=== PATIENT | male | born 1940 | race Caucasian/White ===

== ENCOUNTER 2019-05-15 11:05 | Emergency (ER) | payer OTHER ==
[2019-05-15] MEDS ORDERED: PROMETHAZINE 25 MG/ML VIAL ONE (11:26)
[2019-05-15] MEDS ORDERED: KETOROLAC 30 MG/ML INJ ONE (11:26)
[2019-05-15] MEDS ORDERED: NA CHLORIDE 0.9% 500 ML ONE (11:27)
--- NOTE | 2019-05-15 12:42 | RAD REPORT ---
EXAM DESCRIPTION: RAD - Abdomen Acute Series - 05/15/2019 12:19 pm CLINICAL HISTORY: stone location;Abd pain COMPARISON: Chest Pa And Lat (2 Views) dated 09/26/2018; Abdomen 1 View (KUB) dated 04/03/2018; Chest P a And Lat (2 Views) dated 11/30/2016; Chest Pa And Lat (2 Views) dated 03/28/2016 FINDINGS: Linear subsegmental atelectasis is present in the right lung base. The lungs are clear acu te infiltrate. Cholecystectomy clips noted. No pneumoperitoneum. Nonobstructive bowel-gas pattern seen. Small oblong calculus is seen to the left of the L2 level which is suspicious for a calculus in the left renal pe lvis.
--- NOTE | 2019-05-15 13:19 | ER ---
Nurse's Notes [facility] Name: Lee Hernandez Age: 78 yrs Sex: Male : 1940 Arrival Date: 05/15/2019 Time: 11:06 Bed 19 Private MD: Diagnosis: Lower abdominal pain, unspecified;Kidney stone at L1 location Presentation: 05/15 11:10 Presenting complaint: Patient states: "I was just released from [facility] on aa5 Monday with kidney stones but today the pain is back". Pt c/o pain to left flank radiating to groin. Pt states "I was supposed to see Dr. Bates but the pain is too bad". 11:10 Transition of care: patient was not received from another setting of care. Onset of aa5 symptoms was May 15, 2019. Risk Assessment: Do you want to hurt yourself or someone else? Patient reports no desire to harm self or others. Care prior to arrival: None. 11:10 Acuity: CULLEN 3 aa5 11:10 Method Of Arrival: Ambulatory aa5 11:39 Initial Sepsis Screen: Does the patient meet any 2 criteria? No. Patient's initial rv sepsis screen is negative. Does the patient have a suspected source of infection? No. Patient's initial sepsis screen is negative. Historical: - Allergies: 11:20 No Known Allergies; aa5 - PMHx: 11:20 Kidney stones; Myocardial infarction; Hypertension; Diabetes - NIDDM; Polycythemia Vera;aa5 - Immunization history:: Adult Immunizations up to date. - Ebola Screening: : No symptoms or risks identified at this time. - Social history:: Smoking status: unknown. Screenin:38 Abuse screen: Denies threats or abuse. Denies injuries from another. Nutritional rv screening: No deficits noted. Tuberculosis screening: No symptoms or risk factors identified. Fall Risk None identified. Assessment: 11:38 General: Appears in no apparent distress. uncomfortable, Behavior is calm, cooperative. rv Pain: Complains of pain in back. Neuro: Level of Consciousness is awake, alert, obeys commands, Oriented to person, place, time, situation. Cardiovascular: Patient's skin is warm and dry. Respiratory: Airway is patent. GI: Bowel sounds present X 4 quads. Abd is soft and non tender X 4 quads. : No signs and/or symptoms were reported regarding the genitourinary system. EENT: No signs and/or symptoms were reported regarding the EENT system. Derm: Skin is intact. Musculoskeletal: No signs and/or symptoms reported regarding the musculoskeletal system. 12:40 Reassessment: Patient appears in no apparent distress at this time. Patient and/or hb family updated on plan of care and expected duration. Pain level reassessed. Patient is alert, oriented x 3, equal unlabored respirations, skin warm/dry/pink. Vital Signs: 11:12 BP 150 / 77; Pulse 85; Resp 18 S; Pulse Ox 96% on R/A; aa5 13:24 BP 136 / 89; Pulse 83; Resp 17; Temp 97.8; Pulse Ox 100% ; rv ED Course: 11:06 Patient arrived in ED. as 11:09 Rachel Logan FNP-C [facility]. snw 11:09 Danielito Branham MD is Attending Physician. snw 11:10 Arm band placed on Patient placed in an exam room, on a stretcher. aa5 11:12 Eyal Sky, BENIGNO is Primary Nurse. rv 11:19 Triage completed. aa5 11:37 Inserted saline lock: 22 gauge in right forearm, using aseptic technique. rv 11:38 No provider procedures requiring assistance completed. rv 11:39 Patient has correct armband on for positive identification. Bed in low position. Call rv light in reach. Side rails up X 1. Pulse ox on. NIBP on. 12:16 Abdomen Acute Series XRAY In Process Unspecified. EDMS 13:41 IV discontinued, intact, bleeding controlled, No redness/swelling at site. Pressure rv dressing applied. Administered Medications: 11:37 Drug: NS 0.9% 1000 ml Route: IV; Rate: 125 ml/hr; Site: right forearm; rv 13:25 Follow up: IV Status: Completed infusion; IV Intake: 250ml rv 11:37 Drug: TORadol - Ketorolac 15 mg Route: IVP; Site: right forearm; rv 13:25 Follow up: Response: No adverse reaction; Marked relief of symptoms; Pain is decreased rv 11:37 Drug: Phenergan 6.25 mg Route: IVP; Site: right forearm; rv 13:26 Follow up: Response: No adverse reaction; Marked relief of symptoms rv Intake: 13:25 IV: 250ml; Total: 250ml. rv Outcome: 13:16 Discharge ordered by . shavon 13:25 Discharged to home ambulatory, with family. rv 13:25 Condition: improved 13:25 Discharge instructions given to patient, Instructed on discharge instructions, follow up and referral plans. medication usage, Demonstrated understanding of instructions, follow-up care, medications. 13:41 Prescriptions given X 5 rv 13:41 Patient left the ED. rv Signatures: Dispatcher [employer] EDMS Rachel Logan, STATEMENT CLERK-C STATEMENT CLERK-Csnw Lynsey High Audri RN RN aa5 Kathi Mullins, RN RN Eyal Sky RN RN rv
--- NOTE | 2019-05-15 13:19 | EDPHYS ---
Physician Documentation [facility] Name: Lee Hernandez Age: 78 yrs Sex: Male : 1940 Arrival Date: 05/15/2019 Time: 11:06 Bed 19 Private MD: ED Physician Danielito Branham HPI: 05/15 11:40 This 78 yrs old Male presents to ER via Ambulatory with complaints of snw Possible Kidney Stone. 11:40 Onset: The symptoms/episode began/occurred acutely. Associated signs and symptoms: snw Pertinent positives: constipation, nausea, Pertinent negatives: fever, vomiting. Modifying factors: The patient symptoms are alleviated by nothing. passed kidney stone last week x 2mm, Pt was told there was another 6mm stone. Pt feels he may be passing that. He had an appt with Dr. Bates set for this week but pain was too bad to wait. 11:42 recent admission to [place] for previous kidney stone. snw Historical: - Allergies: 11:20 No Known Allergies; aa5 - PMHx: 11:20 Kidney stones; Myocardial infarction; Hypertension; Diabetes - NIDDM; Polycythemia Vera;aa5 - Immunization history:: Adult Immunizations up to date. - Ebola Screening: : No symptoms or risks identified at this time. - Social history:: Smoking status: unknown. ROS: 11:38 Constitutional: Negative for fever, chills, and weight loss, Eyes: Negative for injury, snw pain, redness, and discharge, ENT: Negative for injury, pain, and discharge, Neck: Negative for injury, pain, and swelling, Cardiovascular: Negative for chest pain, palpitations, and edema, Respiratory: Negative for shortness of breath, cough, wheezing, and pleuritic chest pain, : Negative for injury, bleeding, discharge, and swelling, MS/Extremity: Negative for injury and deformity, Skin: Negative for injury, rash, and discoloration, Neuro: Negative for headache, weakness, numbness, tingling, and seizure. 11:38 Abdomen/GI: Positive for abdominal pain, nausea, vomiting, constipation. 11:38 Back: Positive for flank pain, on the left, radiated pain. Exam: 11:26 Constitutional: This is a well developed, well nourished patient who is awake, alert, snw and in no acute distress. Head/Face: Normocephalic, atraumatic. Eyes: Pupils equal round and reactive to light, extra-ocular motions intact. Lids and lashes normal. Conjunctiva and sclera are non-icteric and not injected. Cornea within normal limits. Periorbital areas with no swelling, redness, or edema. ENT: Nares patent. No nasal discharge, no septal abnormalities noted. Tympanic membranes are normal and external auditory canals are clear. Oropharynx with no redness, swelling, or masses, exudates, or evidence of obstruction, uvula midline. Mucous membranes moist. Neck: Trachea midline, no thyromegaly or masses palpated, and no cervical lymphadenopathy. Supple, full range of motion without nuchal rigidity, or vertebral point tenderness. No Meningismus. Chest/axilla: Normal chest wall appearance and motion. Nontender with no deformity. No lesions are appreciated. Cardiovascular: Regular rate and rhythm with a normal S1 and S2. No gallops, murmurs, or rubs. Normal PMI, no JVD. No pulse deficits. Respiratory: Lungs have equal breath sounds bilaterally, wheezes/crackles to auscultation of bilateral bases. No rales noted. No increased work of breathing, no retractions or nasal flaring. Skin: Warm, dry with normal turgor. Normal color with no rashes, no lesions, and no evidence of cellulitis. MS/ Extremity: Pulses equal, no cyanosis. Neurovascular intact. Full, normal range of motion. Neuro: Awake and alert, GCS 15, oriented to person, place, time, and situation. Cranial nerves II-XII grossly intact. Motor strength 5/5 in all extremities. Sensory grossly intact. Cerebellar exam normal. Normal gait. Psych: Awake, alert, with orientation to person, place and time. Behavior, mood, and affect are within normal limits. 11:26 Abdomen/GI: Inspection: abdomen appears normal, Bowel sounds: normal, Palpation: moderate abdominal tenderness, in the posterior aspect of left lateral abdomen and left lower quadrant. 11:26 Back: pain, that is moderate, of the left low back. Vital Signs: 11:12 BP 150 / 77; Pulse 85; Resp 18 S; Pulse Ox 96% on R/A; aa5 13:24 BP 136 / 89; Pulse 83; Resp 17; Temp 97.8; Pulse Ox 100% ; rv MDM: 11:11 Patient medically screened. snw 12:02 Data interpreted: Pulse oximetry: on room air is 96 %. Interpretation: acceptable. snw Counseling: I had a detailed discussion with the patient and/or guardian regarding: the historical points, exam findings, and any diagnostic results supporting the discharge/admit diagnosis, the presence of at least one elevated blood pressure reading (>120/80) during this emergency department visit, lab results, radiology results. ED course: pt to x-ray per w/c in no distress. 13:31 Data reviewed: vital signs, nurses notes, lab test result(s), radiologic studies. snw Response to treatment: the patient's symptoms have markedly improved after treatment. Special discussion: Based on the patient's Hx, exam, and Dx evaluation, there is no indication for emergent surgery or inpatient Tx. It is understood by the patient/guardian that if the Sx's persist or worsen they need to return immediately for re-evaluation. I have referred the patient to see his PCP for further evaluation of high blood pressure. Based on the history and exam findings, there is no indication for further emergent testing or inpatient evaluation. I discussed with the patient/guardian the need to see the primary care provider for further evaluation of the symptoms. I discussed with the patient/guardian the need to see the urologist for further evaluation of the symptoms. 05/15 11:21 Order name: Abdomen Acute Series XRAY; Complete Time: 12:50 snw Administered Medications: 11:37 Drug: NS 0.9% 1000 ml Route: IV; Rate: 125 ml/hr; Site: right forearm; rv 13:25 Follow up: IV Status: Completed infusion; IV Intake: 250ml rv 11:37 Drug: TORadol - Ketorolac 15 mg Route: IVP; Site: right forearm; rv 13:25 Follow up: Response: No adverse reaction; Marked relief of symptoms; Pain is decreased rv 11:37 Drug: Phenergan 6.25 mg Route: IVP; Site: right forearm; rv 13:26 Follow up: Response: No adverse reaction; Marked relief of symptoms rv Disposition: 05/15/19 13:16 Discharged to Home. Impression: Lower abdominal pain, unspecified, Kidney stone at L1 location. - Condition is Stable. - Discharge Instructions: Abdominal Pain, Adult, Diverticulitis, Hypertension, Kidney Stones. - Prescriptions for Flagyl 500 mg Oral Tablet - take 1 tablet by ORAL route every 12 hours for 7 days; 14 tablet. Flomax 0.4 mg Oral Capsule, Sust. Release 24 hr - take 1 capsule by ORAL route once daily 1/2 hour following the same meal each day; 30 capsule. Cipro 500 mg Oral Tablet - take 1 tablet by ORAL route every 12 hours for 7 days; 14 tablet. Diclofenac Sodium 75 mg Oral Tablet Sustained Release - take 1 tablet by ORAL route 2 times per day; 30 tablet. promethazine 25 mg Oral Tablet - take 1 tablet by ORAL route every 6 hours As needed; 20 tablet. - Medication Reconciliation Form, Thank You Letter, Antibiotic Education, Prescription Opioid Use form. - Follow up: Emergency Department; When: As needed; Reason: Worsening of condition. Follow up: Private Physician; When: 2 - 3 days; Reason: Recheck today's complaints, Continuance of care, Re-evaluation by your physician. Signatures: Dispatcher [employer] EDMS Rachel Logan FNP-C FNP-Summer Montague RN RN aa5 Eyal Sky RN RN rv Corrections: (The following items were deleted from the chart) 11:39 11:26 Constitutional: This is a well developed, well nourished patient who is awake, snw alert, and in no acute distress. Head/Face: Normocephalic, atraumatic. Eyes: Pupils equal round and reactive to light, extra-ocular motions intact. Lids and lashes normal. Conjunctiva and sclera are non-icteric and not injected. Cornea within normal limits. Periorbital areas with no swelling, redness, or edema. ENT: Nares patent. No nasal discharge, no septal abnormalities noted. Tympanic membranes are normal and external auditory canals are clear. Oropharynx with no redness, swelling, or masses, exudates, or evidence of obstruction, uvula midline. Mucous membranes moist. Neck: Trachea midline, no thyromegaly or masses palpated, and no cervical lymphadenopathy. Supple, full range of motion without nuchal rigidity, or vertebral point tenderness. No Meningismus. Chest/axilla: Normal chest wall appearance and motion. Nontender with no deformity. No lesions are appreciated. Cardiovascular: Regular rate and rhythm with a normal S1 and S2. No gallops, murmurs, or rubs. Normal PMI, no JVD. No pulse deficits. Respiratory: Lungs have equal breath sounds bilaterally, clear to auscultation and percussion. No rales, rhonchi or wheezes noted. No increased work of breathing, no retractions or nasal flaring. Skin: Warm, dry with normal turgor. Normal color with no rashes, no lesions, and no evidence of cellulitis. MS/ Extremity: Pulses equal, no cyanosis. Neurovascular intact. Full, normal range of motion. Neuro: Awake and alert, GCS 15, oriented to person, place, time, and situation. Cranial nerves II-XII grossly intact. Motor strength 5/5 in all extremities. Sensory grossly intact. Cerebellar exam normal. Normal gait. Psych: Awake, alert, with orientation to person, place and time. Behavior, mood, and affect are within normal limits. snw 13:41 13:16 05/15/2019 13:16 Discharged to Home. Impression: Lower abdominal pain, rv unspecified; Kidney stone at L1 location. Condition is Stable. Forms are Medication Reconciliation Form, Thank You Letter, Antibiotic Education, Prescription Opioid Use. Follow up: Emergency Department; When: As needed; Reason: Worsening of condition. Follow up: Private Physician; When: 2 - 3 days; Reason: Recheck today's complaints, Continuance of care, Re-evaluation by your physician. snw
== END 2019-05-15 13:41 | disposition home or self-care (01) ==
LOC: ER 11:05
DX: N20.0 Calculus of kidney (principal); I10 Essential (primary) hypertension; Z87.442 Personal history of urinary calculi
CPT/HCPCS: 74022; J2550; 96361; 96374; 96375; 99284

== ENCOUNTER 2019-05-22 16:26 | Inpatient (IN) | payer OTHER ==
[2019-05-22] MEDS ORDERED: ACETAMINOPHEN 500 MG TAB PO PRN (17:15)
[2019-05-22] MEDS ORDERED: ONDANSETRON 4 MG/2 ML VIAL IV PRN (17:15)
[2019-05-22] MEDS ORDERED: MORPHINE 2 MG/ML SYR IV PRN (17:15)
[2019-05-22 17:19] VITALS: BMI 29.5
[2019-05-22 17:58] LABS: Absolute Lymphocytes (CBC) 0.7 K/uL (0.7-4.9); Basophils % 1.4 % (0-1.3); Hematocrit 38.5 % (39.6-49.0); Lymphocytes % 4.2 % (15.3-44.8); MPV 9.3 fL (7.6-11.3); RBC Red Blood Cell Count 4.29 M/uL (4.33-5.43)
[2019-05-22] MEDS ORDERED: CEFTRIAXONE/SWI 1gm 1 GM/10 ML SYR IVP ONE (18:00)
--- NOTE | 2019-05-22 18:03 | RAD REPORT ---
EXAM DESCRIPTION: RAD - Chest Single View - 05/22/2019 5:56 pm CLINICAL HISTORY: cough Chest pain. COMPARISON: Abdomen 1 View (KUB) dated 05/22/2019; Abdomen Acute Series dated 05/15/2019; Chest Pa And Lat (2 Views) dated 09/26/2018; Abdomen 1 View (KUB) dated 04/03/2018 FINDINGS: Portable technique limits examination quality. Mild linear atelectasis is present in the right lung base. The lungs are otherwise clear. The heart i s normal in size. No displaced fractures.
[2019-05-22 18:04] LABS: Protime INR 1.18
[2019-05-22 18:20] LABS: Urine White Blood Cell Casts OK
[2019-05-22 18:21] LABS: Blood Morphology Comment NOT SEEN (NOT SEEN); Platelet Estimate INCR
[2019-05-22 18:23] LABS: Albumin 3.5 g/dL (3.4-5.0); Bilirubin Total 0.5 mg/dL (0.2-1.0); Magnesium 2.2 mg/dL (1.8-2.4); Phosphorus 3.2 mg/dL (2.5-4.9); Potassium 4.2 mmol/L (3.5-5.1); Protein, Total 6.6 g/dL (6.4-8.2)
[2019-05-22] MEDS: NA CHLORIDE 0.9% 1,000 ML IV SCH (19:12)
[2019-05-22] MEDS ORDERED: NA CIT/CITRIC AC 30 ML ORAL UDC ONE (19:56)
[2019-05-22] MEDS ORDERED: SUCCINYLCHOLINE 20 MG/ML (10 ML) IV ONE (20:02)
[2019-05-22] MEDS ORDERED: Phenylephrine HCl 10 MG/ML 1 ML VIAL ONE (20:05)
[2019-05-22] MEDS ORDERED: PROPOFOL 200 MG/20 ML VIAL IV ONE (20:05)
[2019-05-22] MEDS ORDERED: LIDOCAINE 1% MPF 5 ML VIAL ONE (20:05)
[2019-05-22] MEDS ORDERED: FENTANYL CITR 100 MCG/2 ML ONE (20:19)
[2019-05-22] MEDS ORDERED: GLYCOPYRROLATE 0.2 MG/ML SYR ONE (20:24)
[2019-05-22] MEDS ORDERED: dexAMETHasone 10 MG/ML VIAL ONE (20:26)
[2019-05-22] MEDS ORDERED: TAMSULOSIN 0.4 MG SR CAP PO SCH (21:00)
[2019-05-22] MEDS ORDERED: NA CHLORIDE 0.9% 1,000 ML ONE (21:18)
[2019-05-22] MEDS ORDERED: ONDANSETRON 4 MG/2 ML VIAL ONE (21:35)
[2019-05-22] MEDS ORDERED: HYDRALAZINE HCL 20 MG/ML VIAL ONE (21:42)
[2019-05-22 22:45] LABS: Urine Appearance TURBID; Urine Bilirubin NEGATIVE (NEG); Urine Blood 3+ (NEG); Urine Color YELLOW; Urine Glucose 2+ (NEG); Urine Protein 1+ (NEG); Urine Specific Gravity 1.015 (1.005-1.030); Urine Urobilinogen 0.2 mg/dL (0.2-1.0)
[2019-05-22] MEDS: OXYBUTYNIN CHLORIDE 5 MG TAB PO SCH (22:54)
[2019-05-22] MEDS: INSULIN -REGULAR HUMAN 50 UNIT/0.5 ML ML SQ SCH (22:55)
[2019-05-22 23:19] LABS: Urine Bacteria <20 /HPF (NONE SEEN); Urine Culture Reflex Order NOT NEEDED; Urine RBC 20-50 /HPF (NONE SEEN)
--- NOTE | 2019-05-23 02:52 | HP ---
Date of Admission: 05/22/2019 Primary Care Physician: Nash Conde DO Consultants: Dr. Bates with Urology and Dr. Alejandre with Nephrology. Chief Complaint: Direct admit for nephrolithiasis, hydronephrosis, and acute kidney injury. History Of Present Illness: The patient is a 78-year-old male with past medical history of hypertension, hyperlipidemia, diabetes, coronary artery disease status post TN and stent, polycythemia vera on treatment, BPH, who was recently at [facility] approximately 1 week ago, was found to have kidney stone and passed a couple of smaller stones, was then released, came back again on the 28 to our facility's ER, was found to have diverticulitis, discharged with Cipro and Flagyl. The patient subsequently has seen his primary care physician, Dr. Conde. His lab showed worsening of his kidney function, therefore was sent over to urologist, Dr. Bates. The patient had a CT scan, which showed left hydronephrosis and 6 stones in the left ureter. Therefore, was referred for admission for further evaluation and management. The patient' s symptoms are constant, moderate, progressively worsening. Reports some pain on the left side. No nausea or vomiting. No fevers or chills. When seen on the floor, patient was awake, alert, oriented x3, not in any acute distress. Past Medical History: Hypertension; hyperlipidemia; diabetes mellitus type 2, noninsulin-requiring; BPH; coronary artery disease status post stent; polycythemia vera, on treatment, squamous cell carcinoma Past Surgical History: Cholecystectomy, TURP and radiation to the jaw for skin cancer. Allergies: NO KNOWN DRUG ALLERGIES. Medications: List reviewed. Social History: Patient smoked a long time ago, quit in the 60s. No alcohol use or illicit drug use. Patient is , has a daughter. Independent in his activities of daily living. Does not use any assistive ambulatory devices. Family History: Brother had heart disease. Parents also of heart disease. Two sisters of breast cancer. Review of Systems: Ten-point system reviewed, negative except as per HPI. Physical Examination: Vital Signs: Temperature 97.1, heart rate 83, blood pressure 168/74, respirations 16, O2 94% on room air. General: Awake, alert, oriented x3, not in any acute distress. Elderly male. HEENT: Normocephalic, atraumatic. PERRLA. EOMI. Moist mucous membranes. Oropharynx is clear. Normal dentition for age. Neck: Supple. No JVD. Trachea midline. CV: S1, S2. Regular rate and rhythm. Peripheral pulses present. Respiratory: Moving air well bilaterally. No wheezing or stridor. No use of accessory muscles. Gastrointestinal: Abdomen is soft, nontender, nondistended. Positive bowel sounds. The patient has minimal left flank tenderness. No right flank tenderness. Extremities: No clubbing, cyanosis, or edema. No calf tenderness. Neurologic: Cranial nerves 2-12 intact grossly. No focal neurological deficit. Speech is normal. Strength is symmetric in bilateral upper and lower extremities. Skin: No rashes, normal skin turgor. Psych: Mood is okay. Affect is full. Insight and judgment are good. Laboratory Data: Pending. Imaging Studies: KUB x-ray personally reviewed shows clustered calcifications in the distal left ureter seen in the CT study, radiographically occult calcification or calcification cluster at lower pole of left kidney, also radiographically occult calcification along the medial aspect of each renal hilum are showing to be vascular in origin on the CT study. CT scan of the abdomen, stone protocol, shows mild to moderate left-sided hydronephrosis secondary to cluster of 3-6 mm sized calcifications collecting along a 3 cm length of the distal left ureter, single 14 mm stone or clustered stones in the lower pole nargis of the left kidney. Both kidneys have medial hilar calcifications that are vascular in origin. A new 11 mm calcification is seen within the central aspect of the enlarged prostate gland, new from 2015. This is potentially calcification from the bladder collecting in a dilated prostatic urethra if the patient has had a TURP or similar procedure. Stable splenomegaly. Isodense masses and pyelonephritis not excluded on stone protocol technique. Assessment: A 78-year-old male with: 1. Acute kidney injury likely secondary to hydronephrosis and secondary to nephrolithiasis. We will continue with IV fluids, avoid NSAIDs. We will consult editor newspaper. The patient was scheduled to see Dr. Alejandre in a.m. The patient's baseline kidney function was normal in March 2019. 2. Ureterolithiasis. The patient has multiple stones on CT scan. We will start on IV antibiotics with Rocephin, obtain urinalysis and culture. Dr. Bates with Urology has been consulted. Plan is for cystoscopy today with stent placement. We will keep n.p.o., start on IV fluids. We will provide IV analgesia. Start on Ditropan for spasms and Flomax. 3. Essential hypertension, stable. He will resume home medications as appropriate. 4. Diabetes mellitus type 2, noninsulin-requiring with hyperglycemia. We will start on sliding scale insulin and monitor blood glucose levels. 5. Mixed hyperlipidemia. Continue statin. 6. Benign prostatic hypertrophy. Continue Flomax. 7. Coronary artery disease, alturas artery, alturas heart, status post stent. Patient has had recent stress test [id number] ago. Clear for surgery. 8. Polycythemia vera. The patient is on chemotherapy. Does have splenomegaly seen on CT scan. Follows with local demand planning analyst. 9. Deep venous prophylaxis with SCDs. No chemical anticoagulation due to procedure. Plan: Admit patient to Med-Surg, place as inpatient. Length of stay greater than 2 midnights. BRANDON Voice ID: [id number] MTDD
[2019-05-23] MEDS: NA CHLORIDE 0.9% 1,000 ML IV SCH ×2 (05:28→16:30)
[2019-05-23 05:33] LABS: Absolute Lymphocytes (CBC) 0.4 K/uL (0.7-4.9); Basophils % 1.3 % (0-1.3); Hematocrit 40.6 % (39.6-49.0); Lymphocytes % 2.1 % (15.3-44.8); RBC Red Blood Cell Count 4.48 M/uL (4.33-5.43)
[2019-05-23 05:50] LABS: Albumin 3.4 g/dL (3.4-5.0); Bilirubin Total 0.5 mg/dL (0.2-1.0); Potassium 5.5 mmol/L (3.5-5.1); Protein, Total 6.4 g/dL (6.4-8.2)
--- NOTE | 2019-05-23 08:08 | RAD REPORT ---
EXAM DESCRIPTION: RAD - Cystography - 05/22/2019 9:51 pm CLINICAL HISTORY: ICD N 20.0 FINDINGS: Fluoroscopy time 1 minutes 6 seconds. Six fluoroscopic spot images obtained Left ureter was cannulated and contrast administered. Subsequently a left ureteral stent was placed. Examination was performed by
[2019-05-23] MEDS: OXYBUTYNIN CHLORIDE 5 MG TAB PO SCH ×2 (08:09→20:59)
[2019-05-23] MEDS: INSULIN -REGULAR HUMAN 50 UNIT/0.5 ML ML SQ SCH ×4 (08:09→21:03)
[2019-05-23] MEDS ORDERED: DOCUSATE NA 100 MG CAP PO PRN (08:13)
[2019-05-23] MEDS ORDERED: CEFTRIAXONE/SWI 1gm 1 GM/10 ML SYR IVP SCH (09:00)
[2019-05-23] MEDS: HOME MED 1 EA UNK (Linagliptin [Tradjenta] 5 MG) PO SCH (09:00)
[2019-05-23] MEDS: RUXOLITINIB PHOSPHATE 5 MG PO SCH (09:00)
[2019-05-23] MEDS ORDERED: PHENOL 1.4% ORAL SPRAY 180ML MM PRN (09:43)
[2019-05-23 09:54] LABS: Blood Morphology Comment NOTED (NOT SEEN); Platelet Estimate INCR
[2019-05-23 09:55] LABS: Anisocytosis 1+; Poikilocytosis 1+
[2019-05-23] MEDS ORDERED: SOD POLYSTYREN SUL 15 GM/60 ML UCUP PO ONE (10:22)
[2019-05-23] MEDS: CARVEDILOL 12.5 MG TAB PO SCH ×2 (10:32→21:03)
[2019-05-23] MEDS: ASPIRIN EC 325 MG TABLET PO SCH (10:33)
[2019-05-23] MEDS ORDERED: CEFEPIME/SWI 2gm 2 GM/20 ML SYR IV ONE (10:45)
--- NOTE | 2019-05-23 11:40 | EKG ---
Test Date: 2019-05-22 Test Time: 17:41:21 Photo Mask Processor: CONI MEASUREMENT RESULTS: Intervals: Rate: 81 NE: 156 QRSD: 94 QT: 376 QTc: 436 [place]: P: 28 NE: 156 QRS: 14 T: 65 INTERPRETIVE STATEMENTS: Normal sinus rhythm Nonspecific T wave abnormality Abnormal ECG Compared to ECG 01/31/2017 14:32:47 T-wave abnormality now present Electronically Signed On 05-23-19 11:39:27 CDT by Jonathan Hernandez
--- NOTE | 2019-05-23 11:45 | RAD REPORT ---
EXAM DESCRIPTION: CT - Abdomen Pelvis Wo Contrast - 05/23/2019 10:09 am CLINICAL HISTORY: Abdominal pain. Check for kidney stones COMPARISON: Stone Protocol dated 05/22/2019 TECHNIQUE: CT imaging of the abdomen and pelvis was performed without contrast. Solid organ, bowel a nd vascular assessment is limited due to lack of IV and oral contrast. All CT scans are performed using dose optimization technique as appropriate and may include automated exposure control or mA/KV adjustment according to patient size. FINDINGS: The lower lung odonnell are clear. The liver contains a small low-density lesion in the dome measuring 13 mm. No aggressive liver lesion or biliary dilatation. The gallbladder surgically absent.Spleen is mildly enlarged. The pancreas and adrenal glands are normal. The right kidney shows no stone or hydronephrosis. The left kidney demonstrates a double-J stent is in place. Small collection of stones is seen in the inferior calyx left kidney in totality measuring approximately 10 mm and appearing fragmented. A ston e along the course of the stent is not noted. No bowel obstruction, free air, free fluid or abscess. Ohara catheter is present in the urinary bladd er. The appendix is normal. Moderate lumbar degenerative changes are present.Aortic atherosclerosis. IMPRESSION: Left double-J stent is in place in expected positioning. Small fragmented collection of calculi noted inferior calyx left kidney. A limited non-contrast examination was performed as detailed.
--- NOTE | 2019-05-23 12:17 | PN ---
Date of Progress Note: 05/23/2019 Patient was seen and examined. Chart reviewed and case discussed with RN and Dr. Bates. The patient tolerated procedure well yesterday, asking to have the Ohara catheter removed. The patient has not started using the incentive spirometer. Does report some cough. Family at the bedside. Treatment p rani explained. All questions answered. Medications: List reviewed. Physical Examination: Vital Signs: Temperature 98.1, heart rate 85, blood pressure 144/67, respirations 16, O2 at 93% on r oom air. General: Awake, alert, oriented x3. Elderly male, not in any acute distress. CV: S1, S2. Regular rate, and rhythm. Peripheral pulses present. Respiratory: Moving air well bilaterally. No wheezing or stridor. No use of accessory muscles. Gastrointestinal: Abdomen is soft, nontender, nondistended. Positive bowel sounds. No flank tender ness. Extremities: No clubbing, cyanosis, or edema. Neurologic: Nonfocal. Laboratory Data: Sodium 138, potassium 5.5, chloride 105, CO2 is 27, BUN 33, creatinine 2.21, glucos e 322, calcium 9.1. WBC 20.5, H and H 13.2 and 40.6, platelets 456, neutrophils 92%, 1% band. Urine culture pending. Repeat abdomen CT is pending. Assessment And Plan: A 78-year-old male with: 1.Acute kidney injury secondary to hydronephrosis and nephrolithiasis. Creatinine is improved. We will continue with IV fluids. Nephrology has been consulted. 2.Ureterolithiasis, status post stent and stone removal by Dr. Bates last night. Repeat CT scan is pending. We will continue with IV fluids. Patient's urine culture is pending. WBC count has jumped up to 20,000. We will adjust IV antibiotics. Continue with IV analgesia and Flomax. 3.Essential hypertension, stable. 4.Hyperkalemia. We will treat with Kayexalate and monitor likely secondary to acute kidney injury. 5.Diabetes mellitus type 2 vpc-rgqnelm-buwooabcx with hyperglycemia. Continue sliding scale insulin and monitor blood glucose levels. We will adjust sliding scale insulin, too aggressive. 6.Right lower lobe atelectasis. We will continue as per incentive spirometer. 7.Mixed hyperlipidemia. Continue statin. 8.Benign prostatic hypertrophy. Continue Flomax. The patient has had multiple procedures for his p rostate. 9.Coronary artery disease of [place] artery and [place] heart status post stent. We will resume aspir in. 10.Polycythemia vera. Continue chemotherapy. 11.Deep venous thrombosis prophylaxis. We will start on Lovenox 24 hours postprocedure. Plan: Follow up on cultures. Adjust IV antibiotics and sliding scale insulin. We will initiate PT consultation. /DARLYN Voice ID: [id number] Report ID: [id number]
--- NOTE | 2019-05-23 15:59 | P.CNS ---
Date of Consult: 05/23/19 Reason for Consult: TAYLOR Requesting Physician: Romero Reese Chief Complaint: Nephrolithiasis & hydronephrosis with TAYLOR History of Present Illness: The patient is a 78-year-old male with past medical history of hypertension, hyperlipidemia, diabetes, coronary artery disease status post [place] and stent, polycythemia vera on treatment, BPH, who was recently at [facility] approximately 1 week ago, was found to have kidney stone and passed a couple of smaller stones, was then released, came back again on the 28 to our facility's ER, was found to have diverticulitis, discharged with Cipro and Flagyl. The patient subsequently has seen his primary care physician, Dr. Conde. His lab showed worsening of his kidney function, therefore was sent over to urologist, Dr. Bates. The patient had a CT scan, which showed left hydronephrosis and 6 stones in the left ureter. Therefore, was referred for admission for further evaluation and management. The patient's symptoms are constant, moderate, progressively worsening. Reports some pain on the left side. No nausea or vomiting. No fevers or chills. Allergies No Known Allergies Allergy (Verified 01/31/17 14:20) Home medications list reviewed: Yes Home Medications: Lansoprazole 15 mg PO DAILY 01/31/17 Metformin HCl [Glucophage] 500 mg PO DAILY 01/31/17 Aspirin Enteric Coated [Ecotrin] 325 mg PO DAILY 05/22/19 Atorvastatin Calcium [Lipitor] 40 mg PO BEDTIME 05/22/19 Carvedilol [Coreg] 12.5 mg PO BID 05/22/19 Ciprofloxacin HCl [Cipro 500 MG Tablet] 500 mg PO DAILY 05/22/19 Diclofenac Na [Voltaren D.R] 75 mg PO BID 05/22/19 Docusate [Colace Cap] 100 mg PO BID PRN 05/22/19 Linagliptin [Tradjenta] 5 mg PO DAILY 05/22/19 Potassium Citrate [Urocit-K] 15 meq PO DAILY 05/22/19 Promethazine HCl 25 mg PO DAILY PRN 05/22/19 Ruxolitinib Phosphate [Jakafi] 5 mg PO DAILY 05/22/19 Tamsulosin [Flomax] 0.4 mg PO BEDTIME 05/22/19 metroNIDAZOLE [Flagyl] 500 mg PO DAILY 05/22/19 - Past Medical/Surgical History Diabetic: Yes -: diabetes -: htn -: hyperlipidemi -: stents -: polycythemi vera -: kidney stones -: stents - Social History Smoking Status: Unknown if ever smoked Place of Residence: Home Review of Systems 10-point ROS is otherwise unremarkable General: Weakness, Malaise Gastrointestinal: Constipation Neurological: Weakness Physical Examination Temp Pulse Resp BP Pulse Ox 97.3 F 73 16 111/55 L 99 05/23/19 12:00 05/23/19 12:00 05/23/19 12:00 05/23/19 12:00 05/23/19 12:00 General: In no apparent distress, Oriented x3, Cooperative HEENT: Atraumatic Neck: Supple Respiratory: Clear to auscultation bilaterally Cardiovascular: No edema, Regular rate/rhythm Gastrointestinal: Soft and benign, Non-distended Musculoskeletal: No clubbing, No contractures Integumentary: No rashes, No cyanosis Neurological: Normal speech Laboratory Data (last 24 hrs) 05/23/19 05:16: Sodium 138, Potassium 5.5 H, BUN 33 H, Creatinine 2.21 H, Glucose 322 H, Total Bilirubin 0.5, AST 7 L, ALT 14, Alkaline Phosphatase 83 05/23/19 05:16: WBC 20.5 H* D, Hgb 13.2 L, Hct 40.6, Plt Count 456 H 05/22/19 17:30: Uric Acid 8.3 H 05/22/19 17:30: Sodium 140, Potassium 4.2, BUN 38 H, Creatinine 2.87 H, Glucose 329 H, Phosphorus 3.2, Magnesium 2.2, Total Bilirubin 0.5, AST 8 L, ALT 15, Alkaline Phosphatase 82 05/22/19 17:30: PT 13.8 H, INR 1.18 05/22/19 17:30: WBC 16.4 H, Hgb 13.1 L, Hct 38.5 L, Plt Count 530 H Imagings Data: EXAM DESCRIPTION: RAD - Chest Single View - 05/22/2019 5:56 pm CLINICAL HISTORY: cough Chest pain COMPARISON: Abdomen 1 View (KUB) dated 05/22/2019; Abdomen Acute Series dated ; Chest Pa And Lat (2 Views) dated 09/26/2018; Abdomen 1 View (KUB) dated FINDINGS: Portable technique limits examination quality. Mild linear atelectasis is present in the right lung base. The lungs are otherwise clear. The heart is normal in size. No displaced fractures. EXAM DESCRIPTION: CT - Abdomen Pelvis Wo Contrast - 05/23/2019 10:09 am CLINICAL HISTORY: Abdominal pain. Check for kidney stones COMPARISON: Stone Protocol dated 05/22/2019 TECHNIQUE: CT imaging of the abdomen and pelvis was performed without contrast. Solid organ, bowel and vascular assessment is limited due to lack of IV and oral contrast. All CT scans are performed using dose optimization technique as appropriate and may include automated exposure control or mA/KV adjustment according to patient size. FINDINGS: The lower lung odonnell are clear. The liver contains a small low-density lesion in the dome measuring 13 mm. No aggressive liver lesion or biliary dilatation. The gallbladder surgically absent.Spleen is mildly enlarged. The pancreas and adrenal glands are normal. The right kidney shows no stone or hydronephrosis. The left kidney demonstrates a double-J stent is in place. Small collection of stones is seen in the inferior calyx left kidney in totality measuring approximately 10 mm and appearing fragmented. A stone along the course of the stent is not noted. No bowel obstruction, free air, free fluid or abscess. Ohara catheter is present in the urinary bladder. The appendix is normal. Moderate lumbar degenerative changes are present.Aortic atherosclerosis. IMPRESSION: Left double-J stent is in place in expected positioning. Small fragmented collection of calculi noted inferior calyx left kidney. A limited non-contrast examination was performed as detailed. Conclusions/Impression: A/ TAYLOR in the setting of obstructive uropathy. Nephrolithiasis (Uric Acid). Hyperuricemia. Proteinuria. Hyperkalemia. HTN. DM II. Polycythemia vera. Leukocytosis. P/ Continue current POC and Medications. Continue IVF. Start Allopurinol 100mg daily and titrate as tolerated. Kayexalate as ordered. Lactulose X1 for constipation. Hold metformin. Consider restarting Jakafi. Titrate insulin as needed. No NSAIDs. AM labs. Daily weight. Thank you kindly for the consultation.
[2019-05-23] MEDS ORDERED: LACTULOSE 20 GM/30 ML UCUP PO ONE (19:22)
[2019-05-23] MEDS: ALLOPURINOL 100 MG TAB PO SCH (20:58)
[2019-05-23] MEDS: TAMSULOSIN 0.4 MG SR CAP PO SCH (20:59)
[2019-05-23] MEDS ORDERED: ATORVASTATIN 40 MG TAB PO SCH (21:00)
--- NOTE | 2019-05-23 21:08 | PN ---
Subjective: Patient is feeling well. His Ohara catheter is out. CT scan showed no more stone passe d in the ureter. There is some fragmented stone in the left lower pole. Stent is in good position. His white count was elevated at 20,500 up from 16,000 yesterday. He says he normally has polycythem ia vera and also it has been high, but I saw a low of 9.3 back in February 04, 2019. The renal function i s about the same. GFR is 29. Creatinine is 2.2. It is down from 2.9 approximately when GFR still l ow. Plan: My plan is to leave the stent in for a month and then remove that in the office. Patient may be discharged tomorrow if stable. JIAN/DARLYN Voice ID: [id number] Report ID: [id number]
[2019-05-23 21:46] VITALS: O2SAT 96
[2019-05-23 23:04] LABS: Urine Appearance CLOUDY; Urine Bilirubin NEGATIVE (NEG); Urine Blood 3+ (NEG); Urine Color YELLOW; Urine Glucose 3+ (NEG); Urine Protein 2+ (NEG); Urine Urobilinogen 0.2 mg/dL (0.2-1.0); Urine pH 5.5 (5.0-7.0)
[2019-05-23 23:30] LABS: Urine Bacteria <20 /HPF (NONE SEEN); Urine Culture Reflex Order NOT NEEDED; Urine RBC >50 /HPF (NONE SEEN)
[2019-05-24 00:12] LABS: UR MICROALBUMIN 64.4 mg/dL (< 1.9)
[2019-05-24] MEDS: NA CHLORIDE 0.9% 1,000 ML IV SCH ×2 (00:15→08:41)
[2019-05-24 05:44] LABS: Absolute Lymphocytes (CBC) 0.6 K/uL (0.7-4.9); Basophils % 1.5 % (0-1.3); Hematocrit 39.1 % (39.6-49.0); Lymphocytes % 4.7 % (15.3-44.8); MPV 9.3 fL (7.6-11.3); RBC Red Blood Cell Count 4.33 M/uL (4.33-5.43)
[2019-05-24 05:58] LABS: Albumin 3.6 g/dL (3.4-5.0); Bilirubin Total 0.5 mg/dL (0.2-1.0); Potassium 4.6 mmol/L (3.5-5.1); Protein, Total 6.6 g/dL (6.4-8.2); Uric Acid 6.6 mg/dL (3.5-7.2)
[2019-05-24] MEDS ORDERED: PANTOPRAZOLE 40MG TABLET PO SCH (06:30)
[2019-05-24] MEDS: HOME MED 1 EA UNK (Linagliptin [Tradjenta] 5 MG) PO SCH (07:28)
[2019-05-24] MEDS: INSULIN -REGULAR HUMAN 50 UNIT/0.5 ML ML SQ SCH (08:46)
[2019-05-24] MEDS: CARVEDILOL 12.5 MG TAB PO SCH (08:46)
[2019-05-24] MEDS: RUXOLITINIB PHOSPHATE 5 MG PO SCH (08:47)
[2019-05-24] MEDS: TAMSULOSIN 0.4 MG SR CAP PO SCH (08:47)
[2019-05-24] MEDS: ASPIRIN EC 325 MG TABLET PO SCH (08:48)
[2019-05-24] MEDS: ALLOPURINOL 100 MG TAB PO SCH (08:49)
[2019-05-24] MEDS: OXYBUTYNIN CHLORIDE 5 MG TAB PO SCH (08:49)
[2019-05-24 11:22] VITALS: BP 179/74; TEMP 98.3
--- NOTE | 2019-05-25 06:33 | DS ---
Date of Discharge: 05/24/2019 Consultants: 1.Dr. Bates with Urology. 2.Dr. Alejandre with Nephrology. Procedures: On 05/23/2019, cystoscopy; retrograde ureteroscopy; left ureter dilatation; electrohydra ulic lithotripsy; stone basket stent insertion, left ureter; removal of bladder stone and left ureter stone. Admitting Diagnoses: 1.Acute kidney injury. 2.Ureterolithiasis on the left. 3.Hydronephrosis, left kidney. 4.Essential hypertension. 5.Diabetes mellitus type 2, aym-bkzhijy-fddutwnmg with hyperglycemia. 6.Mixed hyperlipidemia. 7.Benign prostatic hypertrophy. 8.Coronary artery disease, [place] artery and [place] heart, status post stent. 9.Polycythemia vera. 10.History of squamous cell carcinoma of the face, undergoing radiation treatment. Discharge Diagnoses: 1.Acute kidney injury secondary to hydronephrosis and nephrolithiasis, improving. 2.Ureterolithiasis, status post stent placement and stone removal. 3.Hydronephrosis of the left kidney, improving. 4.Essential hypertension, stable. 5.Hyperkalemia, corrected. 6.Diabetes mellitus type 2, trx-romeibz-ftjvrpgct with hyperglycemia. 7.Right lower lobe atelectasis. 8.Mixed hyperlipidemia, on statin. 9.Benign prostatic hypertrophy, on Flomax. 10.Coronary artery disease, [place] artery and [place] heart, status post stent, stable. 11.Polycythemia vera, stable. Follows with cattle broker. 12.Squamous cell carcinoma of the face, undergoing radiation treatment. Hospital Course: Patient is a 78-year-old male with past medical history of coronary artery disease, status post stent, diabetes, hypertension, hyperlipidemia, polycythemia vera, on Jakafi chemotherapy oral treatment and radiation treatment for his squamous cell carcinoma on the face, who was brought in to the hospital directly by Dr. Bates for kidney stone. Patient had suffered hydronephrosis and a cute kidney injury. Patient's creatinine was elevated at 2.87. Baseline was normal. Patient was se en by Dr. Bates with Urology, who performed the procedure as mentioned above and stones were removed. Stent was placed as well. Patient will have the stent in for approximately 1 month and will be on daily Keflex. He is to follow up with Dr. Bates in 1 month for stent removal. Patient does have stephanie ign prostatic hypertrophy and is on Flomax and will be given Ditropan for muscle spasms. Patient did have some electrolyte abnormalities including hyperkalemia. Dr. Alejandre, patient's assembler faucets was consulted. Patient did well, responded well to IV fluids and repeat CT scan showed left double-J st ent in place, small fragment collection of calculi near the inferior calyx of the left kidney. Liver has a low-density lesion in the dome measuring 13 mm. No aggressive liver lesion or biliary tree di latation was seen. Patient did well. It should be noted that on the day of discharge, the patient l eft to go for his Dermatology appointment without informing any of the staff. However, patient did r eturn his kidney stone analysis from [place], where he has previously passed the stone showed uric a miriam stone. Currently, his levels were elevated. He was started on allopurinol. Patient was then cl eared for discharge and was sent home in a stable condition. Activity: As tolerated. Medications: As per medication reconciliation list. He is to discontinue the antibiotics. He was g rosendo previously. Do not take any further potassium supplementation. The patient is to start on Kefl ex daily prophylaxis for a month until stent is removed. He will be on allopurinol for his uric acid elevation and stone. He is counseled to decrease red meat and red wine consumption. Followup: Follow up with primary care physician in 2 to 3 days. Follow up with urologist, Dr. Bates , in 1 month. Follow up with assembler faucets, Dr. Alejandre, in 2 weeks. Repeat BMP in 1 week. Diet: Diabetic. Activity: As tolerated. Physical Examination: General: Awake, alert, oriented x3. Elderly male. CV: S1, S2. No murmurs. Respiratory: Moving air well bilaterally. Abdomen: Soft, nontender, nondistended. No flank pain. Extremities: No clubbing, cyanosis, edema. Neurologic: Nonfocal. Time Spent: Total time spent discharging the patient was 36 minutes. BRANDON Voice ID: [id number] Report ID: [id number]
== END 2019-05-24 11:21 | disposition home or self-care (01) | DRG 660 ==
LOC: 2ND 16:58
PROVIDERS: ADMIT Family Medicine; ATTEND Family Medicine
PROC: 0T778DZ Dilation of Left Ureter with Intraluminal Device, Via Natural or Artificial Opening Endoscopic (ICD-10-PCS; 2019-05-22)
PROC: 0TC78ZZ Extirpation of Matter from Left Ureter, Via Natural or Artificial Opening Endoscopic (ICD-10-PCS; principal; 2019-05-22 20:00)
DX: N13.2 Hydronephrosis with renal and ureteral calculous obstruction (principal); J98.11 Atelectasis; N17.9 Acute kidney failure, unspecified; I10 Essential (primary) hypertension; E11.65 Type 2 diabetes mellitus with hyperglycemia; E78.2 Mixed hyperlipidemia; N40.0 Benign prostatic hyperplasia without lower urinary tract symptoms; I25.10 Atherosclerotic heart disease of native coronary artery without angina pectoris; Z95.5 Presence of coronary angioplasty implant and graft; D45 Polycythemia vera; E87.5 Hyperkalemia; C44.320 Squamous cell carcinoma of skin of unspecified parts of face
CPT/HCPCS: 36415; 51600; 71045; 74018; 74176; 74430; 76377; 80053; 80061; 81001; 82043; 82360; 82570; 82962; 83615; 83735; 84100; 84132; 84550; 85025; 85610; 87086; 87088; 88300; 93005; 94760; J0330; J0360; J0692; J0696; J1100; J2370; J2405; J2704; J3010; J7030

== ENCOUNTER 2020-08-17 12:32 | Inpatient (IN) | payer OTHER ==
[2020-08-17] MEDS ORDERED: GLUCAGON 1 MG/VIAL IM PRN (13:06)
[2020-08-17] MEDS ORDERED: D50W 25 GM/50 ML SYRINGE IV PRN (13:06)
[2020-08-17 13:21] VITALS: BMI 28.4
[2020-08-17 13:53] LABS: Absolute Lymphocytes (CBC) 0.6 K/uL (0.7-4.9); Basophils % 0.7 % (0-1.3); Hematocrit 35.7 % (39.6-49.0); Lymphocytes % 3.9 % (15.3-44.8); MPV 9.6 fL (7.6-11.3); RBC Red Blood Cell Count 4.04 M/uL (4.33-5.43)
[2020-08-17 14:13] LABS: Albumin 3.9 g/dL (3.4-5.0); Bilirubin Total 0.6 mg/dL (0.2-1.0); Magnesium 2.3 mg/dL (1.8-2.4); Potassium 3.8 mmol/L (3.5-5.1); Protein, Total 6.7 g/dL (6.4-8.2); Thyroid Stimulating Hormone 1.66 uIU/mL (0.360-3.740)
--- NOTE | 2020-08-17 14:32 | RAD REPORT ---
EXAM DESCRIPTION: RAD - Barium Swallow Modified - 08/17/2020 2:25 pm CLINICAL HISTORY: CVA FINDINGS: Oropharyngeal phase of swallowing appears normal No supraglottic penetration/aspiration No pooling of contrast in the valleculae/piriform sinus. Nine fluoroscopic spot series obtained Fluoroscopy time 1.4 minutes
--- NOTE | 2020-08-17 14:41 | RAD REPORT ---
EXAM DESCRIPTION: Martha Garza (2 Views)08/17/2020 2:25 pm CLINICAL HISTORY: CVA COMPARISON: 2019 FINDINGS: The lungs appear clear of acute infiltrate. The heart is normal size IMPRESSION: No acute abnormalities displayed
--- NOTE | 2020-08-17 14:48 | RAD REPORT ---
EXAM DESCRIPTION: CT - Head Brain Wo Cont - 08/17/2020 1:53 pm CLINICAL HISTORY: stroke, slurred speech COMPARISON: Head Brain Wo Cont dated 07/01/2019 TECHNIQUE: Axial 5 mm thick images of the head were obtained without IV contrast. All CT scans are performed using dose optimization technique as appropriate and may include automated exposure control or mA/KV adjustment according to patient size. FINDINGS: No intracranial hemorrhage, mass, edema or shift of mid-line structures. No acute cortical based infarction seen. No cortical edema or sulcal effacement. Moderate severity underlying atrophy is present with ventricles in proportion. Patient has chronic ischemic change scattered throughout th e cerebral white matter. At the left posterior limb internal capsule and lateral margin of the thalamus there is a 14 x 7 mm a milagros of diminished attenuation. This was not present on the June 2019 study. This is relatively low in attenuation but could still be an acute/subacute CVA if the patient has right extremity motor sen stephanie symptoms. No abnormal extra-axial fluid collections. Arterial calcifications are present. Mastoid air cells and visualized portions of the paranasal sinuses are clear. No acute bony findings. IMPRESSION: No intracranial hemorrhage. No mass lesions seen. Patient has moderate severity atrophy and chronic ischemic change as a baseline. Focal diminished attenuation in the posterior limb internal capsule on the left that is new from 2018. This could be an acute/subacute nonhemorrhagic CVA if the patient has right extremity motor sensory symptoms. No specific CT finding that would explain slurred speech.
--- NOTE | 2020-08-17 16:28 | RAD REPORT ---
EXAM DESCRIPTION: USCarotid Artery Fhrvgvjzv80/30/2020 2:38 pm CLINICAL HISTORY: cva FINDINGS: The velocity of the right internal carotid artery equals 145 cm/sec. The right ICA/CCA rat io 2.1 The velocity of the left internal carotid artery equals 135 cm/sec. The left ICA/CCA ratio 1. 3 Moderate plaque is present within right internal carotid artery. Mild to moderate plaque within the l eft internal carotid artery The vertebral arteries demonstrate antegrade flow IMPRESSION: Moderate plaque right internal carotid artery NASCET criteria used. Mild 0-49% stenosis Moderate 50-69% stenosis Severe 70-99% stenosis
[2020-08-17] MEDS: INSULIN -REGULAR HUMAN 50 UNIT/0.5 ML ML SQ SCH ×2 (16:30→20:36)
[2020-08-17 17:12] LABS: Anisocytosis 1+; Blood Morphology Comment NOTED (NOT SEEN); Platelet Estimate ADEQ; Poikilocytosis 1+; White Blood Cell Scan OK (OK)
[2020-08-17] MEDS ORDERED: ASPIRIN EC 81 MG TAB PO ONE (19:41)
[2020-08-17] MEDS: ATORVASTATIN 80 MG TAB PO SCH (20:36)
[2020-08-17] MEDS ORDERED: allopurinoL 100 MG TAB PO PRN (21:53)
[2020-08-17] MEDS: AMLODIPINE 5 MG TAB PO SCH (22:14)
[2020-08-17] MEDS: LOSARTAN POTASSIUM 50 MG TABLET PO SCH (22:14)
[2020-08-18] MEDS: INSULIN -REGULAR HUMAN 50 UNIT/0.5 ML ML SQ SCH ×4 (07:30→21:00)
[2020-08-18] MEDS ORDERED: JAKAFI 5 MG PO SCH ×2 (08:00→21:00)
--- NOTE | 2020-08-18 08:14 | HP ---
Date of Admission: 08/17/2020 Chief Complaint: Slurred speech. History Of Present Illness: This is a 80-year-old pleasant male patient, who was doing fine in his usual state of health until on 08/14/2020, he was found to have some slurred speech. Patient's had her appointment at my office for today, but instead of seeing me, decided to ask to see me with this complaint and after I evaluated him, he was admitted to the hospital with my concerns about stroke. Patient has reported some trouble swallowing at times in the last few days. No cough. No visual complaints. No headache. No shortness of breath. Denies any tingling, numbness, or any focal weakness of his arms or legs. No incontinence. Allergies: NO KNOWN ALLERGIES. Medications: List reviewed. Review of Systems: CLAIM INSPECTOR: As mentioned above. All other systems reviewed and negative except musculoskeletal system has pain in his knee due to arthritis. Past Medical History: Significant for polycythemia vera for which he is under the care of Dr. Fitzgerald. Past Medical History: Also significant for hypertension, type 2 diabetes mellitus. Also significant for hyperlipidemia, coronary artery disease, diabetic neuropathy, kidney stones, leg edema. Past Surgical History: Surgery for kidney stone, tonsillectomy, coronary artery stent placement, cholecystectomy, hemorrhoid surgery, TURP, cervical spine surgery, removal of squamous cell carcinoma and incision and drainage for abscess. Family History: Father and mother both had NM and of NM and heart disease. He has a history of heart disease and congestive heart failure and NM. Sister has asthma and breast cancer. Social History: Prior history of smoking not at present time. Use of alcohol negative. Physical Examination: Vital Signs: When I saw him at office, his blood pressure was 150/67, pulse 88, respiratory rate 16, temperature 97.9, weight 189.4 pounds, height 68 inches. General: Awake, alert, oriented, not in distress. HEENT: Head atraumatic, normocephalic. Conjunctivae nonerythematous. Sclerae white. Mouth, no thrush or edema noted. Ears/Nose, no mass, lesion, discharge noted. Neck: Supple. No JVD, lymph nodes, bruit, thyromegaly noted. Lungs: Bilateral good equal air entry. Clear to auscultation. No rhonchi. No rales. Heart: Normal heart sounds, no murmur or gallop. Abdomen: Soft, bowel sounds normal. No guarding, rigidity, tenderness, mass, hepatosplenomegaly, distention, or bruit noted. Extremities: No leg edema. No calf tenderness. Skin: No rash, ulcer, cellulitis. Lymphatics: No lymph node enlargement in neck, supraclavicular, infraclavicular region. Chest: Unremarkable. External Genitalia: Deferred. Rectal: Deferred. CLAIM INSPECTOR: Patient's speech was slurred. Gait was unremarkable except some difficulty walking, because of arthritis in the knee. No focal neurological deficit in terms of sensation. Strength was noted to be normal except very questionable weakness in his left upper extremity compared to right upper extremity. Laboratory Data: His white count 15.1, hemoglobin 12.1, platelets 315. Sodium 142, potassium 3.8, chloride 107, bicarb 28, BUN 19, creatinine 1.14, glucose 117. Liver function tests unremarkable. TSH 1.6. His chest x-ray, no acute cardiopulmonary changes. Modified barium swallow with help of Physical Therapy was done, did not show any evidence of any aspiration. CAT scan of the head was unremarkable except questionable decreased attenuation in the left internal capsule posterior limb. Carotid Doppler showed a moderate plaquing of the right internal carotid artery. Impression: 1. Stroke. 2. Hypertension. 3. Hyperlipidemia. 4. Coronary artery disease. 5. Type 2 diabetes mellitus. 6. Diabetic neuropathy. 7. Polycythemia vera. Plan: We will go ahead and admit the patient to hospital for further evaluation and management of this problem. Patient is appropriate for inpatient and is expected to spend 2 midnights in hospital. We will continue home medications per order. Fingerstick blood sugar with mild sliding scale will be ordered for diabetes management. Tomorrow, we will get hemoglobin A1c and fasting lipid profile and we will also get MRI of the brain per stroke protocol tomorrow. Consult Physical Therapy. Speech Therapy was also consulted. We will consult neurologist as well. Details and plan of treatment discussed with the patient's and patient at the time of admission and subsequently, I did call the patient's son after obtaining permission from patient to provide test result details. Echocardiogram will be done as well. CHARAN/MODL Voice ID: [id number] [facility]
[2020-08-18] MEDS: LOSARTAN POTASSIUM 50 MG TABLET PO SCH ×2 (08:54→20:54)
[2020-08-18] MEDS: AMLODIPINE 5 MG TAB PO SCH ×2 (08:55→20:54)
[2020-08-18] MEDS: METFORMIN HCL 500 MG TAB PO SCH ×2 (08:55→16:41)
[2020-08-18] MEDS ORDERED: ASPIRIN EC 81 MG TAB PO SCH (09:00)
[2020-08-18] MEDS ORDERED: POTASSIUM CL SA 10 MEQ TAB PO ONE (09:00)
--- NOTE | 2020-08-18 10:49 | ECHO ---
HEIGHT: 5 ft 8 in WEIGHT: 186 lb 14.4 oz DATE OF STUDY: 08/18/[address]: Savage Hayes MD 2-DIMENSIONAL: YES M.MODE: YES DOPPLER: YES COLOR FLOW: YES TDS: NO PORTABLE: NO DEFINITY: NO BUBBLE STUDY: NO DIAGNOSIS: CONGESTIVE HEART FAILURE CARDIAC HISTORY: CATHERIZATION: NO SURGERY: NO PROSTHETIC VALVE: NO PACEMAKER: NO MEASUREMENTS (cm) DIASTOLIC (NORMALS) SYSTOLIC (NORMALS) IVSd 1.2 (0.6-1.2) LA Diam 2.8 (1.9-4.0) LVEF 63% LVIDd 3.4 (3.5-5.7) LVIDs 2.3 (2.0-3.5) %FS 34% LVPWd 1.2 (0.6-1.2) Ao Diam 3.3 (2.0-3.7) 2 DIMENSIONAL ASSESSMENT: RIGHT ATRIUM: NORMAL LEFT ATRIUM: NORMAL RIGHT VENTRICLE: NORMAL LEFT VENTRICLE: NORMAL TRICUSPID VALVE: NORMAL MITRAL VALVE: MITRAL ANNULAR CALCIFICATION PULMONIC VALVE: NORMAL AORTIC VALVE: SCLEROSIS PERICARDIAL EFFUSION: NONE AORTIC ROOT: NORMAL LEFT VENTRICULAR WALL MOTION: NORMAL DOPPLER/COLOR FLOW: NORMAL COMMENTS: NORMAL LEFT VENTRICULAR SIZE AND FUNCTION. NO MITRAL VALVE PROLAPSE. NO WALL MOTION ABNORMALITY. MITRAL ANNULAR CALCIFICATION. AORTIC SCLEROSIS WITH NO STENOSIS. TECHNOLOGIST: Herbert JEFFERS
--- NOTE | 2020-08-18 20:09 | RAD REPORT ---
EXAM DESCRIPTION: MRI - Brain W/Wo Cont - 08/18/2020 7:20 pm CLINICAL HISTORY: stroke COMPARISON: MRA Head Wo Cont dated 08/18/2020; Head Brain Wo Cont dated 08/17/2020; MRA Neck W/Wo Con t dated 08/18/2020 TECHNIQUE: Sagittal and axial T1-weighted images were obtained. Axial PD/heavily T2-weighted and T2- FLAIR images were obtained along with axial DWI/ADC mapping sequences. Coronal heavily T2 weighted s equence obtained. Axial and coronal post-contrast T1-weighted images were also obtained. A 19 ml Mul tihance contrast following utilized. FINDINGS: No intracranial hemorrhage or mass lesion. No edema or shift of midline structures. Diffus ion-weighted imaging shows focal signal abnormality in the posterior limb internal capsule on the lef t. There is corresponding diminished signal on ADC mapping and hypointense T1/hyperintense T2 signal. This is the correlate to the focal hypodensity seen on the prior day CT study. There is also a faint diffusion signal abnormality in the white matter of the posterior right frontal lobe. This is less d efinitive for acute CVA. Underlying atrophy is present with ventricles in proportion to volume loss. Moderate severity chronic ischemic change throughout the cerebral white matter. No brainstem chronic ischemic change. Post-contrast images show normal enhancement. No dural thickening. No enhancement at the infarction s ite. Mastoid air cells and paranasal sinuses are clear. No globe or orbital content abnormality. 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 This is the correlate to the CT head abnormality. Underlying atrophy and chronic ischemic change. No other acute infarction confirmed.
--- NOTE | 2020-08-18 20:12 | RAD REPORT ---
EXAM DESCRIPTION: MRI - MRA Head Wo Cont - 08/18/2020 7:20 pm CLINICAL HISTORY: CVA, slurred speech, abnormal CT head COMPARISON: CT head August 17, MRI brain August 18 TECHNIQUE: Axial and coronal 3D [id number] image acquisition was performed. 3D rotational images were generated with source and reconstruction images reviewed. Horizontal and vertical axis rotation al views generated using MIP protocol. FINDINGS: No aneurysm or vascular malformation. No occlusion or flow restricting lesion an a named b ranch vessel. Anterior communicating artery is present along with a large right posterior communicati ng artery. No vasculitis. The small perforating vessels usually responsible for the left internal cap reno infarction are too small for MRA resolution. IMPRESSION: MRA head examination showing no significant finding.
--- NOTE | 2020-08-18 20:17 | RAD REPORT ---
EXAM DESCRIPTION: MRI - MRA Neck W/Wo Cont - 08/18/2020 7:20 pm CLINICAL HISTORY: CVA, slurred speech, abnormal MRI brain, abnormal CT brain COMPARISON: None TECHNIQUE: MR angiography of the cervical vasculature performed. Coronal imaging plane acquisition u tilized. A 19 MultiHance contrast volume was utilized. Coronal reformatted images were generated and reviewed. Vertical axis 3D rotational projections obtained using maximum intensity projection protoco l. FINDINGS: Aortic arch is 3 vessel configuration with no origins stenoses. Bilateral common carotid a rteries show no significant atherosclerotic change or luminal narrowing. No dissection of these vesse ls. Codominant vertebral arteries show mild tortuosity but no significant abnormality. Basilar artery is unremarkable. Left internal carotid artery shows no significant disease. Slight luminal narrowing is present in the right carotid bulb and proximal most ICA. The degree of luminal narrowing appears to be less than 50 % and less prominent than suggested by the prior day ultrasound. No internal carotid artery dissectio n seen. Any atherosclerotic changes in the right carotid circulation would not be the source for the left posterior limb internal capsule infarction. IMPRESSION: Mild plaquing changes and mild luminal narrowing in the right carotid bulb and proximal most right ICA. Degree of stenosis appears less than 50% and is less than suggested by the carotid ultrasound.
[2020-08-18] MEDS: ATORVASTATIN 80 MG TAB PO SCH (20:54)
[2020-08-18] MEDS: JAKAFI 10 MG PO SCH (21:00)
--- NOTE | 2020-08-19 07:06 | PN ---
Date of Progress Note: 08/18/2020 Subjective: Patient was seen for followup in the morning. No new complaints or problems reported by him when I saw him this morning. Objective: Vital Signs: Reviewed. HEENT: Unremarkable. Lungs: Clear to auscultation. Heart: Sounds normal. Abdomen: Soft. Bowel sounds normal. No guarding, rigidity, tenderness, or distention. Extremities: No leg edema. Laboratory Data: Echocardiogram done today shows normal ejection fraction, mitral annular calcificat ion, and aortic sclerosis without stenosis. MRI per stroke protocol shows minimum carotid artery agapito quing less than 50% as noted on MRI and carotid Doppler had overestimated this particular finding, so patient does not have any significant plaque buildup at all and it will be considered mild carotid a rtery plaquing. MRI of brain does reveal acute/subacute nonhemorrhagic infarct in the left internal capsule. Impression: 1.Stroke. 2.Hypertension. 3.Type 2 diabetes mellitus. 4.Polycythemia vera. Plan: We will go ahead and have Physical Therapy continue to work with patient. We will continue hi gh-dose statin therapy. Continue current blood pressure, diabetes management. His A1c is 6.2, indicating very good control of diabete s at this point. CHARAN/MODL Voice ID: [id number] Report ID: [id number]
[2020-08-19 07:26] LABS: Potassium 4.1 mmol/L (3.5-5.1)
[2020-08-19] MEDS: INSULIN -REGULAR HUMAN 50 UNIT/0.5 ML ML SQ SCH (07:30)
[2020-08-19] MEDS: METFORMIN HCL 500 MG TAB PO SCH (07:56)
[2020-08-19] MEDS: JAKAFI 10 MG PO SCH (08:02)
[2020-08-19] MEDS: LOSARTAN POTASSIUM 50 MG TABLET PO SCH (08:02)
[2020-08-19] MEDS: AMLODIPINE 5 MG TAB PO SCH (08:02)
[2020-08-19 08:03] VITALS: BP 142/67
[2020-08-19 09:00] VITALS: O2SAT 93
[2020-08-19] MEDS ORDERED: CLOPIDOGREL 75 MG TABLET PO SCH (09:00)
[2020-08-19 10:02] VITALS: TEMP 98
--- NOTE | 2020-08-20 01:57 | DS ---
Date of Discharge: 08/19/2020 Disposition: Discharged to go home. Physical Examination: HEENT: Unremarkable. Lungs: Clear to auscultation. Heart: Sounds normal. Abdomen: Soft. Bowel sounds normal. No guarding, rigidity, tenderness, or distention. Extremities: No leg edema. Neuro: No focal neurological deficits, except slurred speech, which actually has improved. Laboratory Data: Test results for this admission: White count 15.1, hemoglobin 12.1, platelets 315. Last chemistry today: Sodium 143, potassium 4.1, chloride 108, bicarb 32, BUN 18, creatinine 1.28, glucose 140. Hemoglobin A1c 6.2, triglyceride 284, total cholesterol 140, LDL 56, HDL 27, and this was done yesterday morning. TSH 1.66. COVID-19 test negative. Discharge Medications And Instructions: Continue all prior home medication, except stop aspirin and start following new medications: 1. Atorvastatin 80 mg 1 tablet by mouth daily at bedtime. 2. Clopidogrel 75 mg 1 tablet by mouth daily. 3. Follow up in my office next week on Monday or Monday. Hospital Course: This is a 80-year-old pleasant male, who was admitted to the hospital with symptoms of stroke. Please see dictated H and P for more information. After patient was evaluated at the office, he was admitted to the hospital. Further evaluation revealed routine blood work and CAT scan of the head without contrast, which did show area of decreased attenuation in the left internal capsule posterior limb. There was no evidence of hemorrhage. Carotid Doppler had shown about moderate plaquing of right internal carotid artery. Echocardiogram came back unremarkable with normal ejection fraction. The patient had a MRI done yesterday per stroke protocol and it did show evidence of small acute/subacute known hemorrhagic endo and hemorrhagic infarct in left internal capsule as noted on the CAT scan. MRA of intracranial arteries was unremarkable. MRA of carotid arteries show less than 50% plaquing of right internal carotid artery and it is important to note that carotid Doppler had overestimated amount of plaque buildup. Modified barium swallow and speech therapy consult were done. The patient did not have any evidence of any swallowing and speech therapies, did not have any restriction on the patient's diet. Physical therapy was consulted as well. Patient is ambulating very well with walker. He has slurred speech problem is still persistent, but has improved since the time of admission. There are no other focal neurological deficits in terms of any focal weakness. No tingling, numbness. Overall, patient's condition is stable and he is at high level of functioning for inpatient rehab and we did talk about all these different options, including possibility of going home and consider home health and home physical therapy and the patient and family would like to do that. They do not have any preference for any particular home health agency. They wanted me to make that arrangement, so we will make that arrangements from the office for home health and home physical therapy, occupational therapy, and speech therapy to continue as outpatient. Patient to come, see me at office for next week for followup and during this hospital stay. Patient's family was advised to try to assist him at home as he lives with his , but in the beginning, patient's son and daughter will assist him by staying at his house and as his condition is noted to be improving, then they will not need to assist him any longer at home. Final diagnoses: 1. Stroke. 2. Hypertension. 3. Hyperlipidemia. 4. Coronary artery disease. 5. Type 2 diabetes mellitus. 6. Diabetic neuropathy. 7. Polycythemia vera. CHARAN/MODL Voice ID: [id number] Report ID: [id number] SHELLY
== END 2020-08-19 10:05 | disposition home or self-care (01) | DRG 66 ==
LOC: 2ND 12:32
PROVIDERS: ADMIT Internal Medicine; ATTEND Internal Medicine
DX: I63.9 Cerebral infarction, unspecified (principal); R47.81 Slurred speech; D45 Polycythemia vera; M17.10 Unilateral primary osteoarthritis, unspecified knee; I25.10 Atherosclerotic heart disease of native coronary artery without angina pectoris; I10 Essential (primary) hypertension; E11.40 Type 2 diabetes mellitus with diabetic neuropathy, unspecified; E78.5 Hyperlipidemia, unspecified; Z95.5 Presence of coronary angioplasty implant and graft; Z90.49 Acquired absence of other specified parts of digestive tract; Z20.828 Contact with and (suspected) exposure to other viral communicable diseases
CPT/HCPCS: 36415; 70450; 70544; 70549; 70553; 71046; 74230; 80048; 80053; 80061; 82947; 83036; 83735; 84443; 85025; 92611; 93306; 93880; 97112; 97116; 97161; A9577; U0003

== ENCOUNTER 2020-09-19 12:03 | Observation (INO) | payer OTHER ==
--- NOTE | 2020-09-19 12:59 | RAD REPORT ---
EXAM DESCRIPTION: CT - Head Brain Wo Cont - 09/19/2020 12:40 pm CLINICAL HISTORY: Dizziness COMPARISON: None TECHNIQUE: Computed axial tomography of the head was obtained. IV contrast was not requested. All CT scans are performed using dose optimization technique as appropriate and may include automated exposure control or mA/KV adjustment according to patient size. FINDINGS: An intracranial bleed is not seen . The ventricles are normal in caliber. No extra-axial fluid collection is noted. Mild low-density areas within periventricular, deep and subcortical white matter likely represent is chemic changes secondary to small vessel disease. Relatively old infarct left internal capsule Fluid within the sinuses/ mastoids is not seen. IMPRESSION: No acute intracranial abnormality is seen. If patient's symptoms persist MRI of the bra in would be recommended.
[2020-09-19 15:53] LABS: Protime INR 1.14
[2020-09-19 15:59] LABS: Albumin 4.7 g/dL (3.4-5.0); Bilirubin Direct 0.2 mg/dL (0-0.2); Potassium 3.8 mmol/L (3.5-5.1); Troponin (Emerg Dept Use Only) 0.12 ng/mL (0.0-0.045)
[2020-09-19 16:01] LABS: Absolute Lymphocytes (CBC) 0.8 K/uL (0.7-4.9); Basophils % 2.7 % (0-1.3); Hematocrit 41.1 % (39.6-49.0); Lymphocytes % 3.8 % (15.3-44.8); MPV 9.6 fL (7.6-11.3); RBC Red Blood Cell Count 4.58 M/uL (4.33-5.43)
--- NOTE | 2020-09-19 16:05 | RAD REPORT ---
EXAM DESCRIPTION: Martha Single View09/19/2020 3:01 pm CLINICAL HISTORY: Hypertension/weakness COMPARISON: July 2020 FINDINGS: The lungs appear clear of acute infiltrate. The heart is normal size IMPRESSION: No acute abnormalities displayed
[2020-09-19] MEDS ORDERED: MECLIZINE HCL 12.5 MG TAB ONE (16:10)
[2020-09-19] MEDS ORDERED: NA CHLORIDE 0.9% 250 ML ONE ×2 (16:10→16:42)
--- NOTE | 2020-09-19 17:30 | ER ---
Nurse's Notes [facility] Name: Lee Hernandez Age: 80 yrs Sex: Male : 1940 Arrival Date: 09/19/2020 Time: 12:05 Bed 16 Private MD: Diagnosis: Elevated Troponin;Syncope and collapse Presentation: 09/19 12:10 Chief complaint: Patient states: generalized weakness, intermittent dizziness and ss nausea that began before 0730 this morning. Pt reports he fell from a standing position outside on the patio this morning, but does not have any pain from the fall. Coronavirus screen: Client denies travel out of the [place] in the last 14 days. Ebola Screen: Patient denies exposure to infectious person. Patient denies travel to an Ebola-affected area in the 21 days before illness onset. Initial Sepsis Screen: Does the patient meet any 2 criteria? HR > 90 bpm. No. Patient's initial sepsis screen is negative. Does the patient have a suspected source of infection? No. Patient's initial sepsis screen is negative. Risk Assessment: Do you want to hurt yourself or someone else? Patient reports no desire to harm self or others. Onset of symptoms was September 19, 2020. 12:10 Method Of Arrival: Ambulatory ss 12:10 Acuity: CULLEN 3 ss Historical: - Allergies: 12:15 No Known Allergies; ss - PMHx: 12:15 Diabetes - NIDDM; Hypertension; Kidney stones; Myocardial infarction; polycythemiavera ss cancer; polycythemia vera; CVA; - Immunization history:: Adult Immunizations up to date. - Social history:: Smoking status: Patient denies any tobacco usage or history of. Screenin:45 Abuse screen: Denies threats or abuse. Nutritional screening: No deficits noted. vg1 Tuberculosis screening: No symptoms or risk factors identified. Fall Risk Fall in past 12 months (25 points). No secondary diagnosis (0 pts). IV access (20 points). Ambulatory Aid- None/Bed Rest/Nurse Assist (0 pts). Gait- Normal/Bed Rest/Wheelchair (0 pts) Mental Status- Oriented to own ability (0 pts). Total Chin Fall Scale indicates High Risk Score (45 or more points). Assessment: 12:18 Reassessment: VO for CT head given by CABRERA Banks. ss 14:41 General: Appears in no apparent distress. comfortable, Behavior is calm, cooperative. vg1 Pain: Denies pain. Neuro: Level of Consciousness is awake, alert, obeys commands, Oriented to person, place, time, situation. Cardiovascular: Patient's skin is warm and dry. Respiratory: Airway is patent Respiratory effort is even, unlabored, Respiratory pattern is regular, symmetrical. GI: Abdomen is flat, Reports diarrhea, since this afternoon. : No signs and/or symptoms were reported regarding the genitourinary system. EENT: No signs and/or symptoms were reported regarding the EENT system. Derm: Skin is pink, warm \T\ dry. Musculoskeletal: Circulation, motion, and sensation intact. Range of motion: limited in right leg. 16:00 Reassessment: Patient appears in no apparent distress at this time. Patient is alert, vg1 oriented x 3, equal unlabored respirations, skin warm/dry/pink. Patient denies pain at this time. 16:23 Reassessment: Received VO from Marcio Portillo to give patient another bolus of NS 250ml vg1 IVPB x1. 17:30 Reassessment: Patient appears in no apparent distress at this time. Patient is alert, vg1 oriented x 3, equal unlabored respirations, skin warm/dry/pink. Patient denies pain at this time. 18:32 Reassessment: No changes from previously documented assessment. Patient states feeling vg1 better. 19:38 Reassessment: Patient appears in no apparent distress at this time. Patient is alert, vg1 oriented x 3, equal unlabored respirations, skin warm/dry/pink. Patient denies pain at this time. Patient states feeling better. 20:20 Reassessment: Attempted to call report. vg1 20:28 Reassessment: report given to BENIGNO forrest. ll2 20:36 Reassessment: Patient appears in no apparent distress at this time. No changes from vg1 previously documented assessment. Patient denies pain at this time. Vital Signs: 12:10 BP 166 / 81; Pulse 97; Resp 17; Temp 97.0; Pulse Ox 99% on R/A; Weight 84.82 kg; Height ss 5 ft. 8 in. (172.72 cm); Pain 0/10; 14:30 BP 156 / 84; Pulse 93; Resp 18; Pulse Ox 99% on R/A; vg1 15:30 BP 139 / 68; Pulse 90; Resp 18; Pulse Ox 99% on R/A; vg1 15:35 BP 129 / 65 RA Supine (auto/reg); Pulse 86; Resp 16 S; Pulse Ox 98% on R/A; jp3 15:38 BP 139 / 68 RA Sitting (auto/reg); Pulse 93; Resp 20; Pulse Ox 98% on R/A; jp3 15:40 BP 149 / 71 RA Standing (auto/reg); Pulse 99; Resp 20; Pulse Ox 99% on R/A; jp3 16:00 BP 127 / 67; Pulse 88; Resp 16; Pulse Ox 97% on R/A; vg1 17:00 BP 149 / 68; Pulse 88; Resp 18; Pulse Ox 98% on R/A; vg1 18:00 BP 138 / 64; Pulse 84; Resp 16; Pulse Ox 98% on R/A; vg1 18:45 BP 153 / 71; Pulse 92; Resp 16; Pulse Ox 100% on R/A; vg1 19:30 BP 140 / 65; Pulse 90; Resp 18; Pulse Ox 97% on R/A; vg1 20:15 BP 131 / 55; Pulse 86; Resp 16; Pulse Ox 97% on R/A; vg1 12:10 Body Mass Index 28.43 (84.82 kg, 172.72 cm) ss NIH Stroke Scale Scores: 15:20 NIHSS Score: 0 cp ED Course: 12:05 Patient arrived in ED. rg4 12:14 Triage completed. ss 12:15 Arm band placed on right wrist. ss 12:40 CT Head Brain wo Cont In Process Unspecified. EDMS 14:31 Melissa Zaragoza, RN is Primary Nurse. vg1 14:31 Marcio Portillo PA is PHCP. cp 14:31 Marcio Montiel MD is Attending Physician. cp 14:45 Patient has correct armband on for positive identification. Bed in low position. Call vg1 light in reach. Side rails up X 1. Adult w/ patient. 14:52 Xray at bedside. vg1 15:01 XRAY Chest (1 view) In Process Unspecified. EDMS 15:22 Inserted saline lock: 20 gauge in left antecubital area, using aseptic technique. Blood jp3 collected. 15:22 Initial lab(s) drawn, by mo, sent to lab. EKG done, by ED staff, reviewed by Marcio Portillo jp3 EDUARDO. X-ray(s) taken. Patient maintains SpO2 saturation greater than 95% on room air. 17:29 Minh Hayes MD is Hospitalizing Provider. cp 17:45 COVID swab sent to lab. jp3 20:30 No provider procedures requiring assistance completed. Patient admitted, IV remains in vg1 place. Administered Medications: 16:01 Drug: Meclizine 25 mg Route: PO; vg1 17:10 Follow up: Response: No adverse reaction vg1 16:01 Drug: NS 0.9% 250 ml Route: IV; Rate: bolus; Site: left antecubital; vg1 16:21 Follow up: IV Status: Completed infusion; IV Intake: 250ml vg1 17:09 Drug: NS 0.9% 250 ml Route: IV; Rate: bolus; Site: left antecubital; vg1 17:45 Follow up: IV Status: Completed infusion vg1 17:54 Drug: Lovenox 1 mg/kg Route: Sub-Q; Site: left upper abdomen; vg1 18:34 Follow up: Response: No adverse reaction vg1 17:54 Drug: Aspirin 81 mg Route: PO; vg1 18:34 Follow up: Response: No adverse reaction vg1 Intake: 16:21 IV: 250ml; Total: 250ml. vg1 Outcome: 17:29 Decision to Hospitalize by Provider. cp 18:26 Patient left the ED. vg1 20:31 Admitted to Tele accompanied by [facility], via stretcher, room 217, with chart, Report vg1 called to Felicity PELAEZ by Clementine PELAEZ 20:32 Condition: stable vg1 20:57 Patient left the ED. vg1 NIH Stroke Scale - NIH Stroke Score Date: 09/19/2020 Time: 15:20 Total Score = 0 1a. Level of Consciousness (LOC) - 0(Alert) 1b. Level of Consciousness (LOC) (Year \T\ Age) - 0(Both) 1c. LOC Commands (Open \T\ Closes Eyes/Sales Trainer) - 0(Both) 2. Best Gaze (Lateral Gaze Paresis) - 0(Normal) 3. Visual Field Loss - 0(No visual loss) 4. Facial Palsy - 0(Normal) 5a. Left Arm: Motor (10-second hold) - 0(No drift) 5b. Right Arm: Motor (10-second hold) - 0(No drift) 6a. Left Leg: Motor (5-second hold - always test supine) - 0(No drift) 6b. Right Leg: Motor (5-second hold - always test supine) - 0(No drift) 7. Limb Ataxia (finger/nose \T\ heel/souza - test with eyes open) - 0(Absent) 8. Sensory Loss (pinprick arms/legs/face) - 0(Normal) 9. Best Language: Aphasia (description/naming/reading) - 0(No aphasia) 10. Dysarthria (speech clarity - read or repeat words) - 0(Normal) 11. Extinction and Inattention (visual/tactile/auditory/spatial/personal) - 0(No abnormality) Initials: cp Signatures: Dispatcher [employer] EDEvelia Fenton RN RN ss Marcio Portillo PA PA Dennise Man rg4 Javier Oneill jp3 Clementine Reyna RN RN ll2 Melissa Zaragoza RN RN vg1 Corrections: (The following items were deleted from the chart) 15:36 14:41 Musculoskeletal: Circulation, motion, and sensation intact. Range of vg1 motion: intact in all extremities, vg1 18:34 18:32 Reassessment: No changes from previously documented assessment. vg1 vg1
--- NOTE | 2020-09-19 17:30 | EDPHYS ---
Physician Documentation [facility] Name: Lee Hernandez Age: 80 yrs Sex: Male : 1940 Arrival Date: 09/19/2020 Time: 12:05 Bed 16 Private MD: LUIS Physician Marcio Montiel HPI: 09/19 15:10 This 80 yrs old Male presents to ER via Ambulatory with complaints of cp Dizziness, Nausea. 15:10 The patient presents with lightheadedness. cp 15:10 Onset: The symptoms/episode began/occurred today. cp 15:10 Context: occurred at home, occurred while the patient was outside feeding cats. just cp prior to the episode the patient experienced no apparent symptoms. 15:10 Patient's baseline: Neuro: alert and fully oriented, Motor: right-sided weakness, cp Ambulation: walks without assistance, Speech: slow. Historical: - Allergies: 12:15 No Known Allergies; ss - PMHx: 12:15 Diabetes - NIDDM; Hypertension; Kidney stones; Myocardial infarction; polycythemiavera ss cancer; polycythemia vera; CVA; - Immunization history:: Adult Immunizations up to date. - Social history:: Smoking status: Patient denies any tobacco usage or history of. ROS: 15:15 Constitutional: Negative for body aches, chills, fever, poor PO intake. cp 15:15 Eyes: Negative for injury, pain, redness, and discharge. cp 15:15 Neck: Negative for pain with movement, pain at rest, stiffness. 15:15 Cardiovascular: Negative for chest pain, edema, palpitations. 15:15 Respiratory: Negative for cough, shortness of breath, wheezing. 15:15 Abdomen/GI: Negative for abdominal pain, nausea, vomiting, and diarrhea. 15:15 Back: Negative for pain at rest, pain with movement. 15:15 Neuro: Positive for dizziness, syncope, weakness, Negative for altered mental status, headache. 15:15 All other systems are negative. Exam: 15:20 Constitutional: The patient appears in no acute distress, alert, awake, cp non-diaphoretic, non-toxic, well developed, well nourished. 15:20 Head/Face: Normocephalic, atraumatic. cp 15:20 Eyes: Periorbital structures: appear normal, Conjunctiva: normal, Sclera: no appreciated abnormality, Lids and lashes: appear normal, bilaterally. 15:20 ENT: External ear(s): are unremarkable, Nose: is normal, Mouth: Lips: moist, Oral mucosa: moist, Posterior pharynx: Airway: no evidence of obstruction, patent. 15:20 Neck: ROM/movement: is normal, is supple, without pain, no range of motions limitations. 15:20 Chest/axilla: Inspection: normal, Palpation: is normal, no crepitus, no tenderness. 15:20 Cardiovascular: Rate: normal, Rhythm: regular. 15:20 Respiratory: the patient does not display signs of respiratory distress, Respirations: normal, no use of accessory muscles, no retractions, labored breathing, is not present, Breath sounds: are clear throughout, no decreased breath sounds, no stridor, no wheezing. 15:20 Abdomen/GI: Inspection: abdomen appears normal, Palpation: abdomen is soft and non-tender, in all quadrants. 15:20 Back: pain, is absent, ROM is normal. 15:20 Neuro: Orientation: to person, place \T\ time. Mentation: able to follow commands, slow to respond, Cerebellar function: Romberg testing is negative, normal finger to nose testing, Motor: moves all fours, strength is normal, Sensation: no obvious gross deficits. 15:43 ECG was reviewed by the Attending Physician. cp Vital Signs: 12:10 BP 166 / 81; Pulse 97; Resp 17; Temp 97.0; Pulse Ox 99% on R/A; Weight 84.82 kg; Height ss 5 ft. 8 in. (172.72 cm); Pain 0/10; 14:30 BP 156 / 84; Pulse 93; Resp 18; Pulse Ox 99% on R/A; vg1 15:30 BP 139 / 68; Pulse 90; Resp 18; Pulse Ox 99% on R/A; vg1 15:35 BP 129 / 65 RA Supine (auto/reg); Pulse 86; Resp 16 S; Pulse Ox 98% on R/A; jp3 15:38 BP 139 / 68 RA Sitting (auto/reg); Pulse 93; Resp 20; Pulse Ox 98% on R/A; jp3 15:40 BP 149 / 71 RA Standing (auto/reg); Pulse 99; Resp 20; Pulse Ox 99% on R/A; jp3 16:00 BP 127 / 67; Pulse 88; Resp 16; Pulse Ox 97% on R/A; vg1 17:00 BP 149 / 68; Pulse 88; Resp 18; Pulse Ox 98% on R/A; vg1 18:00 BP 138 / 64; Pulse 84; Resp 16; Pulse Ox 98% on R/A; vg1 18:45 BP 153 / 71; Pulse 92; Resp 16; Pulse Ox 100% on R/A; vg1 19:30 BP 140 / 65; Pulse 90; Resp 18; Pulse Ox 97% on R/A; vg1 20:15 BP 131 / 55; Pulse 86; Resp 16; Pulse Ox 97% on R/A; vg1 12:10 Body Mass Index 28.43 (84.82 kg, 172.72 cm) ss NIH Stroke Scale Scores: 15:20 NIHSS Score: 0 cp MDM: 14:37 Patient medically screened. 17:25 Data reviewed: vital signs, nurses notes, lab test result(s), EKG, radiologic studies, CT scan, plain films, I have discussed the patient's presentation/case with the attending Emergency Department Physician; and as a result, I will admit patient. 17:30 Physician consultation: A Freddy YE was contacted at 17:25, regarding admission, to the telemetry unit. patient's condition. 09/19 14:39 Order name: Basic Metabolic Panel 09/19 14:39 Order name: CBC with Diff; Complete Time: 13:50 09/19 16:53 Interpretation: Normal except: WBC 19.8; RDW 16.3; DARIANA% 85.0; LYM% 3.8; BASO% 2.7; NEUT cp A 17.6; BASOA 0.6. 09/19 14:39 Order name: LFT's; Complete Time: 16:52 cp 09/19 14:39 Order name: Magnesium; Complete Time: 16:52 cp 09/19 14:39 Order name: NT PRO-BNP; Complete Time: 16:52 cp 09/19 14:39 Order name: PT-INR; Complete Time: 16:52 cp 09/19 14:39 Order name: Troponin (emerg Dept Use Only); Complete Time: 16:52 cp 09/19 16:53 Interpretation: Abnormal: TROPED 0.12. cp 09/19 14:39 Order name: Urine Microscopic Only cp 09/19 14:40 Order name: Basic Metabolic Panel; Complete Time: 16:52 EDMS 09/19 17:13 Interpretation: Normal except: GLUC 132; GFR 61. cp 09/19 17:44 Order name: Basic Metabolic Panel EDMS 09/19 17:44 Order name: Basic Metabolic Panel; Complete Time: 13:50 EDMS 09/19 17:44 Order name: CBC with Automated Diff EDMS 09/19 17:44 Order name: CBC with Automated Diff; Complete Time: 13:50 EDMS 09/19 17:44 Order name: Troponin I EDMS 09/19 12:17 Order name: CT Head Brain wo Cont; Complete Time: 14:37 ss 09/19 14:38 Interpretation: Report reviewed. cp 09/19 14:39 Order name: XRAY Chest (1 view); Complete Time: 16:52 cp 09/19 14:39 Order name: EKG; Complete Time: 14:40 cp 09/19 17:44 Order name: CONS Physician Consult EDMS 09/19 17:44 Order name: Consistent Carb (ADA) 2000 Melvin EDMS 09/19 17:44 Order name: EKG Electrocardiogram EDMS 09/19 17:44 Order name: EKG Electrocardiogram EDMS 09/19 17:44 Order name: Troponin I; Complete Time: 13:50 EDMS 09/19 17:44 Order name: Troponin I; Complete Time: 13:50 EDMS 09/19 17:45 Order name: COVID-19 09/19 19:29 Order name: SARS-COV-2 RT PCR; Complete Time: 13:50 EDMS 09/19 14:39 Order name: Cardiac monitoring; Complete Time: 15:43 cp 09/19 14:39 Order name: EKG - Nurse/Tech; Complete Time: 15:43 cp 09/19 14:39 Order name: IV Saline Lock; Complete Time: 15:43 cp 09/19 14:39 Order name: Labs collected and sent; Complete Time: 15:43 cp 09/19 14:39 Order name: O2 Per Protocol; Complete Time: 15:43 cp 09/19 14:39 Order name: O2 Sat Monitoring; Complete Time: 15:43 cp 09/19 14:39 Order name: Orthostatics; Complete Time: 15:42 cp 09/19 17:44 Order name: EKG Electrocardiogram EDTX 09/19 17:44 Order name: EKG Electrocardiogram EDTX 09/19 18:15 Order name: Diet Ada 2000 Melvin; Complete Time: 18:16 cp EC:43 Rate is 93 beats/min. Rhythm is regular. AK interval is normal. QRS interval is normal. cp QT interval is normal. T waves are Inverted in lead II. Interpreted by me. Reviewed by me. Administered Medications: 16:01 Drug: Meclizine 25 mg Route: PO; vg1 17:10 Follow up: Response: No adverse reaction vg1 16:01 Drug: NS 0.9% 250 ml Route: IV; Rate: bolus; Site: left antecubital; vg1 16:21 Follow up: IV Status: Completed infusion; IV Intake: 250ml vg1 17:09 Drug: NS 0.9% 250 ml Route: IV; Rate: bolus; Site: left antecubital; vg1 17:45 Follow up: IV Status: Completed infusion vg1 17:54 Drug: Lovenox 1 mg/kg Route: Sub-Q; Site: left upper abdomen; vg1 18:34 Follow up: Response: No adverse reaction vg1 17:54 Drug: Aspirin 81 mg Route: PO; vg1 18:34 Follow up: Response: No adverse reaction vg1 Disposition: 09/20 07:27 Co-signature as Attending Physician, Marcio Montiel MD I agree with the assessment and taylor plan of care. Disposition: 09/19/20 17:29 Hospitalization ordered by Minh Hayes for Inpatient Admission. Preliminary diagnosis are Elevated Troponin, Syncope and collapse. - Bed requested for Telemetry/MedSurg (Inpatient). - Status is Inpatient Admission. vg1 - Condition is Stable. - Problem is new. - Symptoms have improved. NIH Stroke Scale - NIH Stroke Score Date: 09/19/2020 Time: 15:20 Total Score = 0 1a. Level of Consciousness (LOC) - 0(Alert) 1b. Level of Consciousness (LOC) (Year \T\ Age) - 0(Both) 1c. LOC Commands (Open \T\ Closes Eyes/Typists Supervisor) - 0(Both) 2. Best Gaze (Lateral Gaze Paresis) - 0(Normal) 3. Visual Field Loss - 0(No visual loss) 4. Facial Palsy - 0(Normal) 5a. Left Arm: Motor (10-second hold) - 0(No drift) 5b. Right Arm: Motor (10-second hold) - 0(No drift) 6a. Left Leg: Motor (5-second hold - always test supine) - 0(No drift) 6b. Right Leg: Motor (5-second hold - always test supine) - 0(No drift) 7. Limb Ataxia (finger/nose \T\ heel/souza - test with eyes open) - 0(Absent) 8. Sensory Loss (pinprick arms/legs/face) - 0(Normal) 9. Best Language: Aphasia (description/naming/reading) - 0(No aphasia) 10. Dysarthria (speech clarity - read or repeat words) - 0(Normal) 11. Extinction and Inattention (visual/tactile/auditory/spatial/personal) - 0(No abnormality) Initials: cp Signatures: Dispatcher [employer] EDMS Heather Andres RN RN dw Anderson, Corey, MD MD cha Smirch, Shelby, RN RN ss Page, Corey, PA PA cp Garcia, Victoria RN RN vg1 Corrections: (The following items were deleted from the chart) 09/19 16:53 16:53 Normal except: WBC 19.8; RDW 16.3; DARIANA% 85.0; LYM% 3.8; BASO% 2.7; NEUT A cp 17.6. cp 17:30 17:29 Hospitalization Ordered by A Freddy YE for Inpatient Admission. Preliminary cp diagnosis is Elevated Troponin; Syncope and collapse. Bed requested for Telemetry/MedSurg (Inpatient). Status is Inpatient Admission. Condition is Stable. Problem is new. Symptoms have improved. cp 18:26 17:30 09/19/2020 17:29 Hospitalization Ordered by A Freddy YE for Inpatient vg1 Admission. Preliminary diagnosis is Elevated Troponin; Syncope and collapse. Bed requested for Telemetry/MedSurg (Inpatient). Status is Inpatient Admission. Condition is Stable. Problem is new. Symptoms have improved. cp 19:46 18:26 09/19/2020 17:29 Hospitalization Ordered by A Freddy YE for Inpatient Admission. Preliminary diagnosis is Elevated Troponin; Syncope and collapse. Bed requested for Telemetry/MedSurg (Inpatient). Status is Inpatient Admission. Condition is Stable. Problem is new. Symptoms have improved. vg1 20:57 19:46 09/19/2020 17:29 Hospitalization Ordered by A Freddy YE for Inpatient vg1 Admission. Preliminary diagnosis is Elevated Troponin; Syncope and collapse. Bed requested for Telemetry/MedSurg (Inpatient). Status is Inpatient Admission. Condition is Stable. Problem is new. Symptoms have improved. 09/20 13:50 09/19 15:10 Patient's baseline: Neuro: alert and fully oriented, Motor: cp left-sided weakness, Ambulation: walks without assistance, Speech: slow, cp
[2020-09-19] MEDS ORDERED: ASPIRIN 81 MG CHEWABLE TABLET ONE (17:57)
[2020-09-19] MEDS ORDERED: ENOXAPARIN 80 MG/0.8 ML SQ ONE (17:57)
[2020-09-19] MEDS: ENOXAPARIN 80 MG/0.8 ML SQ SCH (21:00)
[2020-09-19 21:09] VITALS: BMI 28.1
--- NOTE | 2020-09-19 21:23 | CON ---
Date of Consultation: 09/19/2020 Reason For Consultation: The patient admitted by Dr. Montiel through the emergency room for syncope . History Of Present Illness: Mr. Hernandez is a 80-year-old, who is very well known to me from previous o ffice visits and admission. He has a history of diabetes, hypertension, polycythemia vera, nephrolit hiasis, CAD, status post stent many years ago. He has had a history of CVA before. He came in with an episode of syncope that happened while he was working in the yard and bending over and up. Appare ntly, he has not felt well for the last 2 days and has taken his normal home medication for blood pre ssure and diabetes as well as his polycythemia and hypertension. He denied any chest pain, nausea, v omiting, diaphoresis, PND, orthopnea, pedal edema, or palpitation. He just got syncopal. It lasted a few minutes. He was able to get up and walk to the side of the house where his saw him. He d enied fever, chills, or cough. He has had diarrhea for the last 2 days. Past Medical History: As stated above. Allergies: NONE. Review of Systems: Negative. Social History: Negative. Family History: Noncontributory. Physical Examination: Vital Signs: Stable. He was afebrile. HEENT: Negative. Neck: Supple. No bruit, lymphadenopathy, JVD, or thyromegaly. Chest: Clear to auscultation and percussion. Cardiac: Regular rhythm and rate. No murmurs, gallops, or rubs. Abdomen: Benign. Extremities: No clubbing, cyanosis, or edema. Diagnostic Data: White count of 20,000, which is probably secondary to his polycythemia; his platele t count of 396,000. His GFR is 61. His troponin is 0.12. Impression And Plan: Syncope secondary to orthostatic hypotension. I think his troponin elevation i s secondary to his hypotension. His EKG and x-ray do not reflect any acute changes. His BNP is 339. I think he needs to be hydrated. He has had diarrhea for couple of days. I think his home medicat ions including Norvasc, Lipitor, Plavix, Cozaar, metformin should be continued. He also takes a medi cation for his polycythemia. I am pretty sure Mr. Hernandez has had a recent stress test and carotid Dop pler and echo in my office. I cannot remember when. On August 18, 2020, echocardiogram was normal. Carotid artery ultrasound in the hospital showed moderate plaques, no need to repeat echo and no ne ed to repeat carotid. I think we will hydrate him, hopefully send him home tomorrow. I will make ar rangements for him as an outpatient to have a 7 day event monitor to rule out arrhythmia. He had ankita e PVCs here while he is on the monitor. His other problems including hypertension, diabetes, dyslipi demia, polycythemia vera, coronary artery disease, status post stents are stable at this point. I wi ll continue to follow. The case was discussed with Mr. Hernandez with his son and with Dr. Montiel. EM/DARLYN Voice ID: [id number] Report ID: [id number]
[2020-09-19 21:29] LABS: Platelet Estimate ADEQ; Platelets, Giant OCC
[2020-09-19 21:31] LABS: Blood Morphology Comment NOTED (NOT SEEN); Polychromasia SLIGHT
[2020-09-19 22:01] LABS: Urine Appearance CLEAR; Urine Bilirubin NEGATIVE (NEG); Urine Blood NEGATIVE (NEG); Urine Color YELLOW; Urine Glucose NEGATIVE (NEG); Urine Protein NEGATIVE (NEG); Urine Urobilinogen 0.2 mg/dL (0.2-1.0); Urine pH 5.5 (5.0-7.0)
[2020-09-19 22:43] LABS: Urine Microscopic Reflex NO UMIC
[2020-09-20 04:49] LABS: Potassium 3.5 mmol/L (3.5-5.1)
[2020-09-20 04:54] LABS: Absolute Lymphocytes (CBC) 0.6 K/uL (0.7-4.9); Basophils % 3.9 % (0-1.3); Hematocrit 35.4 % (39.6-49.0); Lymphocytes % 4.3 % (15.3-44.8); MPV 9.6 fL (7.6-11.3); RBC Red Blood Cell Count 3.93 M/uL (4.33-5.43)
[2020-09-20] MEDS ORDERED: ASPIRIN EC 81 MG TAB PO SCH (09:00)
[2020-09-20 09:04] VITALS: BP 146/64; TEMP 98.5
[2020-09-20] MEDS: ENOXAPARIN 80 MG/0.8 ML SQ SCH (09:30)
[2020-09-20 09:46] VITALS: O2SAT 94
--- NOTE | 2020-09-20 12:27 | HP ---
Date of Admission: 09/20/2020 Chief Complaint: Feeling dizzy and fall. History Of Present Illness: This is a 80-year-old very pleasant male patient who was yesterday working in his yard and he was trying to lean down to do something in the yard and while he was leaning down working all of a sudden when he decided to get up, he felt dizzy, lightheaded and fell backwards. He did not lose any consciousness. No chest pain. No shortness of breath. After the fall, he had hard time getting up and subsequently his came out and found out that he was having trouble getting up and he got him some help and the patient was subsequently brought to the emergency room. After evaluation in the emergency room, he was admitted to the hospital. Cardiology consultation was requested from Dr. Hernandez who evaluated him yesterday and details were discussed with him. This morning when I saw him he was feeling fine. His and son were present at bedside and the patient denies any complaints. Allergies: NO KNOWN ALLERGIES. Medications: List reviewed. Review of Systems: Cardiovascular: As mentioned above. DIRECTOR OF UNDERGRADUATE ADMISSIONS: As mentioned above. All other systems reviewed and negative. Past Medical History: Significant for polycythemia vera for which he is under care of Dr. Fitzgerald. History of stroke, which happened on August 17, 2020. Prior history of kidney stone, hypertension, type 2 diabetes mellitus, hyperlipidemia, coronary artery disease, diabetic neuropathy, and leg edema. Past Surgical History: Significant for surgery for kidney stone, tonsillectomy, coronary artery stent placement, cholecystectomy, hemorrhoid surgery, TURP, cervical spine surgery, removal of squamous cell carcinoma, and incision and drainage for abscess. Family History: Father and mother both had DE and due to DE and heart disease. Also had history of congestive heart failure. Sister with history of asthma and breast cancer. Social History: Prior history of smoking, not at present time. Use of alcohol negative. Physical Examination: Vital signs: This morning blood pressure was 146/64, oxygen saturation 97%. Pulse rate 73, respiratory rate 16, temperature 98.5, height 5 feet 8 inches, weight 185 pounds. The patient's orthostatic vitals checked today; supine blood pressure 152/78, sitting blood pressure 169/75, and standing 164/77. General: Awake, alert, oriented, not in distress. HEENT: Head atraumatic, normocephalic. Conjunctivae nonerythematous. Sclerae white. Mouth, no thrush or edema noted. Ears/Nose, no mass, lesion, discharge noted. Neck: Supple. No JVD, lymph nodes, bruit, thyromegaly noted. Lungs: Bilateral good equal air entry. Clear to auscultation. No rhonchi. No rales. Heart: Normal heart sounds, no murmur or gallop. Abdomen: Soft, bowel sounds normal. No guarding, rigidity, tenderness, mass, hepatosplenomegaly, distention, or bruit noted. Extremities: No leg edema. No calf tenderness. Skin: No rash, ulcer, cellulitis. Lymphatics: No lymph node enlargement in neck, supraclavicular, infraclavicular region. Neuro: Speech is minimally slurred, but otherwise no focal neurological deficits. Chest: Unremarkable. External Genitalia: Deferred. Rectal: Deferred. Laboratory Data: Yesterday white count 19.8, hemoglobin 13.6, platelets 396. This morning white count 13.9, hemoglobin 11.5, platelets 317. Yesterday sodium 141, potassium 3.8, chloride 104, bicarb 30, BUN 17, creatinine 1.16, glucose 132. Liver function tests unremarkable. Troponin 0.12 on the first set, second set 0.26, third set 0.40. ProBNP 339. This morning sodium 144, potassium 3.5, chloride 110, bicarb 29, BUN 18, creatinine 1.18, glucose 130. Urinalysis negative. COVID-19 test negative. Chest x-ray, no acute cardiopulmonary changes. CAT scan of the head, no acute intracranial changes. Hospital Course: After the patient was evaluated yesterday, he was admitted to the hospital. Overall, his condition has remained stable. Cardiology consultation was obtained from Dr. Hernandez. The patient had a carotid Doppler, echo, MRI brain, all those complete workup done just about a month ago when he was in the hospital with stroke. At this point, no need for any further specialized testing. The patient's dizziness and fall were likely related to his position, which is bending and trying to get up. There is a good possibility that he probably might have dropped his blood pressure temporarily during that time to cause all those things. In any case, the patient is medically stable for discharge. He will follow up with Dr. Hernandez for outpatient followup visit and any further testing that Dr. Hernandez will decide. The patient's thinks that he has appointment to see sometime this coming week and he was advised to keep that appointment. The patient to continue all his previous home medications upon discharge. I have instructed him and his both actually that they should not bend down to get anything from the floor or ground and if they have to then they need to sit down in a chair and then try to grab things from the floor. I also taught both of them how to do exercise to improve strength of lower body including legs and lower back muscles. Upon discharge, the patient was advised to continue all his previous home medications. Final Diagnoses: 1. Near syncope. 2. Hypertension. 3. Coronary artery disease. 4. Hyperlipidemia. 5. Type 2 diabetes mellitus with diabetic neuropathy. 6. Stroke. CHARAN/MODL Voice ID: [id number] SHELLY
--- NOTE | 2020-09-20 15:29 | EKG ---
Test Date: 2020-09-19 Test Time: 15:30:43 Television Technician: HUMBERTO MEASUREMENT RESULTS: Intervals: Rate: 93 PA: 176 QRSD: 96 QT: 352 QTc: 437 [place]: P: 65 PA: 176 QRS: 21 T: 91 INTERPRETIVE STATEMENTS: Normal sinus rhythm Nonspecific T wave abnormality Abnormal ECG Compared to ECG 05/22/2019 17:41:21 No significant changes Electronically Signed On 09-20-20 15:26:33 DITCHING MACHINE ENGINEER by Jonathan Hernandez
--- NOTE | 2020-09-21 10:31 | EKG ---
Test Date: 2020-09-20 Test Time: 05:54:59 Hematology Specialist: HB MEASUREMENT RESULTS: Intervals: Rate: 87 TX: 184 QRSD: 94 QT: 370 QTc: 445 [place]: P: 60 TX: 184 QRS: 55 T: 60 INTERPRETIVE STATEMENTS: Normal sinus rhythm Nonspecific T wave abnormality Abnormal ECG Compared to ECG 09/19/2020 15:30:43 No significant changes Electronically Signed On 09-21-20 10:28:01 FLOUR BLENDER HELPER by Jonathan Hernandez
== END 2020-09-20 10:55 | disposition home or self-care (01) ==
LOC: ER 12:03 → ERHOLD 17:39 → INTOOBSV 17:39 → 2ND 20:28
PROVIDERS: ADMIT Internal Medicine; ATTEND Internal Medicine
DX: I95.1 Orthostatic hypotension (principal); I10 Essential (primary) hypertension; E11.40 Type 2 diabetes mellitus with diabetic neuropathy, unspecified; E78.5 Hyperlipidemia, unspecified; I25.10 Atherosclerotic heart disease of native coronary artery without angina pectoris; Z20.822 Contact with and (suspected) exposure to COVID-19; Z95.5 Presence of coronary angioplasty implant and graft; R94.31 Abnormal electrocardiogram [ECG] [EKG]; D45 Polycythemia vera; Z79.84 Long term (current) use of oral hypoglycemic drugs; Z79.02 Long term (current) use of antithrombotics/antiplatelets; Z86.73 Personal history of transient ischemic attack (TIA), and cerebral infarction without residual deficits; Z87.891 Personal history of nicotine dependence
CPT/HCPCS: 36415; 70450; 71045; 80048; 80076; 81003; 83735; 83880; 84484; 85025; 85610; 93005; 96365; 96372; 99285; G0378; J7050; U0003

== ENCOUNTER 2021-11-06 09:22 | Emergency (ER) | payer OTHER ==
--- OUTSIDE RECORDS SUMMARY | 2021-11-06 09:25 | XMS REPORT | Continuity of Care Document ---
:1940 Author Organization [facility] Address [address] [place] [address] Dr. Garza [address] [place] [id number] Care Team Providers Name Role Phone Goldfarb_R Attending Clinician Unavailable WATERS_S Attending Clinician Unavailable C_Hall Attending Clinician Unavailable Goldfarb_R Admitting Clinician Unavailable WATERS_S Admitting Clinician Unavailable C_Hall Admitting Clinician Unavailable Payers Payer Name Policy Type Policy Number Effective Date Expiration Date S lynn MEDICARE [place]: [id number] 2006 [employer] 00:00:00 [facility] [id number] INSURANCE COMPANY - PLAN F (MEDICARE SUPPLEMENT) [facility] [id number] [facility] INSURANCE - PLAN F (MEDICARE SUPPLEMENT) Problems This patient has no known problems. Allergies, Adverse Reactions, Alerts This patient has no known allergies or adverse reactions. Medications This patient has no known medications. Procedures This patient has no known procedures. Encounters Start End Encounter Admission Attending Care Care Encounter Source Date/Time Date/Time Type Type Clinicians Facility Department ID 2021-10-13 Outpatient [facility] 14:05:55 [id number] 2021-10-13 Outpatient [facility] 12:57:23 [id number] 2021-10-13 Outpatient [facility] 12:27:24 [id number] [facility] 2021-10-13 Outpatient [facility] 12:23:16 [id number] [facility] 2021-10-13 Outpatient [facility] 11:39:35 [id number] [facility] 2021-10-28 2021-10-28 Outpatient [facility] [id number] 01:59:00 01:59:00 [facility] 2021-10-12 2021-10-12 Outpatient [facility] [id number] [place] 04:02:00 04:02:00 [facility] 2021-09-27 2021-09-27 Outpatient [facility] [id number] [place] 12:11:00 12:11:00 [facility] 2021-05-10 2021-05-10 Outpatient WATERS[facility]S [facility] [id number] [place] 07:28:00 07:28:00 [id number] 2015-05-29 2015-05-29 Outpatient C[facility] [id number] [place] 03:01:00 03:01:00 [id number] Results This patient has no known results.
--- NOTE | 2021-11-06 10:10 | RAD REPORT ---
EXAM DESCRIPTION: CT - Stone Protocol - 11/06/2021 9:52 am CLINICAL HISTORY: Kidney stones;Flank pain COMPARISON: Abdomen Pelvis Wo Contrast dated 05/23/2019 TECHNIQUE: Axial 3 mm thick images were obtained without oral or IV contrast. The [id number] span s the entirety of the system including uppermost abdomen and lung bases. All CT scans are performed using dose optimization technique as appropriate and may include automated exposure control or mA/KV adjustment according to patient size. FINDINGS: Mild hydronephrosis of the left renal pelvis and calices noted. There is a 15 x 10 mm obst ructing calculus at the left UPJ. Patient has a cluster of 5-14 mm size stones in the lower pole of t he left kidney. This stent has been removed since the 2019 study. Distal to the UPJ the ureter is nor mal size with no additional calculi seen. No right-sided hydronephrosis. Right pelvic calcification has enlarged slightly from 2019 but does no t cause obstruction. No other obstructing or nonobstructing calculi on the right. Minimal perinephric stranding is present slightly greater on the left. No suspicious renal masses. Isodense masses and p yelonephritis are not excluded on a stone protocol CT scan. No significant adrenal finding. No urinar y bladder suspicious finding. Enlarged lobulated prostate gland is present projecting into the bladde r base. No abnormal pelvic lymphadenopathy. No focal liver finding on noncontrast imaging. Gallbladder is absent. No biliary tree dilatation. No acute pancreatic process. Splenomegaly is present measuring 18 cm craniocaudal dimension. This is sim ilar to comparison from 2019. No bulky lymphadenopathy seen. No suspicious bowel findings. Sigmoid colon is tortuous and redundant. No appendicitis findings. No other mass lesions seen. No omental thickening. No hernia changes seen. No free air or pneumatosis . No other area of fat stranding seen. Disc and bone degenerative changes are present. No pathologic bone finding. IMPRESSION: Mild hydronephrosis of the left renal pelvis and calices secondary to a 14 x 10 mm UPJ c alculus. Multiple 5-14 mm nonobstructing calculi in the lower pole of the left kidney. Small calcification adh erent to the right renal pelvis does not obstruct. Isodense masses and pyelonephritis are not excluded on stone protocol technique. Additional nonacute findings detailed in the body of the report.
[2021-11-06] MEDS ORDERED: MORPHINE 4 MG/ML SYR ONE ×2 (10:23→10:59)
[2021-11-06] MEDS ORDERED: NA CHLORIDE 0.9% 500 ML ONE (10:23)
[2021-11-06] MEDS ORDERED: ONDANSETRON 4 MG/2 ML VIAL ONE (10:23)
[2021-11-06 10:26] LABS: Absolute Lymphocytes (CBC) 0.6 K/uL (0.7-4.9); Hematocrit 38.6 % (39.6-49.0); Lymphocytes % 3.4 % (15.3-44.8); MPV 9.4 fL (7.6-11.3)
[2021-11-06 11:05] LABS: Albumin 3.8 g/dL (3.4-5.0); Bilirubin Direct 0.2 mg/dL (0-0.2); Bilirubin Total 0.9 mg/dL (0.2-1.0); Potassium 4.1 mmol/L (3.5-5.1); Protein, Total 6.9 g/dL (6.4-8.2)
[2021-11-06 12:21] LABS: Platelet Estimate INCR
[2021-11-06 12:22] LABS: Anisocytosis 1+; Blood Morphology Comment NOTED (NOT SEEN); Ovalocytes 1+; Platelets, Giant FEW PRESENT; Polychromasia 1+
[2021-11-06] MEDS ORDERED: FENTANYL CITR 100 MCG/2 ML ONE (12:26)
--- NOTE | 2021-11-06 12:26 | EDPHYS ---
Physician Documentation [facility] Name: Lee Hernandez Age: 81 yrs Sex: Male : 1940 Arrival Date: 11/06/2021 Time: 09:24 Bed 5 Private MD: Minh Hayes C ED Physician Jose Carlos Moreno HPI: 11/06 09:49 This 81 yrs old Male presents to ER via Wheelchair with complaints of Possible Kidney pm1 Stone. 09:49 The patient complains of pain in the left low back. The pain radiates to the groin. pm1 Onset: The symptoms/episode began/occurred last night. Modifying factors: The symptoms are alleviated by nothing. the symptoms are aggravated by nothing. Associated signs and symptoms: Pertinent positives: nausea, vomiting, Pertinent negatives: dysuria, fever. Severity of pain: in the emergency department the pain is actually worse. The patient has experienced similar episodes in the past, a few times. The patient has not recently seen a physician. Similar to prior kidney stones 3 years ago. Historical: - Allergies: 09:39 No Known Allergies; jl7 - Home Meds: 09:39 atorvastatin 40 mg Oral tab 1 tab once daily [Active]; Jakafi 5 mg Oral tab 1 tab once jl7 daily [Active]; metformin 500 mg Oral Tb24 1 tab once daily [Active]; Tradjenta 5 mg Oral tab 1 tab once daily [Active]; losartan oral [Active]; Jakafi oral [Active]; amlodipine oral [Active]; Allopurinol Oral [Active]; Plavix Oral [Active]; Odomzo oral [Active]; - PMHx: 09:39 CVA; Diabetes - NIDDM; Hypertension; Kidney stones; Myocardial infarction; polycythemia jl7 vera; polycythemiavera cancer; - Immunization history:: Client reports receiving the 2nd dose of the Covid vaccine, Moderna. - Social history:: Smoking status: Patient denies any tobacco usage or history of. ROS: 09:49 Constitutional: Negative for fever, chills, and weight loss, Cardiovascular: Negative pm1 for chest pain, palpitations, and edema, Respiratory: Negative for shortness of breath, cough, wheezing, and pleuritic chest pain. 09:49 : Negative for injury, bleeding, discharge, and swelling, MS/Extremity: Negative for injury and deformity, Skin: Negative for injury, rash, and discoloration, Neuro: Negative for headache, weakness, numbness, tingling, and seizure. 09:49 Abdomen/GI: Positive for nausea and vomiting, Negative for abdominal pain, diarrhea, constipation. 09:49 Back: Positive for flank pain, on the left. 09:49 All other systems are negative. Exam: 09:49 Constitutional: This is a well developed, well nourished patient who is awake, alert, pm1 and in no acute distress. Head/Face: Normocephalic, atraumatic. 09:49 Skin: Warm, dry with normal turgor. Normal color with no rashes, no lesions, and no evidence of cellulitis. MS/ Extremity: Pulses equal, no cyanosis. Neurovascular intact. Full, normal range of motion. 09:49 Eyes: Exam is negative for acute changes, Extraocular movements: no acute changes, Conjunctiva: normal, no injection. 09:49 ENT: Exam is negative for acute changes, Mouth: no acute changes, Lips: normal, moist, Oral mucosa: normal, pink and intact, moist. 09:49 Cardiovascular: Exam negative for acute changes, Rate: normal, Rhythm: regular, Pulses: no pulse deficits are appreciated, Heart sounds: normal, normal S1and S2. 09:49 Respiratory: Exam negative for acute changes, respiratory distress, shortness of breath. 09:49 Abdomen/GI: Inspection: abdomen appears normal, Palpation: abdomen is soft and non-tender, in all quadrants. 09:49 Back: CVA tenderness, that is mild, is noted on the left. 09:49 Neuro: Exam negative for acute changes, Orientation: is normal, Mentation: is normal, Motor: is normal, moves all fours. Vital Signs: 09:38 BP 176 / 76; Pulse 77; Resp 17; Temp 97.4; Pulse Ox 100% on R/A; Weight 74.84 kg; jl7 Height 5 ft. 8 in. (172.72 cm); Pain 8/10; 11:46 BP 162 / 71; Pulse 82; Resp 15; Pulse Ox 97% ; jl7 13:51 BP 156 / 71; Pulse 88; Resp 18; Temp 97.8; Pulse Ox 96% on R/A; ke1 09:38 Body Mass Index 25.09 (74.84 kg, 172.72 cm) jl7 MDM: 09:36 Patient medically screened. pm1 10:56 Physician consultation: Duran Pedersen MD was called at 10:56, No urology consumer affairs director. Left pm1 message. 12:24 Data reviewed: vital signs. Data interpreted: Pulse oximetry: on room air is 97 %. pm1 Interpretation: normal. Counseling: I had a detailed discussion with the patient and/or guardian regarding: the historical points, exam findings, and any diagnostic results supporting the discharge/admit diagnosis, lab results, radiology results, the need to transfer to another facility, [facility] does not immediately have the required specialist. 14:05 Physician consultation: William Andrews MD regarding regarding transfer, patient's pm1 condition, would like admission per Dr. YE Hospitalist. 14:23 Physician consultation: Physician consultation: MD Smith regarding regarding pm1 transfer, patient's condition, and will see patient. 11/06 09:37 Order name: Basic Metabolic Panel pm1 11/06 09:37 Order name: CBC with Diff pm1 11/06 09:37 Order name: Hepatic Function; Complete Time: 11:07 pm1 11/06 09:37 Order name: Lipase; Complete Time: 11:07 pm1 11/06 09:37 Order name: Urine Microscopic Only; Complete Time: 13:43 pm1 11/06 09:38 Order name: Basic Metabolic Panel; Complete Time: 11:07 EDMS 11/06 09:37 Order name: CT Stone Protocol; Complete Time: 10:16 pm1 11/06 09:38 Order name: CBC with Automated Diff; Complete Time: 12:39 EDMS 11/06 10:29 Order name: Manual Differential; Complete Time: 12:39 EDMS 11/06 12:42 Order name: COVID-19/FLU A+B (Document "Date of Onset" if Symptomatic) pm1 11/06 12:42 Order name: Strep pm11/06 12:42 Order name: COVID-19/FLU A+B; Complete Time: 13:49 EDMS 11/06 13:12 Order name: Urine Dipstick-Ancillary; Complete Time: 13:43 EDMS 11/06 09:37 Order name: IV Saline Lock; Complete Time: 15:04 pm1 11/06 09:37 Order name: Labs collected and sent; Complete Time: 09:46 pm1 11/06 09:37 Order name: Urine Dipstick-Ancillary (obtain specimen); Complete Time: 15:03 pm1 11/06 09:58 Order name: Labs - recollect needed: recollected green and purple top/ clotted; eb Complete Time: 10:37 11/06 10:30 Order name: Labs - recollect needed: recollect chemistry; Complete Time: 10:48 eb 11/06 12:18 Order name: Straight Cath - Urine; Complete Time: 13:23 pm1 Administered Medications: 10:26 Drug: NS 0.9% 500 ml Route: IV; Rate: bolus; Site: left antecubital; ke1 10:26 Drug: Zofran (Ondansetron) 4 mg Route: IVP; Site: left antecubital; ke1 11:00 Follow up: Response: No adverse reaction ke1 10:26 Drug: morphine 4 mg Route: IVP; Site: left antecubital; ke1 11:00 Follow up: Response: Pain is unchanged, physician notified ke1 11:01 Drug: morphine 4 mg Route: IVP; Site: left antecubital; ke1 11:30 Follow up: Response: Pain is unchanged, physician notified ke1 12:35 Drug: fentaNYL (PF) 25 mcg Route: IVP; Site: right antecubital; ke1 13:10 Follow up: Response: Pain is decreased ke1 13:37 Drug: Rocephin (cefTRIAXone) 1 grams Route: IV; Rate: calculated rate; Site: right ke1 antecubital; 13:58 Follow up: Response: No adverse reaction ke1 14:03 Follow up: IV Status: Completed infusion; IV Intake: 10ml ke1 Disposition: 17:01 Co-signature as Attending Physician, Jose Carlos Moreno MD I agree with the assessment and rn plan of care. Attestation: The patient's history, exam findings, diagnostics, and a summary of any interventions or procedures was reviewed in detail with Darren Fung NP. Disposition Summary: 11/06/21 12:25 Transfer Ordered Transfer Location: [facility] pm1 Reason: Specialty pm1 Condition: Stable pm1 Problem: new pm1 Symptoms: have improved pm1 Accepting Physician: Dr. Clarke Smith(11/06/21 15:41) jl7 Diagnosis - Hydronephrosis with renal and ureteral calculous obstruction pm1 Forms: - Medication Reconciliation Form pm1 - SBAR form pm1 Signatures: Dispatcher [employer] EDMS Jose Carlos Moreno MD MD rn Darren Fung NP SHERIFF SERGEANT pm1 Dayami Carlson RN RN jl7 Trice Singer Kouassi RN RN ke1 Corrections: (The following items were deleted from the chart) 14:39 12:25 pm1 eb 14:43 14:05 Physician consultation: [facility] Hospitalist regarding regarding pm1 transfer, patient's condition, and will see patient Physician consultation: [facility] Hospitalist regarding regarding transfer, patient's condition, and will see patient pm1 15:41 14:39 Dr. Clarke Smith jl7
--- NOTE | 2021-11-06 12:26 | ER ---
Nurse's Notes [facility] Name: Lee Hernandez Age: 81 yrs Sex: Male : 1940 Arrival Date: 11/06/2021 Time: 09:24 Bed 5 Private MD: Minh Hayes C Diagnosis: Hydronephrosis with renal and ureteral calculous obstruction Presentation: 11/06 09:38 Chief complaint: Patient states: Left flank pain since last night. Coronavirus screen: jl7 At this time, the client does not indicate any symptoms associated with coronavirus-19. Ebola Screen: No symptoms or risks identified at this time. Initial Sepsis Screen: Does the patient meet any 2 criteria? No. Patient's initial sepsis screen is negative. Does the patient have a suspected source of infection? No. Patient's initial sepsis screen is negative. Risk Assessment: Do you want to hurt yourself or someone else? Patient reports no desire to harm self or others. Onset of symptoms was November 05, 2021. 09:38 Method Of Arrival: Wheelchair jl7 09:38 Acuity: CULLEN 3 jl7 Triage Assessment: 09:39 General: Appears in no apparent distress. uncomfortable, Behavior is calm, cooperative, jl7 appropriate for age. Pain: Complains of pain in left flank. GI: Abdomen is round. Historical: - Allergies: 09:39 No Known Allergies; jl7 - Home Meds: 09:39 atorvastatin 40 mg Oral tab 1 tab once daily [Active]; Jakafi 5 mg Oral tab 1 tab once jl7 daily [Active]; metformin 500 mg Oral Tb24 1 tab once daily [Active]; Tradjenta 5 mg Oral tab 1 tab once daily [Active]; losartan oral [Active]; Jakafi oral [Active]; amlodipine oral [Active]; Allopurinol Oral [Active]; Plavix Oral [Active]; Odomzo oral [Active]; - PMHx: 09:39 CVA; Diabetes - NIDDM; Hypertension; Kidney stones; Myocardial infarction; polycythemia jl7 vera; polycythemiavera cancer; - Immunization history:: Client reports receiving the 2nd dose of the Covid vaccine, Moderna. - Social history:: Smoking status: Patient denies any tobacco usage or history of. Screenin:28 Abuse screen: Denies threats or abuse. Nutritional screening: No deficits noted. ke1 Tuberculosis screening: No symptoms or risk factors identified. Fall Risk No fall in past 12 months (0 pts). Secondary diagnosis (15 points) impaired mobility, IV access (20 points). Ambulatory Aid- None/Bed Rest/Nurse Assist (0 pts). Gait- Weak (10 pts.). Mental Status- Oriented to own ability (0 pts). Total Chin Fall Scale indicates High Risk Score (45 or more points). Fall prevention measures have been instituted. Side Rails Up X 2 Frequent Obs/Assessments Occuring. Assessment: 09:55 General: Appears uncomfortable, Behavior is calm, cooperative. Pain: Complains of pain ke1 in Left flank Pain radiates to left back Pain currently is 7 out of 10 on a pain scale. Neuro: Level of Consciousness is awake, alert, Oriented to person, place, time, situation. Cardiovascular: Heart tones S1 S2 Capillary refill < 3 seconds Patient's skin is warm and dry. Respiratory: Airway is patent Breath sounds are clear bilaterally. GI: Abdomen is round distended, Bowel sounds present X 4 quads. Abd is soft X 4 quads Abdomen is tender to palpation in left upper quadrant and left lower quadrant Reports lower abdominal pain. :. Musculoskeletal: Reports weakness in right leg. 10:20 Pain: Complains of pain in left flank Pain currently is 7 out of 10 on a pain scale. ke1 Noted to be Current management is with Morphine, Goal of pain control is to be pain free. 11:00 Reassessment: No changes from previously documented assessment. ke1 12:00 Reassessment: No changes from previously documented assessment. ke1 13:00 Reassessment: No changes from previously documented assessment. Will start fentanyl, ke1 patient unable to void until now, straight cath order per CUSTOMER ORDER CLERK.. 13:45 Reassessment: Patient feels better and report decrease pain at 4/10 at this time after ke1 Fentanyl + Coude insertion. Vital Signs: 09:38 BP 176 / 76; Pulse 77; Resp 17; Temp 97.4; Pulse Ox 100% on R/A; Weight 74.84 kg; jl7 Height 5 ft. 8 in. (172.72 cm); Pain 8/10; 11:46 BP 162 / 71; Pulse 82; Resp 15; Pulse Ox 97% ; jl7 13:51 BP 156 / 71; Pulse 88; Resp 18; Temp 97.8; Pulse Ox 96% on R/A; ke1 09:38 Body Mass Index 25.09 (74.84 kg, 172.72 cm) jl7 ED Course: 09:24 Patient arrived in ED. as 09:24 Minh Hayes MD is Private Physician. as 09:31 Kraig Reyes, BENIGNO is Primary Nurse. jd3 09:34 [facility] pm1 09:34 Jose Carlos Moreno MD is Attending Physician. pm1 09:39 Triage completed. jl7 09:39 Arm band placed on right wrist. jl7 09:45 Missed attempt(s): 20 gauge in right antecubital area. Bleeding controlled, band aid jd3 applied, catheter tip intact. 09:46 Gilmer Argueta RN is Primary Nurse. ke1 09:53 CT Stone Protocol In Process Unspecified. EDMS 10:42 IV discontinued, intact, bleeding controlled, No redness/swelling at site. Pressure dh3 dressing applied. 10:43 Lab(s) recollected, by me, sent to lab. Inserted saline lock: 20 gauge in right dh3 antecubital area, using aseptic technique. Blood collected. 12:45 initiated a transfer with Debby Vitale from the [facility]. eb 13:05 Coud inserted, using sterile technique, 18 Fr. Returned bloody urine. Urine specimen ke1 collected. by CUSTOMER ORDER CLERK khadijah 250 ml return of urine. 13:29 coude insertion. ke1 13:30 Patient has correct armband on for positive identification. Fall risk band placed. Bed ke1 in low position. Call light in reach. Side rails up X2. 14:[address] Andrews the urologist neonatal nurse practitioner for [facility] with Khadijah Agosto for patient eb transfer consultation. 14:19 connected the hospitalist neonatal nurse practitioner for [facility] with Khadijah Agosto for patient transfer eb consultation. 14:23 administrative approval given by Debby Vitale Rn/ patient has been accepted to [facility] [address]/ Dr. Clarke Smith has accepted the patient in transfer/ report to be called to [phone]. 15:41 Patient transferred, IV remains in place. intact, No redness/swelling at site. jl7 Administered Medications: 10:26 Drug: NS 0.9% 500 ml Route: IV; Rate: bolus; Site: left antecubital; ke1 10:26 Drug: Zofran (Ondansetron) 4 mg Route: IVP; Site: left antecubital; ke1 11:00 Follow up: Response: No adverse reaction ke1 10:26 Drug: morphine 4 mg Route: IVP; Site: left antecubital; ke1 11:00 Follow up: Response: Pain is unchanged, physician notified ke1 11:01 Drug: morphine 4 mg Route: IVP; Site: left antecubital; ke1 11:30 Follow up: Response: Pain is unchanged, physician notified ke1 12:35 Drug: fentaNYL (PF) 25 mcg Route: IVP; Site: right antecubital; ke1 13:10 Follow up: Response: Pain is decreased ke1 13:37 Drug: Rocephin (cefTRIAXone) 1 grams Route: IV; Rate: calculated rate; Site: right ke1 antecubital; 13:58 Follow up: Response: No adverse reaction ke1 14:03 Follow up: IV Status: Completed infusion; IV Intake: 10ml ke1 Intake: 14:03 IV: 10ml; Total: 10ml. ke1 Outcome: 12:25 ER care complete, transfer ordered by . pm1 15:39 Transferred by ground EMS to [facility], Transfer form completed. jl7 X-rays sent w/ patient. 15:39 Condition: stable 15:39 Discharge instructions given to patient, family, Instructed on the need for transfer, Demonstrated understanding of instructions. 15:41 Patient left the ED. jl7 Signatures: Dispatcher [employer] EDMS Lynsey High Patrick, CUSTOMER ORDER CLERK CUSTOMER ORDER CLERK pm1 Dayami Carlson RN RN jl7 Edita Elmore pending sale to [facility] Kraig Reyes RN RN jTrice Soria Kouassi, RN RN ke1 Corrections: (The following items were deleted from the chart) 13:28 13:05 [place] cath inserted, using sterile technique, 18 Fr., by ED staff, other CUSTOMER ORDER CLERK ke1 Khadijah Coud inserted, using sterile technique, 18 Fr. Returned clear yellow urine. Patient tolerated ke1 13:28 13:05 Coud inserted, using sterile technique, 18 Fr. Returned bloody urine. Urine ke1 specimen collected. by CUSTOMER ORDER CLERK khadijah ke1 13:55 13:45 Reassessment: Patient feels better and report being pain free at this time after ke1 Fentanyl + Coude insertion ke1
[2021-11-06 13:14] LABS: Urine Blood 2+ (Negative); Urine Glucose Negative (Negative); Urine Protein 1+ (Negative); Urine Specific Gravity >=1.030 (1.005-1.030); Urine pH 5.5 (5.0-7.0)
[2021-11-06 13:16] LABS: Urine Bacteria <20 /HPF (NONE SEEN); Urine RBC >50 /HPF (NONE SEEN)
[2021-11-06] MEDS ORDERED: CEFTRIAXONE 1000 MG/VIAL ONE (13:34)
[2021-11-06 13:47] LABS: SARS-COV-2 RT PCR NEGATIVE (NEGATIVE)
[2021-11-06 16:13] VITALS: BP 156/71; TEMP 97.8; O2SAT 96
== END 2021-11-06 15:41 | disposition short-term general hospital (02) ==
LOC: ER 09:22
DX: N13.2 Hydronephrosis with renal and ureteral calculous obstruction (principal); Z87.442 Personal history of urinary calculi; I10 Essential (primary) hypertension; E11.9 Type 2 diabetes mellitus without complications; Z20.822 Contact with and (suspected) exposure to COVID-19
CPT/HCPCS: 85025; 80048; 36415; 80076; 83690; 0240U; 76377; 74176; 99285; J3010; J7040; J2405; 81003; 81015

== ENCOUNTER 2021-12-21 21:50 | Observation (INO) | payer OTHER ==
--- OUTSIDE RECORDS SUMMARY | 2021-12-21 21:53 | XMS REPORT | Continuity of Care Document ---
:1940 Author Organization [facility] t Address [address] [place] [address] Dr. Garza [address] [place] [address] Care Team Providers Name Role Phone Kvngfarb_R Attending Clinician Unavailable Dax Attending Clinician [phone] RADHA Attending Clinician Unavailable GREGORY Attending Clinician Unavailable WATERS_S Attending Clinician Unavailable C_Hall Attending Clinician Unavailable Goldfarb_R Admitting Clinician Unavailable DAX Admitting Clinician Unavailable GREGORY BLANCAS Admitting Clinician Unavailable WATERS_S Admitting Clinician Unavailable C_Hall Admitting Clinician Unavailable Payers Payer Name Policy Type Policy Number Effective Date Expiration Date Ruma bailey MEDICARE [place]: [id number] 2006 [employer] 00:00:00 [facility] [id number] INSURANCE COMPANY - PLAN F (MEDICARE SUPPLEMENT) MEDICARE A B [id number] 2006 00:00:00 [facility] [id number] LIFE INSURANCE - PLAN F (MEDICARE SUPPLEMENT) Problems This patient has no known problems. Allergies, Adverse Reactions, Alerts Allergy Allergy Status Severity Reaction(s) Onset Inactive Treating Comm ents Source Name Type Date Date Clinician NO KNOWN Allergy Active [facility] Medications This patient has no known medications. Vital Signs Vital Name Observation Time Observation Value Comments Source WEIGHT 2021-11-06 17:35:00 76.068 kg HEIGHT 2021-11-06 17:35:00 172.7 cm WEIGHT 2021-11-06 17:35:00 76.068 kg HEIGHT 2021-11-06 17:35:00 172.7 cm Procedures This patient has no known procedures. Encounters Start End Encounter Admission Attending Care Care Encounter Source Date/Time Date/Time Type Type Clinicians Facility Department ID 2021-11-24 [facility] 2021-10-13 [facility] 14:05:55 [id number] [facility] 2021-10-13 Out[facility] 12[facility]57:23 [id number] [facility] 2021-10-13 Out[facility] 12:27:24 [id number] [facility] 2021-10-13 Out[facility] 12:23:16 [id number] [facility] 2021-10-13 [facility] 11:39:35 [id number] [facility] 2021-12-15 2021-12-15 Outpatient Goldfarb_R U [facility] [address] [place] 11:00:00 11:00:00 [id number] [facility] 2021-12-14 2021-12-14 Outpatient Goldfarb_R U [facility] [address] [place] 03:26:00 03:26:00 [id number] [facility] 2021-12-14 2021-12-14 Outpatient Dax, [facility] [id number] 00:00:00 00:00:00 Nash [id number] 2021-12-09 2021-12-09 Outpatient Goldfarb_R U [facility] [address] [place] 09:55:00 09:55:00 [facility] 2021-12-06 2021-12-07 Outpatient DAX, [facility] [place] 00:00:00 00:00:00 NAS[facility] 2021-12-06 2021-12-06 Outpatient DAX, [facility] [place] 00:00:00 00:00:00 [facility] 2021-12-06 2021-12-06 Outpatient Dax, [facility] [id number] 00:00:00 00:00:00 Nash [id number] 2021-11-29 2021-11-29 [facility] [place] 00:00:00 00:00:00 NASH [address] 2021-11-17 2021-11-17 Outpatient Goldfarb_R [facility] [id number] [place] 01:18:00 01:18:00 [facility] 2021-11-16 2021-11-16 Outpatient Goldfarb_R [facility] [address] [place] 11:23:00 11:23:00 [facility] 2021-11-16 2021-11-16 Outpatient DAX, [facility] [place] 00:00:00 00:00:00 NASH [address] 2021-11-16 2021-11-16 Outpatient Dax, [facility] [id number] 00:00:00 00:00:00 Nash [id number] 2021-11-06 2021-11-10 Inpatient [facility] Urology [id number] [facility] 16:50:00 16:55:00 [facility] 2021-11-10 2021-11-10 Outpatient Goldfarb_R [facility] [id number] [place] 10:05:00 10:05:00 [facility] 2021-10-28 2021-10-28 Outpatient Goldfarb_R [facility] [address] [place] 01:59:00 01:59:00 [facility] 2021-10-28 2021-10-28 Outpatient Dax, [facility] [id number] 00:00:00 00:00:00 Nash [id number] 2021-10-28 2021-10-28 Outpatient Dax, [facility] [id number] 00:00:00 00:00:00 Nash [id number] 2021-10-12 2021-10-12 Outpatient Goldfarb_R [facility] U [address] [place] 04:02:00 04:02:00 [facility] 2021-09-27 2021-09-27 Outpatient Goldfarb_R [facility] [address] [place] 12:11:00 12:11:00 [facility] 2021-05-10 2021-05-10 Outpatient WATERS_S [facility] [id number] [place] 07:28:00 07:28:00 [id number] 2015-05-29 2015-05-29 Outpatient C_Hall MMG [id number] [place] 03:01:00 03:01:00 0326 [facility] Results Test Description Test Time Test Comments Results Result Comments Source POCT-GLUCOSE METER 2021-11-10 12:06:56 Test Item Value Reference Range Interpretation Comme nts POC-GLUCOSE METER (BEAKER) 272 mg/dL 70-110 H : TESTED AT [facility] [address] [facility] (test code = 1538) [place], [address]: Material Clerk/Techni chelle ID = [id number] for NAZ CAMACHO URINE [id number] 08:47:50 Test Item Value Reference Range Interpretation Comments CULTURE (BEAKER) (test code = 1095) No growth POCT-GLUCOSE [id number] 07:14:35 Test Item Value Reference Range Interpretation Comments POC-GLUCOSE METER 168 mg/dL 70-110 H : [facility]BE[facility]ER[facility] (test code = [facility], 1538) [address]: Material Clerk/Techni chelle ID = [id number] for MORRIS CAVANAUGH BASIC METABOLIC [id number] 06:12:23 Test Item Value Reference Range Interpretation Comments SODIUM (BEAKER) 142 meq/L 136-145 (test code = 381) POTASSIUM (BEAKER) 3.7 meq/L 3.5-5.1 (test code = 379) CHLORIDE (BEAKER) 105 meq/L 98-107 (test code = 382) CO2 (BEAKER) (test 31 meq/L 22-29 H code = 355) BLOOD UREA NITROGEN 15 mg/dL 7-21 (BEAKER) (test code = 354) CREATININE (BEAKER) 0.96 mg/dL 0.57-1.25 (test code = 358) GLUCOSE RANDOM 164 mg/dL 70-105 H (BEAKER) (test code = 652) CALCIUM (BEAKER) 9.4 mg/dL 8.4-10.2 (test code = 697) EGFR (BEAKER) (test 75 mL/min/1.73 ESTIMA EVIN GFR IS code = 1092) sq m NOT ACCURATE CREATININE CLEARANCE IN PREDICTING GLOMERULAR FILTRATION RATE . ESTIMATED GFR I S NOT APPLICABLE FOR DIALYSIS PATIEN TS. Material Clerk ID - ELIZABETH WCBC W/PLT COUNT & AUTO [id number] 05:44:01 Test Item Value Reference Range Interpretation Comments WHITE BLOOD CELL COUNT (BEAKER) 14.5 K/ L 3.5-10.5 H (test code = 775) RED BLOOD CELL COUNT (BEAKER) 4.21 M/ L 4.63-6.08 L (test code = 761) HEMOGLOBIN (BEAKER) (test code = 11.9 GM/DL 13.7-17.5 L 410) HEMATOCRIT (BEAKER) (test code = 38.2 % 40.1-51.0 L 411) MEAN CORPUSCULAR VOLUME (BEAKER) 90.7 fL 79.0-92.2 (test code = 753) MEAN CORPUSCULAR HEMOGLOBIN 28.3 pg 25.7-32.2 (BEAKER) (test code = 751) MEAN CORPUSCULAR HEMOGLOBIN CONC 31.2 GM/DL 32.3-36.5 L (BEAKER) (test code = 752) RED CELL DISTRIBUTION WIDTH 15.2 % 11.6-14.4 H (BEAKER) (test code = 412) PLATELET COUNT (BEAKER) (test 314 K/CU MM 150-450 code = 756) MEAN PLATELET VOLUME (BEAKER) 10.9 fL 9.4-12.4 (test code = 754) NUCLEATED RED BLOOD CELLS 0 /100 WBC 0-0 (BEAKER) (test code = 413) NEUTROPHILS RELATIVE PERCENT 81 % (BEAKER) (test code = 429) LYMPHOCYTES RELATIVE PERCENT 4 % (BEAKER) (test code = 430) MONOCYTES RELATIVE PERCENT 7 % (BEAKER) (test code = 431) EOSINOPHILS RELATIVE PERCENT 2 % (BEAKER) (test code = 432) BASOPHILS RELATIVE PERCENT 2 % (BEAKER) (test code = 437) NEUTROPHILS ABSOLUTE COUNT 11.73 K/ L 1.78-5.38 H (BEAKER) (test code = 670) LYMPHOCYTES ABSOLUTE COUNT 0.52 K/ L 1.32-3.57 L (BEAKER) (test code = 414) MONOCYTES ABSOLUTE COUNT (BEAKER) 0.96 K/ L 0.30-0.82 H (test code = 415) EOSINOPHILS ABSOLUTE COUNT 0.23 K/ L 0.04-0.54 (BEAKER) (test code = 416) BASOPHILS ABSOLUTE COUNT (BEAKER) 0.31 K/ L 0.01-0.08 H (test code = 417) IMMATURE GRANULOCYTES-RELATIVE 5 % 0-1 H PERCENT (BEAKER) (test code = 2801) POCT-GLUCOSE [id number] 21:47:14 Test Item Value Reference Range Interpretation Comments POC-GLUCOSE METER 171 mg/dL 70-110 H : TESTED A T [facility] 6720 (BEAKER) (test code = [facility], 1538) [address]: Material Clerk/Techni chelle ID = [id number] for GR MORRIS GOVEA POCT-GLUCOSE [id number] 16:57:45 Test Item Value Reference Range Interpretation Comments POC-GLUCOSE METER 210 mg/dL 70-110 H : TESTED A T [facility] 6720 (BEAKER) (test code = [facility], 1538) 80[address]: Material Clerk/Techni chelle ID = [id number] for FERNANDO VERONIQUE POCT-GLUCOSE [id number] 12:07:25 Test Item Value Reference Range Interpretation Comments POC-GLUCOSE METER 287 mg/dL 70-110 H : TESTED A T [facility] 6720 (BEAKER) (test code = [facility], 1538) 94678: Material Clerk/Techni chelle ID = [id number] for STARR KINGYL (CELLAVISION MANUAL DIFF)2021-11-09 08:00:20 Test Item Value Reference Range Interpretation Comments NEUTROPHILS - REL 89 % (CELLAVISION)(BEAKER) (test code = 2816) LYMPHOCYTES - REL 2 % (CELLAVISION)(BEAKER) (test code = 2817) MONOCYTES - REL 3 % (CELLAVISION)(BEAKER) (test code = 2818) BASOPHILS - REL 1 % (CELLAVISION)(BEAKER) (test code = 2820) METAMYELOCYTES - REL 3 % 0-0 H (CELLAVISION)(BEAKER) (test code = 2821) MYELOCYTES - REL 1 % 0-0 H (CELLAVISION)(BEAKER) (test code = 2822) BANDS - REL (CELLAVISION)(BEAKER) 1 % 0-10 (test code = 2826) NEUTROPHILS - ABS 18.96 K/ul 1.78-5.38 H (CELLAVISION)(BEAKER) (test code = 2830) LYMPHOCYTES - ABS 0.43 K/ul 1.32-3.57 L (CELLAVISION)(BEAKER) (test code = 2831) MONOCYTES - ABS 0.64 K/uL 0.30-0.82 (CELLAVISION)(BEAKER) (test code = 2832) BASOPHILS - ABS 0.21 K/uL 0.01-0.08 H (CELLAVISION)(BEAKER) (test code = 2835) METAMYELOCYTES - ABS 0.64 K/uL 0.00-0.00 H (CELLAVISION)(BEAKER) (test code = 2836) MYELOCYTES-ABS 0.21 K/uL 0.00-0.00 H (CELLAVISION)(BEAKER) (test code = 2837) BANDS - ABS (CELLAVISION)(BEAKER) 0.21 K/uL 0.00-0.80 (test code = 2840) TOTAL COUNTED (BEAKER) (test code 100 = 1351) MANUAL NRBC PER 100 CELLS 1 /100 WBC 0-0 H (BEAKER) (test code = 1353) WBC MORPHOLOGY (BEAKER) (test Normal code = 487) PLT MORPHOLOGY (BEAKER) (test Normal code = 486) POLYCHROMATOPHILLIC RBCS(BEAKER) 2+ moderate (test code = 478) ANISOCYTOSIS (BEAKER) (test code 2+ moderate = 961) MICROCYTES (BEAKER) (test code = 2+ moderate 965) POIKILOCYTES (BEAKER) (test code 2+ moderate = 966) SPHEROCYTES (BEAKER) (test code = 2+ moderate 768) TEAR DROP CELLS (BEAKER) (test 1+ few code = 481) BASOPHILIC STIPPLING (BEAKER) Present (test code = 473) ARTIFACT (CELLAVISION)(BEAKER) Present (test code = 3432) PLATELET CONCENTRATION Adequate (CELLAVISION)(BEAKER) (test code = 3438) Material Clerk ID - Teddy comments: Slide comments:CBC W/PLT COUNT & AUTO [id number] 08:00:19 Test Item Value Reference Range Interpretation Comments WHITE BLOOD CELL COUNT (BEAKER) 21.3 K/ L 3.5-10.5 H (test code = 775) RED BLOOD CELL COUNT (BEAKER) 4.11 M/ L 4.63-6.08 L (test code = 761) HEMOGLOBIN (BEAKER) (test code = 11.7 GM/DL 13.7-17.5 L 410) HEMATOCRIT (BEAKER) (test code = 36.8 % 40.1-51.0 L 411) MEAN CORPUSCULAR VOLUME (BEAKER) 89.5 fL 79.0-92.2 (test code = 753) MEAN CORPUSCULAR HEMOGLOBIN 28.5 pg 25.7-32.2 (BEAKER) (test code = 751) MEAN CORPUSCULAR HEMOGLOBIN CONC 31.8 GM/DL 32.3-36.5 L (BEAKER) (test code = 752) RED CELL DISTRIBUTION WIDTH 15.1 % 11.6-14.4 H (BEAKER) (test code = 412) PLATELET COUNT (BEAKER) (test 387 K/CU MM 150-450 code = 756) MEAN PLATELET VOLUME (BEAKER) 11.0 fL 9.4-12.4 (test code = 754) NUCLEATED RED BLOOD CELLS 0 /100 WBC 0-0 (BEAKER) (test code = 413) POCT-GLUCOSE [id number] 06:25:38 Test Item Value Reference Range Interpretation Comments POC-GLUCOSE METER 204 mg/dL 70-110 H : TESTED A T [facility] 6720 (BEAKER) (test code = [facility], 1538) [address]: Material Clerk/Techni chelle ID = [id number] for Miriam Franklin BASIC METABOLIC [id number] 05:08:40 Test Item Value Reference Range Interpretation Comments SODIUM (BEAKER) 138 meq/L 136-145 (test code = 381) POTASSIUM (BEAKER) 3.6 meq/L 3.5-5.1 (test code = 379) CHLORIDE (BEAKER) 104 meq/L 98-107 (test code = 382) CO2 (BEAKER) (test 26 meq/L 22-29 code = 355) BLOOD UREA NITROGEN 16 mg/dL 7-21 (BEAKER) (test code = 354) CREATININE (BEAKER) 1.09 mg/dL 0.57-1.25 (test code = 358) GLUCOSE RANDOM 219 mg/dL 70-105 H (BEAKER) (test code = 652) CALCIUM (BEAKER) 9.1 mg/dL 8.4-10.2 (test code = 697) EGFR (BEAKER) (test 65 mL/min/1.73 ESTIMA EVIN GFR IS code = 1092) sq m NOT ACCURATE CREATININE CLEARANCE IN PREDICTING GLOMERULAR FILTRATION RATE . ESTIMATED GFR I S NOT APPLICABLE FOR DIALYSIS PATIEN TS. Material Clerk ID - ELIZABETH WPOCT-GLUCOSE [id number] 22:15:06 Test Item Value Reference Range Interpretation Comments POC-GLUCOSE METER 177 mg/dL 70-110 H : TESTED A T [facility] 6720 (BEAKER) (test code = [facility], 1538) [address]: Material Clerk/Techni chelle ID = [id number] for Miriam Franklin POCT-GLUCOSE [id number] 17:42:34 Test Item Value Reference Range Interpretation Comments POC-GLUCOSE METER 235 mg/dL 70-110 H : TESTED A T [facility] 6720 (BEAKER) (test code = [facility], 1538) [address]36: Material Clerk/Techni chelle ID = [id number] for BETHJULIANVERONIQUE BLANCA POCT-GLUCOSE [id number] 12:21:05 Test Item Value Reference Range Interpretation Comments POC-GLUCOSE METER 232 mg/dL 70-110 H : TESTED A T [facility] 6720 (BEAKER) (test code = [facility], 1538) 01817: Material Clerk/Techni chelle ID = [id number] for Kala Garcia POCT-GLUCOSE [id number] 11:40:34 Test Item Value Reference Range Interpretation Comments POC-GLUCOSE METER 191 mg/dL 70-110 H : TESTED A T [facility] 6720 (BEAKER) (test code = [facility] [place], 1538) 66[address]: Material Clerk/Techni chelle ID = [id number] for VERONIQUE KING POCT-GLUCOSE [id number] 07:16:24 Test Item Value Reference Range Interpretation Comments POC-GLUCOSE METER 123 mg/dL 70-110 H : TESTED A T [facility] 6720 (BEAKER) (test code = [facility], 1538) 77[address]: Material Clerk/Techni chelle ID = [id number] for Kala Garcia (CELLAVISION MANUAL DIFF)2021-11-08 06:29:46 Test Item Value Reference Range Interpretation Comments NEUTROPHILS - REL 91 % (CELLAVISION)(BEAKER) (test code = 2816) LYMPHOCYTES - REL 2 % (CELLAVISION)(BEAKER) (test code = 2817) MONOCYTES - REL 2 % (CELLAVISION)(BEAKER) (test code = 2818) EOSINOPHILS - REL 1 % (CELLAVISION)(BEAKER) (test code = 2819) METAMYELOCYTES - REL 1 % 0-0 H (CELLAVISION)(BEAKER) (test code = 2821) MYELOCYTES - REL 1 % 0-0 H (CELLAVISION)(BEAKER) (test code = 2822) ATYPICAL LYMPHOCYTES - REL 2 % 0-0 H (CELLAVISION)(BEAKER) (test code = 2829) NEUTROPHILS - ABS 22.11 K/ul 1.78-5.38 H (CELLAVISION)(BEAKER) (test code = 2830) LYMPHOCYTES - ABS 0.49 K/ul 1.32-3.57 L (CELLAVISION)(BEAKER) (test code = 2831) MONOCYTES - ABS 0.49 K/uL 0.30-0.82 (CELLAVISION)(BEAKER) (test code = 2832) EOSINOPHILS - ABS 0.24 K/uL 0.04-0.54 (CELLAVISION)(BEAKER) (test code = 2834) METAMYELOCYTES - ABS 0.24 K/uL 0.00-0.00 H (CELLAVISION)(BEAKER) (test code = 2836) MYELOCYTES-ABS 0.24 K/uL 0.00-0.00 H (CELLAVISION)(BEAKER) (test code = 2837) ATYPICAL LYMPHOCYTES - ABS 0.49 K/uL 0.00-0.00 H (CELLAVISION)(BEAKER) (test code = 2858) TOTAL COUNTED (BEAKER) (test code 100 = 1351) MANUAL NRBC PER 100 CELLS (BEAKER) 1 /100 WBC 0-0 H (test code = 1353) WBC MORPHOLOGY (BEAKER) (test code Normal = 487) PLT MORPHOLOGY (BEAKER) (test code Normal = 486) POLYCHROMATOPHILLIC RBCS(BEAKER) 1+ few (test code = 478) ANISOCYTOSIS (BEAKER) (test code = 1+ few 961) MICROCYTES (BEAKER) (test code = 1+ few 965) POIKILOCYTES (BEAKER) (test code = 1+ few 966) SPHEROCYTES (BEAKER) (test code = 1+ few 768) ARTIFACT (CELLAVISION)(BEAKER) Present (test code = 3432) PLATELET CONCENTRATION Adequate (CELLAVISION)(BEAKER) (test code = 3438) Material Clerk ID - Teddy comments: Slide comments:CBC W/PLT COUNT & AUTO [id number] 06:29:45 Test Item Value Reference Range Interpretation Comments WHITE BLOOD CELL COUNT (BEAKER) 24.3 K/ L 3.5-10.5 H (test code = 775) RED BLOOD CELL COUNT (BEAKER) 4.13 M/ L 4.63-6.08 L (test code = 761) HEMOGLOBIN (BEAKER) (test code = 11.8 GM/DL 13.7-17.5 L 410) HEMATOCRIT (BEAKER) (test code = 37.9 % 40.1-51.0 L 411) MEAN CORPUSCULAR VOLUME (BEAKER) 91.8 fL 79.0-92.2 (test code = 753) MEAN CORPUSCULAR HEMOGLOBIN 28.6 pg 25.7-32.2 (BEAKER) (test code = 751) MEAN CORPUSCULAR HEMOGLOBIN CONC 31.1 GM/DL 32.3-36.5 L (BEAKER) (test code = 752) RED CELL DISTRIBUTION WIDTH 15.2 % 11.6-14.4 H (BEAKER) (test code = 412) PLATELET COUNT (BEAKER) (test 438 K/CU MM 150-450 code = 756) MEAN PLATELET VOLUME (BEAKER) 10.6 fL 9.4-12.4 (test code = 754) NUCLEATED RED BLOOD CELLS 1 /100 WBC 0-0 H (BEAKER) (test code = 413) [id number] 04:14:51 Test Item Value Reference Range Interpretation Comments MAGNESIUM (BEAKER) (test code = 1.8 mg/dL 1.6-2.6 627) Material Clerk ID Seth JOHNSON [id number] 04:14:51 Test Item Value Reference Range Interpretation Comments PHOSPHORUS (BEAKER) (test code = 3.1 mg/dL 2.3-4.7 604) Material Clerk ID Seth JOHNSON WBASIC METABOLIC [id number] 04:14:50 Test Item Value Reference Range Interpretation Comments SODIUM (BEAKER) 139 meq/L 136-145 (test code = 381) POTASSIUM (BEAKER) 3.8 meq/L 3.5-5.1 (test code = 379) CHLORIDE (BEAKER) 104 meq/L 98-107 (test code = 382) CO2 (BEAKER) (test 29 meq/L 22-29 code = 355) BLOOD UREA NITROGEN 17 mg/dL 7-21 (BEAKER) (test code = 354) CREATININE (BEAKER) 1.23 mg/dL 0.57-1.25 (test code = 358) GLUCOSE RANDOM 160 mg/dL 70-105 H (BEAKER) (test code = 652) CALCIUM (BEAKER) 8.9 mg/dL 8.4-10.2 (test code = 697) EGFR (BEAKER) (test 57 mL/min/1.73 ESTIMA EVIN GFR IS code = 1092) sq m NOT ACCURATE CREATININE CLEARANCE IN PREDICTING GLOMERULAR FILTRATION RATE . ESTIMATED GFR I S NOT APPLICABLE FOR DIALYSIS PATIEN TS. Material Clerk ID Seth JOHNSON WCALCIUM, [id number] 03:49:19 Test Item Value Reference Range Interpretation Comments CALCIUM IONIZED (BEAKER) (test 1.23 mmol/L 1.12-1.27 code = 698) PH, BLOOD (AKER) (test code = 7.41 1810) POCT-GLUCOSE [id number] 17:19:39 Test Item Value Reference Range Interpretation Comments POC-GLUCOSE METER 211 mg/dL 70-110 H : TESTED A T [facility] 6720 (BEAKER) (test code = [facility], 1538) 98448: Material Clerk/Techni chelle ID = [id number] for DA VISJOSEAIRA POCT-GLUCOSE [id number] 13:26:51 Test Item Value Reference Range Interpretation Comments POC-GLUCOSE METER 194 mg/dL 70-110 H : TESTED A T [facility] 6720 ([facility]) (test code = [facility], 1538) 26069: Material Clerk/Techni chlele ID = [id number] for PU A, CANDACE FL, FLUORO, NON-SPECIFIC, UP TO 1 [id number] 12:35:00Reason for exam:- >retrograde pyelograms [facility] : 1940 Sex: MFluoroscopic unit utilized for a procedure performed in the OR. No interpretation was requested. Refer to the operative report for findings. Refer to PACS for patient radiation dose information.(CELLAVISION MANUAL DIFF)2021-11-07 11:22:32 Test Item Value Reference Range Interpretation Comments NEUTROPHILS - REL 93 % (CELLAVISION)(BEAKER) (test code = 2816) LYMPHOCYTES - REL 2 % (CELLAVISION)(BEAKER) (test code = 2817) BASOPHILS - REL 1 % (CELLAVISION)(BEAKER) (test code = 2820) MYELOCYTES - REL 3 % 0-0 H (CELLAVISION)(BEAKER) (test code = 2822) BANDS - REL (CELLAVISION)(BEAKER) 1 % 0-10 (test code = 2826) NEUTROPHILS - ABS 27.62 K/ul 1.78-5.38 H (CELLAVISION)(BEAKER) (test code = 2830) LYMPHOCYTES - ABS 0.59 K/ul 1.32-3.57 L (CELLAVISION)(BEAKER) (test code = 2831) BASOPHILS - ABS 0.30 K/uL 0.01-0.08 H (CELLAVISION)(BEAKER) (test code = 2835) MYELOCYTES-ABS 0.89 K/uL 0.00-0.00 H (CELLAVISION)(BEAKER) (test code = 2837) BANDS - ABS (CELLAVISION)(BEAKER) 0.30 K/uL 0.00-0.80 (test code = 2840) TOTAL COUNTED (BEAKER) (test code 100 = 1351) WBC MORPHOLOGY (BEAKER) (test Normal code = 487) PLT MORPHOLOGY (BEAKER) (test Normal code = 486) POLYCHROMATOPHILLIC RBCS(BEAKER) 1+ few (test code = 478) ANISOCYTOSIS (BEAKER) (test code 2+ moderate = 961) MICROCYTES (BEAKER) (test code = 2+ moderate 965) POIKILOCYTES (BEAKER) (test code 2+ moderate = 966) ELLIPTOCYTES (BEAKER) (test code 1+ few = 962) OVALOCYTES (BEAKER) (test code = 1+ few 477) TEAR DROP CELLS (BEAKER) (test 1+ few code = 481) ARTIFACT (CELLAVISION)(BEAKER) Present (test code = 3432) PLATELET CONCENTRATION Adequate (CELLAVISION)(BEAKER) (test code = 3438) Material Clerk ID - Mariama No comments: Slide comments:CBC W/PLT COUNT & AUTO [id number] 11:22:31 Test Item Value Reference Range Interpretation Comments WHITE BLOOD CELL COUNT (BEAKER) 29.7 K/ L 3.5-10.5 H (test code = 775) RED BLOOD CELL COUNT (BEAKER) 4.51 M/ L 4.63-6.08 L (test code = 761) HEMOGLOBIN (BEAKER) (test code = 13.0 GM/DL 13.7-17.5 L 410) HEMATOCRIT (BEAKER) (test code = 40.6 % 40.1-51.0 411) MEAN CORPUSCULAR VOLUME (BEAKER) 90.0 fL 79.0-92.2 (test code = 753) MEAN CORPUSCULAR HEMOGLOBIN 28.8 pg 25.7-32.2 (BEAKER) (test code = 751) MEAN CORPUSCULAR HEMOGLOBIN CONC 32.0 GM/DL 32.3-36.5 L (BEAKER) (test code = 752) RED CELL DISTRIBUTION WIDTH 14.9 % 11.6-14.4 H (BEAKER) (test code = 412) PLATELET COUNT (BEAKER) (test 482 K/CU MM 150-450 H code = 756) MEAN PLATELET VOLUME (BEAKER) 10.8 fL 9.4-12.4 (test code = 754) NUCLEATED RED BLOOD CELLS 0 /100 WBC 0-0 (BEAKER) (test code = 413) SARS-COV2/RT-PCR ([facility])2021-11-07 09:40:36 Test Item Value Reference Range Interpretation Comments SARS-COV2/RT-PCR (test Negative Not Detected, Negative, code = 2164656) See external report for linked test SARS-COV-2 [facility]FORMING [facility] (test code = 4587705) Negative result for this test determines that SARS-CoV-2 RNA was not present in the specimen above the Limit of Detection (LOD). However, Negative results do not preclude SARS-CoV-2 infection and should not be used as the sole basis for treatment or patient management decisions. Negative results mustbe combined with clinical observations, patient history, and epidemiological information. A false negative result may occur if a specimen is improperly collected, transported or handled. A false negative result should be considered if patient's recent exposures or clinical presentation indicate that COVID-19 (SARS-CoV-2) is likely and diagnostic tests for other causes of illness are negative. Re-testing should be considered in cases of suspected false negatives.The limit of detection for this assay is 800 copies/mL.This SARS CoV-2 test is a real-time RT-PCR test intended for the qualitative detection of nucleic acid from SARS-CoV-2 in a nasopharyngeal swab specimen collected from individuals susp ected of COVID-19 by their healthcare provider.This test has not been Food and Drug Administration (FDA) cleared or approved. This is a modified version of an approved Emergency Use Authorization (EUA) and is in the process of review by the FDA. Once authorized by the FDA, the issued EUA will be effective until the declaration that circumstances exist justifying the authorization of the emergency use of in vitro diagnostic tests for detection and/or diagnosis of COVID-19 is terminated under Section 564(b)(2) of the Act or the EUA is revoked under Section 564(g) of the Act.Fact Sheet for Healthcare Providers:https://www.[employer]/sites/default/files/product/documents/Fact_Shee h_TP_Gkccgmvge_Mlny_ACWN-JgJ-9.pdfFact Sheet for Healthcare Patients:https://www.[employer]/sites/default/files/product/ documents/Iiqr_Tvdbd_Qutovgkx_Teon_RCTH-UfF-8.pdfPerforming Laboratory:[facility].[place], [place] [address]IAF, CHEST, 1 VIEW, NON [id number] 07:26:00Reason for exam:->preopShould this be performed at the bedside?->Yes [facility] 1940 Sex: MFINAL REPORT INDICATION: preop COMPARISON: None TECHNIQUE: Single fron delfin view of the chest. FINDINGS: Lungs and pleura: Clear lungs. No effusion.Heart and mediastinum: Normal heart size. Unremarkable mediastinal contours.Osseous structures: No acute abnormality.Other: None. IMPRESSION: No acute intrathoracic abnormality. Signed: Jose Arriola MDRepkyra Verified Date/Time: 11/07/2021 07:26:55 [id number] 06:17:26 Test Item Value Reference Range Interpretation Comments MAGNESIUM (BEAKER) (test code = 1.7 mg/dL 1.6-2.6 627) Material Clerk ID - SHASHI [id number] 06:17:26 Test Item Value Reference Range Interpretation Comments PHOSPHORUS (BEAKER) (test code = 3.7 mg/dL 2.3-4.7 604) Material Clerk ID - SHASHI MCOMPREHENSIVE METABOLIC [id number] 06:17:25 Test Item Value Reference Range Interpretation Comments TOTAL PROTEIN 6.4 gm/dL 6.0-8.3 (BEAKER) (test code = 770) ALBUMIN (BEAKER) 3.9 g/dL 3.5-5.0 (test code = 1145) ALKALINE PHOSPHATASE 98 U/L 40-150 (BEAKER) (test code = 346) BILIRUBIN TOTAL 0.8 mg/dL 0.2-1.2 (BEAKER) (test code = 377) SODIUM (BEAKER) (test 137 meq/L 136-145 code = 381) POTASSIUM (BEAKER) 4.0 meq/L 3.5-5.1 (test code = 379) CHLORIDE (BEAKER) 103 meq/L 98-107 (test code = 382) CO2 (BEAKER) (test 24 meq/L 22-29 code = 355) BLOOD UREA NITROGEN 18 mg/dL 7-21 (BEAKER) (test code = 354) CREATININE (BEAKER) 1.10 mg/dL 0.57-1.25 (test code = 358) GLUCOSE RANDOM 205 mg/dL 70-105 H (BEAKER) (test code = 652) CALCIUM (BEAKER) 9.4 mg/dL 8.4-10.2 (test code = 697) AST (SGOT) (BEAKER) 42 U/L 5-34 H (test code = 353) ALT (SGPT) (BEAKER) 55 U/L 6-55 (test code = 347) EGFR (BEAKER) (test 64 mL/min/1.73 ESTIMA EVIN GFR IS code = 1092) sq m NOT ACCURATE CREATININE CLEARANCE IN PREDICTING GLOMERULAR FILTRATION RATE . ESTIMATED GFR I S NOT APPLICABLE FOR DIALYSIS PATIEN TS. Material Clerk ID - SHASHI MPOCT-GLUCOSE [id number] 06:15:51 Test Item Value Reference Range Interpretation Comments POC-GLUCOSE METER 191 mg/dL 70-110 H : TESTED A T [facility] 6720 (BEAKER) (test code = [place], 1538) [address]: Material Clerk/Techni chelle ID = [id number] for Kala Garcia PROTHROMBIN [id number] 05:50:32 Test Item Value Reference Range Interpretation Comments PROTIME (BEAKER) 15.3 seconds 11.9-14.2 H (test code = 759) INR (BEAKER) (test 1.23 See_Comment [Automat ed message] code = 370) The system [employer] generated this result transmitted ref erence range: <=5.90. The reference range was not used to int erpret this result as normal/abnormal . RECOMMENDED COUMADIN/WARFARIN INR THERAPY RANGESSTANDARD DOSE: 2.0 - 3.0 Includes: PROPHYLAXIS forvenous thrombosis, systemic embolization; TREATMENT for venous thrombosis and/or pulmonary embolus.HIGH RISK: Target INR is 2.5-3.5 for patients with mechanical heart valves.URINALYSIS W/ REFLEX URINE CULTURE 2021-11-07 00:53:57 Test Item Value Reference Range Interpretation Comments COLOR (BEAKER) (test code = 470) [place] CLARITY (BEAKER) (test code = 469) Clear SPECIFIC GRAVITY UA (BEAKER) (test 1.016 1.001-1.035 code = 468) PH UA (BEAKER) (test code = 467) 6.5 5.0-8.0 PROTEIN UA (BEAKER) (test code = 30 mg/dL Negative A 464) GLUCOSE UA (BEAKER) (test code = Negative Negative 365) KETONES UA (BEAKER) (test code = Trace Negative A 371) BILIRUBIN UA (BEAKER) (test code = Negative Negative 462) BLOOD UA (BEAKER) (test code = 461) Large Negative A NITRITE UA (BEAKER) (test code = Negative Negative 465) LEUKOCYTE ESTERASE UA (BEAKER) Large Negative A (test code = 466) UROBILINOGEN UA (BEAKER) (test code 0.2 mg/dL 0.2-1.0 = 463) RBC UA (BEAKER) (test code = 519) 3461 /HPF WBC UA (BEAKER) (test code = 520) 120 /HPF BACTERIA (BEAKER) (test code = 517) None Seen CRYSTALS, URINE (BEAKER) (test code None Seen = 1521) SOURCE(BEAKER) (test code = 2795) Material Clerk ID - [auto]Material Clerk ID - techPOCT-GLUCOSE [id number] 00:15:19 Test Item Value Reference Range Interpretation Comments POC-GLUCOSE METER 153 mg/dL 70-110 H : TESTED A T [facility] 6720 (BEAKER) (test code = [place], 1538) [address]: Material Clerk/Techni chelle ID = [id number] for Kala Garcia
[2021-12-21] MEDS ORDERED: ASPIRIN 81 MG CHEWABLE TABLET ONE (22:11)
[2021-12-21 22:38] LABS: Absolute Lymphocytes (CBC) 0.9 K/uL (0.7-4.9); Hematocrit 39.3 % (39.6-49.0); Lymphocytes % 5.9 % (15.3-44.8); MPV 8.7 fL (7.6-11.3); RBC Red Blood Cell Count 4.52 M/uL (4.33-5.43)
[2021-12-21 22:55] LABS: Bilirubin Direct 0.2 mg/dL (0-0.2); Bilirubin Total 0.9 mg/dL (0.2-1.0); Magnesium 2.1 mg/dL (1.8-2.4); Potassium 3.9 mmol/L (3.5-5.1); Protein, Total 6.8 g/dL (6.4-8.2); Troponin High Sensitivity 16.8 pg/mL (<58.9)
[2021-12-21] MEDS ORDERED: NA CHLORIDE 0.9% 1,000 ML ONE (22:57)
[2021-12-21 22:58] LABS: Protime INR 1.15
[2021-12-21] MEDS ORDERED: HEPARIN 5000 UNIT/ML 1 ML VIAL ONE (23:31)
[2021-12-21] MEDS ORDERED: MORPHINE 2 MG/ML SYR ONE (23:32)
[2021-12-21] MEDS ORDERED: METOPROLOL TARTRATE 5 MG/5 ML INJ IV ONE (23:32)
[2021-12-21] MEDS ORDERED: FAMOTIDINE 20 MG/2 ML VIAL IV ONE (23:32)
[2021-12-21] MEDS ORDERED: ONDANSETRON 4 MG/2 ML VIAL ONE (23:32)
[2021-12-21] MEDS ORDERED: METOPROLOL TAR 25 MG TAB ONE (23:32)
[2021-12-21] MEDS ORDERED: HEPARIN/D5W 25,000 UNIT/500 ML BAG IV ONE (23:33)
[2021-12-21 23:55] LABS: Blood Morphology Comment NOT SEEN (NOT SEEN); Platelet Estimate ADEQ
--- NOTE | 2021-12-22 01:02 | EDPHYS ---
Physician Documentation [facility] Name: Lee Hernandez Age: 81 yrs Sex: Male : 1940 Arrival Date: 12/21/2021 Time: 21:52 Bed 20 Private MD: ED Physician Marcio Montiel HPI: 12/21 22:54 This 81 yrs old Male presents to ER via Ambulatory with complaints of Chest taylor Pain. Historical: - Allergies: 22:30 No Known Allergies; bb - Home Meds: 22:30 Allopurinol Oral [Active]; amlodipine oral [Active]; atorvastatin 40 mg Oral tab 1 tab bb once daily [Active]; Jakafi Oral [Active]; losartan Oral [Active]; Plavix Oral [Active]; Tradjenta 5 mg Oral tab 1 tab once daily [Active]; Metformin Oral [Active]; - PMHx: 22:30 CVA; Diabetes - NIDDM; Hypertension; Kidney stones; Myocardial infarction; polycythemia bb vera; CAD; - PSHx: 22:30 heart stent; bb - Immunization history:: Moderna x 3. - Social history:: Smoking status: Patient denies any tobacco usage or history of. ROS: 22:55 Constitutional: Negative for fever, chills, and weight loss, Eyes: Negative for injury, taylor pain, redness, and discharge, ENT: Negative for injury, pain, and discharge, Neck: Negative for injury, pain, and swelling, Respiratory: Negative for shortness of breath, cough, wheezing, and pleuritic chest pain, Abdomen/GI: Negative for abdominal pain, nausea, vomiting, diarrhea, and constipation, Back: Negative for injury and pain, : Negative for injury, bleeding, discharge, and swelling, MS/Extremity: Negative for injury and deformity, Skin: Negative for injury, rash, and discoloration, Neuro: Negative for headache, weakness, numbness, tingling, and seizure, Psych: Negative for depression, anxiety, suicide ideation, homicidal ideation, and hallucinations, Allergy/Immunology: Negative for hives, rash, and allergies, Endocrine: Negative for neck swelling, polydipsia, polyuria, polyphagia, and marked weight changes, Hematologic/Lymphatic: Negative for swollen nodes, abnormal bleeding, and unusual bruising. 22:55 Cardiovascular: Positive for chest pain. Exam: 22:55 Constitutional: This is a well developed, well nourished patient who is awake, alert, taylor and in no acute distress. Head/Face: Normocephalic, atraumatic. Eyes: Pupils equal round and reactive to light, extra-ocular motions intact. Lids and lashes normal. Conjunctiva and sclera are non-icteric and not injected. Cornea within normal limits. Periorbital areas with no swelling, redness, or edema. ENT: Nares patent. No nasal discharge, no septal abnormalities noted. Tympanic membranes are normal and external auditory canals are clear. Oropharynx with no redness, swelling, or masses, exudates, or evidence of obstruction, uvula midline. Mucous membranes moist. Neck: Trachea midline, no thyromegaly or masses palpated, and no cervical lymphadenopathy. Supple, full range of motion without nuchal rigidity, or vertebral point tenderness. No Meningismus. Chest/axilla: Normal chest wall appearance and motion. Nontender with no deformity. No lesions are appreciated. Cardiovascular: Regular rate and rhythm with a normal S1 and S2. No gallops, murmurs, or rubs. Normal PMI, no JVD. No pulse deficits. Respiratory: Lungs have equal breath sounds bilaterally, clear to auscultation and percussion. No rales, rhonchi or wheezes noted. No increased work of breathing, no retractions or nasal flaring. Abdomen/GI: Soft, non-tender, with normal bowel sounds. No distension or tympany. No guarding or rebound. No evidence of tenderness throughout. Back: No spinal tenderness. No costovertebral tenderness. Full range of motion. Male : Normal genitalia with no discharge or lesions. Skin: Warm, dry with normal turgor. Normal color with no rashes, no lesions, and no evidence of cellulitis. MS/ Extremity: Pulses equal, no cyanosis. Neurovascular intact. Full, normal range of motion. Neuro: Awake and alert, GCS 15, oriented to person, place, time, and situation. Cranial nerves II-XII grossly intact. Motor strength 5/5 in all extremities. Sensory grossly intact. Cerebellar exam normal. Normal gait. Psych: Awake, alert, with orientation to person, place and time. Behavior, mood, and affect are within normal limits. Vital Signs: 22:10 BP 186 / 77; Pulse 91; Resp 18 S; Temp 97.8(O); Pulse Ox 98% on R/A; Weight 72.57 kg bb (R); Height 5 ft. 8 in. (172.72 cm) (R); Pain 710; 12/22 00:30 BP 135 / 58; Pulse 73; Resp 16; Pulse Ox 95% on R/A; kd3 03:49 BP 111 / 45; Pulse 56; Resp 13; Pulse Ox 96% on R/A; kd3 12/21 22:10 Body Mass Index 24.33 (72.57 kg, 172.72 cm) bb MDM: 12/21 22:00 Patient medically screened. taylor 22:57 Differential diagnosis: abnormal EKG, acute myocardial infarction, chest wall pain, taylor cholecystitis, Cholelithiasis costochondritis, hiatal hernia, pancreatitis, peptic ulcer disease, pericarditis, pneumonia, pulmonary embolus, stable angina, thoracic aortic disection, unstable angina. HEART Score: History: Slightly Suspicious (0), ECG: Non specific repolarization disturbance / LBTB / PM (1), Age: > or = 65 years (2), Risk Factors: > or = 3 Risk factors for atherosclerotic disease (2), [Hypercholesterolemia] [Hypertension] [DM] [+ Family HX] Troponin: < or = 1 x Normal Limit (0). The patient was given aspirin in the Emergency Department. The patient's deep vein thrombosis risk score was calculated as follows: Total Score: 0. This patient was found to be at low risk for a deep vein thrombosis by using the Well's assessment criteria. The patient's pulmonary embolism risk score was calculated as follows: Total Score: 0-2 points. This patient was found to be at low risk for a pulmonary embolism by using the Well's assessment criteria. YAJAIRA Risk Score: 1 - patient's age is greater or equal to 65 years, 1 - Three or more CAD risk factors, 1- Known CAD, 1 - Recent [<24hrs] Severe Angina, TOTAL SCORE = 4. Data reviewed: vital signs, nurses notes, lab test result(s), EKG, radiologic studies, CT scan, plain films. Data interpreted: wound care center consultant: rate is 91 beats/min, rhythm is regular, Pulse oximetry: on room air is 98 %. Test interpretation: by ED physician or midlevel provider: ECG, plain radiologic studies. Counseling: I had a detailed discussion with the patient and/or guardian regarding: the historical points, exam findings, and any diagnostic results supporting the discharge/admit diagnosis, lab results, radiology results, the need for outpatient follow up. 12/21 22:02 Order name: Basic Metabolic Panel; Complete Time: 22:56 taylor 12/21 22:02 Order name: CBC with Diff; Complete Time: 00:07 taylor 12/21 22:02 Order name: LFT's; Complete Time: 22:56 taylor 12/21 22:02 Order name: Magnesium; Complete Time: 22:56 taylor 12/21 22:02 Order name: NT PRO-BNP; Complete Time: 22:56 taylor 12/21 22:02 Order name: PT-INR; Complete Time: 00:07 taylor 12/21 22:02 Order name: Troponin HS; Complete Time: 22:56 taylor 12/21 22:02 Order name: Lipase; Complete Time: 22:56 [facility] 12/21 22:02 Order name: SARS-COV-2 RT PCR (Document "Date of Onset" if Symptomatic); Complete Time: taylor 00:12/21 22:43 Order name: Manual Differential; Complete Time: 00:07 EDMS 12/22 00:59 Order name: Urine Culture [facility] 12/22 01:14 Order name: Basic Metabolic Panel EDTN 12/22 01:14 Order name: Basic Metabolic Panel EDTN 12/22 01:14 Order name: CBC with Automated Diff EDTN 12/21 22:02 Order name: XRAY Chest (1 view) [facility] 12/21 22:54 Order name: CT Aorta for Dissection [facility] 12/22 01:14 Order name: Echo with Doppler EDMS 12/22 01:14 Order name: CBC with Automated Diff EDTN 12/22 04:45 Order name: Urine Dipstick-Ancillary EDTN 12/21 22:02 Order name: EKG; Complete Time: 22:04 taylor 12/21 22:02 Order name: Cardiac monitoring; Complete Time: 22:28 taylor 12/21 22:02 Order name: EKG - Nurse/Tech; Complete Time: 22:22 taylor 12/21 22:02 Order name: IV Saline Lock; Complete Time: 22:28 taylor 12/21 22:02 Order name: Labs collected and sent; Complete Time: 22:28 taylor 12/21 22:02 Order name: O2 Per Protocol; Complete Time: 22:22 [facility] 12/21 22:02 Order name: O2 Sat Monitoring; Complete Time: 22:22 [facility] 12/21 22:02 Order name: Urine Dipstick-Ancillary (obtain specimen); Complete Time: 04:46 [facility] 12/21 22:55 Order name: EKG; Complete Time: 22:55 [facility] 12/21 22:55 Order name: EKG - Nurse/Tech; Complete Time: 00:28 [facility] 12/22 01:14 Order name: EKG Electrocardiogram EDTN 12/22 01:14 Order name: EKG Electrocardiogram EDMS 12/22 01:14 Order name: EKG Electrocardiogram EDMS 12/22 01:14 Order name: EKG Electrocardiogram EDMS 12/22 04:18 Order name: CONS Physician Consult EDMS Administered Medications: 22:28 Not Given (Patient Refused; pt took aspirin just prior to arrivall): Aspirin Chewable bb Tablet 324 mg PO once; 81 mg tablets x 4 22:59 Drug: NS 0.9% 1000 ml Route: IV; Rate: 125 ml/hr; Site: left antecubital; kd3 12/22 00:28 Drug: Lopressor (metoprolol) 5 mg Route: IVP; Site: left antecubital; kd3 00:28 Drug: Lopressor (metoprolol TARTRATE)) 25 mg Route: PO; kd3 00:29 Drug: morphine 2 mg Route: IVP; Site: left antecubital; kd3 00:29 Drug: Zofran (Ondansetron) 4 mg Route: IVP; Site: left antecubital; kd3 00:29 Drug: Pepcid (famotidine) 20 mg Route: IVP; Site: left antecubital; kd3 01:57 Drug: Rocephin (cefTRIAXone) 1 grams Route: IV; Rate: per protocol; Site: left kd3 antecubital; Disposition Summary: 12/22/21 01:01 Hospitalization Ordered Hospitalization Status: Observation taylor Provider: Minh Hayes cha Location: Telemetry/MedSurg (observation) taylor Condition: Fair taylor Problem: new taylor Symptoms: have improved taylor Bed/Room Type: Standard [facility] Room Assignment: 215(12/22/21 04:19) cg Diagnosis - Chest pain, unspecified taylor - Splenomegaly, not elsewhere classified taylor - Essential (primary) hypertension taylor - UTI/ Urinary tract infection, site not specified taylor Forms: - Medication Reconciliation Form taylor - SBAR form taylor Signatures: Dispatcher [employer] EDMS Marcio Montiel MD MD cha Ballard, Brenda, RN RN Davina Kolb RN RN Luba Sepulveda RN RN kd3 Corrections: (The following items were deleted from the chart) 12/21 22:32 22:30 Home Meds: Jakafi 5 mg Oral tab 1 tab once daily; [facility] emergency department 22:32 22:30 PMHx: polycythemiavera cancer; bb 23:07 22:57 Abdomen Limited+US.RAD.BRZ ordered. [facility] 12/22 04:19 01:01 taylor
--- NOTE | 2021-12-22 01:02 | ER ---
Nurse's Notes [facility] Name: Lee Hernandez Age: 81 yrs Sex: Male : 1940 Arrival Date: 12/21/2021 Time: 21:52 Bed 20 Private MD: Diagnosis: Chest pain, unspecified;Splenomegaly, not elsewhere classified;Essential (primary) hypertension;UTI/ Urinary tract infection, site not specified Presentation: 12/21 22:10 Chief complaint: Patient states: he started having chest pain around 1900 the pain is bb diffuse across his chest during triage he states it is going to his back. Coronavirus screen: At this time, the client does not indicate any symptoms associated with coronavirus-19. Ebola Screen: No symptoms or risks identified at this time. Initial Sepsis Screen: Does the patient meet any 2 criteria? No. Patient's initial sepsis screen is negative. Does the patient have a suspected source of infection? No. Patient's initial sepsis screen is negative. Risk Assessment: Do you want to hurt yourself or someone else? Patient reports no desire to harm self or others. Onset of symptoms was December 21, 2021. 22:10 Method Of Arrival: Ambulatory bb 22:10 Acuity: CULLEN 2 bb Historical: - Allergies: 22:30 No Known Allergies; bb - Home Meds: 22:30 Allopurinol Oral [Active]; amlodipine oral [Active]; atorvastatin 40 mg Oral tab 1 tab bb once daily [Active]; Jakafi Oral [Active]; losartan Oral [Active]; Plavix Oral [Active]; Tradjenta 5 mg Oral tab 1 tab once daily [Active]; Metformin Oral [Active]; - PMHx: 22:30 CVA; Diabetes - NIDDM; Hypertension; Kidney stones; Myocardial infarction; polycythemia bb vera; CAD; - PSHx: 22:30 heart stent; bb - Immunization history:: Moderna x 3. - Social history:: Smoking status: Patient denies any tobacco usage or history of. Screenin:33 Abuse screen: Denies threats or abuse. Nutritional screening: No deficits noted. bb Tuberculosis screening: No symptoms or risk factors identified. Fall Risk None identified. Assessment: 22:33 General: Appears in no apparent distress. uncomfortable, Behavior is calm, cooperative. bb Pain: Complains of pain in chest Pain radiates to back Pain currently is 7 out of 10 on a pain scale. Pain began suddenly. Neuro: Level of Consciousness is awake, alert, obeys commands, Oriented to person, place, time, situation. Cardiovascular: Reports chest pain. Respiratory: Respiratory effort is even, unlabored, Respiratory pattern is regular. GI: No signs and/or symptoms were reported involving the gastrointestinal system. Derm: Skin is pink, warm \T\ dry. Musculoskeletal: Circulation, motion, and sensation intact. 12/22 03:48 Reassessment: Patient and/or family updated on plan of care and expected duration. Pain kd3 level reassessed. Patient is alert, oriented x 3, equal unlabored respirations, skin warm/dry/pink. pt seated in recliner Patient states feeling better. Vital Signs: 12/21 22:10 BP 186 / 77; Pulse 91; Resp 18 S; Temp 97.8(O); Pulse Ox 98% on R/A; Weight 72.57 kg bb (R); Height 5 ft. 8 in. (172.72 cm) (R); Pain 7/10; 12/22 00:30 BP 135 / 58; Pulse 73; Resp 16; Pulse Ox 95% on R/A; kd3 03:49 BP 111 / 45; Pulse 56; Resp 13; Pulse Ox 96% on R/A; kd3 12/21 22:10 Body Mass Index 24.33 (72.57 kg, 172.72 cm) ED Course: 12/21 21:52 Patient arrived in ED. kz 22:00 Marcio Montiel MD is Attending Physician. taylor 22:13 Luba Salmon, BENIGNO is Primary Nurse. kd3 22:15 EKG completed in triage. Results shown to . bb 22:20 Initial lab(s) drawn, by nj, sent to lab. Inserted saline lock: 20 gauge in left bb antecubital area, using aseptic technique. Blood collected. Patient maintains SpO2 saturation greater than 95% on room air. 22:30 Triage completed. bb 22:30 Arm band placed on Patient placed in an exam room, on a stretcher, on nurse monitoring, bb on pulse oximetry. Family accompanied patient. 22:33 Patient has correct armband on for positive identification. Bed in low position. Call bb light in reach. Side rails up X 1. Adult w/ patient. night monitor on. Pulse ox on. NIBP on. 22:35 COVID swab sent to lab. bess 23:02 XRAY Chest (1 view) In Process Unspecified. EDMS 12/22 00:17 CT Aorta for Dissection In Process Unspecified. EDMS 01:00 Minh Hayes MD is Hospitalizing Provider. [facility] 02:12 Inserted saline lock: 20 gauge in right antecubital area, using aseptic technique. ds4 04:46 Urine Culture Sent. kd3 04:58 No provider procedures requiring assistance completed. Patient admitted, IV remains in kd3 place. Administered Medications: 12/21 22:28 Not Given (Patient Refused; pt took aspirin just prior to arrivall): Aspirin Chewable bb Tablet 324 mg PO once; 81 mg tablets x 4 22:59 Drug: NS 0.9% 1000 ml Route: IV; Rate: 125 ml/hr; Site: left antecubital; kd3 12/22 00:28 Drug: Lopressor (metoprolol) 5 mg Route: IVP; Site: left antecubital; kd3 00:28 Drug: Lopressor (metoprolol TARTRATE)) 25 mg Route: PO; kd3 00:29 Drug: morphine 2 mg Route: IVP; Site: left antecubital; kd3 00:29 Drug: Zofran (Ondansetron) 4 mg Route: IVP; Site: left antecubital; kd3 00:29 Drug: Pepcid (famotidine) 20 mg Route: IVP; Site: left antecubital; kd3 01:57 Drug: Rocephin (cefTRIAXone) 1 grams Route: IV; Rate: per protocol; Site: left kd3 antecubital; Outcome: 01:01 Decision to Hospitalize by Provider. taylor 04:47 Admitted to Med/surg room 213, Report called to 2nd attempt to call report kd3 04:58 Condition: stable kd3 05:12 Patient left the ED. kd3 Signatures: Dispatcher [employer] EDFL Marcio Montiel MD MD cha Ballard, Brenda, RN RN Pierce Patrick ds4 Luba Salmon RN RN kd3 Faith Haas Corrections: (The following items were deleted from the chart) 12/21 22:32 22:30 Home Meds: Jakafi 5 mg Oral tab 1 tab once daily; [facility] 22:32 22:30 PMHx: polycythemiavera cancer; [facility] [place]
[2021-12-22] MEDS ORDERED: ACETAMINOPHEN 325 MG TABLET PO PRN (01:06)
[2021-12-22] MEDS ORDERED: MORPHINE 4 MG/ML SYR IV PRN (01:06)
[2021-12-22] MEDS ORDERED: ONDANSETRON 4 MG/2 ML VIAL IV PRN (01:06)
[2021-12-22] MEDS ORDERED: D50W 25 GM/50 ML SYRINGE IV PRN (01:12)
[2021-12-22] MEDS ORDERED: GLUCAGON 1 MG/VIAL IM PRN (01:12)
[2021-12-22] MEDS ORDERED: CEFTRIAXONE 1000 MG/VIAL ONE (01:21)
[2021-12-22] MEDS ORDERED: HEPARIN/D5W 25,000 UNIT/500 ML BAG IV SCH (02:00)
[2021-12-22 04:45] LABS: Urine Blood 1+ (Negative); Urine Glucose Negative (Negative); Urine Protein Negative (Negative); Urine pH 5.5 (5.0-7.0)
[2021-12-22 05:46] VITALS: BMI 24.2
--- NOTE | 2021-12-22 07:11 | EKG ---
Test Date: 2021-12-21 Test Time: 22:04:27 Staff Engineer: ASHIWNI MEASUREMENT RESULTS: Intervals: Rate: 93 ID: [id number] QRSD: 86 QT: 336 QTc: 417 [place]: P: 43 ID: [id number] QRS: -48 T: 79 INTERPRETIVE STATEMENTS: Normal sinus rhythm Left axis deviation Nonspecific ST abnormality Abnormal ECG Compared to ECG 09/20/2020 05:54:59 Left-axis deviation now present ST (T wave) deviation now present T-wave abnormality no longer present Electronically Signed On 12-22-21 07:09:30 CDT by Jonathan Hernandez
[2021-12-22] MEDS ORDERED: INSULIN -REGULAR HUMAN 50 UNIT/0.5 ML ML SQ SCH (07:30)
[2021-12-22 08:43] LABS: Absolute Lymphocytes (CBC) 0.6 K/uL (0.7-4.9); Hematocrit 34.7 % (39.6-49.0); Lymphocytes % 5.2 % (15.3-44.8); MPV 8.9 fL (7.6-11.3); RBC Red Blood Cell Count 3.99 M/uL (4.33-5.43)
[2021-12-22] MEDS ORDERED: ASPIRIN EC 81 MG TAB PO SCH (09:00)
[2021-12-22] MEDS ORDERED: FAMOTIDINE 20 MG/2 ML VIAL IV SCH (09:00)
[2021-12-22] MEDS ORDERED: CLOPIDOGREL 75 MG TABLET PO SCH (09:00)
[2021-12-22 09:04] VITALS: O2SAT 98
[2021-12-22 09:10] LABS: Potassium 4.1 mmol/L (3.5-5.1)
[2021-12-22] MEDS ORDERED: MORPHINE 2 MG/ML SYR IV PRN (10:43)
--- NOTE | 2021-12-22 11:13 | RAD REPORT ---
EXAM DESCRIPTION: RAD - Chest Single View - 12/21/2021 11:00 pm CLINICAL HISTORY: CHEST PAIN. COMPARISON: None. TECHNIQUE: Single view AP chest radiograph(s). FINDINGS: The lungs are clear. No pulmonary infiltrate or edema identified. No pleural effusion. N o pneumothorax. Nonenlarged cardiomediastinal silhouette. No significant osseous abnormality. IMPRESSION: No acute cardiopulmonary abnormality identified by radiograph. Electronically signed by: Milli Whaley MD 12/21/2021 11:14 PM CDT Due to temporary technical issues with the PACS/Fluency reporting system, reports are being signed by the in house radiologist without review as a courtesy to ensure prompt reporting. The interpreting r adiologist is fully responsible for the content of the report.
--- NOTE | 2021-12-22 11:16 | RAD REPORT ---
EXAM DESCRIPTION: CT - Angio Aorta For Dissection - 12/22/2021 6:57 am CLINICAL HISTORY: CHEST PAIN. COMPARISON: Chest radiograph from today. CT of the abdomen and pelvis without contrast from November 06, 2021 TECHNIQUE: CTA of the chest, abdomen, and pelvis was performed following intravenous administration of iodinated contrast. Axial soft tissue and lung window, and coronal and sagittal soft tissue window reconstructions were created and sent to PACS. 3D postprocessing was performed on an independent workstation, with images sent to PACS for subsequen t review. This exam was performed according to our departmental dose-optimization program, which includes autom ated exposure control, adjustment of the mA and/or kV according to patient size and/or use of iterati ve reconstruction technique. FINDINGS: Vascular: No evidence of aortic aneurysm or dissection. Mild calcific atherosclerosis. No CT evidence of central acute pulmonary thromboembolism. Large amount of coronary artery calcification s. Lungs and pleura: No pulmonary consolidation. No pleural effusion. No pneumothorax. Few small calcifi ed granulomata throughout the lungs. Minimal interstitial thickening in the periphery of the right lo wer lobe. Mediastinum and neck: No mediastinal lymphadenopathy by CT size criteria. Unremarkable appearance of the thyroid gland. Cardiac: No cardiomegaly or pericardial effusion. Hepatobiliary: No concerning hepatic lesion identified. Few small hepatic hypodensities, possibly cys ts. The portal veins are patent. The gallbladder is unremarkable. No biliary ductal dilatation. Pancreas: Unremarkable. Spleen: Enlarged, measuring 18.4 cm in length, unchanged. Gastrointestinal: No evidence of bowel obstruction or perienteric inflammation. The appendix is su l. Adrenals: No abnormality identified in either adrenal gland. Renal: No concerning parenchymal abnormality in either kidney. No hydronephrosis or urolithiasis. Sim ilar appearance of mild bilateral perinephric fat stranding. Bladder/Reproductive: Small amount of gas within the urinary bladder. Prominent prostatomegaly status post TURP. Vascular/Lymphatics: No lymphadenopathy identified by CT size criteria. Abdominal aorta is normal in caliber. Musculoskeletal: No concerning osseous lesion identified. Fluid / peritoneum: No significant free fluid. No free intraperitoneal air identified. IMPRESSION: 1. No evidence of aortic aneurysm or dissection. No evidence of central acute pulmonar y thromboembolism. 2. Small amount of gas within the urinary bladder. Correlate for recent instrumentation versus urin sasha tract infection. 3. Unchanged splenomegaly. Electronically signed by: Milli Whaley MD 12/22/2021 12:51 AM CDT Due to temporary technical issues with the PACS/Fluency reporting system, reports are being signed by the in house radiologist without review as a courtesy to ensure prompt reporting. The interpreting r adiologist is fully responsible for the content of the report.
[2021-12-22 12:27] VITALS: BP 178/78; TEMP 97.4
--- NOTE | 2021-12-22 13:12 | ECHO ---
HEIGHT: 5 ft 8 in WEIGHT: 159 lb 6.4 oz DATE OF STUDY: 12/22/[address]: Marcio Montiel MD 2-DIMENSIONAL: YES M.MODE: YES DOPPLER: YES COLOR FLOW: YES TDS: PORTABLE: DEFINITY: BUBBLE STUDY: DIAGNOSIS: CHEST PAIN CARDIAC HISTORY: CATHERIZATION: YES SURGERY: NO PROSTHETIC VALVE: NO PACEMAKER: NO MEASUREMENTS (cm) DIASTOLIC (NORMALS) SYSTOLIC (NORMALS) IVSd 1.1 (0.6-1.2) LA Diam 2.6 (1.9-4.0) LVEF 53% LVIDd 4.2 (3.5-5.7) LVIDs 3.1 (2.0-3.5) %FS 27% LVPWd 1.2 (0.6-1.2) Ao Diam 3.3 (2.0-3.7) 2 DIMENSIONAL ASSESSMENT: RIGHT ATRIUM: NORMAL LEFT ATRIUM: NORMAL RIGHT VENTRICLE: NORMAL LEFT VENTRICLE: NORMAL TRICUSPID VALVE: NORMAL MITRAL VALVE: MITRAL ANNULAR CALCIFICATION PULMONIC VALVE: NORMAL AORTIC VALVE: NORMAL PERICARDIAL EFFUSION: NONE AORTIC ROOT: NORMAL LEFT VENTRICULAR WALL MOTION: NORMAL DOPPLER/COLOR FLOW: NORMAL COMMENTS: MITRAL ANNULAR CALCIFICATION. NORMAL LEFT VENTRICULAR SIZE AND FUNCTION. NO MITRAL VALVE PROLAPSE. NO WALL MOTION ABNORMALITY. TECHNOLOGIST: WILLY ARAGON
--- NOTE | 2021-12-23 04:45 | SS ---
Date of Discharge: 12/22/2021 Chief Complaint: Chest pain. History Of Present Illness: This is an 81-year-old very pleasant male patient who was doing fine in his normal usual state of health until yesterday evening, he started to have some chest pain. He rosendo cribes his pain as pressure type of feeling in the center of his chest. No radiation to the back or neck area. No radiation to arm or shoulder. He did not have any associated shortness of breath, td sea, or diaphoresis. He came into the emergency room after taking some aspirin at home. He still nevarez d pain when he arrived to emergency room, but after treatment given in the emergency room his chest p ain resolved and he was admitted to the hospital. When I saw him this morning, he was asymptomatic. Allergies: NO KNOWN ALLERGIES. Medications: List reviewed. Review of Systems: Cardiovascular: As mentioned above. All other systems reviewed and negative. Social History: Prior history of smoking, not at present time. Use of alcohol, negative. Family History: Father and mother both had VA and due to VA and they also had congestive heart failure. Sister had asthma and breast cancer. Past Surgical History: Significant for surgery for kidney stone, tonsillectomy, coronary artery sten t placement in 2008, cholecystectomy, hemorrhoid surgery, TURP, cervical spine surgery, removal of sq uamous cell carcinoma and incision and drainage for abscess. Past Medical History: Significant for polycythemia vera, hypertension, hyperlipidemia, kidney stones , coronary artery disease, type 2 diabetes mellitus, diabetic neuropathy, and leg edema. Physical Examination: Vital Signs: Temperature 97.7, pulse 58, respiratory rate 18, blood pressure 136/64, oxygen saturati on 97%, height 5 feet 8 inches, weight 159 pounds. General: Awake, alert, oriented, not in distress. HEENT: Head atraumatic, normocephalic. Conjunctivae nonerythematous. Sclerae white. Mouth, no thr ush or edema noted. Ears/Nose, no mass, lesion, discharge noted. Neck: Supple. No JVD, lymph nodes, bruit, thyromegaly noted. Lungs: Bilateral good equal air entry. Clear to auscultation. No rhonchi. No rales. Heart: Normal heart sounds, no murmur or gallop. Abdomen: Soft, bowel sounds normal. No guarding, rigidity, tenderness, mass, hepatosplenomegaly, di stention, or bruit noted. Extremities: No leg edema. No calf tenderness. Skin: No rash, ulcer, cellulitis. Lymphatics: No lymph node enlargement in neck, supraclavicular, infraclavicular region. Neuro: No focal neurological deficit. Chest: Unremarkable. External Genitalia: Deferred. Rectal: Deferred. Laboratory Data: White count 15.4, hemoglobin 12.7, platelets 455. Sodium 139, potassium 3.9, chlor bk 103, bicarb 29, BUN 16, creatinine 1.13, glucose 144. Liver function tests unremarkable. Tropon in 16.8. Lipase . Urinalysis unremarkable except 1+ blood. COVID-19 test negative. Hospital Course: After patient was evaluated in the ER, he was admitted to the hospital. His VA was ruled out. His second set of troponin was normal. Cardiology consultation was requested from Dr. Toshia cardenas and details were discussed with him. The patient had a negative stress test sometime June of last year as he says and as per my discussion with Dr. Hernandez, he will plan to do elective cardia c cath procedure on him sometime in the near future. I have instructed him to use sublingual nitrogl ycerin and how to use this medication explained to him and his daughter who was in the room with him. Discharge Medications And Instructions: 1.Continue all prior home medication. 2.Take isosorbide mononitrate 30 mg 1 tablet by mouth daily. 3.Use nitroglycerin sublingual tablets 0.4 mg 1 tablet under tongue every 5 minutes x3 p.r.n. for ch est pain and if chest pain is not relieved after use of 3 nitroglycerin tablet, then the patient to c ome to emergency room and all those details were discussed with the patient and his daughter lg romy rubalcava. Final Diagnoses: 1.Angina. 2.Coronary artery disease. 3.Hypertension. 4.Hyperlipidemia. 5.Type 2 diabetes mellitus with diabetic neuropathy. 6.Polycythemia vera. CHARAN/MODL Voice ID: [id number] Report ID: [id number]
--- NOTE | 2021-12-23 15:29 | CON ---
Date of Consultation: 12/22/2021 Reason For Consultation: Chest pain. History Of Present Illness: Mr. Hernandez is an 81-year-old. He is very well known to me [facility] and hospital admission. He has a history of CAD and stent in 2008. Has had a recen t stress test in about a year ago, which was normal. Comes in with substernal chest pressure with di aphoresis and some shortness of breath, but no nausea, vomiting, PND, orthopnea, pedal edema, palpita tion, or syncope. He has already ruled out for an TN. EKG is nonspecific. Troponin is negative. H is lipase was 514. Echocardiogram is pending. He is asymptomatic now. Past Medical History: Includes CVA, hypertension, diabetes, polycythemia vera, coronary artery disea se, status post PCI of the LAD, and kidney stones. Review of Systems: Negative. Social History: Negative. Family History: Negative. Medications: At home include Norvasc, Lipitor, losartan, Protonix, Tradjenta, metformin, allopurinol , Jakafi. Physical Examination: Vital Signs: Stable, afebrile. HEENT: Negative. Neck: Supple without any bruit, lymphadenopathy, JVD, or thyromegaly. Chest: Clear to auscultation and percussion. Cardiac: Revealed a regular rhythm and rate. No murmurs, gallops, or rubs. Abdomen: Benign. Extremities: Revealed no clubbing, cyanosis, or edema. Diagnostic Data: Negative. Impression And Plan: 1.Stable angina. 2.History of cerebrovascular accident. 3.Diabetes. 4.Hypertension. 5.Polycythemia vera. 6.History of kidney stones. I think Mr. Hernandez's symptoms are suspicious enough. I suggest to do a heart catheterization, which should be as an outpatient. He has ruled out and he wants to go home. I will discuss the case further with Dr. Hayes. I will set him up for an outpatient left heart cathet erization and selective coronary arteriogram. The patient understands the risks and the benefits of the procedure and he agrees to proceed. EM/DARLYN Voice ID: [id number] Report ID: [id number]
== END 2021-12-22 12:53 | disposition home or self-care (01) ==
LOC: ER 21:50 → ERHOLD 12-22 04:25 → 2ND 12-22 04:32
PROVIDERS: ADMIT Internal Medicine; ATTEND Internal Medicine
DX: I25.119 Atherosclerotic heart disease of native coronary artery with unspecified angina pectoris (principal); I10 Essential (primary) hypertension; E78.5 Hyperlipidemia, unspecified; E11.40 Type 2 diabetes mellitus with diabetic neuropathy, unspecified; D45 Polycythemia vera; Z86.73 Personal history of transient ischemic attack (TIA), and cerebral infarction without residual deficits; Z20.822 Contact with and (suspected) exposure to COVID-19
CPT/HCPCS: 36415; 71045; 71275; 74175; 80048; 80076; 81003; 82947; 83690; 83735; 83880; 84484; 85025; 85610; 85730; 87086; 87088; 93005; 93306; 96374; 96375; 99285; G0378; J1644; J2270; J2405; J7030; Q9967; U0003

== ENCOUNTER 2022-01-03 07:30 | Day surgery (SDC) | payer OTHER ==
[2022-01-03] MEDS ORDERED: NA CHLORIDE 0.9% 500 ML ONE (07:43)
[2022-01-03] MEDS ORDERED: MIDAZOLAM HCL 2 MG/2 ML INJ ONE ×2 (08:29→08:53)
[2022-01-03] MEDS ORDERED: ATROPINE SULF 1 MG/10 ML SYR IV ONE (08:29)
[2022-01-03] MEDS ORDERED: FENTANYL CITR 100 MCG/2 ML ONE (08:29)
[2022-01-03] MEDS ORDERED: NA CHLORIDE 0.9% 0 ML ONE (08:30)
[2022-01-03 10:18] VITALS: O2SAT 96
[2022-01-03 10:42] VITALS: BP 128/60
--- NOTE | 2022-01-03 21:07 | OP ---
Date of Procedure: 01/03/2022 Surgeon: Jonathan Hernandez MD Animal Anatomist: Christy Lovett Mr. Hernandez is 81 years old, has had history of LAD stent in the past, had unstable angina, brought to the molder labels today as an outpatient, prepped and draped in the routine sterile fashion. Given Versed and fentanyl for sedation. 6-Uzbek sheath introduced in the right common femoral artery successful ly using the Seldinger technique and a 10 cc of Xylocaine. Justus catheters, left and right were us ed to cannulate the left main and right main, respectively. Angiography on the right coronary showed a codominant system with about a 60% to 70% mid RCA stenosis. The left main itself had about a 50% distal stenosis. LAD stent was normal. LAD was normal. He had an ostial 70% to 80% stenosis and a very large obtuse marginal and the circumflex itself. The patient tolerated the procedure well. The re were no complications. Blood Loss: 5 mL Postoperative Diagnosis: Severe coronary artery disease. Plan for possible bypass surgery versus an iFR of the left main and fixing the OM circ and the RCA wi th stent. I will discuss the case further with Dr. Diallo. I will have the films reviewed by Dr. Osiel Valentine before making further decisions. The patient has an Angio-Seal done in the right main. He will stay at bedrest for 2 hours, and I will see him in the office soon. Anesthesia: Total conscious sedation was 45 minutes. EM/DARLYN Voice ID: [id number] Report ID: [id number]
== END 2022-01-03 11:10 | disposition home or self-care (01) ==
LOC: CCL 07:30
DX: I25.110 Atherosclerotic heart disease of native coronary artery with unstable angina pectoris (principal); I65.23 Occlusion and stenosis of bilateral carotid arteries; I10 Essential (primary) hypertension; E11.9 Type 2 diabetes mellitus without complications; E78.2 Mixed hyperlipidemia; G47.33 Obstructive sleep apnea (adult) (pediatric); D45 Polycythemia vera; K21.9 Gastro-esophageal reflux disease without esophagitis; Z95.5 Presence of coronary angioplasty implant and graft; Z79.02 Long term (current) use of antithrombotics/antiplatelets; Z79.84 Long term (current) use of oral hypoglycemic drugs; Z20.822 Contact with and (suspected) exposure to COVID-19; Z82.49 Family history of ischemic heart disease and other diseases of the circulatory system
CPT/HCPCS: 82947; 93454; U0003; C1893; C1760; Q9967; G0269; J2250; J3010; J7040; J0583

== ENCOUNTER 2023-12-25 14:20 | Emergency (ER) | payer OTHER ==
[2023-12-25 14:55] LABS: Absolute Basophils 0.3 K/uL (0-0.5); Absolute Eosinophils 0.4 K/uL (0-0.5); Absolute Lymphocytes (CBC) 0.4 K/uL (0.7-4.9); Absolute Monocytes 0.8 K/uL (0.1-1.3); Absolute Neutrophil 17.8 K/uL (1.8-8.0); Basophils % 1.3 % (0-1.3); Eosinophils % 2.1 % (0-4.4); Hemoglobin 12.9 g/dL (13.6-17.9); Lymphocytes % 2.2 % (15.3-44.8); MCH 26.5 pg (27.0-35.0); MCHC 31.5 g/dL (32.0-36.0); MCV 84.1 fL (80-100); MPV 8.7 fL (7.6-11.3); Neutrophils % 90.4 % (41.7-73.7); Platelets 462 thou/uL (152-406); RBC Red Blood Cell Count 4.87 M/uL (4.33-5.43); Red Cell Distribution Width 16.2 % (12.1-15.2)
--- NOTE | 2023-12-25 14:59 | RAD REPORT ---
EXAM DESCRIPTION: CT - CTHCSPWOC - 12/25/2023 2:44 pm CLINICAL HISTORY: Trauma, head and neck injury. fall;Dizziness COMPARISON: <Comparisons> TECHNIQUE: Axial 5 mm thick images of the head were obtained. Axial 2 mm thick images of the cervical spine were obtained with sagittal and coronal reconstruction images generated and reviewed. All CT scans are performed using dose optimization technique as appropriate and may include automated exposure control or mA/KV adjustment according to patient size. FINDINGS: CT HEAD WITHOUT CONTRAST: No acute hemorrhage, hydrocephalus or extra-axial collection is identified.Mild generalized brain atr ophy is present with mild periventricular and deep white matter chronic microvascular ischemic change s.No areas of brain edema or midline shift. The paranasal sinuses and mastoids are clear.Vertebral atherosclerosis.The calvarium is intact. CT CERVICAL SPINE WITHOUT CONTRAST: No fracture or subluxation.Advanced degenerative change mid and lower cervical spine.No prevertebral soft tissues swelling is identified. Heavy atherosclerosis of both carotid systems. IMPRESSION: No acute intracranial or cervical spine findings.
[2023-12-25 15:10] LABS: Magnesium 2.3 mg/dL (1.6-2.4); Troponin High Sensitivity 23.7 pg/mL (<58.9)
--- NOTE | 2023-12-25 15:22 | RAD REPORT ---
EXAM DESCRIPTION: RAD - Chest Single View - 12/25/2023 3:13 pm CLINICAL HISTORY: fall Chest pain. COMPARISON: <Comparisons> FINDINGS: Portable technique limits examination quality. The lungs are grossly clear. The heart is normal in size. No displaced fractures.Sternotomy. IMPRESSION: No acute intrathoracic process suspected.
[2023-12-25 16:18] LABS: White Blood Cell Scan OK (OK)
[2023-12-25 16:19] LABS: Blood Morphology Comment NOT SEEN (NOT SEEN); Platelet Estimate ADEQ
[2023-12-25 17:40] LABS: Specific Gravity 1.019 (1.005-1.030); Urine Bilirubin NEGATIVE (Negative); Urine Blood 3+ (OVER) (Negative); Urine Clarity Extremely Turbid (Clear); Urine Color Yellow (Yellow); Urine Glucose 3+ (Negative); Urine Ketones NEGATIVE (Negative); Urine Microscopic Reflex YN ORDER UMIC; Urine Nitrite NEGATIVE (Negative); Urine Protein 1+ (Negative); Urine RBC >50 /HPF (None Seen); Urine Urobilinogen Normal (Normal); Urine WBC <5 /HPF (<5)
[2023-12-25 17:41] LABS: Sqamous Epithelial <5 /HPF (None Seen); Urine Bacteria None Seen /HPF (<20); Urine Culture Reflex Order NOT NEEDED; Urine Yeast (Budding) Occasional /HPF (None Seen)
--- NOTE | 2023-12-25 18:17 | EDPHYS ---
Physician Documentation [facility] Name: Lee Hernandez Age: 83 yrs Sex: Male : 1940 Arrival Date: 12/25/2023 Time: 14:20 Bed 4 Private MD: ED Physician Uvaldo Martines HPI: 12/24 14:36 This 83 yrs old Male presents to ER via EMS with complaints of Fall Injury. ms3 14:36 83-year-old male with past medical history of coronary artery disease, CVA, diabetes, ms3 hypertension, kidney stones, myocardial infarction, polycythemia vera presents to the emergency department via [facility] for falls. EMS states they were called to patient's residence this morning for lift assist and patient had a second fall this afternoon. EMS notes patient's family would like the patient to be checked out. Historical: - Allergies: 14:29 No Known Allergies; kc6 - PMHx: 14:29 CAD; CVA; Diabetes - NIDDM; Hypertension; Kidney stones; Myocardial infarction; kc6 polycythemia vera; - PSHx: 14:29 heart stent; Coronary artery bypass graft; kc6 - Immunization history:: Adult Immunizations unknown. - Infectious Disease History:: Denies. - Social history:: Smoking status: Patient denies any tobacco usage or history of. ROS: 14:36 Constitutional: Negative for fever, and chills. Neck: Negative for injury, pain, and ms3 swelling, Cardiovascular: Negative for chest pain, and palpitations. Respiratory: Negative for shortness of breath, cough, wheezing, and pleuritic chest pain, Abdomen/GI: Negative for abdominal pain, nausea, vomiting, diarrhea, and constipation, MS/Extremity: Negative for injury and deformity, Skin: Negative for injury, rash, and discoloration, 14:36 Neuro: Positive for dizziness, Exam: 14:36 Constitutional: This is a well developed, well nourished patient who is awake, alert, ms3 and in no acute distress. Head/Face: Normocephalic, atraumatic. Chest/axilla: Normal chest wall appearance and motion. Nontender with no deformity. Cardiovascular: Regular rate and rhythm with a normal S1 and S2. No gallops, murmurs, or rubs. Normal PMI, no JVD. No pulse deficits. Respiratory: Lungs have equal breath sounds bilaterally, clear to auscultation and percussion. No rales, rhonchi or wheezes noted. No increased work of breathing, no retractions or nasal flaring. Abdomen/GI: Soft, non-tender, with normal bowel sounds. No distension or tympany. No guarding or rebound. No evidence of tenderness throughout. Skin: Warm, dry with normal turgor. Normal color with no rashes, no lesions, and no evidence of cellulitis. MS/ Extremity: Pulses equal, no cyanosis. Neurovascular intact. Full, normal range of motion. 14:36 Neuro: Orientation: is normal, to person, place, time \T\ situation. Mentation: is normal, Memory: is normal, Cranial nerves: CN II- XII are normal as tested, Cerebellar function: normal finger to nose testing, 15:42 ECG was reviewed by the Attending Physician. ms3 Vital Signs: 14:27 BP 129 / 57; Pulse 69; Resp 16 S; Temp 97.8(O); Pulse Ox 95% on R/A; Weight 81.65 kg kc6 (R); Height 5 ft. 8 in. (R); 16:03 BP 125 / 57; Pulse 85; Resp 15 S; Pulse Ox 96% on R/A; kc6 16:51 BP 135 / 61; Pulse 82; Resp 16 S; Pulse Ox 97% on R/A; kc6 17:00 BP 138 / 61; Pulse 82; Resp 15; Pulse Ox 95% ; iw 18:00 BP 146 / 60; Pulse 77; Resp 16; Pulse Ox 97% ; iw 14:27 Body Mass Index 27.37 (81.65 kg, 172.72 cm) kc MDM: 14:26 Patient medically screened. ms3 14:36 Differential diagnosis: closed head injury, contusion, fracture, sprain, strain. ms3 18:33 Data reviewed: vital signs, nurses notes, lab test result(s), EKG, radiologic studies, ms3 and as a result, I will discharge patient. Consideration of Admission/Observation Escalation of care including admission/observation considered. Discussed observation with patient and family and patient states he would like to be discharged home. Management of patient was discussed with the following: Primary Care Provider: Dr Hayes- 100 mg Diflucan daily x 7 days. Historians other than the Patient: EMS: [facility]. Counseling: I had a detailed discussion with the patient and/or guardian regarding the historical points, exam findings, and any diagnostic results supporting the discharge/admit diagnosis, lab results, radiology results, the need for outpatient follow up, to return to the emergency department if symptoms worsen or persist or if there are any questions or concerns that arise at home. ED course: Discussed observation with patient's family and patient states he wishes to be discharged at this time. Spoke to patient's primary care physician Dr. Hayes and he will follow patient as outpatient. Recommends 100 mg Diflucan daily x 7 days. Patient and his family understand and agree with plan. All questions were answered. Return precautions discussed include worsening symptoms, or any other concerns. 12/24 14:28 Order name: Basic Metabolic Panel; Complete Time: 15:27 ms3 12/24 14:28 Order name: CBC with Diff; Complete Time: 16:51 ms3 12/24 14:28 Order name: Magnesium; Complete Time: 15:27 ms3 12/24 14:28 Order name: Troponin HS; Complete Time: 15:27 ms3 12/24 14:31 Order name: Urinalysis w/ reflexes; Complete Time: 17:43 ms3 12/24 16:20 Order name: CBC Smear Scan; Complete Time: 16:51 EDMS 12/24 14:28 Order name: XRAY Chest (1 view); Complete Time: 15:27 ms3 12/24 14:31 Order name: CT Head C Spine; Complete Time: 15:27 ms3 12/24 14:28 Order name: EKG; Complete Time: 14:29 ms3 12/24 14:28 Order name: Cardiac monitoring; Complete Time: 14:43 ms3 12/24 14:28 Order name: EKG - Nurse/Tech; Complete Time: 14:43 ms3 12/24 14:28 Order name: IV Saline Lock; Complete Time: 14:31 ms3 12/24 14:28 Order name: Labs collected and sent; Complete Time: 14:43 ms3 12/24 14:28 Order name: O2 Per Protocol; Complete Time: 14:31 ms3 12/24 14:28 Order name: O2 Sat Monitoring; Complete Time: 14:31 ms3 EC:42 Rate is 69 beats/min. Rhythm is regular. QRS Stanton is Normal. [place] interval is normal. QRS ms3 interval is normal. Clinical impression: NSR w/ Non-specific ST/T Changes. Interpreted by me. Reviewed by me. Administered Medications: No medications were administered Disposition Summary: 12/25/23 18:16 Discharge Ordered Notes: Location: Home ms3 Condition: Stable ms3 Diagnosis - UTI/ Urinary tract infection, site not specified ms3 - Fall on same level, unspecified ms3 Followup: ms3 - With: Minh Hayes MD - When: 2 - 3 days - Reason: Recheck today's complaints Discharge Instructions: - Discharge Summary Sheet ms3 - Urinary Tract Infection, Adult ms3 Forms: - Medication Reconciliation Form ms3 - Thank You Letter ms3 - Antibiotic Education ms3 - Prescription Opioid Use ms3 - Patient Portal Instructions ms3 - Leadership Thank You Letter ms3 Prescriptions: - fluconazole 100 mg Oral tablet - take 1 tablet ORAL route daily for 7 days; 7 tablet; Refills: 0, Product ms3 Selection Permitted Signatures: Dispatcher [employer] EDMS Uvaldo Martines DO DO ms3 Kim Waller RN RN kc6 Corrections: (The following items were deleted from the chart) 14:32 14:32 Head C Spine MPR Wo Con+CT.RAD.BRZ ordered. EDMS EDMS 14:32 14:32 Urinalysis+U.LAB.BRZ ordered. EDMS EDMS
--- NOTE | 2023-12-25 18:17 | ER ---
Nurse's Notes [facility] Name: Lee Hernandez Age: 83 yrs Sex: Male : 1940 Arrival Date: 12/25/2023 Time: 14:20 Bed 4 Private MD: Diagnosis: UTI/ Urinary tract infection, site not specified;Fall on same level, unspecified Presentation: 12/24 14:27 Chief complaint: EMS states: pt has fallen 2 times this AM. pt reports dizziness. BGl kc6 en route 256. Coronavirus screen: At this time, the client does not indicate any symptoms associated with coronavirus-19. Ebola Screen: No symptoms or risks identified at this time. Initial Sepsis Screen: Does the patient meet any 2 criteria? No. Patient's initial sepsis screen is negative. Does the patient have a suspected source of infection? No. Patient's initial sepsis screen is negative. Risk Assessment: Do you want to hurt yourself or someone else? Patient reports no desire to harm self or others. Onset of symptoms was December 25, 2023. 14:27 Method Of Arrival: EMS: [place] [facility] kc6 14:27 Acuity: CULLEN 3 kc6 Triage Assessment: 14:29 General: Appears in no apparent distress. comfortable, unkempt, well developed, kc6 Behavior is calm, cooperative, appropriate for age. Pain: Denies pain. EENT: No signs and/or symptoms were reported regarding the EENT system. Neuro: Level of Consciousness is awake, alert, obeys commands, Oriented to person, place, time, situation, Appropriate for age Reports dizziness. Cardiovascular: Capillary refill < 3 seconds. Respiratory: Airway is patent Trachea midline Respiratory effort is even, unlabored, Respiratory pattern is regular, symmetrical. GI: Abdomen is round non-distended, Last BM was December 25, 2023. Bowel sounds present X 4 quads. Abd is soft and non tender X 4 quads. Reports diarrhea, Patient currently denies abdominal pain, nausea, vomiting. : No signs and/or symptoms were reported regarding the genitourinary system. Derm: No signs and/or symptoms reported regarding the dermatologic system. Skin is healthy with good turgor, Skin is pink, warm \T\ dry. Wound noted coccyx Wound is a reddened area that in blanchable. Musculoskeletal: No signs and/or symptoms reported regarding the musculoskeletal system. Circulation, motion, and sensation intact. Capillary refill < 3 seconds, Range of motion: intact in all extremities. Historical: - Allergies: 14:29 No Known Allergies; kc6 - PMHx: 14:29 CAD; CVA; Diabetes - NIDDM; Hypertension; Kidney stones; Myocardial infarction; kc6 polycythemia vera; - PSHx: 14:29 heart stent; Coronary artery bypass graft; kc6 - Immunization history:: Adult Immunizations unknown. - Infectious Disease History:: Denies. - Social history:: Smoking status: Patient denies any tobacco usage or history of. Screenin:30 [facility] ED Fall Risk Assessment (Adult) History of falling in the last 3 months, kc6 including since admission Yes- fall prone (multiple falls) (3 pts) Confusion or Disorientation No (0 pts) Intoxicated or Sedated No (0 pts) Impaired Gait Yes (1 pt) Mobility Assist Device Used Yes (1 pt) Altered Elimination No (0 pt) Score/Fall Risk Level 3 or more points = High Risk. Abuse screen: Denies threats or abuse. Denies injuries from another. Nutritional screening: No deficits noted. Tuberculosis screening: No symptoms or risk factors identified. Assessment: 14:30 Reassessment: please see triage. kc6 15:11 Reassessment: attempted to straight cath pt for urine. pt unable to tolerate at this kc6 time. informed pt to try using the urinal and if he is not able to we attempt straight cath again. 16:02 Reassessment: Patient appears in no apparent distress at this time. No changes from [facility] previously documented assessment. Patient and/or family updated on plan of care and expected duration. Pain level reassessed. Patient is alert, oriented x 3, equal unlabored respirations, skin warm/dry/pink. 16:50 Reassessment: Patient appears in no apparent distress at this time. No changes from [facility] [place] previously documented assessment. Patient and/or family updated on plan of care and expected duration. Pain level reassessed. Patient is alert, oriented x 3, equal unlabored respirations, skin warm/dry/pink. 18:48 Reassessment: Patient appears in no apparent distress at this time. iw Vital Signs: 14:27 BP 129 / 57; Pulse 69; Resp 16 S; Temp 97.8(O); Pulse Ox 95% on R/A; Weight 81.65 kg kc6 (R); Height 5 ft. 8 in. (R); 16:03 BP 125 / 57; Pulse 85; Resp 15 S; Pulse Ox 96% on R/A; kc6 16:51 BP 135 / 61; Pulse 82; Resp 16 S; Pulse Ox 97% on R/A; kc6 17:00 BP 138 / 61; Pulse 82; Resp 15; Pulse Ox 95% ; iw 18:00 BP 146 / 60; Pulse 77; Resp 16; Pulse Ox 97% ; iw 14:27 Body Mass Index 27.37 (81.65 kg, 172.72 cm) kc6 ED Course: 14:26 Patient arrived in ED. ms3 14:26 Uvaldo Martines DO is Attending Physician. ms3 14:26 Kim Waller, BENIGNO is Primary Nurse. kc6 14:29 Triage completed. kc6 14:29 Arm band placed on. kc6 14:30 Patient has correct armband on for positive identification. Placed in gown. Bed in low kc6 position. Call light in reach. Side rails up X2. Client placed on continuous cardiac and pulse oximetry monitoring. NIBP monitoring applied. quality assurance monitor on. Warm blanket given. 14:30 Maintain EMS IV. Dressing intact. Good blood return noted. Site clean \T\ dry. Gauge \T\ [place] 6 site: 20G LAC. 14:46 CT Head C Spine In Process Unspecified. EDMS 15:15 XRAY Chest (1 view) In Process Unspecified. EDMS 15:17 PO fluids given. kc6 16:50 Straight cath inserted, using sterile technique, 14 Fr. Specimen obtained. Returned kc6 clear yellow urine. Patient tolerated well. 16:52 Urinalysis w/ reflexes Sent. kc6 18:16 Minh Hayes MD is Referral Physician. ms3 18:48 No provider procedures requiring assistance completed. IV discontinued, intact, iw bleeding controlled, No redness/swelling at site. Pressure dressing applied. Administered Medications: No medications were administered Medication: 18:48 VIS not applicable for this client. iw Outcome: 18:16 Discharge ordered by . ms3 18:48 Discharged to home via wheelchair, with family, iw 18:48 Condition: good 18:48 Discharge instructions given to family, Instructed on discharge instructions, follow up and referral plans. medication usage, Demonstrated understanding of instructions, follow-up care, medications, Prescriptions given X 1, 18:48 Patient left the ED. iw Signatures: Dispatcher [employer] Teressa Middleton, RN Uvaldo Love DO DO ms3 Kim Waller RN RN kc6 Corrections: (The following items were deleted from the chart) 15: 14:29 GI: No signs and/or symptoms were reported involving the gastrointestinal system. kc6 kc6 15:19 14:29 Derm: No signs and/or symptoms reported regarding the dermatologic system. Skin kc6 is intact, is healthy with good turgor, Skin is pink, warm \T\ dry. kc6
[2023-12-26 02:20] VITALS: BP 146/60; TEMP 97.8; O2SAT 97
--- NOTE | 2023-12-26 16:18 | EKG ---
Test Date: 2023-12-25 Test Time: 14:36:55 Rubber Attacher: YASMANY MEASUREMENT RESULTS: Intervals: Rate: 69 PA: 176 QRSD: 98 QT: 402 QTc: 430 [place]: P: 15 PA: 176 QRS: -56 T: -51 INTERPRETIVE STATEMENTS: Sinus rhythm with sinus arrhythmia with occasional premature ventricular complexes Left axis deviation ST & T wave abnormality, consider lateral ischemia Abnormal ECG Compared to ECG 12/21/2021 22:04:27 Ventricular premature complex(es) now present Possible ischemia now present ST (T wave) deviation still present Electronically Signed On 12-26-23 16:14:54 CDT by Ari Diallo
== END 2023-12-25 18:48 | disposition home or self-care (01) ==
LOC: ER 14:20
DX: N39.0 Urinary tract infection, site not specified (principal); W18.30XA Fall on same level, unspecified, initial encounter; Z95.1 Presence of aortocoronary bypass graft; Z95.818 Presence of other cardiac implants and grafts; Z86.73 Personal history of transient ischemic attack (TIA), and cerebral infarction without residual deficits
CPT/HCPCS: 36415; 51702; 70450; 71045; 72125; 80048; 81001; 83735; 84484; 85025; 93005; 99285

== ENCOUNTER 2023-12-28 22:02 | Emergency (ER) | payer OTHER ==
[2023-12-28] MEDS ORDERED: LIDOCAINE 1% 20 ML MDV ONE (22:27)
[2023-12-28] MEDS ORDERED: TDAP (DIPHTH,PERTUSS(ACELL),TET VAC) 0.5 ML VIAL IMVAC ONE (22:33)
--- NOTE | 2023-12-28 22:53 | RAD REPORT ---
EXAM DESCRIPTION: CT - Head Brain Wo Cont - 12/28/2023 10:47 pm CLINICAL HISTORY: head injury COMPARISON: Head Brain Wo Cont dated 09/19/2020; Head Brain Wo Cont dated 08/17/2020 TECHNIQUE: All CT scans are performed using dose optimization technique as appropriate and may inclu de automated exposure control or mA/KV adjustment according to patient size. FINDINGS: No intracranial hemorrhage, hydrocephalus or extra-axial fluid collection.No areas of brai n edema or evidence of midline shift. Mild chronic small vessel ischemic changes. Remote left basal g anglia lacunar infarct. The paranasal sinuses and mastoids are clear. The calvarium is intact. IMPRESSION: No acute intracranial abnormality.
[2023-12-29] MEDS ORDERED: ACETAMINOPHEN 500 MG TAB ONE (00:43)
[2023-12-29] MEDS ORDERED: IBUPROFEN 400 MG TAB ONE (00:44)
--- NOTE | 2023-12-29 01:47 | EDPHYS ---
Physician Documentation [facility] Name: Lee Hernandez Age: 83 yrs Sex: Male : 1940 Arrival Date: 12/28/2023 Time: 22:02 Bed 13 Private MD: ED Physician Marc Alex HPI: 12/27 22:11 This 83 yrs old Male presents to ER via Unassigned with complaints of head sp4 injury . 12/28 05:50 83-year-old male with history of CAD, CVA, dementia, diabetes, hypertension, kidney sp4 stones, presents with EMS after acute fall at home backwards striking posterior scalp causing abrasion and laceration to posterior scalp additional injuries include left elbow skin tear, right elbow skin abrasion, right hand and right forearm pain. . Historical: - Allergies: 12/27 22:18 No Known Allergies; jj7 - Home Meds: 22:56 allopurinol 300 mg oral tablet 1 tab daily [Active]; amlodipine 5 mg oral tablet 1 tab tl4 daily [Active]; atorvastatin 40 mg Oral tab 1 tab daily [Active]; metformin 1,000 mg oral tablet 1 tab 2 times per day [Active]; Plavix 75 mg oral tablet 1 tab daily [Active]; Tradjenta 5 mg Oral tab 1 tab once daily [Active]; metoprolol succinate 25 mg oral Tablet, Extended Release 24 hr 1 tab 2 times per day [Active]; furosemide 20 mg Oral tablet 1 tab 2 times per day [Active]; isosorbide mononitrate 30 mg Oral Tablet, Extended Release 24 hr 1 tab daily [Active]; tamsulosin 0.4 mg oral capsule 1 cap daily [Active]; valsartan 40 mg oral tablet 1 tab daily [Active]; - PMHx: 22:18 CAD; CVA; Diabetes - NIDDM; Hypertension; Kidney stones; Myocardial infarction; jj7 polycythemia vera; - PSHx: 22:18 Coronary artery bypass graft; heart stent; jj7 - Immunization history:: Client reports receiving the 2nd dose of the Covid vaccine, Flu vaccine is up to date. - Infectious Disease History:: Denies. - Social history:: Smoking status: Patient/guardian denies using tobacco, but has a distant history of tobacco abuse, Patient/guardian denies using alcohol, street drugs, IV drugs. - Family history:: not pertinent. ROS: 12/28 05:50 Constitutional: Negative for fever, chills, and weight loss, had a fall at home, sp4 positive acute head injury, positive posterior scalp abrasion the laceration, positive left elbow skin tear, positive right elbow abrasion, positive right hand pain, positive right forearm pain. Eyes: Negative for injury, pain, redness, and discharge, All other systems are negative, Exam: 05:50 Constitutional: This is a well developed, well nourished patient who is awake, alert, sp4 and in no acute distress. Head/Face: Normocephalic,. Scalp contusion, laceration and abrasion. Approximately 4 cm laceration with skin flap. Eyes: Pupils equal round and reactive to light, extra-ocular motions intact. Lids and lashes normal. Conjunctiva and sclera are not injected. Cornea within normal limits. Periorbital areas with no swelling, redness, or edema. ENT: Nares patent. No nasal discharge, no septal abnormalities noted. Tympanic membranes are normal and external auditory canals are clear. Oropharynx with no redness, swelling, or masses, exudates, or evidence of obstruction, uvula midline. Mucous membranes moist. Neck: Trachea midline, no thyromegaly or masses palpated, and no cervical lymphadenopathy. Supple, full range of motion without nuchal rigidity, or vertebral point tenderness. Chest/axilla: Normal chest wall appearance and motion. Nontender with no deformity. No lesions are appreciated. Cardiovascular: Regular rate and rhythm with a normal S1 and S2. No gallops, murmurs, or rubs. Normal PMI, no JVD. No pulse deficits. Respiratory: Lungs have equal breath sounds bilaterally, clear to auscultation and percussion. No rales, rhonchi or wheezes noted. No increased work of breathing, no retractions or nasal flaring. Abdomen/GI: Soft, with normal bowel sounds. No distension or tympany. No guarding or rebound. No evidence of tenderness throughout. Back: No spinal tenderness. No costovertebral tenderness. Skin: Warm, dry with normal turgor. Normal color with no rashes, no lesions, and no evidence of cellulitis. Positive scalp laceration MS/ Extremity: Pulses equal, no cyanosis. Neurovascular intact. Full, normal range of motion. Positive for left elbow skin tear, positive right elbow skin abrasion , positive right hand tenderness, no deformity, positive left forearm tenderness with no deformity Neuro: Awake and alert, GCS 15, oriented to person, place, positive moderate dementia , cranial nerves II-XII grossly intact. Motor strength 5/5 in all extremities. Sensory grossly intact. Psych: Awake, alert, with orientation to person, Behavior, mood, and affect are within normal limits Vital Signs: 12/27 22:11 BP 150 / 77; Pulse 96; Resp 17; Temp 97.5; Pulse Ox 98% ; Weight 74.39 kg; Height 5 ft. [facility] 8 in. ; Pain 2/10; 23:00 BP 159 / 62; Pulse 96; Resp 17; Pulse Ox 98% ; [facility] 12/28 00:00 BP 142 / 65; Pulse 89; Resp 17; Pulse Ox 98% ; [facility] 01:00 BP 130 / 66; Pulse 89; Resp 16; Pulse Ox 97% ; [facility] 02:07 BP 128 / 63; Pulse 87; Resp 16; Pulse Ox 99% ; [facility] 12/27 22:11 Body Mass Index 24.94 (74.39 kg, 172.72 cm) [facility] 12/27 22:11 Pain Scale: Adult [facility] Bobbi Coma Score: 05:50 Eye Response: spontaneous(4). Motor Response: obeys commands(6). Verbal Response: sp4 oriented(5). Total: 15. Laceration: 12/27 23:46 Wound Repair of 4cm ( 1.6in ) subcutaneous laceration to left parietal area and right sp4 parietal area. Irregularly shaped.. Skin/tissue flap noted.. Moderate contamination.. Distal neuro/vascular/tendon intact. Anesthesia: Wound infiltrated with 20 mls of 1% lidocaine. Wound prep: Moderate cleansing, Copious irrigation. Skin closed with 5 3-0 Silk using interrupted sutures and sterile technique. Dressed with Neosporin, 4x4's, Kerlix. Patient tolerated well. MDM: 22:12 Patient medically screened. sp4 12/28 01:40 ED course: EXAM DESCRIPTION: Forearm Right CLINICAL HISTORY: 83 years Male PAIN sp4 TECHNIQUE: 2 views of the right forearm. COMPARISON: No prior exams provided for comparison. FINDINGS: There is no acute right forearm fracture, dislocation, or foreign body. Visualized joint spaces are preserved. No aggressive osseous lesion. Vascular calcifications. IMPRESSION: No acute findings in the right forearm. . ED course: EXAM DESCRIPTION: Hand Right 3 View CLINICAL HISTORY: 83 years Male PAIN TECHNIQUE: 3 views of the right hand are provided. COMPARISON: No prior exams provided for comparison. FINDINGS: There is no acute right hand fracture, dislocation, or foreign body. 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 There is mild osteoarthritis at all distal interphalangeal joints. No aggressive osseous lesion. IMPRESSION: No acute findings in the right hand. Osteoarthritis.. ED course: EXAM DESCRIPTION: CT - Head Brain Wo Cont - 12/28/2023 10:47 pm CLINICAL HISTORY: head injury COMPARISON: Head Brain Wo Cont dated 09/19/2020; Head Brain Wo Cont dated 08/17/2020 TECHNIQUE: All CT scans are performed using dose optimization technique as appropriate and may include automated exposure control or mA/KV adjustment according to patient size. FINDINGS: No intracranial hemorrhage, hydrocephalus or extra-axial fluid collection.No areas of brain edema or evidence of midline shift. Mild chronic small vessel ischemic changes. Remote left basal ganglia lacunar infarct. The paranasal sinuses and mastoids are clear. The calvarium is intact. IMPRESSION: No acute intracranial abnormality. . 05:50 Differential Diagnosis altered mental status, sepsis, flu, Head injury. Data reviewed: 4 vital signs, nurses notes, EMS record, old medical records, radiologic studies, CT scan, plain films. Consideration of Admission/Observation Escalation of care including admission/observation considered. ED course: Wound care was provided. Patient discharged with recommendation for suture removal after 20 days. Closed head injury precautions provided to the patient's family. . 12/27 22:11 Order name: CT Head Brain wo Cont; Complete Time: 23:04 sp4 12/27 23:45 Order name: Hand Right 3 View XRAY 4 12/27 23:45 Order name: Forearm Right XRAY 4 12/27 22:12 Order name: Dressing - Wound; Complete Time: 23:57 sp4 12/27 22:12 Order name: Gloves, Sterile; Complete Time: 22:31 sp4 12/27 22:12 Order name: Setup Suture Tray; Complete Time: 22:31 4 12/27 23:45 Order name: Wound Care; Complete Time: 00:56 sp4 Administered Medications: 12/27 22:38 Drug: Boostrix Tdap IM 0.5 ml IM once; as a single dose Route: IM; Site: right deltoid; jj7 23:26 Follow up: Response: No adverse reaction 7 23:20 Drug: Lidocaine Infiltration (1 %) 20 ml 20 ml Infiltration once; to bedside Volume: 20 jj7 ml; Route: Infiltration; 12/28 00:56 Drug: Ibuprofen PO 400 mg PO once Route: PO; jj7 02:08 Follow up: Response: Pain is decreased j7 00:56 Drug: Acetaminophen PO 1000 mg PO once Route: PO; j7 02:08 Follow up: Response: Pain is decreased jj7 Disposition Summary: 12/29/23 01:46 Discharge Ordered Notes: Suture removal advised after 20 days Location: Home sp4 Problem: new sp4 Symptoms: have improved sp4 Condition: Stable sp4 Diagnosis - Unspecified injury of head, initial encounter sp4 - Acute head injury, posterior scalp laceration, left elbow skin abrasion, right sp4 elbow skin abrasion, right forearm contusion, right hand contusion, fall at home Followup: sp4 - With: Private Physician - When: 10 - 14 days - Reason: Recheck today's complaints Discharge Instructions: - Discharge Summary Sheet sp4 - Head Injury, Adult, [id number] sp4 Forms: - Patient Portal Instructions sp4 Signatures: Dispatcher [employer] Gerard Horton RN RN jj7 Marc Alex MD MD sp4 Jean Oliveira RN RN tl4 Corrections: (The following items were deleted from the chart) 12/27 22:12 22:12 Head Brain Wo Cont+CT.RAD.BRZ ordered. EDMS EDMS 23:45 23:45 Forearm Right+RAD.RAD.BRZ ordered. EDMS EDMS
--- NOTE | 2023-12-29 01:47 | ER ---
Nurse's Notes [facility] Name: Lee Hernandez Age: 83 yrs Sex: Male : 1940 Arrival Date: 12/28/2023 Time: 22:02 Bed 13 Private MD: Diagnosis: Unspecified injury of head, initial encounter;Acute head injury, posterior scalp laceration, left elbow skin abrasion, right elbow skin abrasion, right forearm contusion, right hand contusion, fall at home Presentation: 12/27 22:11 Chief complaint: Patient states: FELL FROM A STANDING POSITION BACKWARD AND HIT THE [facility] BACK OF HIS HEAD ON THE [address] FLOOR. LAC AND HEMATOMA TO BACK OF HEAD. NO LOC. Coronavirus screen: At this time, the client does not indicate any symptoms associated with coronavirus-19. Ebola Screen: No symptoms or risks identified at this time. Initial Sepsis Screen: Does the patient meet any 2 criteria? No. Patient's initial sepsis screen is negative. Does the patient have a suspected source of infection? No. Patient's initial sepsis screen is negative. Risk Assessment: Do you want to hurt yourself or someone else? Patient reports no desire to harm self or others. Onset of symptoms was December 28, 2023. 22:11 Method Of Arrival: EMS: [facility] 22:11 Acuity: CULLEN 4 jj7 Triage Assessment: 22:11 General: Appears in no apparent distress. comfortable, Behavior is calm, cooperative, jj7 appropriate for age. 22:11 Pain: Complains of pain in scalp. jj7 22:18 Neuro: Level of Consciousness is awake, alert, obeys commands, Oriented to person, jj7 time, situation. Derm: Wound noted left parietal area and right parietal area Wound is LAC AND HEMATOMA. Injury Description: Head injury. Historical: - Allergies: 22:18 No Known Allergies; [facility] - Home Meds: 22:56 allopurinol 300 mg oral tablet 1 tab daily [Active]; amlodipine 5 mg oral tablet 1 tab tl4 daily [Active]; atorvastatin 40 mg Oral tab 1 tab daily [Active]; metformin 1,000 mg oral tablet 1 tab 2 times per day [Active]; Plavix 75 mg oral tablet 1 tab daily [Active]; Tradjenta 5 mg Oral tab 1 tab once daily [Active]; metoprolol succinate 25 mg oral Tablet, Extended Release 24 hr 1 tab 2 times per day [Active]; furosemide 20 mg Oral tablet 1 tab 2 times per day [Active]; isosorbide mononitrate 30 mg Oral Tablet, Extended Release 24 hr 1 tab daily [Active]; tamsulosin 0.4 mg oral capsule 1 cap daily [Active]; valsartan 40 mg oral tablet 1 tab daily [Active]; - PMHx: 22:18 CAD; CVA; Diabetes - NIDDM; Hypertension; Kidney stones; Myocardial infarction; jj7 polycythemia vera; - PSHx: 22:18 Coronary artery bypass graft; heart stent; jj7 - Immunization history:: Client reports receiving the 2nd dose of the Covid vaccine, Flu vaccine is up to date. - Infectious Disease History:: Denies. - Social history:: Smoking status: Patient/guardian denies using tobacco, but has a distant history of tobacco abuse, Patient/guardian denies using alcohol, street drugs, IV drugs. - Family history:: not pertinent. Screenin:11 [facility] ED Fall Risk Assessment (Adult) History of falling in the last 3 months, jj7 including since admission Yes- single mechanical fall (1 pt) Confusion or Disorientation No (0 pts) Intoxicated or Sedated No (0 pts) Impaired Gait No (0 pts) Mobility Assist Device Used No (0 pt) Altered Elimination No (0 pt) Score/Fall Risk Level 0 - 2 = Low Risk Oriented to surroundings, Maintained a safe environment, Educated pt \T\ family on fall prevention, incl call for assistance when getting out of bed. Abuse screen: Denies threats or abuse. Nutritional screening: No deficits noted. Tuberculosis screening: No symptoms or risk factors identified. Assessment: 22:11 Reassessment: SEE TRIAGE ASSESSMENT. jj7 Vital Signs: 22:11 BP 150 / 77; Pulse 96; Resp 17; Temp 97.5; Pulse Ox 98% ; Weight 74.39 kg; Height 5 ft. jj7 8 in. ; Pain 2/10; 23:00 BP 159 / 62; Pulse 96; Resp 17; Pulse Ox 98% ; jj7 12/28 00:00 BP 142 / 65; Pulse 89; Resp 17; Pulse Ox 98% ; jj7 01:00 BP 130 / 66; Pulse 89; Resp 16; Pulse Ox 97% ; jj7 02:07 BP 128 / 63; Pulse 87; Resp 16; Pulse Ox 99% ; jj7 12/27 22:11 Body Mass Index 24.94 (74.39 kg, 172.72 cm) jj7 12/27 22:11 Pain Scale: Adult jj7 Bobbi Coma Score: 05:50 Eye Response: spontaneous(4). Motor Response: obeys commands(6). Verbal Response: sp4 oriented(5). Total: 15. ED Course: 12/27 22:10 Patient arrived in ED. rv 22:11 Gerard Lang, BENIGNO is Primary Nurse. jj7 22:11 Marc Alex MD is Attending Physician. sp4 22:11 Arm band placed on right wrist. Patient placed in an exam room, on a stretcher. jj7 22:11 Patient has correct armband on for positive identification. Bed in low position. Call jj7 light in reach. Side rails up X2. Provided Education on: USE OF CALL GARAY. Client placed on continuous cardiac and pulse oximetry monitoring. NIBP monitoring applied. Warm blanket given. 22:18 Triage completed. jj7 22:31 Wound care: to laceration located on scalp was cleaned with with NS, Patient tolerated jj7 well. 22:49 CT Head Brain wo Cont In Process Unspecified. EDMS 22:49 Assist provider with laceration repair Set up tray. jj7 23:24 Assist provider with laceration repair on back of head that was using sutures. jj7 Performed by Marc Alex MD Patient tolerated well. 12/28 00:22 Hand Right 3 View XRAY In Process Unspecified. EDMS 00:22 Forearm Right XRAY In Process Unspecified. EDMS 01:52 change brief. oe 02:08 Patient did not have IV access during this emergency room visit. jj7 Administered Medications: 12/27 22:38 Drug: Boostrix Tdap IM 0.5 ml IM once; as a single dose Route: IM; Site: right deltoid; jj7 23:26 Follow up: Response: No adverse reaction jj7 23:20 Drug: Lidocaine Infiltration (1 %) 20 ml 20 ml Infiltration once; to bedside Volume: 20 jj7 ml; Route: Infiltration; 12/28 00:56 Drug: Ibuprofen PO 400 mg PO once Route: PO; jj7 02:08 Follow up: Response: Pain is decreased jj7 00:56 Drug: Acetaminophen PO 1000 mg PO once Route: PO; jj7 02:08 Follow up: Response: Pain is decreased jj7 Medication: 12/27 22:38 Vaccine Information Statement (VIS) provided today. Questions and/or concerns jj7 addressed. VIS edition date: April 23, 2021. Outcome: 12/28 01:46 Discharge ordered by MD. lew 02:08 Discharged to home via wheelchair, with family, with significant other, jj7 02:08 Condition: improved 02:08 Discharge instructions given to patient, family, Instructed on discharge instructions, safety practices, 02:09 Patient left the ED. jj7 Signatures: Dispatcher [employer] EDMS Suresh Allen Ronaldo RN Gerard Fair RN RN jMarc Abreu MD MD sp4 GamalielJean del angel RN RN tl4 Corrections: (The following items were deleted from the chart) 12/27 22:21 22:18 General: Appears in no apparent distress. comfortable, Behavior is calm, jj7 cooperative, appropriate for age, jj7 22:21 22:18 Pain: Complains of pain in scalp jj7 jj7 22:21 22:18 Arm band placed on right wrist. Patient placed in an exam room, on a stretcher, [email or web address] jj7 22:22 22:11 VIS not applicable for this client. jj7 jj7
[2023-12-29 09:58] VITALS: TEMP 97.5
[2023-12-29 10:37] VITALS: BP 128/63; O2SAT 99
--- NOTE | 2024-01-01 20:21 | RAD REPORT ---
EXAM DESCRIPTION: RAD - Forearm Right - 12/29/2023 12:20 am CLINICAL HISTORY: 83 years Male PAIN TECHNIQUE: 2 views of the right forearm. COMPARISON: No prior exams provided for comparison. FINDINGS: There is no acute right forearm fracture, dislocation, or foreign body. Visualized joint s paces are preserved. No aggressive osseous lesion. Vascular calcifications. IMPRESSION: No acute findings in the right forearm. Electronically signed by: Farzana Hankins MD 12/29/2023 01:01 AM CDT Due to temporary technical issues with the PACS/Fluency reporting system, reports are being signed by the in house radiologists without review as a courtesy to insure prompt reporting. The interpreting radiologist is fully responsible for the content of the report.
--- NOTE | 2024-01-01 20:23 | RAD REPORT ---
EXAM DESCRIPTION: RAD - Hand Right 3 View - 12/29/2023 12:20 am CLINICAL HISTORY: 83 years Male PAIN TECHNIQUE: 3 views of the right hand are provided. COMPARISON: No prior exams provided for comparison. FINDINGS: There is no acute right hand fracture, dislocation, or foreign body. There is moderate ost eoarthritis at the second metacarpophalangeal joint. There is mild osteoarthritis at all distal inter phalangeal joints. No aggressive osseous lesion. IMPRESSION: No acute findings in the right hand. Osteoarthritis. Electronically signed by: Farzana Hankins MD 12/29/2023 01:00 AM CDT Due to temporary technical issues with the PACS/Fluency reporting system, reports are being signed by the in house radiologists without review as a courtesy to insure prompt reporting. The interpreting radiologist is fully responsible for the content of the report.
== END 2023-12-29 02:09 | disposition home or self-care (01) ==
LOC: ER 22:02
PROC: 0HQ0XZZ Repair Scalp Skin, External Approach (ICD-10-PCS; principal; 2023-12-29)
DX: S01.01XA Laceration without foreign body of scalp, initial encounter (principal); S50.312A Abrasion of left elbow, initial encounter; S50.311A Abrasion of right elbow, initial encounter; S50.12XA Contusion of left forearm, initial encounter; S50.11XA Contusion of right forearm, initial encounter; W18.30XA Fall on same level, unspecified, initial encounter; Y92.009 Unspecified place in unspecified non-institutional (private) residence as the place of occurrence of the external cause; E11.9 Type 2 diabetes mellitus without complications; I10 Essential (primary) hypertension; Z95.1 Presence of aortocoronary bypass graft; Z95.818 Presence of other cardiac implants and grafts; Z79.01 Long term (current) use of anticoagulants
CPT/HCPCS: 70450; 73130; 73090; 96372; 99284; 12002; J2001

== ENCOUNTER 2023-12-30 11:00 | Inpatient (IN) | payer OTHER ==
[2023-12-30 11:34] VITALS: BMI 23.1
[2023-12-30] MEDS ORDERED: GLUCAGON 1 MG/VIAL IM PRN (12:45)
[2023-12-30] MEDS ORDERED: D50W 25 GM/50 ML SYRINGE IV PRN (12:45)
[2023-12-30] MEDS: TRAJENTA 5 MG PO SCH (12:56)
[2023-12-30] MEDS: INSULIN REGULAR (HUMAN) 100 UNIT/ML SQ SCH (16:00)
[2023-12-30] MEDS: METFORMIN HCL 500 MG TAB PO SCH (16:29)
[2023-12-30] MEDS: FUROSEMIDE 20 MG TABLET PO SCH (16:30)
[2023-12-30] MEDS: METOPROLOL TAR 25 MG TAB PO SCH (16:59)
--- NOTE | 2023-12-30 17:30 | RAD REPORT ---
EXAM DESCRIPTION: Martha Single View12/30/2023 5:10 pm CLINICAL HISTORY: Cough COMPARISON: December 25, 2023 FINDINGS: The lungs appear clear of acute infiltrate. The heart is normal size. Postsurgical changes involve the chest IMPRESSION: No acute abnormalities displayed
[2023-12-30] MEDS: FLUCONAZOLE 100 MG PO SCH (19:41)
[2023-12-30] MEDS: ECONAZOLE NITRATE TOP SCH (19:41)
[2023-12-30] MEDS: VALSARTAN 40 MG TAB PO SCH (19:43)
[2023-12-30] MEDS: ATORVASTATIN 40 MG TAB PO SCH (19:43)
[2023-12-30] MEDS ORDERED: ECONAZOLE NITRATE TOP SCH (21:00)
[2023-12-30] MEDS ORDERED: FLUCONAZOLE 100 MG TAB PO SCH ×2 (21:00)
--- NOTE | 2023-12-31 02:37 | HP ---
Date of Admission: 12/30/2023 Time Of Service: 9 p.m. Chief Complaint: "I fell and hit my head and became weak." History Of Present Illness: Mr. Hernandez is an 83-year-old right-handed patient with a prior stroke in the basal ganglia from which he has recovered very well, diabetes mellitus, hypertension, k idney stones, myocardial infarction, polycythemia vera, who initially presented to [facility] on 12/24 after EMS was called for falls. The patient required a lift assist and on the same day as they came he had actually a second fall. Imaging was negative and white blood cell count found to b e elevated to 19,000, hemoglobin 12.9, platelets 462, glucose 249. He was treated for a urinary trac t infection, discharged home. We had [facility] referred to see him, but due to functional d ecline, I requested that the patient required inpatient rehabilitation. However, there was no bed av ailable. The patient was at home to do rehab. On the 27 of December, he fell backwards on a hardwood floor, hitting his head and suffered a laceration. At [facility], head CT scan was negativ e for any acute intracranial hemorrhage, but he required 5 stitches and was discharged home. Once ag ain, he was unable to ambulate because of diffuse weakness and as the bed became available, the patie nt is now admitted to inpatient rehabilitation for aggressive therapy. Currently, he requires modera te assistance for bed mobilization transfers and only ambulated 3 feet with a rolling walker with mod erate assistance. He is functioning well below his baseline and requires aggressive management to be gin to recover and avoid rehospitalization for which the patient has gone multiple times due to weakn ess in the knees. Past Medical History: As noted above. Allergies: NO KNOWN DRUG ALLERGIES. Imaging: CT scan of the head done on 12/27 shows no acute intracranial abnormalities. Medications: Allopurinol 300 mg daily, Norvasc 5 mg daily, Lipitor 40 mg at bedtime, Plavix 75 mg da yusuf, Lasix 20 mg twice daily, Glucophage 1000 mg twice daily, Lopressor 25 mg twice daily, Flomax 0.4 mg daily, Diovan 40 mg at bedtime. Family History: Noncontributory. Past Surgical History: Coronary artery bypass grafting and cardiac stent placement. Social History: Patient lives at home with family. No alcohol, tobacco, or IV drug use. Current Level Of Functioning: Currently supervision for eating, oral hygiene, moderate assist for to ileting, maximum assistance for showering, moderate assist for upper body dressing and lower body maxine ssing, maximum assist for donning and doffing footwear, rolling right to left and left to right, supe rvision for a sit to lying and lying to sit changing via moderate assistance. Transfers, from bed to chair to toilet to shower, moderate assistance. Ambulated 3 feet with a rolling walker with moderat e assistance. Laboratory Studies: White blood cell count on the 8th was 19.7 with neutrophils 90, hemoglobin 12.9, hematocrit 41, platelets 462. Sodium 139, potassium 4.0, potassium 4, chloride 104, carbon dioxide 31, BUN 12, creatinine 1.23, glucose ranged from 174 to 249, calcium 9.2, magnesium 2.3. Urinalysis on the 8th showed 3+ glucose, 3+ blood, greater than 50 red blood cells, occasional yeast budding, ex treme turbidity. Physical Examination: Vital Signs: Blood pressure 117/56. He has hold parameters to hold blood pressure medication if sys tolic is less than 120, pulse 65, respiratory rate 16, temperature 97.9, oxygen saturation 92%. Weig ht 164 pounds, height 68 inches, BMI 24.93. General: Mr. Hernandez is resting in bed. He is in no significant distress, appears in the back with go od hemostasis at the back of his head. HEENT: He is otherwise atraumatic. Anicteric. Oropharynx moist. Neck: Supple. Chest: Clear. Heart: Regular. Extremities: Show no significant edema or cyanosis. Neurologic: There is weakness at knee elevation and extension and foot flexion and extension at leas t 4/5 and proximally he is 4/5 as well. Upper extremity 4+/5 proximally and distally. Sensation, st ocking-glove loss, light touch temperature. Depressed reflexes. Rehabilitation And Medical Assessment And Plan: Mr. Hernandez is an 83-year-[facility] with impairment category 20, miscellaneous. Impairment group code is 16, debility, noncard iac, nonpulmonary. Etiologic diagnosis, urinary tract infection. Comorbid, coronary artery disease, decrease in physical functioning, decreased mobility, diabetes mellitus type 2, gastroesophageal ref lux disease, dyslipidemia, hypertension, hyperglycemia with diabetes, leukocytosis, tachycardia, thro mbocytopenia, COPD, prior stroke, and congestive heart failure, unspecified. Plan: He will have physical and occupational, if need be speech therapy for 3.5 hours, 5 of 7 days. Gout will be treated with allopurinol, Norvasc for hypertension with hold parameters as noted in add ition to the Diovan 40 mg at bedtime with hold parameters. Diabetes addressed with metformin and glu cose sliding scale. He does have Lopressor as well for blood pressure along with Imdur for any chest pain and heart rate control. Flomax for prostate hypertrophy, Lasix for diuresis, Lipitor for dysli pidemia, Plavix for stroke risk reduction, and will have SCDs for his DVT prophylaxis and we will con deckhand the Lovenox 40 mg subcutaneously daily. Comorbidities that are impacting his rehabilitation, he does have the laceration on the back of the h ead where he fell backwards. The area will be kept clean and dry and dressed appropriately. Sutures will be removed about 10 to 14 days after. The patient did have the laceration addressed on the 12t h when he was then discharged home. Rehab Specific Plan: Mr. Hernandez will have physical, occupational, and if need be speech therapy for 3 .5 hours, 5 of 7 days to improve his ability to safely transfer from the bed to the chair, toilet, sh ower, perform toileting and showering, and ambulate safely with a rolling walker covering 250 feet wi th modified independence. He will work to go up and down 10 steps with bilateral handrails and prope l a wheelchair 250 feet with modified independence. His cognition will be assessed and addressed as appropriate to improve his safety awareness and ability to manage medications, make good decisions wh en ambulating, and to minimize his risk of falling, injury, and readmission. He will be managed by h is primary care physician, Dr. Hayes for his comorbid conditions as he does rehabilitation. He will h ave 24-hour stay 7 days a week, [facility], and daily physician evaluation along with social ser vices evaluation and management for discharge planning, home equipment, and continuing with therapy a s appropriate. Mr. Hernandez has a good understanding of the process of admission to inpatient rehabilitation facility a nd how he will benefit from physical, occupational, and speech therapy. Barriers To Discharge: Currently, he has been falling very frequently. It is possible he has orthos tatic changes. His blood pressure did go down slightly and hold parameters will be made as he has mu ltiple antihypertensive medications including diuretics. Dr. Hayes also will be following the patient for his comorbid, but he may need abdominal binders and EVIN hose depending on how he does if there a re orthostatic changes, which may be contributing to his falls. Length Of Stay: About 10 days. Disposition: Home with family and continuing with therapy via Home Health. Prognosis: Good. Rehabilitation Goals: 1.Become independent with upper and lower body dressing, toileting, showering, donning and doffing o f footwear. 2.Independently manage all ADLs. 3.Independently ambulate 250 feet with a rolling walker. 4.Independently propel a wheelchair 250 feet. 5.Independently go up and down 10 steps with bilateral handrails. 6.Independently perform all cognitive functioning. The above goals were reviewed with Mr. Hernandez and he is in agreement. By signing this document, I acknowledge I personally performed a full physical examination on Mr. Kale steward no later than 24 hours after his admission to the inpatient rehabilitation facility and determined that he is able to tolerate the above course of treatment at an intensive level for a reasonable per iod of time. A detailed individualized plan of care for him will be completed by hospital day 4 based on the preadmission screen, history and phy sical, and therapy evaluations. LEXI Voice ID: [id number]
[2023-12-31 05:37] LABS: Absolute Basophils 0.5 K/uL (0-0.5); Absolute Eosinophils 0.4 K/uL (0-0.5); Absolute Lymphocytes (CBC) 0.7 K/uL (0.7-4.9); Absolute Monocytes 0.8 K/uL (0.1-1.3); Absolute Neutrophil 18.4 K/uL (1.8-8.0); Basophils % 2.3 % (0-1.3); Hematocrit 39.9 % (39.6-49.0); Hemoglobin 12.3 g/dL (13.6-17.9); Lymphocytes % 3.4 % (15.3-44.8); MCH 25.7 pg (27.0-35.0); MCHC 30.9 g/dL (32.0-36.0); MCV 83.2 fL (80-100); MPV 8.8 fL (7.6-11.3); Neutrophils % 88.3 % (41.7-73.7); Platelets 513 thou/uL (152-406); RBC Red Blood Cell Count 4.79 M/uL (4.33-5.43); Red Cell Distribution Width 16.7 % (12.1-15.2)
[2023-12-31 06:03] LABS: Albumin 3.2 g/dL (3.4-5.0); Albumin/Globulin Ratio 1.1 (1.1-1.8); Alkaline Phosphatase 93 U/L (45-117); BUN Blood Urea Nitrogen 32 mg/dL (7-18); Bicarbonate 32 mEq/L (21-32); Bilirubin Direct 0.2 mg/dL (0-0.2); Bilirubin Indirect, Calculated 0.4 mg/dL (0.2-0.8); Bilirubin Total 0.6 mg/dL (0.2-1.0); Globulin 2.9 g/dL (2.3-3.5); Glomerular Filtration Rate 38 ml/min (=/>90); Glucose Level 223 mg/dL (74-106); Magnesium 1.8 mg/dL (1.6-2.4); Prealbumin 17.5 mg/dL (20-40); Protein, Total 6.1 g/dL (6.4-8.2); Sodium Level 138 mEq/L (136-145)
[2023-12-31 06:10] LABS: ALT/SGPT < 10 U/L (16-61); AST/SGOT < 4 U/L (15-37)
[2023-12-31] MEDS: allopurinoL 300 MG TAB PO SCH (07:21)
[2023-12-31] MEDS: ISOSORBIDE MONO SR 30 MG TAB PO SCH (07:21)
[2023-12-31] MEDS: TAMSULOSIN 0.4 MG SR CAP PO SCH (07:21)
[2023-12-31] MEDS: CLOPIDOGREL 75 MG TABLET PO SCH (07:21)
[2023-12-31] MEDS: AMLODIPINE 5 MG TAB PO SCH (07:21)
[2023-12-31] MEDS ORDERED: TRAJENTA 5 MG PO SCH (08:00)
[2023-12-31 08:15] LABS: Blood Morphology Comment NOT SEEN (NOT SEEN); Dohle Bodies PRESENT; Platelet Estimate INCR; White Blood Cell Scan OK (OK)
[2023-12-31] MEDS: NA CHLORIDE 0.9% 1,000 ML IV SCH (10:33)
--- NOTE | 2023-12-31 14:28 | HP ---
Date of Admission: 12/30/2023 Chief Complaint: Fall and head injury and weakness. History Of Present Illness: This is an 83-year-old pleasant male patient who lives at home with his , came into emergency room on two separate time recently with fall and head injury, first one was on December 24 and second time on December 27. The patient is having significant generalized weakness and he has deteriorated significantly with this recent fall and [facility] and was admitted to the hospital from home. Allergies: NO KNOWN ALLERGIES. Medications: List reviewed. Review of Systems: Constitutional: Generalized weakness. All other systems reviewed and negative. Past Medical History: Significant for hypertension, type 2 diabetes mellitus with diabetic neuropath y, hyperlipidemia, leg swelling, prior history of stroke, coronary artery disease, polycythemia vera, kidney stone, chronic fatigue, chronic diastolic heart failure, memory problem, rosacea. Past Surgical History: Surgery to the left eye; tonsillectomy; coronary artery angioplasty with sten t placement and coronary artery bypass surgery January 20, 2022; cholecystectomy; hemorrhoid surgery; TURP ; surgery on cervical spine; removal of squamous cell carcinoma from skin; and incision and drainage for abscess. Family History: Father and mother both due to myocardial infarction. Brother , had CHF and myocardial infarction. Sister , had asthma and breast cancer. Social History: Prior history of smoking, not at present time. Use of alcohol negative. Physical Examination: Vital Signs: This morning, temperature 98.7, pulse 76, respiratory rate 17, blood pressure 151/69, o xygen saturation 95%. Height 5 feet 8 inches, weight 152 pounds. General: Awake, alert, oriented, not in distress. HEENT: Head atraumatic, normocephalic. Conjunctivae nonerythematous. Sclerae white. Mouth, no thr ush or edema noted. Ears/Nose, no mass, lesion, discharge noted. Neck: Supple. No JVD, lymph nodes, bruit, thyromegaly noted. Lungs: Bilateral good equal air entry. Clear to auscultation. No rhonchi. No rales. Heart: Normal heart sounds, no murmur or gallop. Abdomen: Soft, bowel sounds normal. No guarding, rigidity, tenderness, mass, hepatosplenomegaly, dis tention, or bruit noted. Extremities: No leg edema. No calf tenderness. Skin: No rash, ulcer, cellulitis. Lymphatics: No lymph node enlargement in neck, supraclavicular, infraclavicular region. Neuro: No focal neurological deficit. Chest: Unremarkable. External Genitalia: Deferred. Rectal: Deferred. Laboratory Data: White count 20.9, hemoglobin 12.3, platelets 513. Sodium 138, potassium 4, chlorid e 104, bicarb 32, BUN 32, creatinine 1.76, glucose 223. Liver function tests unremarkable. Hemoglob in A1c pending. TSH 1.42. Chest x-ray, no acute cardiopulmonary changes. Impression: 1.Acute kidney injury. 2.Generalized weakness. 3.Debility. 4.Stroke. 5.Hypertension. 6.Hyperlipidemia. 7.Coronary artery disease. 8.Type 2 diabetes mellitus with diabetic neuropathy. 9.Chronic fatigue. 10.Chronic diastolic heart failure. 11.Rosacea. Plan: We will go ahead and admit the patient to rehab floor. Dr. Oquendo will manage his rehab the rapy. For his acute kidney injury, we will go ahead and give him IV fluid as this is due to underlyi ng dehydration problem and we will go ahead and give IV fluid normal saline at 75 cc/hour x1 L, hold furosemide for 24 hours and then resume it. Patient was encouraged to drink water by mouth. For hyp ertension, we will continue his antihypertensive medication with monitoring of blood pressure and if necessary make adjustment on medication. For hyperlipidemia, we will continue his atorvastatin per o rder and no need for further intervention. For diabetes, we will continue his Tradjenta and metformi n. Follow up on hemoglobin A1c and if necessary make further adjustment on medication. Patient take s Jakafi as prescribed by his oncologist and he should continue to take this medication using his terrell e supply while in the hospital. Details and plan of treatment discussed with him. He has 2 more day s left on fluconazole which recently was prescribed for noticing yeast in the urine during one of his emergency room visit and he has 2 more days left on it, which we will continue that. CHRAAN/MODL Voice ID: [id number]
[2023-12-31] MEDS: ENOXAPARIN 30 MG/0.3 ML SQ SCH (16:33)
[2023-12-31 19:33] LABS: Renal Epithelial 20-50 /HPF (None Seen); Specific Gravity 1.017 (1.005-1.030); Sqamous Epithelial None Seen /HPF (None Seen); Urine Bacteria >50 /HPF (<20); Urine Bilirubin NEGATIVE (Negative); Urine Blood 2+ (Negative); Urine Clarity Extremely Turbid (Clear); Urine Color Light-Orange (Yellow); Urine Culture Reflex Order REFLEXED; Urine Glucose NEGATIVE (Negative); Urine Ketones NEGATIVE (Negative); Urine Micro Reflex YN NO BILL MICROSCOPIC; Urine Mucus Slight /HPF (None Seen); Urine Nitrite NEGATIVE (Negative); Urine Protein 2+ (Negative); Urine RBC >50 /HPF (None Seen); Urine Urobilinogen Normal (Normal); Urine WBC >50 /HPF (<5); Urine WBC Clump Many /HPF (None Seen); Urine pH 5.5 (5.0-7.0)
[2024-01-01 08:08] LABS: Anion Gap 8.8 mEq/L (5.0-15.0); Potassium 3.8 mEq/L (3.5-5.1)
--- NOTE | 2024-01-01 09:58 | P.CNS ---
Date of Consult: 01/01/24 Chief Complaint: Painful toenails Allergies No Known Allergies Allergy (Verified 12/30/23 11:57) Home Medications: Amlodipine [Norvasc] 5 mg PO DAILY 08/17/20 Metformin HCl [Glucophage] 1,000 mg PO BIDWM 08/17/20 allopurinoL [Zyloprim*] 300 mg PO DAILY 08/17/20 Clopidogrel Bisulfate [Plavix*] 75 mg PO DAILY #30 tablet 08/19/20 Atorvastatin Calcium [Lipitor] 40 mg PO BEDTIME 12/30/23 Furosemide [Lasix*] 20 mg PO BID 12/30/23 Isosorbide Dinitrate [Isordil] 30 mg PO DAILY 12/30/23 Linagliptin [Tradjenta] 5 mg PO DAILY 12/30/23 Metoprolol Succinate [Toprol Xl*] 25 mg PO BID 12/30/23 Tamsulosin [Flomax*] 0.4 mg PO DAILY 12/30/23 Valsartan [Diovan*] 40 mg PO BEDTIME 12/30/23 - Past Medical/Surgical History Diabetic: Yes -: diabetes -: htn -: hyperlipidemia -: stents -: polycythemi vera -: kidney stones -: CAD -: [place] -: CVA -: heart stent x one -: gallbladder removal -: urostomy tube -: laminectomy - Social History Smoking Status: Former smoker Alcohol use: No CD- Drugs: No Caffeine use: No Place of Residence: Home Review of Systems 10-point ROS is otherwise unremarkable Physical Examination Temp Pulse Resp BP Pulse Ox 97.2 F 88 18 138/64 93 01/01/24 08:00 01/01/24 08:12 01/01/24 08:00 01/01/24 08:12 01/01/24 08:00 General: Alert, In no apparent distress, Oriented x3 Cardiovascular: No edema, Abnormal pulses (14 dp and pt pulses bilateral) Capillary refill: <2 Seconds Musculoskeletal: No clubbing, No swelling, No contractures, No erythema, No tenderness, No warmth Integumentary: No rashes, No breakdown, No significant lesion, No tenderness/swelling, No erythema, No warmth, No cyanosis, Other (Thickened hypertrophic nails with subungual debris x 10) Neurological: Sensation intact Laboratory Data (last 24 hrs) 01/01/24 07:36 Sodium 140 Potassium 3.8 BUN 27 H Creatinine 1.35 H Glucose 217 H - Problems (1) Tinea unguium Current Visit: Yes Status: Acute (2) half-way (current) use of anticoagulants Current Visit: Yes Status: Acute Conclusions/Impression: Mechanical debridement of nails at bedside
[2024-01-01] MEDS: MELATONIN 3 MG TABLET PO PRN (21:52)
--- NOTE | 2024-01-01 23:02 | PN ---
Date of Progress Note: 01/01/2024 Time Of Service: 1:30 p.m. Subjective: Mr. Hernandez is resting in bed in between therapy sessions. He is feeling well. The stitc hes to the back of his head are just causing minor pain and otherwise he is doing well in terms of ey es. Objective: He denies any recent fevers, chills, nausea, vomiting, abdominal pain. He was seen by Dr Austin Guadalupe on the Podiatry Service and had debridement of the nails at bedside. Physical Examination: Vital Signs: Blood pressure 126/58, pulse 103, respiratory rate 18, temperature 98.2, oxygen saturat ion 94%. General: Mr. Hernandez is resting in bed. HEENT: He is normocephalic, atraumatic except for the sutures to the back of his head where he fell and has had stitches. Neuro: Otherwise, he has no focal neurologic deficits. Diffuse weakness in upper and lower extremit ies, likely secondary to his debility. Laboratory Studies: White blood cell count elevated to 20.9 with neutrophils of 88.3. He is followe d by Dr. Hayes on his Primary Care Service and has a urinalysis suggestive of urinary tract infection, but cultures are pending and will potentially be treated as per Dr. Hayes. Otherwise in terms of res t of his laboratory studies, platelets are 513. Sodium 140, potassium 3.8, chloride 105, carbon diox bk 30, BUN 25, creatinine 1.35, glucose ranged from 126 to 258, calcium 9.3. The urinalysis did andrew w esterase 500, rbc's greater than 50, white blood cells greater than 50, many clumps of white blood cells, bacteria greater than 50, epithelial cells 20 to 50, protein 2+, extreme turbidity, 2+ blood. X-ray/imaging: No new x-rays or imaging. Progress Made With Physical, Occupational, And Speech Therapy: Today with physical therapy, ambulate d with a rolling walker with minimum assistance covering 40 feet twice. He was up and down 10 steps with minimum assistance. Mobilized a wheelchair 60 feet and 40 feet with minimum assistance. Bed mo bility done with moderate assistance. With occupational therapy, toileting minimum assistance, bathi ng minimum assistance, upper body dressing minimum assistance. With speech therapy, long-term goals set to improve cognitive skills, worsened with daily routine to 70% accuracy with minimum assistance level required. Mr. Hernandez is making fair progress so far with physical, occupational, and speech therapy. Assessment And Plan: Mr. Hernandez is an 83-year-old patient in the rehabilitation unit with urinary tra ct infection treated by Dr. Hayes. He is debilitated and is making some fair progress so far. His co morbidities include a little setback with head, where he received sutures with mild pain. He has uri nary retention, prostate hypertrophy, diabetes mellitus, hypertension, dyslipidemia, and stroke risk. He will continue with physical, occupational, and speech therapy for 3.5 hours, 5 of 7 days. Geo nue Norvasc 5 mg daily and Lopressor 25 mg twice daily along with Imdur 30 mg daily for hypertension and heart rate management, Lovenox 30 mg subcutaneous daily for DVT prophylaxis, Plavix 75 mg daily f or stroke risk reduction, Lipitor 40 mg at bedtime for dyslipidemia, he has allopurinol for gout, Brian van also for his blood pressure along with the Flomax for urinary retention, he has metformin 1000 mg twice daily for diabetes mellitus. Comorbidities That Are Impacting Rehabilitation: His urinary tract infection will be treated by Dr. Hayes. At this point, it is not hampered or negatively impacted by any of his comorbid conditions. LORI/MODL Voice ID: [id number] Report ID: [id number]
--- NOTE | 2024-01-02 20:10 | PN ---
Date of Progress Note: 01/01/2024 Subjective: The patient was seen this morning for followup. He was lying in bed, not in distress. Denies any new complaints overnight. Objective: Vital Signs: Reviewed. HEENT: Unremarkable. Lungs: Clear to auscultation. Heart: Sounds normal. Abdomen: Soft. Bowel sounds normal. No guarding, rigidity, tenderness, distention. Extremities: No leg edema. Laboratory Data: Sodium 140, potassium 3.8, chloride 105, bicarb 30, BUN 27, creatinine 1.35, glucos e 217. Impression: 1.Acute kidney injury. 2.Hypertension. 3.Coronary artery disease. 4.Polycythemia vera. Plan: We will go ahead and continue current medications. The patient was encouraged to drink 60 oun gretta of water daily. Continue current physical therapy under guidance of Dr. Oquendo and continue cu rrent antihypertensive medication. I will see him tomorrow for followup. CHARAN/MODL Voice ID: [id number] Report ID: [id number]
--- NOTE | 2024-01-02 20:13 | PN ---
Date of Progress Note: 01/02/2024 Subjective: The patient was seen this morning for followup. No new complaints or problems reported by the patient. He was lying in bed. Denies any complaints. No chest pain, shortness of breath, na usea, vomiting. Objective: Vital Signs: Reviewed. HEENT: Unremarkable. Lungs: Clear to auscultation. Heart: Sounds normal. Abdomen: Soft. Bowel sounds normal. No guarding, rigidity, tenderness, distention. Extremities: No leg edema. Impression: 1.Acute kidney injury. 2.Hypertension. 3.Polycythemia vera. 4.Hyperlipidemia. 5.Coronary artery disease. Plan: We will go ahead and continue current medical management. Continue to encourage the patient t o drink 60 ounces of water a day. We will continue physical therapy under guidance of Dr. Oquendo. I will see him tomorrow for followup. CHARAN/MODL Voice ID: [id number] Report ID: [id number]
--- NOTE | 2024-01-02 20:13 | PN ---
Date of Progress Note: 01/02/2024 Time Of Service: 1:40 p.m. Subjective: Mr. Hernandez is in bed in between therapy sessions. Has no new complaints. No significant pain at the stitches site to the back of his head. Objective: Denies any fevers, chills, nausea, vomiting, myalgias, arthralgias, rash, headache, or an y other issues. Physical Examination: Vital Signs: Blood pressure 116/66, pulse 85, respiratory rate of 16, temperature 97.3, oxygen satur ation 93%. General: Mr. Hernandez again is in bed between therapy sessions. Reports feeling somewhat weaker today but is participating as good as can be with his therapy. His weakness or debility more in the lower than upper extremities still present. Lungs: Decreased air movement. Abdomen: Soft. Extremities: No significant edema noted in the extremities. Laboratory Studies: No new laboratory studies since the . He has chronically elevated white blo od cell count and followed by Dr. Hayes on the hospitalist service. Note his blood sugars did range u p to 194 today, low of 134. Medications: Have been reviewed. He does have Lovenox for DVT prophylaxis, Lipitor for dyslipidemia , Norvasc for hypertension, allopurinol for gout, Lasix for fluid management. He is on metformin 100 0 mg twice daily for diabetes mellitus, Flomax 0.4 mg daily for urinary retention, Diovan for his hyp ertension along with metoprolol. Progress Made With Physical And Occupational Therapy: Today he completed standing tasks with multipl e sets of dynamic standing tasks also done, stepping up on one foot and step and back, roj-is-qorpp t ransfers done with contact guard assistance. With occupational therapy, he was independent for supin e to sit at edge of bed. Verbal cues required to initiate grooming, wash face, oral care. Displayed improved sequencing on motor planning of tasks. He did consume 80% of his meal already today on mod ified diet. With Speech, he did work on cognitive skills with spatial orientation, yes/no questions, short-term memory and naming. He was able to answer yes/no questions with 60% accuracy, moderate as sistance required. Mr. Hernandez is making good progress with physical, occupational and speech therapy overall. Assessment: Mr. Hernandez is an 83-year-old patient in the rehabilitation unit with urinary tract infect ion and debility. He is followed by Dr. Hayes his primary care physician for his comorbid conditions which are listed above. Plan: We will continue with physical, occupational, speech therapy for 3.5 hours, 5 of 7 days. Agai n all medications as noted will be continued for his comorbid conditions and again followed by Dr. Kapoor in. Comorbidities That Are Impacting Rehabilitation: His comorbidities do not negatively impact his reha bilitation are managed stably so by Dr. Hayes on the hospitalist service. LORI/DARLYN Voice ID: [id number] Report ID: [id number]
[2024-01-03 04:49] LABS: Absolute Basophils 0.5 K/uL (0-0.5); Absolute Eosinophils 0.4 K/uL (0-0.5); Absolute Lymphocytes (CBC) 0.7 K/uL (0.7-4.9); Absolute Monocytes 0.8 K/uL (0.1-1.3); Absolute Neutrophil 16.8 K/uL (1.8-8.0); Basophils % 2.4 % (0-1.3); Hemoglobin 12.1 g/dL (13.6-17.9); Lymphocytes % 3.7 % (15.3-44.8); MCH 26.1 pg (27.0-35.0); MCV 81.7 fL (80-100); MPV 8.4 fL (7.6-11.3); Monocytes % 4.1 % (3.3-12.3); Nucleated Red Blood Cells % 0.1 % (0-0); Platelets 509 thou/uL (152-406); RBC Red Blood Cell Count 4.65 M/uL (4.33-5.43); Red Cell Distribution Width 16.3 % (12.1-15.2)
[2024-01-03 04:53] LABS: Anion Gap 6.7 mEq/L (5.0-15.0); Potassium 3.7 mEq/L (3.5-5.1)
[2024-01-03 04:54] LABS: Neutrophils % 87.8 % (41.7-73.7)
[2024-01-03] MEDS ORDERED: ONDANSETRON 4 MG (ODT) TAB PO PRN (09:47)
[2024-01-03] MEDS: NA CHLORIDE 0.9% 1,000 ML IV SCH (14:43)
--- NOTE | 2024-01-03 20:31 | PN ---
Date of Progress Note: 01/03/2024 Subjective: The patient was seen this morning for followup. He was sitting in wheelchair, denied an y complaints this morning or overnight. Objective: Vital Signs: Reviewed. HEENT: Unremarkable. Lungs: Clear to auscultation. Heart: Sounds normal. Abdomen: Soft. Bowel sounds normal. No guarding, rigidity, tenderness, distention. Extremities: No leg edema. Laboratory Data: White count 19.1, hemoglobin . Sodium 139, potassium 3.7, chloride 104, bicarb 32, BUN 28, creatinine 1.38, glucose 175. Impression: 1.Type 2 diabetes mellitus. 2.Volume depletion. 3.Polycythemia. 4.Hypertension. 5.Coronary artery disease. Plan: We will go ahead and continue current medication. Continue current DVT prophylaxis. Continue current antihypertensive medication. The patient's renal function has remained unchanged from last time, which is definitely better compared to the time of admission and he received 1 L of IV fluid in the beginning when he was admitted and I will order another liter of IV fluid today after physical therapy session is over for this volume depletion problem. I will see him tomorrow for foll lionel. CHARAN/MODL Voice ID: [id number] Report ID: [id number]
--- NOTE | 2024-01-03 22:13 | PN ---
Date of Progress Note: 01/03/2024 Time Of Service: 1:15 p.m. Subjective: Mr. Hernandez is resting in between therapy sessions, in no acute distress, has no new compl aints, is feeling good about the recovery and how his therapy is going. Objective: No fevers, chills, nausea, vomiting, myalgias, arthralgias, rash, psychiatric complaints. Physical Examination: Vital Signs: Blood pressure 120/56, pulse 58, respiratory rate of 16, temperature 97, oxygen saturat ion 95%. General: Mr. Hernandez is resting well. Denies any in terms of face, arm, or leg. Focal deficits, diff use weakness present, but recovering and doing very well in terms of therapy. Chest: No abnormal sounds. Abdomen: Soft. Extremities: Show no significant edema. Laboratory Studies: White blood cell count remains elevated at 19.1, three days ago 28.9, neutrophil s 87.8, hemoglobin 12.1. Sodium 139, potassium 3.7, chloride 104, carbon dioxide 32, BUN 28, creatin ine 1.38, glucose ranged from 161 to 214, calcium 9.4. X-ray/imaging: No new x-rays or imaging. Medications: Medications have been reviewed and are unchanged except he has Zofran for nausea 4 mg e very 6 hours as needed. All other medications continued unchanged. Progress Made With Physical, Occupational, And Speech Therapy: Today, he ambulated 100 feet, 175 fee t, and 250 feet with contact guard assistance using a rolling walker. The patient's family did see u nsteadiness of his right knee, but they are at bedside and were able to observe as he was doing thera py. With occupational therapy, completed rka-xb-ojisf transfers from wheelchair to bed to toilet wit h standby assistance. Independent with upper and lower body dressing. Speech, required minimum assi stance to answer yes and no questions, temporal and spatial orientation tasks are independent for andrew rt-term memory. He recalled 2 of 2 unrelated items at 5 minutes. Mr. Hernandez is making good progress with physical, occupational, and speech therapy and likely be ready for discharge home in the appropriate time. Assessment: Mr. Hernandez is an 83-year-old patient in the rehabilitation unit with urinary tract infect ion and debility. He has comorbidities of diabetes mellitus, hypertension, prostate hypertrophy, dys lipidemia, and gout. Plan: 1.Continue physical, occupational, and speech therapy for 3.5 hours, 5 of 7 days. 2.His medications will be continued to treat his comorbid conditions and they are managed by Dr. Alison rudd, his primary care physician. Comorbidities That Are Impacting His Rehabilitation: He does have multiple comorbid conditions which are stably managed and are not negatively impacting his rehabilitation currently. LORI/DARLYN Voice ID: [id number] Report ID: [id number]
[2024-01-04] MEDS: AMPICILLIN TRIHYDRATE 500 MG CAP PO SCH (09:00)
--- NOTE | 2024-01-04 20:20 | PN ---
Date of Progress Note: 01/04/2024 Time Of Service: 1:25 p.m. Subjective: Mr. Hernandez is resting in bed. He is happy with his therapy, so far. Has no new complain ts. Objective: No fevers, chills, nausea, vomiting, myalgias, arthralgias, rash, headache, or weight taylor nge. Physical Examination: Vital Signs: Blood pressure 122/58, pulse 78, respiratory rate 16, temperature 97.5, oxygen saturati on 94%. General: Mr. Hernandez is resting in bed. Neurological: He has no focal neurologic deficits. Lungs: Clear to auscultation. Heart: Regular. Abdomen: Soft, nontender. Extremities: There is no clubbing, cyanosis, or edema. Laboratory Studies: No new laboratory studies except blood sugars ranged from 110 to 220. X-ray/imaging: No new x-rays or imaging. Medications: He continues the ampicillin for his urinary tract infection 500 mg 3 times daily, Norva sc 5 mg daily for hypertension, allopurinol for gout, Lipitor 40 mg at bedtime for dyslipidemia, Plav ix 75 mg daily for stroke risk reduction, Lovenox 30 mg subcutaneously daily for DVT prophylaxis, Las ix 20 mg daily for fluid management, melatonin for insomnia, Imdur for blood pressure and heart rate control, Glucophage 1000 mg twice daily for diabetes mellitus. He has Lopressor as well for blood pr essure control, Zofran for nausea, Flomax for prostate hypertrophy, in addition to Diovan for his blo od pressure control. Progress Made With Physical And Occupational Therapy: With physical therapy, he was able to perform multiple cbd-ux-eynre transfers and rqzqf-qj-jgkkz transfers with contact guard assistance using a ro lling walker. He propelled a wheelchair 200 feet with contact guard. He was able to ascend and desc end 15 steps with contact guard assistance and bilateral hand rails, he did require verbal cues to co ntinue. Regarding his occupational therapy, he was able to exercise with 2-pound dowel to improve st rength and improve his transfers. Regarding his speech, he was able to answer questions, yes/no ques tions, with 60% accuracy. His temporal and spatial relation of question and answer were 80% accuracy . He had some decrease of processing noted. Mr. Hernandez is making good progress with physical, occupational and speech therapy. Assessment And Plan: Mr. Hernandez is an 83-year-old patient in the rehabilitation unit with urinary tra ct infection and debility. His comorbidities are dyslipidemia, prostate hypertrophy, hypertension, d iabetes mellitus, and gout. Plan: 1.Continue with physical, occupational, and speech therapy for 3.5 hours, 5 of 7 days. 2.His comorbid conditions are stable and managed by Dr. Hayes, his primary care physician, but medica tions are continued as noted. Comorbidities That Are Impacting Rehabilitation: His comorbidities are stable and do not negatively impact his rehabilitation. Continue with antibiotics and all medications as noted above. LORI/DARLYN Voice ID: [id number] Report ID: [id number]
--- NOTE | 2024-01-04 20:44 | PN ---
Date of Progress Note: 01/04/2024 Subjective: Patient was seen this morning for followup. No new complaints or problems reported by h im. Lying in bed, not in any distress. Objective: Vital Signs: Reviewed. HEENT: Unremarkable. Lungs: Clear to auscultation. Heart: Sounds normal. Abdomen: Soft. Bowel sounds normal. No guarding, rigidity, tenderness, distention. Extremities: No leg edema. Laboratory Data: Urine culture growing E coli. Impression: 1.Urinary tract infection. 2.Volume depletion. 3.Type 2 diabetes mellitus. 4.Hypertension. Plan: We will go ahead and start the patient on Levaquin per order. Ampicillin was ordered but noemi haynes informed me that they are not able to get supply of ampicillin; so, I will change antibiotic o rder to Levaquin. Continue physical therapy under guidance of Dr. Oquendo. I will see him tomorrow for followup and patient was encouraged to drink 60 ounce of water daily. CHARAN/MODL Voice ID: [id number] Report ID: [id number]
[2024-01-05] MEDS: levoFLOXacin 500 MG TAB PO ONE (08:58)
--- NOTE | 2024-01-05 13:11 | PN ---
Date of Progress Note: 01/05/2024 Subjective: The patient was seen this morning for followup. No new complaints or problems reported by the patient. He was sitting in chair. Denied any complaints. Objective: Vital Signs: Reviewed. HEENT: Unremarkable. Lungs: Clear to auscultation. Heart: Sounds normal. Abdomen: Soft. Bowel sounds normal. No guarding, rigidity, tenderness, or distention. Extremities: No leg edema. Impression: 1.Urinary tract infection. 2.Volume depletion. 3.Hypertension. 4.Hyperlipidemia. 5.Coronary artery disease. Plan: We will go ahead and continue current medication. Ampicillin was ordered yesterday for urinar y tract infection, but it is not available, so we will start him on Levaquin 500 mg x1 dose today and 250 mg daily as of tomorrow. The patient was encouraged to continue to drink more water as suggeste d for volume depletion problem. We will repeat blood work tomorrow. Continue physical therapy under guidance of Dr. Oquendo. CHARAN/MODL Voice ID: [id number] Report ID: [id number]
--- NOTE | 2024-01-05 13:27 | P.RH.PN ---
Estimated Length of Stay: 13 Discharge Disposition Plan: Home Family Support: Yes Vital Signs: Last Vital Signs Temp 97.2 F 01/05/24 08:00 Pulse 69 01/05/24 08:57 Resp 18 01/05/24 08:00 BP 124/60 01/05/24 08:57 Pulse Ox 92 01/05/24 08:00 Laboratory: Laboratory Last Values WBC 19.10 thou/uL (4.3-10.9) H 01/03/24 03:39 RBC 4.65 M/uL (4.33-5.43) 01/03/24 03:39 Hgb 12.1 g/dL (13.6-17.9) L 01/03/24 03:39 Hct 38.0 % (39.6-49.0) L 01/03/24 03:39 MCV 81.7 fL (80-100) 01/03/24 03:39 MCH 26.1 pg (27.0-35.0) L 01/03/24 03:39 MCHC 32.0 g/dL (32.0-36.0) 01/03/24 03:39 RDW 16.3 % (12.1-15.2) H 01/03/24 03:39 Plt Count 509 thou/uL (152-406) H 01/03/24 03:39 MPV 8.4 fL (7.6-11.3) 01/03/24 03:39 Neutrophils % 87.8 % (41.7-73.7) H 01/03/24 03:39 Lymphocytes % 3.7 % (15.3-44.8) L 01/03/24 03:39 Monocytes % 4.1 % (3.3-12.3) 01/03/24 03:39 Eosinophils % 2.0 % (0-4.4) 01/03/24 03:39 Basophils % 2.4 % (0-1.3) H 01/03/24 03:39 Absolute Neutrophils 16.8 K/uL (1.8-8.0) H 01/03/24 03:39 Absolute Lymphocytes 0.7 K/uL (0.7-4.9) 01/03/24 03:39 Absolute Monocytes 0.8 K/uL (0.1-1.3) 01/03/24 03:39 Absolute Eosinophils 0.4 K/uL (0-0.5) 01/03/24 03:39 Absolute Basophils 0.5 K/uL (0-0.5) 01/03/24 03:39 Dohle Bodies Present 12/31/23 05:14 Platelet Estimate Incr 12/31/23 05:14 Morphology Comment Not seen (NOT SEEN) 12/31/23 05:14 Sodium 139 mEq/L (136-145) 01/03/24 03:39 Potassium 3.7 mEq/L (3.5-5.1) 01/03/24 03:39 Chloride 104 mEq/L (98-107) 01/03/24 03:39 Carbon Dioxide 32 mEq/L (21-32) 01/03/24 03:39 Anion Gap 6.7 mEq/L (5.0-15.0) 01/03/24 03:39 BUN 28 mg/dL (7-18) H 01/03/24 03:39 Creatinine 1.38 mg/dL (0.70-1.30) H 01/03/24 03:39 Est GFR (CKD-EPI) 51 ml/min (=/>90) L 01/03/24 03:39 Glucose 175 mg/dL (74-106) H 01/03/24 03:39 POC Glucose 187 mg/dL (65-120) H 01/05/24 11:40 Hemoglobin A1c 7.0 % (4.2-6.3) H 12/31/23 05:14 Calcium 9.4 mg/dL (8.5-10.1) 01/03/24 03:39 Magnesium 1.8 mg/dL (1.6-2.4) 12/31/23 05:14 Total Bilirubin 0.6 mg/dL (0.2-1.0) 12/31/23 05:14 Direct Bilirubin 0.2 mg/dL (0-0.2) 12/31/23 05:14 Indirect Bilirubin 0.4 mg/dL (0.2-0.8) 12/31/23 05:14 AST < 4 U/L (15-37) L 12/31/23 05:14 ALT < 10 U/L (16-61) L 12/31/23 05:14 Alkaline Phosphatase 93 U/L (45-117) 12/31/23 05:14 Serum Total Protein 6.1 g/dL (6.4-8.2) L 12/31/23 05:14 Albumin 3.2 g/dL (3.4-5.0) L 12/31/23 05:14 Globulin 2.9 g/dL (2.3-3.5) 12/31/23 05:14 Albumin/Globulin Ratio 1.1 (1.1-1.8) 12/31/23 05:14 Prealbumin 17.5 mg/dL (20-40) L 12/31/23 05:14 TSH 1.420 uIU/mL (0.358-3.740) 12/31/23 05:14 Urine Color Light-orange (Yellow) 12/31/23 19:00 Urine Clarity Extremely turbid (Clear) H 12/31/23 19:00 Urine pH 5.5 (5.0-7.0) 12/31/23 19:00 Ur Specific Morse 1.017 (1.005-1.030) 12/31/23 19:00 Glucose (UA)(Auto) Negative (Negative) 12/31/23 19:00 Urine Ketones Negative (Negative) 12/31/23 19:00 Urine Blood 2+ (Negative) H 12/31/23 19:00 Urine Nitrite Negative (Negative) 12/31/23 19:00 Urine Bilirubin Negative (Negative) 12/31/23 19:00 Urine Urobilinogen Normal (Normal) 12/31/23 19:00 Ur Leukocyte Esterase 500 Damien/uL (Negative) H 12/31/23 19:00 Urine RBC >50 /HPF (None Seen) H 12/31/23 19:00 Urine WBC >50 /HPF (<5) H 12/31/23 19:00 Urine WBC Clumps Many /HPF (None Seen) H 12/31/23 19:00 Ur Squamous Epith Cells None seen /HPF (None Seen) 12/31/23 19:00 U Non-Squamous Epi Cells <5 /HPF (None Seen) 12/31/23 19:00 Ur Renal Epithelial Cell 20-50 /HPF (None Seen) H 12/31/23 19:00 Urine Bacteria >50 /HPF (<20) H 12/31/23 19:00 Urine Mucus Slight /HPF (None Seen) 12/31/23 19:00 Urine Culture Reflexed Reflexed 12/31/23 19:00 Urine Total Protein 2+ (Negative) H 12/31/23 19:00 Smear Scan Ok (OK) 12/31/23 05:14 Weight: 152 lb 6.4 oz Wound Present: No Closed Surgical Incision Present: Yes Negative Pressure Wound Therapy Present: No Physician Update: Labs reviewed, Chronically elevated WBC of 19. BIMS on admission 0. Poor memory and cognitive functioning. RW 200' with CGA, WC 200' with CGA. Walked 10' without an AD. CGA with standing and transferring. On Levaquin 500 mg daily for UTI. 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 Please see the Rehabilitation Signature page for all necessary signatures.
[2024-01-06 04:04] LABS: Absolute Basophils 0.2 K/uL (0-0.5); Absolute Eosinophils 0.4 K/uL (0-0.5); Absolute Lymphocytes (CBC) 0.9 K/uL (0.7-4.9); Absolute Monocytes 0.8 K/uL (0.1-1.3); Absolute Neutrophil 19.7 K/uL (1.8-8.0); Basophils % 0.9 % (0-1.3); Eosinophils % 1.9 % (0-4.4); Hematocrit 38.8 % (39.6-49.0); Hemoglobin 12.4 g/dL (13.6-17.9); MCH 25.8 pg (27.0-35.0); MCHC 31.9 g/dL (32.0-36.0); MPV 8.5 fL (7.6-11.3); Monocytes % 3.5 % (3.3-12.3); Neutrophils % 89.7 % (41.7-73.7); Nucleated Red Blood Cells % 0.1 % (0-0); Platelets 498 thou/uL (152-406); RBC Red Blood Cell Count 4.79 M/uL (4.33-5.43); Red Cell Distribution Width 16.4 % (12.1-15.2)
[2024-01-06 04:28] LABS: Anion Gap 12.7 mEq/L (5.0-15.0); Magnesium 1.7 mg/dL (1.6-2.4); Potassium 3.7 mEq/L (3.5-5.1)
[2024-01-06] MEDS: levoFLOXacin 250 MG TAB PO SCH (08:35)
--- NOTE | 2024-01-06 12:05 | PN ---
Date of Progress Note: 01/06/2024 Subjective: The patient was seen this morning for followup. No new complaints or problems reported by the patient. He was sitting in the wheelchair. Denies any complaints. Objective: Vital Signs: Reviewed. HEENT: Unremarkable. Lungs: Clear to auscultation. Heart: Sounds normal. Abdomen: Soft. Bowel sounds normal. No guarding, rigidity, tenderness, or distention. Extremities: No leg edema. Laboratory Data: White count 21.9, hemoglobin 12.4, platelets 498. Sodium 138, potassium 3.7, chlor bk 102, bicarb 27, BUN 25, creatinine 1.58, glucose 144. Magnesium 1.7. Impression: 1.Volume depletion. 2.Urinary tract infection. 3.Hypertension. 4.Polycythemia. Plan: The patient is not drinking enough water, as per my discussion with him today, and I have enco uraged him to try to drink 60-ounce water daily. We will go ahead and get a renal ultrasound and dante al artery Doppler for further evaluation of his chronic kidney disease problem. We will continue cur rent antibiotic for urinary tract infection and continue to provide physical therapy under guidance o teodoro Oquendo. I will see him tomorrow for followup. CHARAN/MODL Voice ID: [id number] Report ID: [id number]
[2024-01-06] MEDS: METFORMIN HCL 500 MG TAB PO SCH (16:47)
[2024-01-07] MEDS ORDERED: ACETAMINOPHEN 500 MG TAB ONE
[2024-01-07] MEDS: ACETAMINOPHEN 500 MG TAB PO PRN
--- NOTE | 2024-01-07 06:55 | RAD REPORT ---
EXAM DESCRIPTION: US - Abdomen Pelvis Scan US - 01/07/2024 5:46 am CLINICAL HISTORY: CKD COMPARISON: Angio Aorta For Dissection dated 12/21/2021 FINDINGS: The bilateral kidneys are normal in size, the right measuring 9.4 cm and the left measurin g 11.2 cm. Increased renal cortical echogenicity. Prostatomegaly. Bladder debris present. 13 mm left renal calculus. Aortic velocity: 107 cm/second Right proximal renal artery: 58.7 cm/second Right mid renal artery: 62.3 cm/second Right distal renal artery: 84 cm/second Right renal arcuate artery resistive index: 0.8 Right renal artery / aorta ratio: 0.8 Left proximal renal artery: 94 cm/second Left mid renal artery: 117 cm/second Left distal renal artery: 70 cm/second Left renal arcuate artery resistive index: 0.7 Left renal artery/aorta ratio: 1.1 Normal waveforms demonstrated within the bilateral renal arteries. IMPRESSION: No evidence of hemodynamically significant stenosis within the bilateral renal arteries. Increased renal cortical echogenicity suggesting medical renal disease. No hydronephrosis. Bladder debris. Prostatomegaly with TURP defect. Left nephrolithiasis.
--- NOTE | 2024-01-07 11:35 | PN ---
Date of Progress Note: 01/07/2024 Subjective: The patient was seen this morning for followup. He was lying in bed, not in distress. Denies any complaints this morning. Objective: Vital Signs: Reviewed. HEENT: Unremarkable. Lungs: Clear to auscultation. Heart: Sounds normal. Abdomen: Soft. Bowel sounds normal. No guarding, rigidity, tenderness, distention. Extremities: No leg edema. Laboratory Data: His renal ultrasound was unremarkable except 13 mm left kidney stone. No evidence of any hydronephrosis and renal artery Doppler was unremarkable. Impression: 1.Chronic kidney disease, stage 3. 2.Hypertension. 3.Polycythemia. Plan: We will go ahead and continue current medication. The patient was encouraged to drink more wa ter, and we will continue his current medications. I will see him tomorrow for followup. CHARAN/MODL Voice ID: [id number] Report ID: [id number]
--- NOTE | 2024-01-08 20:43 | PN ---
Date of Progress Note: 01/08/2024 Subjective: The patient was seen this morning for followup. He was lying in bed, not in distress. Objective: Vital Signs: Reviewed. HEENT: Unremarkable. Lungs: Clear to auscultation. Heart: Sounds normal. Abdomen: Soft. Bowel sounds normal. No guarding, rigidity, tenderness, distention. Extremities: No leg edema. Impression: 1.Volume depletion. 2.Chronic kidney disease stage 3. 3.Hypertension. 4.Urinary tract infection. Plan: We will continue current antibiotic. We will repeat blood work tomorrow morning. I have enco uraged the patient 1 more time today to drink about 60 ounces of water daily while here in the hospit al as well as after going home. Continue to provide physical therapy under guidance of Dr. Oquendo. I will see him tomorrow for followup. CHARAN/MODL Voice ID: [id number] Report ID: [id number]
--- NOTE | 2024-01-09 02:34 | PN ---
Date of Progress Note: 01/08/2024 Time Of Service: 1:15 p.m. Subjective: Mr. Hernandez is doing very well, resting in bed. No significant distress, complaints, or o ther issues. He is very happy with his meals. Also, they are happy with his recovery and improvemen t in strength. Review of Systems: No fevers, chills, nausea, vomiting. No significant myalgias, arthralgias, rash, weight change. No issues there. Physical Examination: Vital Signs: Blood pressure 114/55, pulse 94, respiratory rate of 16, temperature 97.6, oxygen satur ation 92%. General: Mr. Hernandez is resting in bed. He is in no acute distress. HEENT: Normocephalic, atraumatic. Sclerae anicteric. Oropharynx pink, moist. Neck: Supple. Chest: Clear. Heart: Regular. Extremities: No significant edema, cyanosis. Laboratory Studies: His white blood cell count chronic elevated 21.9, 89.7% neutrophils. Blood suga rs ranged from 155 to 206. He did have an abdominal ultrasound on , the study showed no evidence of hemodynamically significant stenosis in bilateral renal arteries. There is increased renal corti sophia echogenicity suggestive of medical or renal disease. No hydronephrosis. There is some bladder d ebris noted and prostatomegaly with TURP defect. There is left nephrolithiasis. Medications: Medications have been reviewed. Does have Tylenol for pain. Otherwise, his medication s include the levofloxacin, started by Dr. Hayes on the , 250 mg daily and is on metformin for patsy betes mellitus. All medications as noted above and unchanged. Progress Made With Physical, Occupational, And Speech Therapy: Today with physical therapy, he did a mbulate 175 feet, another 250 feet, 125 feet with contact guard assistance using a rolling walker. S it-to-stand, [id number] transfers done independently. He did have a significant drop in blood pre ssure at 84/55 while he was ambulating and I did go back up after a while. With occupational therapy , independent with bed mobility, [id number] transfers also independent, donning and doffing footwea r independent. With his speech, answered yes and no questions with 90% accuracy. Temporal and spati al orientation questions answered with 100% accuracy. Two of 3 unrelated pictures were recalled afte r 2 minutes. Mr. Hernandez is making great progress with physical, occupational, and speech therapy and will be soon r lenny for discharge home with continued physical therapy. Assessment: Mr. Hernandez is an 83-year-old patient with urinary tract infection and debility. He has d yslipidemia, prostate hypertrophy, hypertension, diabetes mellitus, and gout. Plan: Continue with physical, occupational, and speech therapy for 3.5 hours, 5 of 7 days. His guzman rbid conditions are managed by Dr. Hayes, his primary care physician, including all medications and di agnostic testing. Comorbid Conditions That Are Impacting Rehabilitation: Comorbidities are stably managed and do not n egatively impact his rehabilitation. LB/MODL Voice ID: [id number] Report ID: [id number]
[2024-01-09 08:47] LABS: Absolute Basophils 0.1 K/uL (0-0.5); Absolute Eosinophils 0.4 K/uL (0-0.5); Absolute Lymphocytes (CBC) 0.6 K/uL (0.7-4.9); Absolute Monocytes 0.8 K/uL (0.1-1.3); Absolute Neutrophil 23.2 K/uL (1.8-8.0); Basophils % 0.5 % (0-1.3); Eosinophils % 1.7 % (0-4.4); Hematocrit 41.6 % (39.6-49.0); Hemoglobin 13.2 g/dL (13.6-17.9); Lymphocytes % 2.4 % (15.3-44.8); MCH 25.5 pg (27.0-35.0); MCHC 31.7 g/dL (32.0-36.0); MCV 80.4 fL (80-100); MPV 8.4 fL (7.6-11.3); Monocytes % 3.2 % (3.3-12.3); Neutrophils % 92.2 % (41.7-73.7); Platelets 542 thou/uL (152-406); RBC Red Blood Cell Count 5.17 M/uL (4.33-5.43)
[2024-01-09 08:52] LABS: Anion Gap 6.9 mEq/L (5.0-15.0); Magnesium 1.8 mg/dL (1.6-2.4); Potassium 3.9 mEq/L (3.5-5.1)
[2024-01-09 12:15] LABS: Band Neutrophils 1 % (0-1); Blood Morphology Comment NOT SEEN (NOT SEEN); Differential Total Cells Count 100; Eosinophils 2 % (0-3); Lymphocytes 3 % (15-42); Monocytes 3 % (0-10); Platelet Estimate INCR; Segmented Neutrophils 89 % (40-80)
--- NOTE | 2024-01-09 15:05 | RAD REPORT ---
EXAM DESCRIPTION: Martha Single View01/09/2024 2:25 pm CLINICAL HISTORY: Cough COMPARISON: December 30, 2023 FINDINGS: The medial right base is hazy. Left lung appears clear of acute infiltrate Postsurgical changes involve chest IMPRESSION: Medial right base is hazy which may indicate mild infiltrate or confluence of pulmonary vessels. A PA and lateral chest series may be helpful for further evaluation
[2024-01-10 07:00] VITALS: TEMP 97.4
--- NOTE | 2024-01-10 07:56 | PN ---
Date of Progress Note: 01/09/2024 Subjective: The patient was seen this morning for followup. No new complaints or problems reported by him. He was sitting in the wheelchair. Denied any new complaints. Objective: Vital Signs: Reviewed. HEENT: Unremarkable. Lungs: Clear to auscultation. Heart: Sounds normal. Abdomen: Soft. Bowel sounds normal. No guarding, rigidity, tenderness, distention. Extremities: No leg edema. Skin: The patient had sutures present over posterior scalp and all these sutures were removed this m orning by the nursing staff and area looks very well healed. No evidence of any swelling, redness, d ischarge, or any gapping. Impression: 1.Chronic kidney disease stage 3. 2.Hypertension. 3.Scalp laceration. 4.Generalized weakness. 5.Debility. 6.Polycythemia. Plan: We will go ahead and continue current medication. Continue physical therapy under guidance of Dr. Oquendo. Once again, I did encourage the patient today to make sure to drink 60 ounces of wate r on a daily basis as suggested. I did communicate with the patient's daughter and today and duc rodriguez has informed me that for polycythemia vera, he was taking prescription medication on a daily b asis and he was so far getting this through [facility] that he was able to get it approved through office of Dr. Perales, but in last 2 to 3 months, he has not been able to take this medication as she understan ds there is no more Trevon available. I have encouraged the patient's daughter to go ahead and take t he patient back to Dr. Perales's office for followup as soon as possible [facility] to discuss further treatment option considering his blood count has slowly gone up as we have seen during this hospitalization. Family was also made aware of the fact about importance of him drinking water when he comes home from rehab floor tomorrow. I will see him tomorrow morning for followup. CHARAN/MODL Voice ID: [id number] Report ID: [id number]
[2024-01-10 09:18] VITALS: BP 118/58
== END 2024-01-10 11:09 | disposition home health service (06) | DRG 948 ==
LOC: 5TH 11:00
PROVIDERS: ADMIT Psychiatry & Neurology Neurology with Special Qualifications in Child Neurology; ATTEND Internal Medicine
PROC: 0HBRXZZ Excision of Toe Nail, External Approach (ICD-10-PCS; principal; 2024-01-01)
PROC: 0HBRXZZ Excision of Toe Nail, External Approach (ICD-10-PCS; 2024-01-01)
PROC: 0HBRXZZ Excision of Toe Nail, External Approach (ICD-10-PCS; 2024-01-01)
PROC: 0HBRXZZ Excision of Toe Nail, External Approach (ICD-10-PCS; 2024-01-01)
PROC: 0HBRXZZ Excision of Toe Nail, External Approach (ICD-10-PCS; 2024-01-01)
PROC: 0HBRXZZ Excision of Toe Nail, External Approach (ICD-10-PCS; 2024-01-01)
PROC: 0HBRXZZ Excision of Toe Nail, External Approach (ICD-10-PCS; 2024-01-01)
PROC: 0HBRXZZ Excision of Toe Nail, External Approach (ICD-10-PCS; 2024-01-01)
PROC: 0HBRXZZ Excision of Toe Nail, External Approach (ICD-10-PCS; 2024-01-01)
PROC: 0HBRXZZ Excision of Toe Nail, External Approach (ICD-10-PCS; 2024-01-01)
DX: R53.81 Other malaise (principal); N39.0 Urinary tract infection, site not specified; I50.32 Chronic diastolic (congestive) heart failure; N17.9 Acute kidney failure, unspecified; I13.0 Hypertensive heart and chronic kidney disease with heart failure and stage 1 through stage 4 chronic kidney disease, or unspecified chronic kidney disease; B35.1 Tinea unguium; I25.10 Atherosclerotic heart disease of native coronary artery without angina pectoris; E11.40 Type 2 diabetes mellitus with diabetic neuropathy, unspecified; S01.01XD Laceration without foreign body of scalp, subsequent encounter; K21.9 Gastro-esophageal reflux disease without esophagitis; D45 Polycythemia vera; E78.5 Hyperlipidemia, unspecified; E11.65 Type 2 diabetes mellitus with hyperglycemia; R00.0 Tachycardia, unspecified; D69.6 Thrombocytopenia, unspecified; J44.9 Chronic obstructive pulmonary disease, unspecified; L71.9 Rosacea, unspecified; R53.82 Chronic fatigue, unspecified; M10.9 Gout, unspecified; N40.0 Benign prostatic hyperplasia without lower urinary tract symptoms; E86.9 Volume depletion, unspecified; N18.30 Chronic kidney disease, stage 3 unspecified; E11.22 Type 2 diabetes mellitus with diabetic chronic kidney disease; I25.2 Old myocardial infarction; Z79.01 Long term (current) use of anticoagulants; Z87.891 Personal history of nicotine dependence; Z86.73 Personal history of transient ischemic attack (TIA), and cerebral infarction without residual deficits
CPT/HCPCS: 36415; 70450; 71045; 80048; 80076; 81001; 82947; 83036; 83735; 84134; 84443; 85025; 87077; 87086; 87088; 87186; 92523; 93975; 96372; 97110; 97112; 97116; 97129; 97163; 97165; 97530; 97542; 99284; J1650; J1815; J2001; J7030

== ENCOUNTER 2024-04-20 10:50 | Inpatient (IN) | payer OTHER ==
--- NOTE | 2024-04-20 11:22 | RAD REPORT ---
EXAM DESCRIPTION: CT - CTHCSPWOC - 04/20/2024 11:14 am CLINICAL HISTORY: Trauma, head and neck injury. TRAUMA COMPARISON: <Comparisons> TECHNIQUE: Axial 5 mm thick images of the head were obtained. Axial 2 mm thick images of the cervical spine were obtained with sagittal and coronal reconstruction images generated and reviewed. All CT scans are performed using dose optimization technique as appropriate and may include automated exposure control or mA/KV adjustment according to patient size. FINDINGS: CT HEAD WITHOUT CONTRAST: No acute hemorrhage, hydrocephalus or extra-axial collection is identified.Moderate generalized brain atrophy is present with moderate periventricular and deep white matter chronic microvascular ischemi c changes.No areas of brain edema or midline shift. Vertebral atherosclerosis. The paranasal sinuses and mastoids are clear.The calvarium is intact. CT CERVICAL SPINE WITHOUT CONTRAST: No fracture or subluxation.Significant lower cervical degenerative spondylosis.No prevertebral soft t issues swelling is identified. Significant carotid atherosclerosis. IMPRESSION: No acute intracranial or cervical spine findings.
[2024-04-20 11:38] LABS: Absolute Basophils 0.1 K/uL (0-0.5); Absolute Eosinophils 0.1 K/uL (0-0.5); Absolute Lymphocytes (CBC) 0.2 K/uL (0.7-4.9); Absolute Monocytes 0.8 K/uL (0.1-1.3); Absolute Neutrophil 9.9 K/uL (1.8-8.0); Basophils % 0.8 % (0-1.3); Hemoglobin 11.4 g/dL (13.6-17.9); Lymphocytes % 1.9 % (15.3-44.8); MCH 29.4 pg (27.0-35.0); MCHC 31.7 g/dL (32.0-36.0); MCV 92.9 fL (80-100); MPV 9.4 fL (7.6-11.3); Monocytes % 6.8 % (3.3-12.3); Neutrophils % 89.5 % (41.7-73.7); Nucleated Red Blood Cells % 0.2 % (0-0); Platelets 252 thou/uL (152-406); RBC Red Blood Cell Count 3.87 M/uL (4.33-5.43); Red Cell Distribution Width 22.5 % (12.1-15.2)
[2024-04-20 11:55] LABS: Albumin 3.7 g/dL (3.4-5.0); Albumin/Globulin Ratio 1.4 (1.1-1.8); Anion Gap 9.1 mEq/L (5.0-15.0); Bilirubin Direct 0.3 mg/dL (0-0.2); Bilirubin Total 1.3 mg/dL (0.2-1.0); Globulin 2.6 g/dL (2.3-3.5); Magnesium 2.2 mg/dL (1.6-2.4); Potassium 4.1 mEq/L (3.5-5.1); Protein, Total 6.3 g/dL (6.4-8.2)
[2024-04-20 11:58] LABS: SARS-CoV-2 Antigen CONTROL BLUE LINE VIS/BG OK
[2024-04-20 11:59] LABS: SARS-CoV-2 Antigen Rapid Res Positive (Negative)
[2024-04-20 11:59] LABS: Troponin High Sensitivity 71.4 pg/mL (<58.9)
--- NOTE | 2024-04-20 12:03 | RAD REPORT ---
EXAM DESCRIPTION: RAD - Chest Single View - 04/20/2024 11:49 am CLINICAL HISTORY: dizziness Chest pain. COMPARISON: <Comparisons> FINDINGS: Portable technique limits examination quality. Mild interstitial pulmonary edema seen. The heart is normal in size. Sternotomy wires present. IMPRESSION: Mild CHF.
--- NOTE | 2024-04-20 12:04 | RAD REPORT ---
EXAM DESCRIPTION: RAD - Shoulder Right 2 View - 04/20/2024 11:50 am CLINICAL HISTORY: PAIN COMPARISON: <Comparisons> FINDINGS: Moderate AC joint and glenohumeral joint arthritic changes seen. No fracture or dislocatio n appreciated.
[2024-04-20 12:10] LABS: Anisocytosis 2+; Blood Morphology Comment NOTED (NOT SEEN); Microcytosis 1+; Platelet Estimate ADEQ; White Blood Cell Scan OK (OK)
[2024-04-20 12:11] LABS: Ovalocytes 1+
[2024-04-20 12:47] LABS: Specific Gravity 1.015 (1.005-1.030); Sqamous Epithelial <5 /HPF (None Seen); Urine Bacteria None Seen /HPF (<20); Urine Bilirubin NEGATIVE (Negative); Urine Blood 3+ (Negative); Urine Clarity Turbid (Clear); Urine Color Light-Yellow (Yellow); Urine Culture Reflex Order NOT NEEDED; Urine Glucose 3+ (Negative); Urine Ketones NEGATIVE (Negative); Urine Micro Reflex YN NO BILL MICROSCOPIC; Urine Mucus Slight /HPF (None Seen); Urine Nitrite NEGATIVE (Negative); Urine Protein 1+ (Negative); Urine RBC >50 /HPF (None Seen); Urine Urobilinogen Normal (Normal); Urine WBC <5 /HPF (<5)
--- NOTE | 2024-04-20 13:27 | ER ---
Nurse's Notes [facility] Name: Lee Hernandez Age: 83 yrs Sex: Male : 1940 Arrival Date: 04/20/2024 Time: 10:50 Bed 2 Private MD: Diagnosis: COVID-19;Elevated troponin Presentation: 04/20 10:55 Chief complaint: EMS states: they were toned out for a fall and dizziness. heard a kc6 bang and found him face down. reports he's been dizzy for a couple of days and was running a low grade temp yesterday. denies LOC or blood thinners. Coronavirus screen: At this time, the client does not indicate any symptoms associated with coronavirus-19. Ebola Screen: No symptoms or risks identified at this time. Initial Sepsis Screen: Does the patient meet any 2 criteria? HR > 90 bpm. Does the patient have a suspected source of infection? No. Patient's initial sepsis screen is negative. Risk Assessment: Do you want to hurt yourself or someone else? Patient reports no desire to harm self or others. Onset of symptoms was April 20, 2024. 10:55 Method Of Arrival: EMS: [facility] kc6 10:55 Acuity: CULLEN 3 kc6 Triage Assessment: 10:57 General: Appears in no apparent distress. comfortable, well developed, Behavior is kc6 calm, cooperative, appropriate for age, drowsy, quiet. Pain: Denies pain. EENT: No signs and/or symptoms were reported regarding the EENT system. Neuro: Level of Consciousness is obeys commands, Oriented to person, place, Reports dizziness, weakness. Cardiovascular: Capillary refill < 3 seconds. Respiratory: Airway is patent Trachea midline Respiratory effort is even, unlabored, Respiratory pattern is regular, symmetrical. GI: No signs and/or symptoms were reported involving the gastrointestinal system. : No signs and/or symptoms were reported regarding the genitourinary system. Derm: No signs and/or symptoms reported regarding the dermatologic system. Skin is intact, with poor turgor Skin is dry, Skin is normal, Skin temperature is warm. Musculoskeletal: No signs and/or symptoms reported regarding the musculoskeletal system. Circulation, motion, and sensation intact. Capillary refill < 3 seconds, Range of motion: intact in all extremities. Historical: - Allergies: 10:57 No Known Allergies; kc6 - PMHx: 10:57 CAD; CVA; Diabetes - NIDDM; Hypertension; Kidney stones; Myocardial infarction; kc6 polycythemia vera; - PSHx: 10:57 Coronary artery bypass graft; heart stent; kc6 - Immunization history:: Adult Immunizations unknown. - Infectious Disease History:: Denies. - Social history:: Smoking status: unknown. - Family history:: not pertinent. Screenin:59 [facility] ED Fall Risk Assessment (Adult) History of falling in the last 3 months, kc6 including since admission Yes- fall prone (multiple falls) (3 pts) Confusion or Disorientation Yes (5 pts) Intoxicated or Sedated No (0 pts) Impaired Gait Yes (1 pt) Mobility Assist Device Used Yes (1 pt) Altered Elimination No (0 pt) Score/Fall Risk Level 3 or more points = High Risk. Abuse screen: Denies threats or abuse. Denies injuries from another. Nutritional screening: No deficits noted. Tuberculosis screening: No symptoms or risk factors identified. Assessment: 10:59 Reassessment: please see triage. kc6 11:59 Reassessment: Patient appears in no apparent distress at this time. No changes from [facility] previously documented assessment. Patient and/or family updated on plan of care and expected duration. Pain level reassessed. 13:08 Reassessment: Patient appears in no apparent distress at this time. No changes from 6 previously documented assessment. Patient and/or family updated on plan of care and expected duration. Pain level reassessed. Vital Signs: 10:55 BP 148 / 66; Pulse 102; Resp 18 S; Temp 98.7(O); Pulse Ox 99% on R/A; Weight 77.11 kg kc6 (R); Height 5 ft. 8 in. (R); 11:49 BP 150 / 90; Pulse 95; Resp 18 S; Pulse Ox 96% on R/A; kc6 13:08 BP 171 / 79; Pulse 96; Resp 19 S; Pulse Ox 97% on R/A; kc6 10:55 Body Mass Index 25.85 (77.11 kg, 172.72 cm) kc6 ED Course: 10:55 Patient arrived in ED. kc6 10:57 Triage completed. kc6 10:57 Nnamdi South MD is Attending Physician. rt 10:57 Arm band placed on. kc6 10:58 Patient has correct armband on for positive identification. Placed in gown. Bed in low kc6 position. Call light in reach. Side rails up X2. cardiac monitor on. Pulse ox on. NIBP on. Warm blanket given. Pillow given. 10:58 Maintain EMS IV. Dressing intact. Good blood return noted. Site clean \T\ dry. Gauge \T\ [place] 6 site: 18G RFA. Flushed right forearm with 5 ml normal saline. 10:59 Kim Waller, RN is Primary Nurse. kc6 11:[address] via stretcher. kc6 11:16 CT Head C Spine In Process Unspecified. EDMS 11:28 COVID swab sent to lab. db 11:51 XRAY Chest (1 view) In Process Unspecified. EDMS 11:51 Shoulder Right (2 View) XRAY In Process Unspecified. EDMS 12:27 Coud inserted, using sterile technique, 14 Fr. Returned clear yellow urine. Urine kc6 specimen collected. Patient tolerated poorly. 12:27 [facility] Sent. kc6 13:26 Savage Hayes MD is Hospitalizing Provider. rt 14:59 No provider procedures requiring assistance completed. Patient admitted, IV remains in kc6 place. Administered Medications: 11:06 Drug: NS 0.9% IV 1000 ml IV at 1 bolus Per protocol; 1000 mL bolus Route: IV; Rate: 1 kc6 bolus; Site: right forearm; 11:49 Follow up: Response: No adverse reaction; IV Status: Completed infusion; IV Intake: kc6 1000ml 14:25 Drug: Paxlovid Dose Pack 150 mg-100 mg 150 ml PO once Route: PO; kc6 14:59 Follow up: Response: No adverse reaction kc6 Medication: 14:59 VIS not applicable for this client. kc6 Intake: 11:49 IV: 1000ml; Total: 1000ml. kc6 Outcome: 13:27 Decision to Hospitalize by Provider. rt 14:59 Admitted to Med/surg accompanied by tech, via stretcher, room 223, with chart, kc6 14:59 Condition: good 14:59 Instructed on the need for admit, 14:59 Patient left the ED. kc6 Signatures: Dispatcher [employer] Kim Zarate, BENIGNO RN kc6 Kathie Esqueda RN RN db Nnamdi South MD MD rt Corrections: (The following items were deleted from the chart) 11:10 10:57 General: Appears in no apparent distress. comfortable, well developed, Behavior kc6 is calm, cooperative, appropriate for age, kc6 11:10 10:57 Neuro: Level of Consciousness is awake, alert, obeys commands, Reports dizziness, kc6 weakness kc6
--- NOTE | 2024-04-20 13:27 | EDPHYS ---
Physician Documentation [facility] Name: Lee Hernandez Age: 83 yrs Sex: Male : 1940 Arrival Date: 04/20/2024 Time: 10:50 Bed 2 Private MD: ED Physician Nnamdi South HPI: 04/20 11:47 This 83 yrs old Male presents to ER via EMS with complaints of Fall Injury, Dizziness. rt 11:47 Patient presents to the ED with dizziness, described as similar syncope. This caused rt patient to fall today. Patient denies loss of consciousness. Reports moderate shoulder pain with denies other acute complaints. States that he did hit his head. Symptoms are moderate in severity, no other aggravating or alleviating factors.. Historical: - Allergies: : No Known Allergies; kc6 - PMHx: :57 CAD; CVA; Diabetes - NIDDM; Hypertension; Kidney stones; Myocardial infarction; kc6 polycythemia vera; - PSHx: :57 Coronary artery bypass graft; heart stent; kc6 - Immunization history:: Adult Immunizations unknown. - Infectious Disease History:: Denies. - Social history:: Smoking status: unknown. - Family history:: not pertinent. ROS: 11:47 Constitutional: Negative for fever, chills, and weight loss, Cardiovascular: Negative rt for chest pain, palpitations, and edema, Respiratory: Negative for shortness of breath, cough, wheezing, and pleuritic chest pain, Abdomen/GI: Negative for abdominal pain, nausea, vomiting, diarrhea, and constipation, Skin: Negative for injury, rash, and discoloration, 11:47 Neuro: Positive for near syncope, Negative for loss of consciousness, Exam: 11:47 Constitutional: This is a well developed, well nourished patient who is awake, alert, rt and in no acute distress. Head/Face: Normocephalic, atraumatic. Chest/axilla: Normal chest wall appearance and motion. Nontender with no deformity. No lesions are appreciated. Cardiovascular: Regular rate and rhythm with a normal S1 and S2. No gallops, murmurs, or rubs. Normal PMI, no JVD. No pulse deficits. Respiratory: Lungs have equal breath sounds bilaterally, clear to auscultation and percussion. No rales, rhonchi or wheezes noted. No increased work of breathing, no retractions or nasal flaring. Abdomen/GI: Soft, non-tender, with normal bowel sounds. No distension or tympany. No guarding or rebound. No evidence of tenderness throughout. Skin: Warm, dry with normal turgor. Normal color with no rashes, no lesions, and no evidence of cellulitis. MS/ Extremity: Pulses equal, no cyanosis. Neurovascular intact. Full, normal range of motion. Neuro: Awake and alert, GCS 15, oriented to person, place, time, and situation. Cranial nerves II-XII grossly intact. Motor strength 5/5 in all extremities. Sensory grossly intact. Cerebellar exam normal. Normal gait. 11:47 ENT: Dry mucous membranes. 11:47 ECG was reviewed by the Attending Physician. Vital Signs: 10:55 BP 148 / 66; Pulse 102; Resp 18 S; Temp 98.7(O); Pulse Ox 99% on R/A; Weight 77.11 kg kc6 (R); Height 5 ft. 8 in. (R); 11:49 BP 150 / 90; Pulse 95; Resp 18 S; Pulse Ox 96% on R/A; kc6 13:08 BP 171 / 79; Pulse 96; Resp 19 S; Pulse Ox 97% on R/A; kc6 10:55 Body Mass Index 25.85 (77.11 kg, 172.72 cm) kc6 MDM: 10:57 Patient medically screened. rt 13:27 Differential diagnosis: COVID, near syncope, atrial disturbance, ACS. Data reviewed: rt vital signs, nurses notes, lab test result(s), EKG, radiologic studies. Consideration of Admission/Observation Patient was admitted/placed on observation. Management of patient was discussed with the following: Primary Care Provider: Discussed with PCP, will admit, request Paxlovid administration. Independent interpretation of the following test(s) in the Emergency Department X-Ray: My interpretation is No pneumonia seen on my interpretation of x-ray images. Care significantly affected by the following chronic conditions: Diabetes. Counseling: I had a detailed discussion with the patient and/or guardian regarding the historical points, exam findings, and any diagnostic results supporting the discharge/admit diagnosis, lab results, radiology results, the need for further work-up and treatment in the hospital. Response to treatment: the patient's symptoms have mildly improved after treatment. 04/20 10:58 Order name: Basic Metabolic Panel; Complete Time: 12:05 rt 04/20 10:58 Order name: CBC with Diff; Complete Time: 12:48 rt 04/20 10:58 Order name: LFT's; Complete Time: 12:05 rt 04/20 10:58 Order name: Magnesium; Complete Time: 12:05 rt 04/20 10:58 Order name: Troponin HS; Complete Time: 12:05 rt 04/20 10:58 Order name: UAM; Complete Time: 12:48 rt 04/20 11:15 Order name: SARS RAPID; Complete Time: 12:05 rt 04/20 12:11 Order name: CBC Smear Scan; Complete Time: 12:48 EDMS 04/20 10:58 Order name: XRAY Chest (1 view); Complete Time: 12:05 rt 04/20 10:58 Order name: Shoulder Right (2 View) XRAY; Complete Time: 12:05 rt 04/20 10:58 Order name: CT Head C Spine; Complete Time: 12:05 rt 04/20 10:58 Order name: EKG; Complete Time: 10:59 rt 04/20 10:58 Order name: Cardiac monitoring; Complete Time: 10:59 rt 04/20 10:58 Order name: EKG - Nurse/Tech; Complete Time: 11:06 rt 04/20 10:58 Order name: IV Saline Lock; Complete Time: 10:59 rt 04/20 10:58 Order name: Labs collected and sent; Complete Time: 11:30 rt 04/20 10:58 Order name: O2 Per Protocol; Complete Time: 10:59 rt 04/20 10:58 Order name: O2 Sat Monitoring; Complete Time: 10:59 rt EC:47 Rate is 102 beats/min. Rhythm is regular, Sinus tachycardia with PACs. CA interval is rt normal. QRS interval is normal. QT interval is normal. No Q waves. Interpreted by me. Administered Medications: 11:06 Drug: NS 0.9% IV 1000 ml IV at 1 bolus Per protocol; 1000 mL bolus Route: IV; Rate: 1 kc6 bolus; Site: right forearm; 11:49 Follow up: Response: No adverse reaction; IV Status: Completed infusion; IV Intake: kc6 1000ml 14:25 Drug: Paxlovid Dose Pack 150 mg-100 mg 150 ml PO once Route: PO; kc6 14:59 Follow up: Response: No adverse reaction kc6 Disposition Summary: 04/20/24 13:27 Hospitalization Ordered Notes: Hospitalization Status: Observation rt Provider: Savage Hayes rt Location: Telemetry/MedSurg (observation) rt Condition: Stable rt Problem: new rt Symptoms: are unchanged rt Bed/Room Type: Standard rt Room Assignment: 223(04/20/24 14:07) [facility] Diagnosis - COVID-19 rt - Elevated troponin rt Forms: - Medication Reconciliation Form rt - SBAR form rt - Leadership Thank You Letter rt Signatures: Dispatcher [employer] EDMS Fabrice Benedict RN RN ja1 Kim Waller RN RN kc6 Nnamdi South MD MD rt Corrections: (The following items were deleted from the chart) 10:59 10:59 BASIC METABOLIC PANEL+C.LAB.BRZ ordered. EDMS EDMS 10:59 10:59 CBC+H.LAB.BRZ ordered. EDMS EDMS 10:59 10:59 HEPATIC FUNCTION+C.LAB.BRZ ordered. EDMS EDMS 10:59 10:59 MAGNESIUM+C.LAB.BRZ ordered. EDMS EDMS 10:59 10:59 Troponin High Sensitivity+C.LAB.BRZ ordered. EDMS EDMS 10:59 10:59 Urinalysis W/Microscopic+U.LAB.BRZ ordered. EDMS EDMS 14:07 13:27 rt ja1
[2024-04-20] MEDS: NIRMATRELVIR/RITONAVIR TABLET PO SCH (14:00)
[2024-04-20] MEDS ORDERED: ASPIRIN EC 81 MG TAB PO ONE (15:42)
[2024-04-20] MEDS: INSULIN REGULAR (HUMAN) 100 UNIT/ML SQ SCH (15:53)
[2024-04-20] MEDS: ASPIRIN EC 81 MG TAB PO SCH (16:52)
[2024-04-20] MEDS: ENOXAPARIN 40 MG/0.4 ML SQ SCH (16:52)
[2024-04-20] MEDS: METOPROLOL XL 25 MG TAB PO SCH (20:54)
[2024-04-20] MEDS: RUXOLITINIB PHOSPHATE 10 MG PO SCH (21:00)
[2024-04-20] MEDS: ACETAMINOPHEN 500 MG TAB PO PRN (21:17)
[2024-04-20] MEDS: ENOXAPARIN 30 MG/0.3 ML SQ ONE (21:17)
[2024-04-20] MEDS: METOPROLOL XL 50 MG TAB PO ONE (22:54)
[2024-04-21] MEDS: METOPROLOL XL 50 MG TAB PO SCH (05:24)
[2024-04-21] MEDS: SENOSIDES 8.6 MG TAB PO SCH (08:59)
[2024-04-21] MEDS: allopurinoL 300 MG TAB PO SCH (09:00)
[2024-04-21] MEDS: METHYLPREDNISOLONE 40 MG INJ IV ONE (11:53)
[2024-04-21] MEDS: ALOGLIPTIN BENZOATE 12.5 MG TABLET PO SCH (13:44)
--- NOTE | 2024-04-21 18:08 | CON ---
Date of Consultation: 04/21/2024 Reason For Consultation: Elevated troponin. History Of Present Illness: 83-year-old male, past medical history of diabetes, hypertension, dyslip idemia, coronary artery disease, polycythemia vera, diastolic heart failure, dementia as the past med ical history, presented to the emergency room after a fall, very dizzy, having shortness of breath an d cough. He was diagnosed with COVID-19 and apparently troponin was borderline elevated, hence I was consulted. The patient denies having any chest pain. In fact, he is a very poor historian, but the re is no active chest pain. Past Medical History: As outlined above in the HPI. Medications: Refer to reconciliation sheet for detailed list. Allergies: NO KNOWN DRUG ALLERGIES. Family History: No premature coronary artery disease or cancer. Social History: Does not smoke or drink. Does not use any drugs. Review of Systems: All systems were reviewed and they were negative except as mentioned in the HPI. Physical Examination: Vital Signs: Reviewed. Head and Neck: Pupils are equal, reactive to light, and intact eye movements. No JVD. No cervical lymphadenopathy. Neck is supple. Thyroid is not enlarged. Lungs: Decreased breathing sounds. Rhonchi bilaterally. No accessory muscle use or muscle retracti on. Heart: Regular. No extra sounds. Abdomen: Soft, nontender. Bowel sounds positive. No organomegaly. No masses or hernia. No rigidi ty or rebound. Extremities: No clubbing or cyanosis. Intact pulses. Skin: No rash or nodule. Neurologic: Alert, awake with confusion. No focal deficits appreciated. Investigations: BUN 16, creatinine 1.04. Troponin peaked at 158 and coming down and hemoglobin is 1 1.4. Assessment And Recommendations: 1.Elevated troponin, but the patient is having active COVID-19 infection, at this point. No further cardiac workup to be done during this hospital stay. Once he recovers from COVID, we will plan for outpatient stress test and an echo. In the interim, he is known to have history of coronary artery d isease. Continue aspirin and metoprolol. I recommend high-dose statin with Lipitor 40 mg q.h.s. 2.COVID-19 infection. Clinically, he is stable. Continue current therapy. 3.Hypertension and the blood pressure is controlled now. Continue current therapy. 4.Diabetes. Sugars are acceptable and being covered with the insulin on as needed basis. SR/MODL Voice ID: [id number] Report ID: [id number]
[2024-04-21] MEDS ORDERED: RUXOLITINIB PHOSPHATE 10 MG PO SCH (21:00)
[2024-04-21] MEDS: ISOSORBIDE MONO SR 30 MG TAB PO SCH (21:29)
--- NOTE | 2024-04-22 08:02 | PN ---
Date of Progress Note: 04/21/2024 Subjective: The patient was seen this morning for followup. His daughter was with him at bedside an d nurse reported that the patient was having significant generalized weakness to the extent that he e edwin had trouble holding incentive spirometer in his hand carefully and when I saw him, daughter repor chandra same concerns, also concerns regarding cough and chest congestion with, what it appears to be, he is holding some mucus in his upper chest cavity throat area, but not able to cough up any mucus. Th e patient did have a temperature spike of 101.3 last night. This morning, he is afebrile. Objective: Vital Signs: Reviewed. HEENT: Unremarkable. Lungs: Clear to auscultation. Heart: Sounds normal. Abdomen: Soft, bowel sounds normal. No guarding, rigidity, tenderness, or distention. Extremities: No leg edema. Laboratory Data: His third troponin was 158.9, and fourth troponin 145.2. Impression: 1.COVID-19 infection. 2.Elevated troponin. 3.Coronary artery disease. 4.Hypertension. 5.Hyperlipidemia. 6.Type 2 diabetes mellitus. 7.Generalized weakness. Plan: We will go ahead and continue current Paxlovid for COVID infection. I will go ahead and order 1 dose of Solu-Medrol 40 mg IV and considering the patient's condition today, he is not going to be able to go home. It is not safe for the patient to go home given his current status and we will so ge him from observation to inpatient. Physical therapy consultation was requested. Awaiting Cardiol ogy consultation. Daughter was made aware of the fact that because of Paxlovid there is interaction with certain medications that he takes and we will not be giving him any clopidogrel, tamsulosin, and atorvastatin at this time. I will see him tomorrow for followup. CHARAN/MODL Voice ID: [id number] Report ID: [id number]
[2024-04-22] MEDS: ALBUTEROL 2.5 MG/3 ML NEB SOL NEB SCH (08:06)
--- NOTE | 2024-04-22 08:18 | RAD REPORT ---
EXAM DESCRIPTION: RADChest Single View04/22/2024 7:57 am CLINICAL HISTORY: cough, COVID COMPARISON: Chest Single View dated 04/20/2024; Chest Single View dated 01/09/2024; Chest Single View d ated 12/30/2023; Chest Single View dated 12/25/2023; Head C Spine Mpr Wo Con dated 04/20/2024 TECHNIQUE: Portable AP view of the chest. FINDINGS: The lungs are clear. Elevation of the right hemidiaphragm again seen. Soft tissue density in the right hilar region may relate to prominence of the right pulmonary vessels, probably accentuat ed by a degree of reduced inspiration. No pneumothorax or effusion. The cardiomediastinal contours a re otherwise unremarkable. IMPRESSION: Right hilar soft tissue density, probably relates to confluence of prominent pulmonary v essels. No other acute findings.
[2024-04-22] MEDS: LINAGLIPTIN 5 MG PO SCH (08:58)
[2024-04-22] MEDS: AZITHROMYCIN IV 500 MG in NA CHLORIDE 0.9% 250 ML IVPB ONE (08:59)
[2024-04-22] MEDS: METHYLPREDNISOLONE 40 MG INJ IV SCH (08:59)
[2024-04-22] MEDS ORDERED: HOME MED 1 EA UNK (Linagliptin [Tradjenta] 5 MG Tablet) PO SCH (09:00)
[2024-04-22 14:33] VITALS: BMI 25.7
--- NOTE | 2024-04-22 17:04 | EKG ---
Test Date: 2024-04-20 Test Time: 11:04:14 Public Information Specialist: YASMANY MEASUREMENT RESULTS: Intervals: Rate: 102 AL: 192 QRSD: 94 QT: 362 QTc: 471 [place]: P: 91 AL: 192 QRS: 201 T: 38 INTERPRETIVE STATEMENTS: Sinus tachycardia with premature atrial complexes with aberrant conduction Right superior axis deviation Pulmonary disease pattern Nonspecific ST abnormality Abnormal ECG Compared to ECG 12/25/2023 14:36:55 Atrial premature complex(es) now present Aberrant conduction of supraventricular beat(s) now present Right superior axis now present Sinus rhythm no longer present Sinus arrhythmia no longer present Ventricular premature complex(es) no longer present Electronically Signed On 04-22-24 16:58:45 CDT by Ari Diallo
--- NOTE | 2024-04-22 17:21 | HP ---
Date of Admission: 04/21/2024 Chief Complaint: Feeling weak and fainting type of episode. History Of Present Illness: This is an 83-year-old male patient who lives at home with his who recently got COVID-19 infection at home in last 2 days and was negative for COVID, but as of last night, he started to have low-grade fever, which was 99.5 degrees Fahrenheit as daughter tell s me. Today, he was standing in his house and trying to lean down and felt weak and kept on going do wn to the floor and had almost near syncopal episode and with that family brought him to emergency ro om. No chest pain, shortness of breath. No nausea, vomiting, diarrhea. After the patient was evalu ated in the emergency room, his COVID test was done in our emergency room and that came back positive and the patient was admitted to the hospital for observation. I saw him in emergency room and his tito burnser was with him at bedside. Physical Examination: Vital Signs: Initial temperature 98.7, pulse 102, respiratory rate 18, blood pressure 148/66, oxygen saturation 99%, height 5 feet 8 inches, weight 169 pounds. General: Awake, alert, oriented, not in distress. HEENT: Head atraumatic, normocephalic. Conjunctivae nonerythematous. Sclerae white. Mouth, no thr ush or edema noted. Ears/Nose, no mass, lesion, discharge noted. Neck: Supple. No JVD, lymph nodes, bruit, thyromegaly noted. Lungs: Bilateral good equal air entry. Clear to auscultation. No rhonchi. No rales. Heart: Normal heart sounds, no murmur or gallop. Abdomen: Soft, bowel sounds normal. No guarding, rigidity, tenderness, mass, hepatosplenomegaly, dis tention, or bruit noted. Extremities: No leg edema. No calf tenderness. Skin: No rash, ulcer, cellulitis. Lymphatics: No lymph node enlargement in neck, supraclavicular, infraclavicular region. Neuro: No focal neurological deficit. Chest: Unremarkable. External Genitalia: Deferred. Rectal: Deferred. Laboratory Data: White count 11.10, hemoglobin 11.4, platelets 252. Sodium 138, potassium 4.1, chlo ride 107, bicarb 26, BUN 16, creatinine 1.04, glucose 200, total bilirubin 1.3, AST 25, ALT 30, alkal ine phosphatase 58. His first troponin 71.4 and second troponin 107.2 today. Urinalysis more than 5 0 rbc, otherwise negative. Chest x-ray shows mild CHF pattern, but clinically patient does not have any evidence of congestive heart failure. CAT scan of the head and cervical spine was negative for a ny acute changes. His x-ray of the right shoulder shows changes of arthritis. No fracture. Impression: 1.COVID-19 infection. 2.Near syncope. 3.Abnormal troponin. 4.Coronary artery disease. 5.Stroke. 6.Hypertension. 7.Hyperlipidemia. 8.Type 2 diabetes mellitus with diabetic neuropathy. 9.Chronic diastolic heart failure. 10.Rosacea. 11.Chronic fatigue. Plan: We will admit the patient to hospital for further evaluation and management of this problem. The patient will be admitted to the hospital for observation. We will get serial cardiac enzymes and considering his second troponin level has gone up, we will definitely have Cardiology consultation f or him. For COVID-19 infection, we will go ahead and start him on Paxlovid. We will keep him in iso lation. The patient's oxygen saturation is normal on room air. For his coronary artery disease, no need for further intervention except at this time. Continue his home medications per order and follo w up with toll repairer central office and get serial cardiac enzymes. For his type 2 diabetes mellitus, we will con tinue his medications per order. Monitor fingerstick blood sugar with sliding scale insulin. For hy pertension, no need for further intervention. Monitor blood pressure and get antihypertensive medica tion per order. Lovenox will be given for DVT prophylaxis, but after seeing an increase in troponin level, we will give extra Lovenox this evening until we will follow more troponin levels. Likely milagros son for elevated troponin is probably demand ischemia at this time. Details and plan of treatment di scussed with the patient and family and I will see him tomorrow for followup. Total time spent today includes 80 minutes that is including review of current emergency room record, communication with the ER physicians, performing today's evaluation and management, review of last h ospital admission record from 12/30/2023 and review of last office visit record. CHARAN/MODL Voice ID: [id number]
[2024-04-22] MEDS: GUAIFENESIN/DM 5 ML UCUP PO PRN (20:12)
[2024-04-23] MEDS: AZITHROMYCIN IV 250 MG in NA CHLORIDE 0.9% 250 ML IVPB SCH (08:36)
--- NOTE | 2024-04-23 09:19 | PN ---
Date of Progress Note: 04/22/2024 Subjective: The patient was seen this morning for followup. No new complaints or problems reported, except he was noted to still have lot of cough and chest congestion. Denies coughing up any mucus. Objective: Vital signs: Reviewed. He is maintaining adequate oxygenation. HEENT: Unremarkable. Lungs: Clear to auscultation. Heart: Sounds normal. Abdomen: Soft. Bowel sounds normal. No guarding, rigidity, tenderness, distention. Extremities: No leg edema. Impression: 1.COVID-19 infection. 2.Acute bronchitis. 3.Hypertension. 4.Diabetes mellitus. 5.Generalized weakness. Plan: We will go ahead continue paxlovid per order and the patient received 1 dose of Solu-Medrol 40 mg IV yesterday and today we will start him on 40 mg IV 2 times a day. We will also add albuterol n ebulizer treatment per order and empiric IV antibiotic azithromycin will be started. Repeat chest x- ray was done today, results reviewed, has not shown any pneumonia. We will continue other current pr dical management and have Physical Therapy work with the patient as he has developed significant gene ralized weakness and debility with this illness. I will see him tomorrow for followup. CHARAN/MODL Voice ID: [id number] Report ID: [id number]
--- NOTE | 2024-04-23 23:56 | PN ---
Date of Progress Note: 04/23/2024 Subjective: The patient was seen this morning for followup. No new complaints or problems reported. He was looking a lot better today than last couple of days. Not having any cough or congestion lik e what he did for last 2 days. Not in any distress. Objective: Vital Signs: Reviewed. HEENT: Unremarkable. Lungs: Clear to auscultation. Heart: Sounds normal. Abdomen: Soft, bowel sounds normal. No guarding, rigidity, tenderness, or distention. Extremities: No leg edema. Laboratory Data: No new labs today. Impression: 1.COVID-19 infection. 2.Acute bronchitis. 3.Diabetes mellitus. 4.Hypertension. Plan: We will go ahead and continue current medications. Continue current steroid and azithromycin per order. Physical therapy to continue to work with the patient and the patient was encouraged to a mbulate. The patient was getting very agitated today as nursing staff reported this afternoon and th e nurse monitoring and PureWick that he was having he kept on pulling, so nursing staff was asked to remove those 2 devices and have family member stay with him since the patient is trying to get out o f bed frequently and bed check is in place, but he is at risk of fall and injury and hospital is not able to provide any sitter, so nurse was asked to notify daughter to have family member with him all the time to reduce chances of fall and injury. Depending on patient's condition, our plan is to discharge him to go home tomorrow. CHARAN/MODL Voice ID: [id number] Report ID: [id number]
[2024-04-24 04:26] VITALS: BP 140/51; TEMP 97
[2024-04-24 08:18] VITALS: O2SAT 97
== END 2024-04-24 08:34 | disposition home or self-care (01) | DRG 178 ==
LOC: SUPCPDRO 10:50 → ER 10:50 → ERHOLD 13:29 → 2ND 14:09 → OBSVTOIN 04-21 10:26
PROVIDERS: ADMIT Internal Medicine; ATTEND Internal Medicine
DX: U07.1 COVID-19 (principal); I50.32 Chronic diastolic (congestive) heart failure; I11.0 Hypertensive heart disease with heart failure; J20.9 Acute bronchitis, unspecified; E78.5 Hyperlipidemia, unspecified; E11.40 Type 2 diabetes mellitus with diabetic neuropathy, unspecified; L71.9 Rosacea, unspecified; I25.10 Atherosclerotic heart disease of native coronary artery without angina pectoris; F03.90 Unspecified dementia, unspecified severity, without behavioral disturbance, psychotic disturbance, mood disturbance, and anxiety; I25.2 Old myocardial infarction; R79.89 Other specified abnormal findings of blood chemistry; Z95.1 Presence of aortocoronary bypass graft; Z95.5 Presence of coronary angioplasty implant and graft; Z86.73 Personal history of transient ischemic attack (TIA), and cerebral infarction without residual deficits
CPT/HCPCS: 36415; 70450; 71045; 72125; 80048; 80076; 81001; 82947; 83735; 84484; 85025; 87811; 93005; 94010; 94640; 96360; 97110; 97161; 97530; 99285; G0378; J1650; J2919; J7050; J7613; J8499

== ENCOUNTER 2024-05-02 14:18 | Inpatient (IN) | payer OTHER ==
--- NOTE | 2024-05-02 15:00 | RAD REPORT ---
EXAM DESCRIPTION: RAD - Chest Single View - 05/02/2024 2:52 pm CLINICAL HISTORY: altered mental status Chest pain. COMPARISON: Chest Single View dated 04/22/2024; Chest Single View dated 04/20/2024; Chest Single View da chandra 01/09/2024; Chest Single View dated 12/30/2023 FINDINGS: Portable technique limits examination quality. Moderate patchy opacity in both lung bases, greatest in the left lung base likely infiltrate/ pneumon ia. The heart is normal in size. Sternotomy wires. IMPRESSION: Bibasilar pneumonia is suspected, greater on the left.
[2024-05-02 15:04] LABS: Absolute Basophils 0.1 K/uL (0-0.5); Absolute Eosinophils 0.1 K/uL (0-0.5); Absolute Lymphocytes (CBC) 0.3 K/uL (0.7-4.9); Absolute Monocytes 1.1 K/uL (0.1-1.3); Absolute Neutrophil 17.3 K/uL (1.8-8.0); Basophils % 0.4 % (0-1.3); Eosinophils % 0.6 % (0-4.4); Hematocrit 35.7 % (39.6-49.0); Hemoglobin 11.8 g/dL (13.6-17.9); Lymphocytes % 1.4 % (15.3-44.8); MCHC 32.9 g/dL (32.0-36.0); MPV 9.4 fL (7.6-11.3); Monocytes % 5.7 % (3.3-12.3); Neutrophils % 91.9 % (41.7-73.7); Nucleated Red Blood Cells % 0.1 % (0-0); Platelets 382 thou/uL (152-406); RBC Red Blood Cell Count 3.92 M/uL (4.33-5.43); Red Cell Distribution Width 19.1 % (12.1-15.2)
--- NOTE | 2024-05-02 15:07 | RAD REPORT ---
EXAM DESCRIPTION: CT - Head Brain Wo Cont - 05/02/2024 3:01 pm CLINICAL HISTORY: MENTAL STATUS CHANGE Headache, drowsiness COMPARISON: Head Brain Wo Cont dated 12/28/2023; Head Brain Wo Cont dated 09/19/2020 TECHNIQUE: All CT scans are performed using dose optimization technique as appropriate and may inclu de automated exposure control or mA/KV adjustment according to patient size. FINDINGS: No intracranial hemorrhage, hydrocephalus or extra-axial fluid collection.Advanced general ized brain atrophy is present with advanced periventricular and deep white matter chronic microvascul ar ischemic changes.No areas of brain edema or evidence of midline shift. Mild fluid is seen in the right maxillary antrum. The paranasal sinuses and mastoids are otherwise cl ear. The calvarium is intact. Vertebral atherosclerosis. IMPRESSION: No acute intracranial abnormality.
[2024-05-02 15:16] LABS: PT Prothrombin Time 14.2 SECONDS (9.4-12.5); PTT, Activated Partial Thromb 34.9 SECONDS (24.3-36.9); Protime INR 1.28
[2024-05-02 15:17] LABS: SARS-CoV-2 Antigen CONTROL BLUE LINE VIS/BG OK
[2024-05-02 15:18] LABS: SARS-CoV-2 Antigen Rapid Res Positive (Negative)
[2024-05-02 15:24] LABS: Alkaline Phosphatase 63 U/L (45-117); BUN Blood Urea Nitrogen 17 mg/dL (7-18); Bicarbonate 28 mEq/L (21-32); Globulin 3.1 g/dL (2.3-3.5); Glomerular Filtration Rate 64 ml/min (=/>90); Glucose Level 229 mg/dL (74-106); Protein, Total 6.1 g/dL (6.4-8.2); Sodium Level 135 mEq/L (136-145); Troponin High Sensitivity 18.5 pg/mL (<58.9)
[2024-05-02 15:25] LABS: ALT/SGPT < 14 U/L (16-61); AST/SGOT < 10 U/L (15-37)
[2024-05-02] MEDS ORDERED: IPRATROPIUM BROM 0.5MG/2.5ML ONE (15:39)
[2024-05-02] MEDS ORDERED: ALBUTEROL 2.5 MG/3 ML NEB SOL ONE (15:39)
[2024-05-02 16:01] LABS: Blood Morphology Comment NOT SEEN (NOT SEEN); Platelet Estimate ADEQ; White Blood Cell Scan OK (OK)
[2024-05-02] MEDS ORDERED: METHYLPREDNISOLONE 125 MG INJ ONE (17:08)
[2024-05-02] MEDS ORDERED: PIPERACIL/TAZO 3.375 GM VIAL IV ONE (17:09)
[2024-05-02] MEDS ORDERED: NA CHLORIDE 0.9% 0 ML ONE (17:10)
[2024-05-02] MEDS ORDERED: NA CHLORIDE 0.9% 100 ML ONE (17:12)
[2024-05-02 17:33] LABS: Sqamous Epithelial None Seen /HPF (None Seen); Urine Bacteria <20 /HPF (<20); Urine Bilirubin NEGATIVE (Negative); Urine Blood 2+ (Negative); Urine Clarity Extremely Turbid (Clear); Urine Color Light-Orange (Yellow); Urine Culture Reflex Order REFLEXED; Urine Glucose 3+ (Negative); Urine Ketones 1+ (Negative); Urine Microscopic Reflex YN ORDER UMIC; Urine Nitrite 1+ (Negative); Urine Protein 2+ (Negative); Urine RBC >50 /HPF (None Seen); Urine Urobilinogen Normal (Normal); Urine WBC >50 /HPF (<5)
--- NOTE | 2024-05-02 18:03 | EDPHYS ---
Physician Documentation [facility] Name: Lee Hernandez Age: 83 yrs Sex: Male : 1940 Arrival Date: 05/02/2024 Time: 14:18 Bed 17 Private MD: ED Physician Marcio Montiel HPI: 05/02 14:33 This 83 yrs old Male presents to ER via EMS with complaints of General Weakness. cp 14:33 The patient presents with decreased responsiveness, weakness. Onset: The cp symptoms/episode began/occurred yesterday, and became worse today. Possible causes: unknown. Associated signs and symptoms: Pertinent negatives: abdominal pain, chest pain. 14:33 Patient's baseline: Neuro: alert and fully oriented, Motor: no deficits, Ambulation: cp walks without assistance, Speech: normal. The patient has been recently been admitted at [facility], about 1 week ago for COVID infection. Historical: - Allergies: 14:36 carvedilol; ar6 - Immunization history:: Adult Immunizations up to date. - Infectious Disease History:: Denies. - Social history:: Smoking status: Patient denies any tobacco usage or history of. ROS: 14:40 Constitutional: Positive for poor PO intake, Negative for fever, cp 14:40 Eyes: Negative for injury, pain, redness, and discharge, cp 14:40 ENT: Negative for drainage from ear(s), ear pain, sore throat, difficulty swallowing, difficulty handling secretions, 14:40 Cardiovascular: Negative for chest pain, edema, 14:40 Respiratory: Negative for wheezing, 14:40 Abdomen/GI: Negative for abdominal pain, vomiting, diarrhea, constipation, 14:40 Neuro: Positive for altered mental status, weakness, 14:40 All other systems are negative, Exam: 14:41 ECG was reviewed by the Attending Physician. cp 14:45 Constitutional: The patient appears in no acute distress, alert, awake, cp non-diaphoretic, non-toxic, well developed, well nourished, uncomfortable, 14:45 Head/Face: Normocephalic, atraumatic. cp 14:45 Eyes: Periorbital structures: appear normal, Pupils: equal, round, and reactive to light and accomodation, Extraocular movements: intact throughout, Conjunctiva: normal, no exudate, no injection, Sclera: no appreciated abnormality, Lids and lashes: appear normal, bilaterally, 14:45 ENT: External ear(s): are unremarkable, Nose: is normal, Mouth: Lips: dry, Oral mucosa: moist, Posterior pharynx: Airway: no evidence of obstruction, patent, 14:45 Neck: ROM/movement: is normal, is supple, without pain, no range of motions limitations, no meningismus, 14:45 Chest/axilla: Inspection: normal, 14:45 Cardiovascular: Rate: tachycardic, Rhythm: regular, Edema: is not appreciated, JVD: is not appreciated, 14:45 Respiratory: the patient does not display signs of respiratory distress, Respirations: shallow respirations, that is mild, Breath sounds: decreased breath sounds, that are mild, throughout, wheezing: is not appreciated, 14:45 Abdomen/GI: Inspection: abdomen appears normal, Bowel sounds: active, all quadrants, Palpation: abdomen is soft and non-tender, in all quadrants, 14:45 Back: pain, is absent, ROM is normal, 14:45 Skin: cellulitis, is not appreciated, no rash present. 14:45 Neuro: Orientation: to person, Mentation: able to follow commands, slow to respond, Motor: moves all fours, no focal deficits, Sensation: no obvious gross deficits, Vital Signs: 14:31 BP 130 / 71; Pulse 102; Resp 20; Temp 99.2; Pulse Ox 95% on R/A; Weight 81.65 kg; ar6 Height 5 ft. 11 in. ; Pain 0/10; 14:51 BP 130 / 71; Pulse 101; Resp 18; Temp 99.2; Pulse Ox 95% on R/A; Pain 0/10; ar6 15:50 BP 130 / 53; Pulse 99; Resp 18; Pulse Ox 95% on R/A; mb9 16:39 BP 136 / 65; Pulse 106; Resp 18; Pulse Ox 95% on R/A; mb9 18:20 BP 136 / 51; Pulse 103; Resp 20; Pulse Ox 99% on 2 lpm NC; ar6 20:03 BP 139 / 55; Pulse 94; Resp 19; Pulse Ox 98% on 2 lpm NC; Pain 0/10; tm6 14:31 Body Mass Index 25.10 (81.65 kg, 180.34 cm) ar6 14:31 Pain Scale: Adult ar6 14:51 Pain Scale: Adult ar6 20:03 Pain Scale: Adult tm6 MDM: 14:27 Patient medically screened. 18:05 Data reviewed: vital signs, nurses notes, lab test result(s), EKG, radiologic studies, cp CT scan, plain films, and as a result, I will admit patient. 18:05 Management of patient was discussed with the following: Primary Care Provider: DR Freddy montanez will admit after discussion. Independent interpretation of the following test(s) in the Emergency Department EKG: See my EKG interpretation above. Counseling: I had a detailed discussion with the patient and/or guardian regarding the historical points, exam findings, and any diagnostic results supporting the discharge/admit diagnosis, lab results, radiology results, the need for further work-up and treatment in the hospital. 05/02 14:29 Order name: Blood Culture Adult (2) 05/02 14:29 Order name: CBC with Diff; Complete Time: 16:16 05/02 16:17 Interpretation: Normal except: WBC 18.80; RBC 3.92; HGB 11.8; HCT 35.7; RDW 19.1; DARIANA% cp 91.9; LYM% 1.4; NEUT A 17.3; LYMA 0.3. 05/02 14:29 Order name: CMP; Complete Time: 16:16 05/02 16:18 Interpretation: Normal except: NA 135; GLUC 229; GFR 64; AST < 10; ALT < 14; TP 6.1; cp ALB 3.0; A/G 1.0. 05/02 14:29 Order name: Lactate w/ 2H reflex if indic.; Complete Time: 16:16 05/02 14:29 Order name: Protime (+inr); Complete Time: 15:22 05/02 14:29 Order name: Ptt, Activated; Complete Time: 15:22 05/02 14:29 Order name: Urinalysis w/ reflexes; Complete Time: 18:01 05/02 18:02 Interpretation: Normal except: [facility] Extremely Turbid; UGLUC 3+; UKET 1+; UBLD 2+; UPROT cp 2+; UNIT 1+; UESTR 500; UWBC >50; URBC >50. 05/02 14:29 Order name: Troponin High Sensitivity; Complete Time: 16:16 cp 08 14:29 Order name: Influenza Screen (a \T\ B); Complete Time: 16:16 cp 05/02 14:29 Order name: SARS RAPID; Complete Time: 15:22 cp 05/02 15:22 Interpretation: Abnormal: SARS RESULT Positive. cp 05/02 15:17 Order name: CBC Smear Scan; Complete Time: 16:16 EDMS 05/02 17:46 Order name: Urine Culture EDMS 05/02 18:17 Order name: Basic Metabolic Panel EDMS 05/02 18:17 Order name: Basic Metabolic Panel EDMS 05/02 18:17 Order name: CBC with Automated Diff EDMS 05/02 18:17 Order name: CBC with Automated Diff EDMS 05/02 18:17 Order name: NT PRO-BNP EDMS 05/02 18:17 Order name: NT PRO-BNP EDMS 05/02 18:17 Order name: Troponin High Sensitivity EDMS 05/02 18:17 Order name: Troponin High Sensitivity EDMS 05/02 18:17 Order name: Troponin High Sensitivity EDMS 05/02 14:29 Order name: Chest Single View XRAY; Complete Time: 15:22 cp 05/02 15:22 Interpretation: Report review. cp 05/02 14:29 Order name: CT Head Brain wo Cont; Complete Time: 15:22 cp 05/02 14:29 Order name: EKG; Complete Time: 14:29 cp 05/02 14:29 Order name: Accucheck; Complete Time: 14:40 cp 05/02 14:29 Order name: Cardiac monitoring; Complete Time: 14:40 cp 05/02 14:29 Order name: EKG - Nurse/Tech; Complete Time: 14:40 cp 05/02 14:29 Order name: IV Saline Lock - Large Bore; Complete Time: 14:40 cp 05/02 14:29 Order name: Labs collected and sent; Complete Time: 14:40 cp 05/02 14:29 Order name: O2 Per Protocol; Complete Time: 14:40 cp 05/02 14:29 Order name: O2 Sat Monitoring; Complete Time: 14:40 cp 05/02 14:29 Order name: Vital Signs; Complete Time: 14:40 cp 05/02 16:22 Order name: Cath; Complete Time: 17:05 cp EC:41 Rate is 105 beats/min. Rhythm is regular. CA interval is normal. QRS interval is cp normal. QT interval is normal. Interpreted by me. Reviewed by me. Administered Medications: 14:39 Drug: NS 0.9% IV 1000 ml IV at 999 ml/hr Per protocol Route: IV; Rate: 999 ml/hr; Site: [facility] right antecubital; 15:44 Follow up: Response: No adverse reaction; IV Status: Completed infusion mb9 15:50 Drug: DuoNeb Nebulize (2.5 mg - 0.5 mg) 3 ml Nebulizer once Route: Nebulizer; 9 17:07 Follow up: Response: No adverse reaction ar6 17:24 Drug: Piperacillin-Tazobactam IVPB 3.375 grams IVPB once over 60 mins; (mix in NS 100 ar6 mL) give once urine is obtained Route: IVPB; Infused Over: 60 mins; Site: right antecubital; 18:21 Follow up: Response: No adverse reaction; IV Status: Completed infusion; IV Intake: ar6 100ml 17:24 Drug: MethylPrednisoLONE IVP 125 mg IVP once Route: IVP; Site: right antecubital; ar6 18:15 Follow up: Response: No adverse reaction ar6 18:19 Drug: NS 0.9% IV 1000 ml IV at 125 ml/hr continuous Route: IV; Rate: 125 ml/hr; Site: 9 left forearm; 18:51 Follow up: Response: No adverse reaction; IV Status: Infusion continued upon admission 9 Disposition Summary: 05/02/24 18:02 Hospitalization Ordered Notes: Hospitalization Status: Inpatient Admission cp Provider: Minh Hayes cp [facility] cp Condition: Stable cp Problem: new cp Symptoms: have improved cp Bed/Room Type: Standard cp Room Assignment: 224(05/02/24 19:16) sa1 Diagnosis - Altered mental status, unspecified cp - Pneumonia, unspecified organism cp - UTI/ Urinary tract infection, site not specified cp Forms: - Medication Reconciliation Form cp - SBAR form cp - Leadership Thank You Letter cp Signatures: Dispatcher [employer] Marcio Dillard PA PA cp Wilkerson, Mary Beth, RN RN mb9 Sultan Shannon sa1 Julianne Pedersen RN RN ar6 Corrections: (The following items were deleted from the chart) 14:29 14:29 BLOOD CULTURE*+BA.LAB.BRZ ordered. EDMS EDMS 14: 14:29 CBC+H.LAB.BRZ ordered. EDMS EDMS 14:29 14:29 COMPREHENSIVE METABOLIC PANEL+C.LAB.BRZ ordered. EDMS EDMS 14:29 14:29 LACTATE+C.LAB.BRZ ordered. EDMS EDMS 14:29 14:29 PROTIME (+INR)+COAG.LAB.BRZ ordered. EDMS EDMS 14:29 14:29 PTT, ACTIVATED+COAG.LAB.BRZ ordered. EDMS EDMS 14:29 14:29 Urinalysis+U.LAB.BRZ ordered. EDMS EDMS 14: 14:29 Troponin High Sensitivity+C.LAB.BRZ ordered. EDMS EDMS 14:29 14:29 Influenza Screen (A \T\ B)+BA.LAB.BRZ ordered. EDMS EDMS 14:29 14:29 SARS-COV-2 Antigen Rapid+I.LAB.BRZ ordered. EDMS EDMS 14:37 14:36 PMHx: Kidney stones; ar6 ar6 14:37 14:36 PMHx: Myocardial infarction; ar6 ar6 14:37 14:36 PMHx: Hypertension; ar6 ar6 14:37 14:36 PMHx: Diabetes - NIDDM; ar6 ar6 14:37 14:36 PMHx: polycythemia vera; ar6 ar6 14:37 14:36 PMHx: CVA; ar6 ar6 14:37 14:36 PMHx: CAD; ar6 ar6 14:37 14:36 PSHx: heart stent; ar6 ar6 14:37 14:36 PSHx: Coronary artery bypass graft; ar6 ar6 19:16 18:02 cp sa1
--- NOTE | 2024-05-02 18:03 | ER ---
Nurse's Notes [facility] Name: Lee Hernandez Age: 83 yrs Sex: Male : 1940 Arrival Date: 05/02/2024 Time: 14:18 Bed 17 Private MD: Diagnosis: Altered mental status, unspecified;Pneumonia, unspecified organism;UTI/ Urinary tract infection, site not specified Presentation: 05/02 14:31 Chief complaint: EMS states: toned out to [facility]; EMS reports pt. family stated pt. ar6 has "not been himself;" reports weakness \\T\\ lethargic; pt. family reports to EMS, pt has been recently d/c from [facility] for COVID; pt completed abx and steroids yesterday;. Coronavirus screen: Client denies travel out of the [place] in the last 14 days. congestion, cough unrelated to allergies, Client presents with at least one sign or symptom that may indicate coronavirus-19. Standard/surgical mask placed on the client. Client reports previous positive COVID test result. Date of collection: April 24, 2024 results are located within the EHR/EMR. Ebola Screen: Patient negative for fever greater than or equal to 101.5 degrees Fahrenheit, and additional compatible Ebola Virus Disease symptoms Patient denies exposure to infectious person. Patient denies travel to an Ebola-affected area in the 21 days before illness onset. No symptoms or risks identified at this time. Initial Sepsis Screen: Does the patient meet any 2 criteria? No. Patient's initial sepsis screen is negative. Does the patient have a suspected source of infection? No. Patient's initial sepsis screen is negative. Risk Assessment: Do you want to hurt yourself or someone else? Patient reports no desire to harm self or others. Onset of symptoms was May 01, 2024. 14:31 Method Of Arrival: EMS: [facility] ar6 14:31 Acuity: CULLEN 3 ar6 14:41 Care prior to arrival: Medication(s) given: Normal saline infusion, 1000 mL, IV mb9 initiated. 20 GA, in the right antecubital area. Triage Assessment: 14:36 General: Appears in no apparent distress. Behavior is calm, cooperative. Pain: Denies ar6 pain. EENT: No signs and/or symptoms were reported regarding the EENT system. Neuro: Level of Consciousness is awake, alert, obeys commands, Oriented to person, place, situation. Cardiovascular: Capillary refill < 3 seconds. Respiratory: Airway is patent. GI: Abdomen is flat, non-distended. : No signs and/or symptoms were reported regarding the genitourinary system. Derm: Skin is intact, bruises Skin is dry, Skin is pink, warm \\T\\ dry. Musculoskeletal: No signs and/or symptoms reported regarding the musculoskeletal system. Historical: - Allergies: 14:36 carvedilol; ar6 - Immunization history:: Adult Immunizations up to date. - Infectious Disease History:: Denies. - Social history:: Smoking status: Patient denies any tobacco usage or history of. Screenin:40 [facility] ED Fall Risk Assessment (Adult) History of falling in the last 3 months, ar6 including since admission No falls in past 3 months (0 pts) Confusion or Disorientation Yes (5 pts) Intoxicated or Sedated No (0 pts) Impaired Gait Yes (1 pt) Mobility Assist Device Used Yes (1 pt) Altered Elimination No (0 pt) Score/Fall Risk Level 3 or more points = High Risk Oriented to surroundings, Maintained a safe environment, Educated pt \\T\\ family on fall prevention, incl call for assistance when getting out of bed, Assessed \\T\\ reinforced patient's understanding of fall precautions, Hourly rounding (assess needs \\T\\ fall precautionary measures) done, Used ambulatory aids as needed (educated on \\T\\ assisted with), Used gait belt as appropriate Offered frequent toileting (1:1 observation), Remained with patient while ambulating. Abuse screen: Denies threats or abuse. Denies injuries from another. Nutritional screening: No deficits noted. Tuberculosis screening: No symptoms or risk factors identified. Assessment: 14:40 General: Appears in no apparent distress. Behavior is calm, cooperative. Pain: Denies ar6 pain. Neuro: Level of Consciousness is awake, obeys commands, lethargic. Cardiovascular: Capillary refill < 3 seconds. Respiratory: Airway is patent Respiratory effort is even, unlabored, Sputum is thin. GI: Abdomen is flat, non-distended. : No signs and/or symptoms were reported regarding the genitourinary system. EENT: No signs and/or symptoms were reported regarding the EENT system. Derm: Skin is intact, Skin is dry, Skin is pink, warm \\T\\ dry. bruising. Musculoskeletal: No signs and/or symptoms reported regarding the musculoskeletal system. 15:51 Reassessment: No changes from previously documented assessment. Patient and/or family mb9 updated on plan of care and expected duration. Pain level reassessed. Patient is alert, oriented x 3, equal unlabored respirations, skin warm/dry/pink. 18:14 Reassessment: No changes from previously documented assessment. Patient and/or family ar6 updated on plan of care and expected duration. Pain level reassessed. Patient is alert, oriented x 3, equal unlabored respirations, skin warm/dry/pink. 20:02 Reassessment: report faxed to [facility], confirmed by Lore. tm6 20:31 Reassessment: patient's brief clean. Reassessment: Patient and/or family updated on tm6 plan of care and expected duration. Pain level reassessed. Vital Signs: 14:31 BP 130 / 71; Pulse 102; Resp 20; Temp 99.2; Pulse Ox 95% on R/A; Weight 81.65 kg; ar6 Height 5 ft. 11 in. ; Pain 0/10; 14:51 BP 130 / 71; Pulse 101; Resp 18; Temp 99.2; Pulse Ox 95% on R/A; Pain 0/10; ar6 15:50 BP 130 / 53; Pulse 99; Resp 18; Pulse Ox 95% on R/A; mb9 16:39 BP 136 / 65; Pulse 106; Resp 18; Pulse Ox 95% on R/A; mb9 18:20 BP 136 / 51; Pulse 103; Resp 20; Pulse Ox 99% on 2 lpm NC; ar6 20:03 BP 139 / 55; Pulse 94; Resp 19; Pulse Ox 98% on 2 lpm NC; Pain 0/10; tm6 14:31 Body Mass Index 25.10 (81.65 kg, 180.34 cm) ar6 14:31 Pain Scale: Adult ar6 14:51 Pain Scale: Adult ar6 20:03 Pain Scale: Adult tm6 ED Course: 14:27 Patient arrived in ED. iw 14:27 Marcio Portillo PA is PHCP. cp 14:27 Marcio Montiel MD is Attending Physician. cp 14:31 Julianne Pedersen, RN is Primary Nurse. ar6 14:36 Triage completed. ar6 14:40 No apparent distress. ar6 14:40 Arm band placed on. mb9 14:40 Patient has correct armband on for positive identification. Bed in low position. Call ar6 light in reach. Side rails up X2. 14:40 EKG done, by ED staff, reviewed by Marcio CLARK COVID swab sent to lab. Flu and/or RSV mb9 swab sent to lab. 14:40 SARS RAPID Sent. mb9 14:40 Influenza Screen (a \\T\\ B) Sent. mb9 14:40 Maintain EMS IV. Dressing intact. Good blood return noted. Site clean \\T\\ dry. Gauge \\T\\ ar 6 site: 20g LAC. Flushed with 10 mL NS IV is patent, Flushed left antecubital. 14:42 Accessed peripheral vein via ultrasound, utilizing dynamic ultrasound technique using ha1 ,sterile technique, per hospital protocol. Good blood return. Flushes easily. 20 G insyte left FA. 14:53 Chest Single View XRAY In Process Unspecified. EDMS 14:56 Accessed using. nj1 15:03 CT Head Brain wo Cont In Process Unspecified. EDMS 17:00 Door closed. Noise minimized. Warm blanket given. Pillow given. Repositioned patient. mb9 Cleaned of incontinence. 17:05 Straight cath inserted, using sterile technique, 14 Fr. Specimen obtained. Returned mb9 cloudy urine. Patient tolerated well. 18:02 Minh Hayes MD is Hospitalizing Provider. cp 18:09 Urine Culture Sent. mb9 18:54 No provider procedures requiring assistance completed. Patient admitted, IV remains in mb9 place. 20:38 Provided Education on: need for admit. tm6 Administered Medications: 14:39 Drug: NS 0.9% IV 1000 ml IV at 999 ml/hr Per protocol Route: IV; Rate: 999 ml/hr; Site: mb9 right antecubital; 15:44 Follow up: Response: No adverse reaction; IV Status: Completed infusion mb9 15:50 Drug: DuoNeb Nebulize (2.5 mg - 0.5 mg) 3 ml Nebulizer once Route: Nebulizer; mb9 17:07 Follow up: Response: No adverse reaction ar6 17:24 Drug: Piperacillin-Tazobactam IVPB 3.375 grams IVPB once over 60 mins; (mix in NS 100 ar6 mL) give once urine is obtained Route: IVPB; Infused Over: 60 mins; Site: right antecubital; 18:21 Follow up: Response: No adverse reaction; IV Status: Completed infusion; IV Intake: ar6 100ml 17:24 Drug: MethylPrednisoLONE IVP 125 mg IVP once Route: IVP; Site: right antecubital; ar6 18:15 Follow up: Response: No adverse reaction ar6 18:19 Drug: NS 0.9% IV 1000 ml IV at 125 ml/hr continuous Route: IV; Rate: 125 ml/hr; Site: mb9 left forearm; 18:51 Follow up: Response: No adverse reaction; IV Status: Infusion continued upon admission mb9 Medication: 18:54 VIS not applicable for this client. mb9 Intake: 18:21 IV: 100ml; Total: 100ml. ar6 Outcome: 18:02 Decision to Hospitalize by Provider. cp 20:38 Admitted to Med/surg accompanied by tech, family with patient, via stretcher, room 224, tm6 with oxygen, with chart, 20:38 Condition: stable 20:38 Instructed on the need for admit, 20:39 Patient left the ED. tm6 Signatures: Dispatcher [employer] EDMS Teressa Hurst RN RN iw Page, Corey, PA PA cp Tanya Candlearia RN RN ha1 Candace Reyes RN RN mb9 Kierra Figueredo RN RN nj1 Cuba Lutz RN RN tm6 Julianne Pedersen RN RN ar6 Corrections: (The following items were deleted from the chart) 14:37 14:36 PMHx: Kidney stones; ar6 ar6 14:37 14:36 PMHx: Myocardial infarction; ar6 ar6 14:37 14:36 PMHx: Hypertension; ar6 ar6 14:37 14:36 PMHx: Diabetes - NIDDM; ar6 ar6 14:37 14:36 PMHx: polycythemia vera; ar6 ar6 14:37 14:36 PMHx: CVA; ar6 ar6 14:37 14:36 PMHx: CAD; ar6 ar6 14:37 14:36 PSHx: heart stent; ar6 ar6 14:37 14:36 PSHx: Coronary artery bypass graft; ar6 ar6 20:32 20:03 Reassessment: Patient appears in no apparent distress at this time. Patient tm6 and/or family updated on plan of care and expected duration. Pain level reassessed. Patient is alert, oriented x 3, equal unlabored respirations, skin warm/dry/pink. tm6
[2024-05-02] MEDS ORDERED: ALBUTEROL 2.5 MG/3 ML NEB SOL NEB PRN (18:11)
[2024-05-02] MEDS ORDERED: IPRATROPIUM BROM 0.5MG/2.5ML NEB PRN (18:11)
[2024-05-02] MEDS ORDERED: ONDANSETRON 4 MG/2 ML VIAL IV PRN (18:11)
[2024-05-02] MEDS ORDERED: ACETAMINOPHEN 500 MG TAB PO PRN (18:11)
[2024-05-02] MEDS ORDERED: NA CHLORIDE 0.9% 1,000 ML ONE (18:12)
[2024-05-02] MEDS: PIPER TAZO 3.375 GM in NA CHLORIDE 0.9% 100 ML IV SCH (21:43)
--- NOTE | 2024-05-03 01:03 | HP ---
Date of Admission: 05/02/2024 Chief Complaint: Not feeling good, fever, cough, congestion. History Of Present Illness: An 83-year-old male patient, who was admitted to the hospital beginning of this month on 04/21/2024 with COVID-19 infection and the patient received 5 days of paxlovid and was discharged to go home. He had significant generalized weakness and some volume depletion and overall his condition improved. After his discharge, he continued to do well at home and in fact I saw him at office this week on Monday and he was doing fine. As of yesterday, his condition started to deteriorate. He had just generalized weakness, did not feel good at all, had very poor appetite yesterday and today, having some cough, chest congestion, and today, he started to have fever, so with all this, family brought him to emergency room and after he was evaluated, he was admitted to the hospital with pneumonia and urinary tract infection. I saw him in emergency room. His daughter and were present in the room with him. Allergies: NO KNOWN ALLERGIES. Medications: List reviewed. Review of Systems: Constitutional: Generalized weakness and fever. Respiratory: Cough, congestion. All other systems reviewed and negative. Past Medical History: Significant for hypertension, type 2 diabetes mellitus with diabetic neuropathy, hyperlipidemia, leg swelling, prior history of stroke,coronary artery disease, polycythemia vera, kidney stone, chronic fatigue, chronic diastolic heart failure, memory problem, rosacea. Past Surgical History: Surgery to the left eye; tonsillectomy; coronary artery angioplasty with stent placement and coronary artery bypass surgery January 20, 2022;cholecystectomy; hemorrhoid surgery; TURP; surgery on cervical spine; removal ofsquamous cell carcinoma from skin; and incision and drainage for abscess. Family History: Father and mother both due to myocardial infarction. Brother , had CHF and myocardial infarction. Sister , had asthma and breast cancer. Social History: Prior history of smoking, not at present time. Use of alcohol negative Physical Examination: Vital Signs: Temperature , pulse , respiratory rate , blood pressure , oxygen saturation , height 5 feet 8 inches, weight pounds. General: Awake, alert, oriented, not in distress. HEENT: Head atraumatic, normocephalic. Conjunctivae nonerythematous. Sclerae white. Mouth, no thrush or edema noted. Ears/Nose, no mass, lesion, discharge noted. Neck: Supple. No JVD, lymph nodes, bruit, thyromegaly noted. Lungs: Presence of rales noted in lower lung odonnell. Not in respiratory distress. Heart: Normal heart sounds, no murmur or gallop. Abdomen: Soft, bowel sounds normal. No guarding, rigidity, tenderness, mass, hepatosplenomegaly, distention, or bruit noted. Extremities: No leg edema. No calf tenderness. Skin: No rash, ulcer, cellulitis. Lymphatics: No lymph node enlargement in neck, supraclavicular, infraclavicular region. Neuro: No focal neurological deficit. Chest: Unremarkable. External Genitalia: Deferred. Rectal: Deferred. Laboratory Data: CAT scan of the head, no acute intracranial changes. Chest x- ray shows bibasilar pneumonia. COVID-19 test positive. WBC 18.8, hemoglobin 11.8, platelets 380. Sodium 135, potassium 4, chloride 103, bicarb 28, BUN 17, creatinine 1.15, glucose 229, lactic acid 0.9. Liver function tests unremarkable. Troponin 18.5. Urinalysis, nitrite 1+, leukocyte esterase 500, rbc more than 50, wbc more than 50, and bacteria less than 20. Impression: 1. Pneumonia. 2. Urinary tract infection. 3. COVID-19 infection. 4. Generalized weakness. 5. Debility. 6. Type 2 diabetes mellitus with diabetic neuropathy. 7. Coronary artery disease. 8. Hypertension. 9. Chronic diastolic heart failure. 10. Chronic fatigue. 11. Rosacea. 12. Stroke. Plan: We will go ahead and admit the patient to hospital for further evaluation and management of this problem. The patient is appropriate for inpatient and is expected to spend 2 midnights in hospital. Advance directive was discussed with the patient in presence of his and daughter in the emergency room and as per the patient's decision, the patient remains full code. For his pneumonia, we will go ahead and start him on IV antibiotic which is Zosyn. He already received first dose in the emergency room and we will go ahead and order some nebulizer treatment for him. Follow up on chest x-ray during this hospitalization. For urinary tract infection, we will treat it with empiric antibiotic which is Zosyn right now. Follow up on urine culture results and depending on the culture result, we will decide about culture specific antibiotic. DVT prophylaxis will be given per order. For diabetes, we will manage it with sliding scale insulin. For hypertension, we will monitor blood pressure and consider antihypertensive medication accordingly. We will consult Physical Therapy for generalized weakness, and details and plan of treatment discussed with the patient and the patient's family members. I will be out of town until Monday morning and Hospitalist Team will take over this patient's care in my absence and I have communicated details with Hospitalist. Total time spent 80 minutes including review of last hospital admission record from 04/21/2024, review of current emergency room visit record, communication with the emergency room provider, performing evaluation and management for today's admission, and review of last office visit record from Monday of this week. CHARAN/DARLYN Voice ID: [id number] MTDD
[2024-05-03 03:58] VITALS: BMI 25.1
[2024-05-03 05:33] LABS: Absolute Basophils 0.1 K/uL (0-0.5); Absolute Lymphocytes (CBC) 0.2 K/uL (0.7-4.9); Absolute Monocytes 0.9 K/uL (0.1-1.3); Absolute Neutrophil 26.5 K/uL (1.8-8.0); Basophils % 0.2 % (0-1.3); Eosinophils % 0.1 % (0-4.4); Hematocrit 37.5 % (39.6-49.0); Hemoglobin 12.3 g/dL (13.6-17.9); Lymphocytes % 0.7 % (15.3-44.8); MCHC 32.7 g/dL (32.0-36.0); MCV 91.5 fL (80-100); MPV 9.4 fL (7.6-11.3); Monocytes % 3.3 % (3.3-12.3); Neutrophils % 95.7 % (41.7-73.7); Platelets 382 thou/uL (152-406); RBC Red Blood Cell Count 4.09 M/uL (4.33-5.43); Red Cell Distribution Width 18.9 % (12.1-15.2)
[2024-05-03 05:43] LABS: Anion Gap 8.6 mEq/L (5.0-15.0); Potassium 4.6 mEq/L (3.5-5.1)
[2024-05-03 06:53] LABS: Differential Total Cells Count 100; Segmented Neutrophils 92 % (40-80)
[2024-05-03 06:54] LABS: Anisocytosis SLIGHT; Band Neutrophils 3 % (0-1); Blood Morphology Comment NOTED (NOT SEEN); Lymphocytes 1 % (15-42); Monocytes 2 % (0-10); Myelocytes 2 % (0-0); Ovalocytes 1+; Platelet Estimate ADEQ
--- NOTE | 2024-05-03 06:56 | P.PN ---
Date of Service: 05/03/24 Subjective: feels tired, but slightly improved still coughing, and some shortness of breath denies any new/worsening symptoms ROS: 10 point ROS as noted above, otherwise negative Physical Exam: GEN: Alert, oriented, appears fatigued HEENT: Normal conjunctiva, sclera anicteric CV: Regular rate and rhythm, no edema Pulm: Nonlabored respirations on 2L NC at rest, +cough, b/l crackles ABD: Soft, nontender, nondistended vitals reviewed Problem List: acute hypoxemic respiratory failure secondary to covid-19 infection, Bilateral Pneumonia, L > R presumed UTI Generalized weakness, Debility NIDDM2 with neuropathy Chronic diastolic CHF Hypertension Rosacea hx CAD s/p CABG (2021) hx CVA Bilateral Pneumonia, L > R acute Covid-19 infection Patient presents with cough, congestion, fever, weakness, fatigue, poor PO intake over the last 1-2 days. he was recently seen here ~1-2 weeks ago for acute covid-19 infection, bronchitis. He completed 5 days of paxlovid and was discharged with azithroymcin / prednisone taper he improved at home but then started to feel more weak, congested associated with fever yesterday so he came back. tested positive for Covid-19 CXR (05/02): Bibasilar pneumonia suspected; L > R continue empiric IV zosyn for now (05/02-) follow blood and urine cultures afebrile, leukocytosis 18.8 -> 27.7 (05/03) leukocytosis worsenign partly due to steroid use continue prednisone 20 mg daily nebs as needed wean oxygen as tolerated presumed UTI Urinalysis in ED noted +leuk esterase, ketones, RBC, WBC, < 20 bacteria continue empiric zosyn for now (05/02-) follow urine culture leukocytosis 18.8 -> 27.7 (05/03) reports some dysuria Generalized weakness, Debility PT to eval NIDDM2 with neuropathy accu-cheks, SSI Chronic diastolic CHF Hypertension Rosacea hx CAD s/p CABG (2021) hx CVA continue home meds as appropriate VTE: lovenox Code: Full Dispo: home, ~ 2 days pending cultures / off oxygen . PT consult Time Spent Managing Pts Care (In Minutes): 39
[2024-05-03] MEDS ORDERED: INSULIN REGULAR (HUMAN) 100 UNIT/ML SQ SCH (07:30)
[2024-05-03] MEDS: INSULIN REGULAR (HUMAN) 100 UNIT/ML SQ SCH (08:11)
[2024-05-03] MEDS: Linagliptin [Tradjenta] 5 MG Tablet PO SCH (08:28)
[2024-05-03] MEDS ORDERED: ENOXAPARIN 30 MG/0.3 ML SQ ONE (09:00)
[2024-05-03] MEDS: CLOPIDOGREL 75 MG TABLET PO SCH (09:02)
[2024-05-03] MEDS: PIPER TAZO 3.375 GM in NA CHLORIDE 0.9% 100 ML IV SCH (09:02)
[2024-05-03] MEDS: predniSONE 20 MG TAB PO SCH (09:02)
[2024-05-03] MEDS: TAMSULOSIN 0.4 MG SR CAP PO SCH (09:02)
[2024-05-03] MEDS: SENOSIDES 8.6 MG TAB PO SCH (09:02)
[2024-05-03] MEDS: ENOXAPARIN 30 MG/0.3 ML SQ SCH (09:02)
[2024-05-03] MEDS: allopurinoL 100 MG TAB PO SCH (09:02)
[2024-05-03] MEDS: AMLODIPINE 5 MG TAB PO SCH (09:02)
[2024-05-03] MEDS: METOPROLOL XL 50 MG TAB PO SCH (09:02)
[2024-05-03] MEDS: ATORVASTATIN 40 MG TAB PO SCH (20:37)
[2024-05-04 06:52] LABS: Absolute Basophils 0.2 K/uL (0-0.5); Absolute Eosinophils 0.1 K/uL (0-0.5); Absolute Lymphocytes (CBC) 0.6 K/uL (0.7-4.9); Absolute Monocytes 0.8 K/uL (0.1-1.3); Absolute Neutrophil 14.9 K/uL (1.8-8.0); Eosinophils % 0.6 % (0-4.4); Hemoglobin 10.9 g/dL (13.6-17.9); Lymphocytes % 3.5 % (15.3-44.8); MCH 30.2 pg (27.0-35.0); MCV 91.5 fL (80-100); MPV 9.3 fL (7.6-11.3); Neutrophils % 89.9 % (41.7-73.7); Nucleated Red Blood Cells % 0.1 % (0-0); Platelets 389 thou/uL (152-406); RBC Red Blood Cell Count 3.61 M/uL (4.33-5.43); Red Cell Distribution Width 18.6 % (12.1-15.2)
[2024-05-04 07:09] LABS: ALT/SGPT < 14 U/L (16-61); AST/SGOT < 10 U/L (15-37); Albumin 2.5 g/dL (3.4-5.0); Albumin/Globulin Ratio 0.8 (1.1-1.8); Alkaline Phosphatase 57 U/L (45-117); Anion Gap 4.8 mEq/L (5.0-15.0); BUN Blood Urea Nitrogen 31 mg/dL (7-18); Bicarbonate 32 mEq/L (21-32); Bilirubin Total 0.5 mg/dL (0.2-1.0); Glomerular Filtration Rate 53 ml/min (=/>90); Glucose Level 210 mg/dL (74-106); Magnesium 2.3 mg/dL (1.6-2.4); Potassium 3.8 mEq/L (3.5-5.1); Protein, Total 5.5 g/dL (6.4-8.2); Sodium Level 141 mEq/L (136-145)
[2024-05-04] MEDS: INSULIN GLARGINE 100 UNIT/ML SQ SCH ×2 (09:27→21:05)
--- NOTE | 2024-05-04 11:44 | P.PN ---
Date of Service: 05/04/24 Subjective: No acute events overnight Feeling better More energy, more strength slowly returning Still requiring oxygen supplementation ROS: 10 point ROS as noted above, otherwise negative Physical Exam: GEN: Alert, oriented, sitting up to chair HEENT: Normal conjunctiva, sclera anicteric CV: Regular rate and rhythm, no edema Pulm: Nonlabored respirations on 2L NC at rest, +cough, b/l crackles ABD: Soft, nontender, nondistended vitals reviewed Problem List: acute hypoxemic respiratory failure secondary to covid-19 infection, Bilateral Pneumonia, L > R UTI Generalized weakness, Debility NIDDM2 with neuropathy Chronic diastolic CHF Hypertension Rosacea hx CAD s/p CABG (2021) hx CVA Bilateral Pneumonia, L > R acute Covid-19 infection Patient presents with cough, congestion, fever, weakness, fatigue, poor PO intake over the last 1-2 days. he was recently seen here ~1-2 weeks ago for acute covid-19 infection, bronchitis. He completed 5 days of paxlovid and was discharged with azithroymcin / prednisone taper he improved at home but then started to feel more weak, congested associated with fever yesterday so he came back. tested positive for Covid-19 CXR (05/02): Bibasilar pneumonia suspected; L > R continue empiric IV zosyn for now (05/02-) Blood cx (05/02): NGTD afebrile, leukocytosis improving continue prednisone 20 mg daily nebs as needed wean oxygen as tolerated UTI Urinalysis in ED noted +leuk esterase, ketones, RBC, WBC, < 20 bacteria urine cx (05/02): 4+ GNR prelim continue empiric zosyn for now (05/02-) afebrile, leukocytosis improving reports some dysuria -improving though Generalized weakness, Debility PT to eval NIDDM2 with neuropathy Complicated by steroid-induced hyperglycemia accu-cheks, SSI Increase Semglee Chronic diastolic CHF Hypertension Rosacea hx CAD s/p CABG (2021) hx CVA continue home meds as appropriate VTE: lovenox Code: Full Dispo: home, ~ 2 days pending cultures / off oxygen. Time Spent Managing Pts Care (In Minutes): 39
[2024-05-05 06:07] LABS: Absolute Basophils 0.3 K/uL (0-0.5); Absolute Eosinophils 0.2 K/uL (0-0.5); Absolute Lymphocytes (CBC) 0.6 K/uL (0.7-4.9); Absolute Monocytes 1.1 K/uL (0.1-1.3); Absolute Neutrophil 12.3 K/uL (1.8-8.0); Eosinophils % 1.5 % (0-4.4); Hematocrit 31.7 % (39.6-49.0); Hemoglobin 10.6 g/dL (13.6-17.9); Lymphocytes % 4.1 % (15.3-44.8); MCH 30.4 pg (27.0-35.0); MCHC 33.3 g/dL (32.0-36.0); MCV 91.3 fL (80-100); Monocytes % 7.9 % (3.3-12.3); Neutrophils % 84.5 % (41.7-73.7); Nucleated Red Blood Cells % 0.1 % (0-0); Platelets 399 thou/uL (152-406); RBC Red Blood Cell Count 3.47 M/uL (4.33-5.43); Red Cell Distribution Width 18.3 % (12.1-15.2)
[2024-05-05 06:27] LABS: Anion Gap 7.7 mEq/L (5.0-15.0); Magnesium 2.3 mg/dL (1.6-2.4); Potassium 3.7 mEq/L (3.5-5.1)
[2024-05-05] MEDS: INSULIN REGULAR (HUMAN) 100 UNIT/ML SQ SCH (07:30)
--- NOTE | 2024-05-05 10:02 | P.PN ---
Date of Service: 05/05/24 Subjective: Feeling better each day Continues with cough, some shortness of breath, still requiring oxygen sup plementation Worked with physical therapy yesterday, ambulated 40 feet in the room with contact-guard assist using FWW ROS: 10 point ROS as noted above, otherwise negative Physical Exam: GEN: Alert, oriented, NAD HEENT: Normal conjunctiva, sclera anicteric CV: Regular rate and rhythm, no edema Pulm: Nonlabored respirations on 2L NC at rest, +cough, faint b/l crackles ABD: Soft, nontender, nondistended vitals reviewed Problem List: acute hypoxemic respiratory failure secondary to covid-19 infection, Bilateral Pneumonia, L > R UTI Generalized weakness, Debility NIDDM2 with neuropathy Complicated by steroid-induced hyperglycemia Chronic diastolic CHF Hypertension Rosacea hx CAD s/p CABG (2021) hx CVA acute hypoxemic respiratory failure secondary to covid-19 infection, Bilateral Pneumonia, L > R Patient presents with cough, congestion, fever, weakness, fatigue, poor PO intake over the last 1-2 days. he was recently seen here ~1-2 weeks ago for acute covid-19 infection, bronchitis. He completed 5 days of paxlovid and was discharged with azithroymcin / prednisone taper he improved at home but then started to feel more weak, congested associated with fever so he came back. COVID-19 positive CXR (05/02): Bibasilar pneumonia suspected; L > R continue empiric IV zosyn for now (05/02-) Blood cx (05/02): NGTD afebrile, leukocytosis improving continue prednisone 20 mg daily nebs as needed wean oxygen as tolerated UTI urine cx (05/02): 4+ GNR prelim Analyzer down, since outside lab. Reportedly will fax results to senior warehouse clerk/the floor continue empiric zosyn for now (05/02-) afebrile, leukocytosis improving Initial dysuria has improved/resolved Generalized weakness, Debility PT worked with patient 05/04, ambulated 40 feet CGA with FWW NIDDM2 with neuropathy Complicated by steroid-induced hyperglycemia accu-cheks, SSI Semglee titrated up yesterday, with borderline/low glucose this morning. Scale back on Semglee today Chronic diastolic CHF Hypertension Rosacea hx CAD s/p CABG (2021) hx CVA continue home meds as appropriate VTE: lovenox Code: Full Dispo: home, ~1-2 days pending cultures /wean oxygen. Time Spent Managing Pts Care (In Minutes): 38
[2024-05-05] MEDS: INSULIN GLARGINE 100 UNIT/ML SQ SCH (20:23)
[2024-05-06 06:16] LABS: Absolute Basophils 0.2 K/uL (0-0.5); Absolute Eosinophils 0.1 K/uL (0-0.5); Absolute Lymphocytes (CBC) 0.8 K/uL (0.7-4.9); Absolute Monocytes 0.9 K/uL (0.1-1.3); Absolute Neutrophil 11.5 K/uL (1.8-8.0); Basophils % 1.4 % (0-1.3); Eosinophils % 0.9 % (0-4.4); Hematocrit 33.2 % (39.6-49.0); Hemoglobin 10.8 g/dL (13.6-17.9); Lymphocytes % 5.7 % (15.3-44.8); MCH 29.7 pg (27.0-35.0); MCHC 32.4 g/dL (32.0-36.0); MCV 91.7 fL (80-100); MPV 8.9 fL (7.6-11.3); Monocytes % 6.7 % (3.3-12.3); Neutrophils % 85.3 % (41.7-73.7); Nucleated Red Blood Cells % 0.1 % (0-0); Platelets 414 thou/uL (152-406); RBC Red Blood Cell Count 3.62 M/uL (4.33-5.43); Red Cell Distribution Width 17.9 % (12.1-15.2)
[2024-05-06 06:42] LABS: Anion Gap 7.8 mEq/L (5.0-15.0); Magnesium 2.2 mg/dL (1.6-2.4); Potassium 3.8 mEq/L (3.5-5.1)
[2024-05-06 07:55] VITALS: O2SAT 97
--- NOTE | 2024-05-06 08:01 | RAD REPORT ---
EXAM DESCRIPTION: RADChest Single View05/06/2024 7:16 am CLINICAL HISTORY: pneumonia COMPARISON: Chest Single View dated 05/02/2024; Chest Single View dated 04/22/2024; Chest Single View d ated 04/20/2024; Chest Single View dated 01/09/2024 TECHNIQUE: Portable AP view of the chest. FINDINGS: Stable left basilar patchy airspace opacification. Stable right perihilar opacities which could relate to prominent vascular markings, interstitial, or alveolar opacification. Elevation of th e right hemidiaphragm again seen. No pneumothorax or effusion. The cardiomediastinal contours are un changed, again with sequelae of CABG. IMPRESSION: Stable findings as above, most notably with left basilar and questionable right perihila r airspace opacities, concerning for pneumonia.
[2024-05-06 10:23] LABS: Atypical Lymphocytes 1 %; Differential Total Cells Count 100; Eosinophils 1 % (0-3); Lymphocytes 8 % (15-42); Metamyelocytes 1 % (0-0); Monocytes 6 % (0-10); Myelocytes 1 % (0-0); Segmented Neutrophils 79 % (40-80)
[2024-05-06 10:24] LABS: Anisocytosis 1+; Blood Morphology Comment NOTED (NOT SEEN); Nucleated Red Blood Cells 1 /100WBC; Ovalocytes SLIGHT; Platelet Estimate INCR
[2024-05-06 12:52] VITALS: BP 134/63; TEMP 96.7
--- NOTE | 2024-05-07 03:36 | DS ---
Date of Discharge: 05/06/2024 Disposition: Discharged to go home. Physical Examination: HEENT: Unremarkable. Lungs: Clear to auscultation. Heart: Sounds normal. Abdomen: Soft. Bowel sounds normal. No guarding, rigidity, tenderness, distention. Extremities: Leg edema. Laboratory Data: Urine culture grew E. coli. For CBC upon admission, white count 18.8, hemoglobin 1 1.8, platelets 382. Today, white count 13.5, hemoglobin 10.8, platelets 414. For chemistry today, s odium 145, potassium 3.8, chloride 110, bicarb 31, BUN 26, creatinine 1.09, glucose 103. Discharge Medications And Instructions: 1.Continue all prior home medications for 1 week and prednisone 10 mg take 2 tablets daily for 3 day s, then 1 tablet daily for 3 days, then half tablet daily for 3 days, then stop. 2.Follow up at my office next week. Hospital Course: This is an 83-year-old pleasant male patient, admitted to the hospital with complai nts of fever, not feeling good, cough, and congestion. Please see dictated H and P for more informat ion. After the patient was evaluated, he was admitted to the hospital. He recently had COVID and re ceived paxlovid treatment for that. At this time, he was admitted to the hospital with urinary tract infection and pneumonia. He was started on IV antibiotic which was Zosyn and he was also started on some steroid medications. His home medications were continued. His COVID-19 test was positive and I would consider this as ongoing positive test even after successful treatment with COVID-19 with ant iviral medication called paxlovid during last hospital stay. Overall, the patient's condition improv ed. His generalized weakness has improved. He has participated well with therapy and has started to ambulate. Repeat chest x-ray today is unchanged. Urine culture result came back today and the char ent was discharged to go home in stable condition with above-mentioned medications and instructions. Final Diagnoses: 1.Pneumonia. 2.Urinary tract infection. 3.COVID-19 infection. 4.Generalized weakness. 5.Debility. 6.Type 2 diabetes mellitus with diabetic neuropathy. 7.Coronary artery disease. 8.Hypertension. 9.Chronic diastolic heart failure. 10.Chronic fatigue. 11.Rosacea. 12.Stroke. Total time spent 40 minutes. CHARAN/MODL Voice ID: [id number] Report ID: [id number]
--- NOTE | 2024-05-07 18:03 | EKG ---
Test Date: 2024-05-02 Test Time: 14:36:47 Control Chemist: MB MEASUREMENT RESULTS: Intervals: Rate: 105 ME: 156 QRSD: 92 QT: 346 QTc: 457 [place]: P: 67 ME: 156 QRS: -70 T: 72 INTERPRETIVE STATEMENTS: Sinus tachycardia with premature atrial complexes Left axis deviation Abnormal ECG Compared to ECG 04/20/2024 11:04:14 Left-axis deviation now present Aberrant conduction of supraventricular beat(s) no longer present Right superior axis no longer present ST (T wave) deviation no longer present Electronically Signed On 05-07-24 17:52:27 CDT by Tommy Etienne
== END 2024-05-06 13:57 | disposition home or self-care (01) | DRG 177 ==
LOC: ER 14:18 → ERHOLD 18:10 → 2ND 20:33
PROVIDERS: ADMIT Internal Medicine; ATTEND Internal Medicine
DX: U07.1 COVID-19 (principal); J18.9 Pneumonia, unspecified organism; J96.01 Acute respiratory failure with hypoxia; I50.32 Chronic diastolic (congestive) heart failure; N39.0 Urinary tract infection, site not specified; E11.40 Type 2 diabetes mellitus with diabetic neuropathy, unspecified; I11.0 Hypertensive heart disease with heart failure; D45 Polycythemia vera; E11.65 Type 2 diabetes mellitus with hyperglycemia; E78.5 Hyperlipidemia, unspecified; I25.10 Atherosclerotic heart disease of native coronary artery without angina pectoris; U09.9 Post COVID-19 condition, unspecified; L71.9 Rosacea, unspecified; R54 Age-related physical debility; T38.0X5A Adverse effect of glucocorticoids and synthetic analogues, initial encounter; Z95.1 Presence of aortocoronary bypass graft; Z86.73 Personal history of transient ischemic attack (TIA), and cerebral infarction without residual deficits
CPT/HCPCS: 36415; 51702; 70450; 71045; 80048; 80053; 81001; 82947; 83605; 83735; 83880; 84484; 85025; 85610; 85730; 87040; 87086; 87088; 87804; 87811; 93005; 94640; 94760; 96361; 96365; 96375; 97116; 97161; 97530; 99285; J1650; J2543; J2919; J7030; J7050; J7512; J7613; J7644

== ENCOUNTER 2024-07-19 07:22 | Inpatient (IN) | payer OTHER ==
[2024-07-19] MEDS ORDERED: FENTANYL CITR 100 MCG/2 ML ONE ×2 (07:51→10:53)
[2024-07-19 07:54] LABS: Absolute Basophils 0.2 K/uL (0-0.5); Absolute Eosinophils 0.4 K/uL (0-0.5); Absolute Lymphocytes (CBC) 0.7 K/uL (0.7-4.9); Absolute Neutrophil 16.8 K/uL (1.8-8.0); Basophils % 1.1 % (0-1.3); Hematocrit 39.9 % (39.6-49.0); Hemoglobin 12.6 g/dL (13.6-17.9); Lymphocytes % 3.5 % (15.3-44.8); MCH 28.6 pg (27.0-35.0); MCHC 31.7 g/dL (32.0-36.0); MCV 90.2 fL (80-100); MPV 9.5 fL (7.6-11.3); Neutrophils % 88.4 % (41.7-73.7); Nucleated Red Blood Cells % 0.1 % (0-0); Platelets 444 thou/uL (152-406); RBC Red Blood Cell Count 4.42 M/uL (4.33-5.43); Red Cell Distribution Width 15.5 % (12.1-15.2)
[2024-07-19 08:08] LABS: Anion Gap 6.3 mEq/L (5.0-15.0); Potassium 4.3 mEq/L (3.5-5.1)
--- NOTE | 2024-07-19 08:20 | RAD REPORT ---
EXAM: CT brain without contrast HISTORY: [facility] COMPARISON: 04/20/2024 TECHNIQUE: Multiple contiguous axial images were obtained and a CT of the brain without contrast. Sag ittal and coronal reformats were performed. FINDINGS: No evidence of hydrocephalus, intracranial hemorrhage, or extra-axial fluid collection. Moderate brain atrophy with moderate periventricular and deep white matter chronic microvascular isc hemic changes present. The calvarium is intact. The visualized paranasal sinuses and mastoid air cells are essentially clear . IMPRESSION: No evidence of acute intracranial abnormality. EXAM: CT of the cervical spine without contrast HISTORY: [facility]F COMPARISON: 04/20/2024 TECHNIQUE: Multiple contiguous axial images were obtained in a CT of the cervical spine without contr ast. Sagittal and coronal reformats were performed. FINDINGS: The vertebral bodies demonstrate normal height and alignment, with straightening of normal lordosis which may be positional or secondary to muscle spasm. No evidence of acute fracture or subluxation.. Moderate multilevel degenerative changes with annular mineralization at C5-6 and C6-7, contributing to up to moderate central canal stenosis at the C5-6 level. Variable degrees of neural foraminal narrowing, up to moderate to severe on the left at C4-5, C5-6, and C6-7. The findings are stable. No prevertebral soft tissue swelling is seen. The posterior facets are well aligned. Normal alignment of the skull base with the cervical spine is seen. The lung apices are unremarkable. IMPRESSION: No evidence of acute osseous abnormality of the cervical spine. Stable multilevel degenerative changes as above.
--- NOTE | 2024-07-19 08:25 | RAD REPORT ---
EXAMINATION: CT PELVIS WITHOUT CONTRAST CLINICAL INDICATION: Male, 84 years old.[facility] MAIN f Bed Name: 17 TECHNIQUE: CT pelvis was performed, without IV contrast, as per department protocol. Axial, sagittal and coronal reconstructions were obtained. One or more of the following dose reduction techniques were used: Automated exposure control, adjustment of the mA and/or kV according to patient size, and/ or iterative reconstruction. Unless otherwise specified, incidental findings do not require dedicated imaging follow-up. COMPARISON: No prior exam. FINDINGS: The lack of intravenous contrast limits the sensitivity of this exam for evaluation of solid visceral organs, vascular structures, and retroperitoneum. MUSCULOSKELETAL: Comminuted right femoral intertrochanteric fracture, with displacement of the lesser trochanter at the base, and comminution with up to 1.4 cm gap along fragments of the greater trochanter. Overall abduction of the distal femoral fragment. Bony pelvis appears intact. URINARY SYSTEM: No abnormalities of the included kidneys and ureters. Urinary bladder is unremarkable . GASTROINTESTINAL TRACT: Included small bowel is normal in caliber. No wall thickening or bowel inflam matory changes. LYMPH NODES: No lymphadenopathy. ABDOMINAL AORTA AND OTHER VESSELS: Normal caliber aorta and IVC. ADDITIONAL FINDINGS: Right hip periarticular soft tissue swelling, without measurable hematoma. Bulky portion of the inferior margin of the spleen is included, suggesting presence of splenomegaly. Marked prostatomegaly. Some tortuosity and mild ectasia of the infrarenal abdominal aorta. IMPRESSION: Comminuted right femoral intertrochanteric fracture as above. Other incidental findings, including suggestion of splenomegaly and marked prostatomegaly.
--- NOTE | 2024-07-19 08:48 | RAD REPORT ---
EXAMINATION: CT LUMBAR SPINE WITHOUT CONTRAST CLINICAL INDICATION: Male, 84 years old. [facility] TECHNIQUE: Axial CT images were obtained through the lumbar spine in soft tissue and bone windows wit hout intravenous contrast. Coronal and Sagittal reformatted images were created from the data set. One or more of the following dose reduction techniques were used: Automated exposure control, adjustm ent of the mA and/ or kV according to patient size, and/or iterative reconstruction. Unless otherwise specified, incidental findings do not require dedicated imaging follow-up. COMPARISON: No prior exam. FINDINGS: For purposes of this dictation, it is assumed that there are 5 non rib-bearing lumbar type vertebrae, and the most caudal fully segmented lumbar vertebra is labeled L5. ALIGNMENT: The lumbar spine demonstrates normal alignment without scoliosis or spondylolisthesis. BONES: No significant soft tissue abnormalities. No aggressive osseous lesions. Multilevel mild to mo derate degenerative changes with mild degrees of disc height loss at L2-3, L4-5, and L5-S1, with disc vacuum phenomenon. Endplate and facet remodeling contributing to mild to moderate degrees of chester ral foraminal narrowing bilaterally at L4-5 and L5-S1, and on the right at L3-4. No visualized central canal stenosis. No visualized abnormality within the spinal canal. SOFT TISSUE: No soft tissue abnormalities. IMPRESSION: No acute lumbar spine fracture or subluxation. Multilevel degenerative changes, up to moderate, with foraminal stenoses most notably at the L4-5 and L5-S1.
--- NOTE | 2024-07-19 08:55 | ER ---
Nurse's Notes [facility] Name: Lee Hernandez Age: 84 yrs Sex: Male : 1940 Arrival Date: 07/19/2024 Time: 07:22 Bed 17 Private MD: Diagnosis: Intertrochanteric fracture of femur Presentation: 07/19 07:25 Initial Sepsis Screen: Does the patient meet any 2 criteria? No. Patient's initial ll1 sepsis screen is negative. Does the patient have a suspected source of infection? No. Patient's initial sepsis screen is negative. Risk Assessment: Do you want to hurt yourself or someone else? Patient reports no desire to harm self or others. Onset of symptoms was July 19, 2024. 07:25 Acuity: CULLEN 2 ll1 07:26 Chief complaint: EMS states: R hip pain s/p slipped from bed about 2 feet. No head ll1 injury or LOC. Significant pain with movement. 20 L AC, NS 300 ml. Fentanyl 50 mcg IM, then additional Fentanyl 50 mcg IV en route. VSS. Coronavirus screen: Client denies travel out of the [place] in the last 14 days. At this time, the client does not indicate any symptoms associated with coronavirus-19. Ebola Screen: Patient denies travel to an Ebola-affected area in the 21 days before illness onset. 07:26 Method Of Arrival: EMS 1 07:26 Care prior to arrival: None. Mechanism of Injury: Fall. Trauma event details: Injury ll1 occurred in the [facility]. Triage Assessment: 07:26 General: Appears distressed, uncomfortable, Behavior is calm, cooperative, appropriate ll1 for age. Pain: Complains of pain in R hip Pain currently is 3 out of 10 on a pain scale. Quality of pain is described as aching. Derm: skin tear R elbow. Musculoskeletal: Circulation, motion, and sensation intact. Capillary refill < 3 seconds, Tenderness present in R hip Reports pain in R hip. Trauma Activation: Not Applicable Physician: ED Physician; Name: ; Notified At: ; Arrived At: Physician: General Surgeon; Name: ; Notified At: ; Arrived At: Physician: Radiology; Name: ; Notified At: ; Arrived At: Physician: Respiratory; Name: ; Notified At: ; Arrived At: Physician: Lab; Name: ; Notified At: ; Arrived At: Historical: - Allergies: 08:08 carvedilol; ll1 - PMHx: 08:08 Hypertensive disorder; Hypercholesterolemia; Congestive heart failure; ll1 - Immunization history:: Adult Immunizations up to date. - Immunization history: Last tetanus immunization: - up to date. - Infectious Disease History:: Denies. - Social history:: Smoking status: Patient denies any tobacco usage or history of. Screenin:26 [facility] ED Fall Risk Assessment (Adult) History of falling in the last 3 months, ll1 including since admission Yes- single mechanical fall (1 pt) Confusion or Disorientation No (0 pts) Intoxicated or Sedated No (0 pts) Impaired Gait Yes (1 pt) Mobility Assist Device Used Yes (1 pt) Altered Elimination Yes (1 pt) Score/Fall Risk Level 3 or more points = High Risk Maintained a safe environment, Hourly rounding (assess needs \T\ fall precautionary measures) done, Used ambulatory aids as needed (educated on \T\ assisted with). Abuse screen: Denies threats or abuse. Nutritional screening: No deficits noted. Tuberculosis screening: No symptoms or risk factors identified. Primary Survey: 07:26 NO uncontrolled hemorrhage observed. A: The client is awake and alert. The airway is ll1 patent. Breathing/Chest: Spontaneous respiratory effort, equal unlabored respirations, breath sounds clear bilaterally, regular pattern, symmetrical chest rise and fall. Circulation: No external hemorrhage present. Regular and strong central pulse, skin warm/dry/normal color. Disability Client is alert. Exposure/Environment: There is no evidence of uncontrolled external bleeding. A warming method has been applied: A warm blanket has been provided to the patient. 10:20 Reassessment Breathing: Spontaneous respiratory effort, equal unlabored respirations, ll1 breath sounds clear bilaterally, regular pattern with symmetrical chest rise and fall. Secondary Survey: 07:27 HEENT: No deficits noted. Musculoskeletal: Circulation, motion, and sensation intact. ll1 Capillary refill < 3 seconds, Tenderness present in R hip Reports pain in R hip. skin tear R elbow. Assessment: 08:28 Reassessment: No changes from previously documented assessment. Patient and/or family ll1 updated on plan of care and expected duration. Pain level reassessed. Patient is alert, oriented x 3, equal unlabored respirations, skin warm/dry/pink. family at BS. Vital Signs: 07:25 BP 153 / 85; Pulse 73; Resp 17; Temp 98.1; Pulse Ox 97% on R/A; Pain 3/10; ll1 08:20 Weight 66.22 kg; Height 5 ft. 8 in. ; ll1 08:25 BP 173 / 56; Pulse 72; Resp 17; Pulse Ox 95% on R/A; Pain 10/10; ll1 09:08 BP 153 / 71; Pulse 75; Resp 17; Pulse Ox 94% on R/A; Pain 10/10; ll1 09:38 BP 146 / 72; Pulse 72; Resp 16; Pulse Ox 95% on R/A; ll1 10:10 BP 116 / 67; Pulse 74; Resp 16; Pulse Ox 94% on R/A; Pain 8/10; ll1 08:20 Body Mass Index 22.20 (66.22 kg, 172.72 cm) ll1 07:25 Pain Scale: Adult ll1 08:25 Pain Scale: Adult ll1 09:08 Pain Scale: Adult ll1 10:10 Pain Scale: Adult ll1 [place] Coma Score: 07:26 Eye Response: spontaneous(4). Motor Response: obeys commands(6). Verbal Response: ll1 oriented(5). Total: 15. Trauma Score (Adult): 07:26 Eye Response: spontaneous(1); Verbal Response: oriented(1); Motor Response: obeys ll1 commands(2); Systolic BP: > 89 mm Hg(4); Respiratory Rate: 10 to 29 per min(4); [place] Score: 15; Trauma Score: 12 ED Course: 07:25 Arm band placed on Patient placed in an exam room, on a stretcher. ll1 07:26 Patient arrived in ED. eb 07:26 Maintain EMS IV. Dressing intact. Good blood return noted. Site clean \T\ dry. Gauge \T\ ll 1 site: 20 G L AC. Flushed with 10 mL NS IV is patent, is intact, with fluids infusing freely, with good blood return, Flushed left antecubital saline lock. 07:32 Kaiden Dixon MD is Attending Physician. ec2 07:59 CT Head C Spine In Process Unspecified. EDMS 07:59 CT Lumbar Spine Wo Con In Process Unspecified. EDMS 08:07 CT Pelvis wo Cont In Process Unspecified. EDMS 08:08 Echo Craig, RN is Primary Nurse. ll1 08:12 Triage completed. ll1 08:15 XRAY Chest (1 view) In Process Unspecified. EDMS 08:15 XRAY Pelvis In Process Unspecified. EDMS 08:20 Patient has correct armband on for positive identification. Bed in low position. Call ll1 light in reach. Side rails up X2. 08:20 Provided Education on: ER procedures and process . ll1 08:20 Patient maintains SpO2 saturation greater than 95% on room air. ll1 08:20 Thermoregulation: warm blanket given to patient. ll1 08:26 Elbow Right 3 View XRAY In Process Unspecified. EDMS 08:54 Minh Hayes MD is Hospitalizing Provider. ec2 10:20 No provider procedures requiring assistance completed. Patient admitted, IV remains in ll1 place. Administered Medications: 08:16 Drug: fentaNYL (PF) IVP 50 mcg IVP once {Note: pain 10/10 RASS 0.} Route: IVP; Site: ll1 left antecubital; 09:10 Follow up: Response: No adverse reaction; Pain is decreased; RASS: Alert and Calm (0) ll1 09:05 Drug: fentaNYL (PF) IVP 50 mcg IVP once {Note: RASS 0, pain 10/10.} Route: IVP; Site: ll1 left antecubital; 09:39 Follow up: Response: No adverse reaction; Pain is decreased; RASS: Drowsy (-1) ll1 10:20 Follow up: Response: No adverse reaction; Pain is decreased ll1 10:20 Not Given (Physician Discretion): [id number] ml IV at 125 ml/hr continuous ll1 10:20 Not Given (Physician Discretion): ns 0.9% 1000 ml IV at 100 ml/hr once ll1 Medication: 08:20 VIS not applicable for this client. ll1 Intake: 10:21 PO: 0ml; Total: 0ml. ll1 Output: 10:21 Urine: 0ml; Total: 0ml. ll1 Outcome: 08:54 Decision to Hospitalize by Provider. ec2 10:20 Admitted to OR accompanied by tech, via stretcher, with chart, ll1 10:20 Condition: stable 10:20 Instructed on the need for admit, 10:21 Patient's length of stay was not longer than 2 hours. ll1 10:21 Patient left the ED. ll1 Signatures: Dispatcher [employer] Trice Louie Lynsay, RN RN ll1 Kaiden Dixon MD MD ec2
--- NOTE | 2024-07-19 08:55 | EDPHYS ---
Physician Documentation [facility] Name: Lee Hernandez Age: 84 yrs Sex: Male : 1940 Arrival Date: 07/19/2024 Time: 07:22 Bed 17 Private MD: ED Physician Kaiden Dixon HPI: 07/19 07:40 This 84 yrs old Male presents to ER via Unassigned with complaints of fall, r ec2 hip injury. 07:40 Patient arrives today for evaluation after ground-level fall. States that he had fallen ec2 out of bed. States no loss of consciousness, no head strike, no head or neck pain. Patient complaining of right hip pain. EMS had given 50 mcg of fentanyl.. Historical: - Allergies: 08:08 carvedilol; ll1 - PMHx: 08:08 Hypertensive disorder; Hypercholesterolemia; Congestive heart failure; ll1 - Immunization history:: Adult Immunizations up to date. - Immunization history: Last tetanus immunization: - up to date. - Infectious Disease History:: Denies. - Social history:: Smoking status: Patient denies any tobacco usage or history of. ROS: 07:41 Constitutional: as per hpi ec2 Exam: 07:41 Constitutional: GEN: No acute distress HEENT: -Head: no deformities -Eyes: EOMI CV: ec2 regular rate LUNGS: no respiratory distress ABD: non-tender SKIN: no wounds appreciated MSK: No C/T/L spine deformities RUE w/o bony deformity LUE w/o bony deformity RLE TTP and deformity at the proximal femur LLE w/o bony deformity NEURO: moves all extremities equally, GCS 15 (E4, V5, M6) Vital Signs: 07:25 BP 153 / 85; Pulse 73; Resp 17; Temp 98.1; Pulse Ox 97% on R/A; Pain 3/10; ll1 08:20 Weight 66.22 kg; Height 5 ft. 8 in. ; ll1 08:25 BP 173 / 56; Pulse 72; Resp 17; Pulse Ox 95% on R/A; Pain 10/10; ll1 09:08 BP 153 / 71; Pulse 75; Resp 17; Pulse Ox 94% on R/A; Pain 10/10; ll1 09:38 BP 146 / 72; Pulse 72; Resp 16; Pulse Ox 95% on R/A; ll1 10:10 BP 116 / 67; Pulse 74; Resp 16; Pulse Ox 94% on R/A; Pain 8/10; ll1 08:20 Body Mass Index 22.20 (66.22 kg, 172.72 cm) ll1 07:25 Pain Scale: Adult ll1 08:25 Pain Scale: Adult ll1 09:08 Pain Scale: Adult ll1 10:10 Pain Scale: Adult ll1 [place] Coma Score: 07:26 Eye Response: spontaneous(4). Motor Response: obeys commands(6). Verbal Response: ll1 oriented(5). Total: 15. Trauma Score (Adult): 07:26 Eye Response: spontaneous(1); Verbal Response: oriented(1); Motor Response: obeys ll1 commands(2); Systolic BP: > 89 mm Hg(4); Respiratory Rate: 10 to 29 per min(4); [place] Score: 15; Trauma Score: 12 MDM: 07:32 Medical Screening Exam initiated ec2 07:41 Data reviewed: vital signs. ED course: Patient arrives today for evaluation after ec2 ground-level fall with complaints of right hip pain. Examination remarkable for right hip findings. Will obtain lab work, radiographs. Differential includes processes such as hip fracture, intracranial brain bleed, C-spine fracture.. 08:52 ED course: I discussed case with Dr. Hayes, orthopedic surgery who will consult, ec2 discussed case with hospitalist, Dr. Hayes who will admit.. 08:52 ED course: Patient with right hip fracture.. 2 07/19 07:32 Order name: Basic Metabolic Panel; Complete Time: 08:34 ec2 07/19 07:32 Order name: CBC with Diff ec2 07/19 07:32 Order name: Type And Screen; Complete Time: 08:34 ec2 07/19 07:32 Order name: XRAY Chest (1 view); Complete Time: 09:13 ec2 07/19 07:32 Order name: XRAY Pelvis; Complete Time: 09:13 ec2 07/19 07:42 Order name: CT Head C Spine; Complete Time: 08:34 ec2 07/19 07:42 Order name: CT Pelvis wo Cont; Complete Time: 08:34 ec2 07/19 07:42 Order name: CT Lumbar Spine Wo Con; Complete Time: 08:53 ec2 07/19 08:12 Order name: Elbow Right 3 View XRAY; Complete Time: 09:13 ec2 07/19 08:58 Order name: CONS Physician Consult EDMS 07/19 07:32 Order name: Labs collected and sent; Complete Time: 07:49 ec2 Administered Medications: 08:16 Drug: fentaNYL (PF) IVP 50 mcg IVP once {Note: pain 10/10 RASS 0.} Route: IVP; Site: ll1 left antecubital; 09:10 Follow up: Response: No adverse reaction; Pain is decreased; RASS: Alert and Calm (0) ll1 09:05 Drug: fentaNYL (PF) IVP 50 mcg IVP once {Note: RASS 0, pain 10/10.} Route: IVP; Site: ll1 left antecubital; 09:39 Follow up: Response: No adverse reaction; Pain is decreased; RASS: Drowsy (-1) ll1 10:20 Follow up: Response: No adverse reaction; Pain is decreased ll1 10:20 Not Given (Physician Discretion): [id number] ml IV at 125 ml/hr continuous ll1 10:20 Not Given (Physician Discretion): ns 0.9% 1000 ml IV at 100 ml/hr once ll1 Disposition Summary: 07/19/24 08:54 Hospitalization Ordered Notes: Hospitalization Status: Inpatient Admission ec2 Provider: Minh Hayes [facility] Condition: Stable ec2 Problem: new ec2 Symptoms: are unchanged ec2 Bed/Room Type: Standard ec2 Room Assignment: [facility](07/19/24 09:03) eb Diagnosis - Intertrochanteric fracture of femur ec2 Forms: - Medication Reconciliation Form ec2 - SBAR form ec2 - Leadership Thank You Letter ec2 Signatures: Dispatcher [employer] EDTrice Jimenez Lynsay, RN RN ll1 Kaiden Dixon MD MD ec2 Corrections: (The following items were deleted from the chart) 07:42 07:42 Pelvis Wo Cont+CT.RAD.BRZ ordered. EDMS EDMS 07:42 07:42 Spine Lumbar Wo Con+CT.RAD.BRZ ordered. EDMS EDMS 08:12 08:12 Elbow Right 3 View+RAD.RAD.BRZ ordered. EDMS EDMS 09:03 08:54 ec2 eb
--- NOTE | 2024-07-19 09:01 | RAD REPORT ---
EXAMINATION: ONE VIEW CHEST XR CLINICAL INDICATION: Male, 84 years old.,fall TECHNIQUE: Frontal chest projection is submitted. Examination is limited by patient positioning and t echnique. COMPARISON: 05/06/2024 FINDINGS: Elevation of the right hemidiaphragm again seen. Prominence of the central vasculature again seen. Th e lungs are well inflated and clear. No pneumothorax or sizable effusion. The heart is normal in size. Mediastinal contours are unchanged, with sequelae of CABG. IMPRESSION: No acute intrathoracic abnormalities. Stable findings as above.
--- NOTE | 2024-07-19 09:05 | RAD REPORT ---
EXAMINATION: XR PELVIS CLINICAL INDICATION: Male, 84 years old. [facility] MAIN ground level fall, hip injury Bed Name: 17 TECHNIQUE: AP Pelvis radiograph was obtained. COMPARISON: CT pelvis of the same day FINDINGS: Comminuted right femoral intertrochanteric fracture, with a degree of abduction of the dist al femoral fragment. Pelvic bones are intact. No evidence of AVN. Soft tissues are unremarkable. IMPRESSION: Comminuted right femoral intertrochanteric fracture as above.
--- NOTE | 2024-07-19 09:09 | RAD REPORT ---
EXAMINATION: XR Elbow Right 3 View CLINICAL INDICATION: Male, 84 years old. elbow injury RIGHT TECHNIQUE: 3 view radiographs of the right elbow were obtained. COMPARISON: No prior exam. FINDINGS: No evidence of a discrete fracture or dislocation. Normal alignment although suboptimal pos itioning on the AP view somewhat limits evaluation. Corticated densities projecting at the level of the supratrochlear humerus anteriorly, may relate to sequelae of remote ligamentous injury. Elevation of the anterior elbow fat pad suggesting mild joint effusion. No evidence of arthropathy. No suspicious focal bone lesion. Soft tissues are unremarkable. IMPRESSION: Suggestion of mild joint effusion which could indicate an occult fracture.
[2024-07-19 10:23] LABS: Atypical Lymphocytes 1 %; Band Neutrophils 1 % (0-1); Blood Morphology Comment NOT SEEN (NOT SEEN); Differential Total Cells Count 100; Eosinophils 3 % (0-3); Lymphocytes 3 % (15-42); Monocytes 3 % (0-10); Platelet Estimate INCR; Segmented Neutrophils 85 % (40-80)
[2024-07-19] MEDS: NA CHLORIDE 0.9% 1,000 ML ONE ×2 (10:25→15:09)
[2024-07-19 10:34] VITALS: O2SAT 95
[2024-07-19] MEDS ORDERED: CEFAZOLIN SODIUM 1 GM/VIAL ONE (10:38)
[2024-07-19] MEDS ORDERED: TRANEXAMIC ACID 1,000 MG/10 ML VIAL IV ONE (10:38)
[2024-07-19] MEDS ORDERED: propofoL 200 MG/20 ML VIAL IV ONE (10:53)
[2024-07-19] MEDS ORDERED: LIDOCAINE 1% MPF 5 ML VIAL ONE (10:53)
[2024-07-19] MEDS: INSULIN REGULAR (HUMAN) 100 UNIT/ML ONE (11:01)
[2024-07-19] MEDS: FENTANYL CITR 100 MCG/2 ML ONE (11:22)
[2024-07-19 13:22] VITALS: BP 170/72; TEMP 97
[2024-07-19] MEDS ORDERED: MORPHINE 2 MG/ML SYR IV PRN (13:55)
[2024-07-19] MEDS ORDERED: MORPHINE 4 MG/ML SYR IV PRN (13:56)
[2024-07-19] MEDS ORDERED: AMLODIPINE 5 MG TAB PO PRN (13:57)
[2024-07-19] MEDS ORDERED: ONDANSETRON 4 MG/2 ML VIAL IV PRN (13:57)
[2024-07-19] MEDS ORDERED: NA CHLORIDE 0.9% 1,000 ML IV SCH (14:00)
[2024-07-19] MEDS ORDERED: ACETAMINOPHEN 500 MG TAB PO PRN (14:03)
[2024-07-19 14:22] VITALS: BMI 22.1
[2024-07-19] MEDS: MORPHINE 4 MG/ML SYR ONE (15:09)
--- NOTE | 2024-07-19 15:57 | CON ---
Date of Consultation: 07/19/2024 Reason For Consultation: Right hip pain. History Of Present Illness: Lee is an 84-year-old male who presented to the ER today after sustai gini a fall on the right side with subsequent pain, inability to bear weight. The patient mobilized using the aid of a walker normally. He denies any other musculoskeletal complaints at this time. He reports pain with range of motion of the right hip. He had x-rays in the emergency room that demons trated a right intertrochanteric femur fracture. Past Medical History: Includes hypertension, hypercholesterolemia, congestive heart failure. Allergies: CARVEDILOL. Social History: Denies tobacco or alcohol use. Lives at home. Physical Examination: General: No apparent distress. HEENT: Normocephalic, atraumatic. Neck: Supple. Cardiovascular: Brisk cap refill to all digits. Chest: Nonlabored breathing. Abdomen: Nondistended. Psychiatric: Response to exam. Musculoskeletal: Bilateral upper extremities functional range of motion without pain. No gross defo rmities. No obvious dislocations. Left lower extremity functional range of motion without pain. No gross deformities. No obvious dislocations. Right lower extremity tenderness to palpation of the r ight hip pain with range of motion left hip. The patient was intact to the dorsal plantar surface of the right foot. No tenderness over the knee, tibia, or ankle. X-rays: Diagnostic studies demonstrated a right intertrochanteric femur fracture comminution. Assessment/plan: Mr. Hernandez is an 84-year-old male with a right intertrochanteric femur fracture. I discussed with the patient and his family at length the diagnosis as well as treatment plan, continue d unstable fracture pattern. We will proceed with right hip cephalomedullary fixation. The risks an d benefits associated with the procedure were discussed with the patient and his family at length and they expressed understanding. We will proceed with surgery later today. The patient did not take h is Plavix this morning. Physical Therapy will be consulted postoperatively to aid with mobilization. CV/MODL Voice ID: [id number] Report ID: [id number]
[2024-07-19] MEDS ORDERED: INSULIN REGULAR (HUMAN) 100 UNIT/ML SQ SCH (16:30)
--- NOTE | 2024-07-19 20:22 | HP ---
Date of Admission: 07/19/2024 Chief Complaint: Fall and hip pain. History Of Present Illness: 84-year-old very pleasant male patient who lives at home with his who was getting up to go to the bathroom and as he was walking with the walker, he felt like his right knee all of a sudden gave out and he ended up falling on the floor and immediately started complaining of right hip pain. Was not able to get up and was brought into emergency room. After he was evaluated in the ER, he was diagnosed as having right hip intertrochanteric fracture and patient was admitted to the hospital for further evaluation and management of this problem. I saw him in the emergency room and patient's and daughter they both were present with him at bedside. Allergies: NO KNOWN ALLERGIES. Medications: List reviewed. The patient has not taken any of his medications for today. Review of Systems: Musculoskeletal: Right hip pain. All other systems reviewed and negative. Past Medical History: Significant for hypertension, type 2 diabetes mellitus, diabetic neuropathy, hyperlipidemia, leg swelling, prior history of stroke, coronary artery disease, polycythemia vera, kidney stone, chronic fatigue, chronic diastolic heart failure, memory problem, rosacea. Past Surgical History: Significant for surgery on left eye; tonsillectomy; coronary artery angioplasty with stent placement; coronary artery bypass surgery on November 20, 2021; hemorrhoid surgery; TURP; surgery on cervical spine; removal of squamous cell carcinoma from skin; and incision and drainage for abscess. Family History: Father and mother due to myocardial infarction. Brother and had congestive heart failure and myocardial infarction. Sister , had asthma and breast cancer. Social History: Prior history of smoking, not at present time. Use of alcohol negative. Physical Examination: Vital Signs: Weight 146 pounds, height 5 feet 8 inches, temperature 98.1, pulse 73, respiratory rate 17, blood pressure 153/85, oxygen saturation 97%. General: Awake, alert, oriented, not in distress. HEENT: Head atraumatic, normocephalic. Conjunctivae nonerythematous. Sclerae white. Mouth, no thrush or edema noted. Ears/Nose, no mass, lesion, discharge noted. Neck: Supple. No JVD, lymph nodes, bruit, thyromegaly noted. Lungs: Bilateral good equal air entry. Clear to auscultation. No rhonchi. No rales. Heart: Normal heart sounds, no murmur or gallop. Abdomen: Soft, bowel sounds normal. No guarding, rigidity, tenderness, mass, hepatosplenomegaly, distention, or bruit noted. Extremities: Right elbow has a small superficial skin tear and some contusion. Skin: No rash, ulcer, cellulitis. Lymphatics: No lymph node enlargement in neck, supraclavicular, infraclavicular region. Neuro: No focal neurological deficit. Chest: Unremarkable. External Genitalia: Deferred. Rectal: Deferred. Laboratory Data: WBC 19, hemoglobin 12.6, platelets 444. Sodium 138, potassium 4.3, chloride 106, bicarb 30, BUN 22, creatinine 1.15, glucose 255. CAT scan of the head and cervical spine was negative for any acute changes. CAT scan of the pelvis shows right hip intertrochanteric fracture. CAT scan of lumbar spine shows evidence of degenerative joint disease, foraminal stenosis, no fracture. Chest x-ray was negative for any acute intrathoracic changes. Pelvis x-ray shows comminuted right hip intertrochanteric fracture. Right elbow x-ray was negative for any fracture but did show small joint effusion. Impression: 1. Right hip intertrochanteric fracture. 2. Type 2 diabetes mellitus with diabetic neuropathy. 3. Coronary artery disease. 4. Hypertension. 5. Chronic diastolic heart failure. 6. Polycythemia vera. 7. Chronic fatigue. 8. Rosacea. 9. Stroke. Plan: Admit patient to hospital for further evaluation and management of this problem. The patient is appropriate for inpatient and is expected to spend 2 midnights in hospital. We will go ahead and consult orthopedic surgeon, Dr. Finley, who is on-call from Orthopedic Surgery and I have discussed details with him. The patient is at acceptable risk from planned surgery. He has not had any of his medications today and we will keep him NPO today and Dr. Finley is planning to do surgery this afternoon. We will give him maintenance IV fluid and give pain medication and nausea medication per order. For his coronary artery disease, he takes Plavix. Last dose was yesterday and this was discussed with orthopedic surgeon as well. For diabetes, we will manage it with sliding scale insulin. We will continue his medication for his polycythemia that he takes, and for hypertension, we will continue his antihypertensive medication per order. Monitor blood pressure, if necessary. Adjust blood pressure medication. After the surgery, we will give appropriate DVT prophylaxis. Total time spent today was 85 minutes that includes review of last hospital admission record from 05/02/2024, communication with the emergency room physician, communication with orthopedic physician, performing evaluation and management for this hospital admission. CHARAN/DARLYN Voice ID: [id number]
[2024-07-19] MEDS ORDERED: ATORVASTATIN 40 MG TAB PO SCH (21:00)
[2024-07-19] MEDS ORDERED: METOPROLOL TAR 50 MG TAB PO SCH (21:00)
[2024-07-20] MEDS ORDERED: OXYBUTYNIN ER 5 MG TAB PO SCH (09:00)
[2024-07-20] MEDS ORDERED: TAMSULOSIN 0.4 MG SR CAP PO SCH (09:00)
[2024-07-20] MEDS ORDERED: allopurinoL 100 MG TAB PO SCH (09:00)
--- NOTE | 2024-07-20 11:31 | DS ---
Date of Discharge: 07/19/2024 Disposition: The patient was transferred to [facility] in [place] for higher level of care. Hospital Course: This is an 84-year-old very pleasant male patient who lives at home with his , was brought into emergency room after he fell down at home with complaints of right hip pain. Please see dictated H and P for more information. After the patient was evaluated in the emergency room, o rthopedic surgeon on-call, Dr. Finley, was consulted and the patient was kept n.p.o. as Dr. Finley was pl anning to do surgery for his right hip intertrochanteric fracture. The patient was in the preop area and at that time they found out that certain part of the piece of equipment on the operating table w as missing and without that we will not be able to do surgery at our hospital, so Dr. Finley contacted me with that information and we do not know when we will get this particular piece of equipment at [facility] in order for us to do surgery, but it may look like it would not be available until either middle or later part of next week and with that in mind, decision was made to transfer the patient t [facility] where he can have surgical repair for this hip fracture and Dr. Finley did communicate with teodoro rodriguez regarding these details. Transfer center was contacted. I did communicate with the hospitalis t at the accepting facility and details were discussed with her and she accepted the patient and afte r all the arrangements completed, the patient was transferred via ground ambulance with all current m edications and orders. Final Diagnoses: 1.Right hip intertrochanteric fracture. 2.Type 2 diabetes mellitus with diabetic neuropathy. 3.Coronary artery disease. 4.Hypertension. 5.Chronic diastolic heart failure. 6.Polycythemia vera. 7.Chronic fatigue. 8.Rosacea. 9.Stroke. Total time spent for discharge care was 20 minutes and total time spent for admission was 85 minutes, so aggregate time is 105 minutes time spent providing care for th is admission for today. CHARAN/MODL Voice ID: [id number] Report ID: [id number]
--- NOTE | 2024-07-22 12:20 | EKG ---
Test Date: 2024-07-19 Test Time: 11:31:56 Stock Patch Sawyer: PADMINI MEASUREMENT RESULTS: Intervals: Rate: 83 MA: 180 QRSD: 104 QT: 400 QTc: 470 [place]: P: 49 MA: 180 QRS: -52 T: 36 INTERPRETIVE STATEMENTS: Normal sinus rhythm Left anterior fascicular block Abnormal ECG Compared to ECG 05/02/2024 14:36:47 Left anterior fascicular block now present Sinus tachycardia no longer present Atrial premature complex(es) no longer present Left-axis deviation no longer present Electronically Signed On 07-22-24 12:16:27 DIATHERMY EQUIPMENT REPAIRER by Tommy Etienne
== END 2024-07-19 14:45 | disposition short-term general hospital (02) | DRG 536 ==
LOC: ER 07:22 → SUPCPDRO 07:22 → ERHOLD 08:55 → 2ND 10:04
PROVIDERS: ADMIT Internal Medicine; ATTEND Internal Medicine
DX: S72.141A Displaced intertrochanteric fracture of right femur, initial encounter for closed fracture (principal); I50.32 Chronic diastolic (congestive) heart failure; I11.0 Hypertensive heart disease with heart failure; E78.00 Pure hypercholesterolemia, unspecified; E11.40 Type 2 diabetes mellitus with diabetic neuropathy, unspecified; D45 Polycythemia vera; L71.9 Rosacea, unspecified; I25.10 Atherosclerotic heart disease of native coronary artery without angina pectoris; Z53.8 Procedure and treatment not carried out for other reasons; Z95.5 Presence of coronary angioplasty implant and graft; Z86.73 Personal history of transient ischemic attack (TIA), and cerebral infarction without residual deficits
CPT/HCPCS: 36415; 70450; 71045; 72125; 72131; 72170; 72192; 80048; 82947; 85025; 86850; 86900; 86901; 93005; 96374; 99285; J0690; J2003; J2704; J3010; J7030